=== PATIENT | female | born 1940 | race Caucasian/White ===

== ENCOUNTER 2017-09-04 20:01 | Inpatient (IN) | payer MEDICARE, BC ==
[~2017-09-04 20:01] MED LIST: ISOVUE-370 76%-LOCM 1 ML ONE
--- NOTE | 2017-09-04 20:31 | RAD ---
CHEST TWO VIEW 09/04/17 HISTORY: Chest pain. COMPARISON: Chest one view 06/04/17. FINDINGS: The heart size is enlarged. Linear opacities in both lung bases. Mild pulmonary venous congestion. There is S-shaped scoliosis of the thoracolumbar spine. Calcifications of the transverse aorta. Moderate degenerative disease of the shoulder joints. Severe vascular calcifications of the aorta. IMPRESSION: 1. Cardiomegaly with pulmonary venous congestion. 2. Atelectasis or scarring in the lung bases. POS: [facility]
[2017-09-04 20:38] LABS: #Eosinphils 0.1 thou/uL (0.0-0.7); #Lymphocytes 1.5 thou/uL (1.20-3.40); #Monocytes 0.7 thou/uL (0.11-0.59); #Neutrophils 4.8 thou/uL (1.40-6.50); %Basophils 0.3 % (0.0-1.0); %Eosinophils 1.7 % (0.0-10.0); %Lymphocytes 20.9 % (21.0-51.0); %Monocytes 9.1 % (0.0-10.0); Hematocrit 48.1 % (36.0-47.0); Mean Platelet Volume 7.6 fL (7.4-10.4); Red Blood Cell (RBC) Count 5.18 mill/uL (4.20-5.40); White Blood Cell (WBC) Count 7.1 thou/uL (4.8-10.8)
[2017-09-04 20:59] LABS: ALT (SGPT) 28 U/L (8-55); AST (SGOT) 30 U/L (5-34); Alkaline Phosphatase 73 U/L (40-150); Anion Gap 13 mmol/L (10-20); BUN (Urea Nitrogen) 17 mg/dL (9.8-20.1); Bilirubin, Total 1.6 mg/dL (0.2-1.2); CK (CPK) 69 U/L (29-168); Calc. Creatinine Clearance 0 mL/min (70-130); Calcium 9.5 mg/dL (7.8-10.44); Carbon Dioxide 29 mmol/L (23-31); Chloride 102 mmol/L (98-107); Estimated GFR-MDRD 59; Protein, Total 7.1 g/dL (6.0-8.3)
[2017-09-04 21:04] LABS: Troponin I 0.021 ng/mL (< 0.028)
[2017-09-04] MEDS ORDERED: Nitroglycerin 2% Ointment 1 INCH/1 GM Packet ONE (21:09)
[2017-09-04 21:21] LABS: PTT 28.9 SEC (22.9-36.1)
--- NOTE | 2017-09-04 21:52 | CT ---
CT BRAIN WITHOUT CONTRAST 09/04/17 HISTORY: Altered mental status. COMPARISON: CT brain from 2010. FINDINGS: No acute territorial infarct or hemorrhage. No midline shift or mass effect. Moderate atrophy. Modera te microvascular ischemic changes of the deep white matter of the anglin radiata bilaterally. Paranasal sinuses and mastoids are clear. Calvarium is intact. Orbits are unremarkable. IMPRESSION: 1. No acute intracranial abnormality. 2. Moderate atrophy and microangiopathic changes. POS: [facility]
--- NOTE | 2017-09-04 22:39 | CT ---
CTA CHEST WITH CONTRAST CTA ABDOMEN WITH CONTRAST 09/04/17 HISTORY: Altered mental status, asymmetric upper extremity blood pressures. COMPARISON: None. TECHNIQUE: CT angiogram of chest and abdomen performed for dissection protocol. 3D rendering provided. FINDINGS: Nodules in both lobes of the thyroid. The great vessels are ectatic. Pulmonary trunk is enlarged at 31 mm. There is approximately 50% narrowing of the proximal left subcl kathryn artery due to calcific plaque. There is also approximately 50% narrowing of the left vertebral artery due to calcific plaque and 30-40% narrowing of the right vertebral artery origin from soft sekou que. The heart size is markedly enlarged. There is no aortic dissection. There are a total of what appear to be three nodules in the superior segment right upper lobe. Larges t nodule measuring 9 mm and two smaller nodules measuring 4 and 5 mm. There is also a small adjacent nodule measuring 4 mm. Superior mesenteric artery and the celiac trunk are both patent. Moderate to severe S-shaped scoliosis of the thoracolumbar spine with severe degenerative disease of the disc spaces. No dilated loops of large or small bowel in the abdomen. Hypodensity in the superior pole right kidne y measuring 13 mm. Although measures greater than fluid attenuation and is indeterminate. Multiple bi lateral too small to characterize hypodensities are present. Calcified cholelithiasis is present. The spleen is unremarkable. There is a hypodensity within the pa ncreatic tail measuring 8 mm. No extrahepatic biliary dilatation. Too small to characterize hypodensity is present within hepatic s egment VII measuring 5 mm. IMPRESSION: 1. No aortic dissection. 2. New from 06/04/17 are nodular densities in superior segment of right lower lobe. Given the rap id development, infectious etiology is likely. Followup could be obtained in six months. 3. Marked cardiomegaly. 4. No aortic dissection. 5. Pulmonary trunk enlargement suggesting pulmonary arterial hypertension. 6. Hypodensity of the superior pole of the right kidney appears to have measured fluid attenuati on on prior examination, therefore is likely a cyst. 7. 8 mm hypodensity of the pancreatic tail. Followup MRI of the pancreas with and without contra st in six months. 8. Approximately 50% narrowing of the left subclavian artery origin from the transverse aorta du e to calcific and soft plaque. 9. Narrowing of the left vertebral artery approximately 50% due to calcific and soft plaque with 30-40% narrowing of the proximal right vertebral artery due to soft plaque. 10. Calcified cholelithiasis. POS: [facility]
[2017-09-04 22:55] LABS: Bilirubin Negative (Negative); Glucose, Urine (Dipstick) Negative (Negative); Ketone, Urine Negative (Negative); Nitrite Negative (Negative); Protein, Urine (Dipstick) Negative (Neg-Trace)
[2017-09-04 23:02] LABS: Bacteria/HPF None Seen HPF (None Seen); Hyaline Casts/LPF 4-6 HYALINE CAST LPF (0-3 Hyaline); Squamous Epithelial None Seen HPF (0-3)
[2017-09-04 23:05] LABS: Blood, Urine Negative (Negative)
[2017-09-04 23:11] LABS: RBC/HPF 0-3 HPF (0-3)
[2017-09-05] MEDS ORDERED: Nitroglycerin 2% Ointment 1 INCH/1 GM Packet ONE (00:22)
[2017-09-05 01:10] LABS: Troponin I 0.031 ng/mL (< 0.028)
[2017-09-05 01:30] VITALS: BMI 32.1
[2017-09-05] MEDS ORDERED: Ondansetron ODT 4 MG TAB SL PRN (01:31)
[2017-09-05] MEDS ORDERED: Acetaminophen 325 MG TAB PO PRN (01:31)
[2017-09-05] MEDS ORDERED: HYDROcodone/Acetaminophen 5/325 mg Tablet PO PRN ×2 (01:31)
[2017-09-05] MEDS ORDERED: Ondansetron HCl/PF 4 MG/2 ML Vial IVP PRN (01:31)
[2017-09-05] MEDS ORDERED: Nitroglycerin 2% Ointment 1 INCH/1 GM Packet TOP SCH (01:45)
[2017-09-05 04:31] LABS: Troponin I 0.019 ng/mL (< 0.028)
[2017-09-05] MEDS ORDERED: Aspirin 325 MG TAB PO SCH (09:00)
[2017-09-05] MEDS: Isosorbide Dinitrate 20 MG TAB PO SCH ×2 (11:58→20:56)
[2017-09-05] MEDS ORDERED: Potassium Chloride 10 MEQ TAB PO SCH ×2 (12:00→18:00)
[2017-09-05] MEDS: hydrALAZINE 25 MG TAB PO SCH ×2 (12:00→20:55)
[2017-09-05] MEDS ORDERED: Hydrochlorothiazide 25 MG TAB PO SCH (12:00)
[2017-09-05] MEDS ORDERED: PARoxetine 20 MG TAB PO SCH (12:00)
[2017-09-05] MEDS ORDERED: Apixaban 5 MG TAB PO SCH (12:00)
[2017-09-05] MEDS ORDERED: Sotalol HCl 80 MG TAB PO SCH (12:00)
[2017-09-05] MEDS: Fish Oil 1,000 MG CAP PO SCH ×2 (12:03→20:57)
[2017-09-05] MEDS: Lorazepam 0.5 MG TAB PO SCH (12:04)
--- NOTE | 2017-09-05 13:04 | HP ---
PRIMARY CARE PHYSICIAN: Dr. Ganga Boland CHIEF COMPLAINT: Near syncope. HISTORY OF PRESENT ILLNESS: This is a 76-year-old female patient with known coronary disease, status post coronary bypass graft, cardiac catheterization, history of paroxysmal atrial fibrillation, status post ablation in 2009 presented to the emergency department following an episode yesterday evening of feeling poorly. The patient states she was in her usual state of health. She was sitting on her couch at about 6:00 p.m. when she had an episode of feeling off balance, possibly some pressure and some diaphoresis during the episode. She said the episode lasted about 5-10 minutes and then resolved spontaneously. She did not pass out, but felt like she was "going in and out." She does have a history of atrial fibrillation, status post ablation, but had been in normal sinus. She states that she had an episode similar to this several months ago which resolved, but felt worse that last time. She presented to the emergency department, she was in normal sinus rhythm. She ruled out for an PA, but due to her episode and feeling off balance she was admitted for rule out PA protocol and further evaluation. This morning she felt back at her baseline. She felt really well and then as the morning progressed, she started feeling the episode again. Of note, the nurses did notice that she went back into atrial fibrillation this morning as well. She was admitted for chest pain, rule out PA in 05/2017. She had an unremarkable hospital stay. She followed up with Dr. Wallace and had a PET scan, which she reports was negative at that time. PAST MEDICAL HISTORY: Coronary artery disease, paroxysmal atrial fibrillation, hypertension, hyperlipidemia, anxiety. MEDICATIONS: Eliquis 5 mg b.i.d., calcium plus D twice a day, Coreg 12.5 mg b.i.d., CoQ 10 once daily, pantoprazole 40 mg daily, BiDil 3 times a day, lorazepam 0.5 mg daily p.r.n. anxiety, fish oil 1000 mg 3 times a day, paroxetine 40 mg daily, Betapace 80 mg b.i.d., simvastatin 80 mg daily, Zetia 10 mg daily, hydrochlorothiazide 25 mg daily, potassium chloride 10 mEq once daily. ALLERGIES: LASIX, and SULFA. PAST SURGICAL HISTORY: Ablation for atrial fibrillation in 2009, coronary bypass graft in 1999, cardiac catheterization in 2013. FAMILY HISTORY: Noncontributory. SOCIAL HISTORY: She denies alcohol. Denies tobacco. Denies drug use. She is . She lives with her at home and her daughter is nearby. REVIEW OF SYSTEMS: As per the history of present illness. GENERAL: She denies any recent fevers, chills or recent illness. HEENT: Denies headache, visual or hearing changes. She does state that she does have some problems finding words at a time. CARDIAC: As per the history of present illness. She denies chest pain, shortness of breath or palpitations. PULMONARY: Denies cough, shortness of breath, hemoptysis. GASTROINTESTINAL: Some nausea, no vomiting, no diarrhea. GENITOURINARY: Denies dysuria or hematuria. NEUROLOGIC: She states that she was told that she has had a stroke in the past and has had some problems finding words since that time. MUSCULOSKELETAL: Occasional joint pains. PHYSICAL EXAMINATION: VITAL SIGNS: Temperature 97.6, pulse of 89 and irregular, respirations 16, blood pressure 141/69, pulse ox 94% on room air. GENERAL: She is awake and alert. She appears anxious during the exam. HEENT: Mucosa is moist. NECK: Supple. No bruits. HEART: Irregular, irregular. LUNGS: Clear bilaterally. ABDOMEN: Soft, nontender, nondistended. No hepatosplenomegaly. EXTREMITIES: Trace edema bilaterally. NEUROLOGIC: Cranial nerves II-XII grossly intact. Strength is 5/5 bilaterally. LABORATORY DATA: White blood cell count 7.1, hemoglobin hematocrit 15.7 and 48.1, platelets 167. PT, PTT were normal. Sodium 141, potassium 3.3, chloride 102, CO2 29, BUN and creatinine 17 and 0.92, serum glucose 117, calcium 9.5, bilirubin 1.6, AST and ALT are normal. Cardiac enzymes are negative x3. Lipase 39. Urinalysis with high specific gravity, moderate leukocytes, but no bacteria. Chest x-ray revealed cardiomegaly with pulmonary vascular congestion, but no infiltrate, possibly atelectasis or scarring at the lung bases. Brain CT showed moderate atrophy. CT dissection protocol was done last night which revealed no dissection, but several nodular densities in the right lower lobe, possibly infectious. Recommend follow up in 6 months'. Marked cardiomegaly and large pulmonary trunk suggesting pulmonary artery hypertension, right renal cyst, 8 mm hypodensity in the pancreatic tail, recommended follow up MRI in 6 months, 50% narrowing of the left subclavian artery with calcific and soft plaque, 50% left vertebral artery narrowing with calcific and soft plaque and 30 -40% narrowing of the proximal right vertebral artery due to soft plaque, calcified cholelithiasis. ASSESSMENT AND PLAN: 1. This is a 76-year-old female patient with known coronary artery disease and paroxysmal atrial fibrillation, now status post a near syncopal episode. She apparently seems to be back in atrial fibrillation. She may have converted to normal sinus last night. We will continue Eliquis and start aspirin. We will consult Cardiology for evaluation for possibly other antiarrhythmics. 2. Coronary artery disease. Will continue Eliquis and aspirin. 3. Hypertension, stable on her medicines. 4. Hyperlipidemia. We will continue simvastatin and Zetia. 5. Anxiety. We will continue Paxil, possibly increase Ativan p.r.n. 6. Known atherosclerosis. We will continue statins and antiplatelet therapy. 7. Nodular densities in her lung. She is not symptomatic. I will agree with follow up in 6 months as well as for the hypodensity in the pancreas. 8. Code status. I had a long discussion with the patient, she desires DNR status at this time. She will notify her and her daughter as well of her decisions. KAMILAH
[2017-09-05] MEDS: Carvedilol 25 MG TAB PO SCH ×2 (13:12→21:17)
[2017-09-05] MEDS ORDERED: Non-Formulary Item 1 EACH (Isosorb Dinit/Hydralazine Hcl [Bidil] 1 TABLET) PO SCH (15:00)
--- NOTE | 2017-09-05 16:09 | CON ---
DATE OF CONSULTATION: 09/05/2017 REASON FOR CONSULTATION: Atrial fibrillation. HISTORY OF PRESENT ILLNESS: Ms. Malik is a 76-year-old, patient of Dr. Cristiano Wallace. The patient states that she began to feel weak and fatigued and just not feeling well at all yesterday evening. She has a history of paroxysmal atrial fibrillation. She came to the emergency room. She began to feel better, just before arriving here. On arrival here, she was in normal sinus rhythm. The patien t was brought in for observation. She did not receive sotalol last night. She had recurrent atrial fibrillation this morning at about 8:00 a.m. She began to feel badly again. She can feel her heart racing when she goes into atrial fibrillation, this does not feel well. She is maintained atrial fib rillation since then. The patient otherwise states that she does not have chest pain or pressure, but does feel short of br eath and these symptoms seem to correlate when she goes into atrial fibrillation. She had a recent P ET scan which did not show ischemia. The patient otherwise has been in relatively good physical condition for her age. PAST MEDICAL HISTORY: 1. Coronary artery disease. 2. Paroxysmal atrial fibrillation, highly symptomatic. 3. Previous atrial fibrillation ablation. 4. Hypertension. 5. Hyperlipidemia. MEDICATIONS: 1. Eliquis 5 mg twice daily. 2. Coreg 12.5 mg twice daily. 3. CoQ10. 4. BiDil. 5. Lorazepam. 6. Betapace. 7. Simvastatin. ALLERGIES: LASIX and SULFA. PAST SURGICAL HISTORY: Atrial fibrillation ablation in 2009, previous bypass surgery in 1999, cardia c catheterization in 2013. She had single vessel bypass in the year 1999. She had catheterization i n 2013. The graft had occluded, but there is only moderate stenosis in the vesicles. SOCIAL HISTORY: Denies alcohol. Lives with her . REVIEW OF SYSTEMS: Constitutional: No significant weight gain or loss. Vision: No changes. Heari ng: No changes. Pulmonary: No cough or wheezing. Gastrointestinal: No nausea, vomiting, or diarr hea. Skin: No rashes. Neurologic: No unilateral weakness or numbness. Psychiatric: No unusual d epression or anxiety. Hematologic: No unusual bruising. Genitourinary: No burning with urination. PHYSICAL EXAMINATION: GENERAL: A pleasant elderly woman in no distress. She does become apprehensive at times when talkin g about the fibrillation. VITAL SIGNS: Blood pressure is 146/96, pulse 100, irregular. HEENT: Sclerae nonicteric. Mouth mucous membranes moist. NECK: Supple, no lymphadenopathy. LUNGS: Clear, no wheezing, rales or rhonchi. CARDIAC: Irregularly irregular. No murmur, rub or gallop. ABDOMEN: Soft, nontender, no hepatosplenomegaly. EXTREMITIES: Warm, dry, no clubbing or cyanosis. There is mild edema. LABORATORY AND X-RAY FINDINGS: EKG when she came to the hospital last night showed sinus rhythm with some PACs and sinus arrhythmia, heart rate was 66. EKG later this morning showed atrial fibrillatio n with a rapid rate, rate of 120, some of the pattern looks like it could be atrial flutter, but most ly it is atrial fibrillation. EKG at 11:43 shows atrial fibrillation. ASSESSMENT: 1. Atrial fibrillation, paroxysmal, recurrent. She did miss a dose of sotalol last night. 2. Hypertension. 3. Coronary artery disease, stable. PLAN: 1. Continue sotalol. 2. Discussed changing to amiodarone, discussed potential side effects including pulmonary disease. The patient does not wish to pursue that at this point. 3. She is also allergic to SULFA. Fortunately, there is no SULFA in amiodarone. We will reassess to julito.
[2017-09-05] MEDS ORDERED: Potassium Chloride 20 MEQ TAB PO SCH (18:00)
[2017-09-05] MEDS: Sotalol HCl 80 MG TAB PO SCH (20:56)
[2017-09-05] MEDS: Calcium Carbonate + Vit D 1 TAB PO SCH (20:56)
[2017-09-05] MEDS: Ubidecarenone 50 MG CAP PO SCH (20:57)
[2017-09-05] MEDS: Apixaban 5 MG TAB PO SCH (20:57)
[2017-09-05] MEDS ORDERED: Simvastatin 40 MG TAB PO SCH (21:00)
[2017-09-05] MEDS ORDERED: Ezetimibe 10 MG TAB PO SCH (21:00)
[2017-09-05] MEDS: Carvedilol 6.25 MG TAB PO SCH (21:15)
[2017-09-06] MEDS ORDERED: Potassium Chloride 10 MEQ TAB PO SCH (09:00)
[2017-09-06] MEDS ORDERED: PARoxetine 20 MG TAB PO SCH (09:00)
[2017-09-06] MEDS ORDERED: FLU VACC TS2017-18 (>65YR) 0.5 ML SYRINGE IM ONE (09:00)
[2017-09-06] MEDS ORDERED: Hydrochlorothiazide 25 MG TAB PO SCH (09:00)
[2017-09-06] MEDS ORDERED: Aspirin 81 mg Enteric Coated Tablet PO SCH (09:00)
[2017-09-06] MEDS: hydrALAZINE 25 MG TAB PO SCH (09:10)
[2017-09-06] MEDS: Fish Oil 1,000 MG CAP PO SCH (09:10)
[2017-09-06] MEDS: Ubidecarenone 50 MG CAP PO SCH (09:10)
[2017-09-06] MEDS: Apixaban 5 MG TAB PO SCH (09:13)
[2017-09-06] MEDS: Calcium Carbonate + Vit D 1 TAB PO SCH (09:14)
[2017-09-06] MEDS: Isosorbide Dinitrate 20 MG TAB PO SCH (09:14)
[2017-09-06 09:15] VITALS: BP 159/76
[2017-09-06] MEDS: Carvedilol 6.25 MG TAB PO SCH (09:22)
[2017-09-06] MEDS: Sotalol HCl 80 MG TAB PO SCH (09:22)
--- NOTE | 2017-09-06 10:48 | PRG ---
DATE OF SERVICE: 09/06/2017 SUBJECTIVE: Ms. Malik is back in sinus rhythm. She converted back this morning. She feels fine. She has no chest pain or pressure. PHYSICAL EXAMINATION: VITAL SIGNS: Blood pressure is 159/76, pulse 58, sinus on the monitor. LUNGS: Clear. CARDIAC: Normal S1, normal S2. ASSESSMENT: 1. Atrial fibrillation, paroxysmal. 2. The patient converted back to sinus rhythm this morning. While sleeping, she did not have a sign ificant pause at that time, was only 1.8 seconds from the time that the fibrillation terminated to si nus rhythm and that occurred at 3:36 a.m. 3. Previously normal PET scan. PLAN: 1. Go home and get a 30-day monitor. If she has continued symptomatic atrial fibrillation, discusse d the options of either changing to amiodarone or repeat ablation. 2. Maintain on anticoagulant. 3. To follow up with Dr. Wallace as an outpatient.
[2017-09-06 11:38] VITALS: TEMP 98
[2017-09-06] MEDS: Lorazepam 0.5 MG TAB PO SCH (13:00)
--- NOTE | 2017-09-06 15:11 | DIS ---
DATE OF ADMISSION: 09/05/2017 DATE OF DISCHARGE: 09/06/2017 PRIMARY CARE PHYSICIAN: Ganga Boland M.D. ADMISSION DIAGNOSES: 1. Near syncope. 2. Paroxysmal atrial fibrillation. 3. Rule out myocardial infarction protocol. DISCHARGE DIAGNOSES: 1. Atrial fibrillation converted to normal sinus rhythm. 2. Coronary artery disease. 3. Hypertension. 4. Hyperlipidemia. 5. Anxiety. 6. Nodular density in her lung. 7. Hypodensity in her pancreas. CONSULTATION: Dr. Rocha for Cardiology. PROCEDURES: Rule out CO protocol, telemetry monitoring, CT of the chest, and brain CT. HOSPITAL COURSE: This is a 76-year-old female patient of Dr. Ganga Boland with a history of paroxys mal atrial fibrillation, coronary artery disease, anxiety, and hypertension. She presented to the em ergency department after an episode of near syncope, feeling off balance and some diaphoresis. She w as admitted and eventually ruled out for an CO with negative cardiac enzymes. She never had chest pa in. She was in atrial fibrillation. When she was feeling badly, she eventually converted back to no rmal sinus. On the day of discharge, she was seen by Dr. Rocha for evaluation. He offered her to c hange medications to amiodarone and the patient declined. Recommended follow up for possible outpati ent monitor with an event monitor versus loop recorder. She was stable for discharge on the day of d ischarge. DISCHARGE PHYSICAL EXAMINATION: VITAL SIGNS: Temperature 97.9, pulse 58, respirations 20, blood pressure 159/76, pulse ox is 96% on room air. GENERAL: She is awake, alert, in no acute distress. Speech is clear with no conversational dyspnea. NECK: Supple. HEART: Regular rate and rhythm without ectopy. LUNGS: Clear bilaterally. ABDOMEN: Obese, soft, nontender, and nondistended. EXTREMITIES: With no edema. LABORATORY DATA AND IMAGING: Discharge labs again troponin was negative x3. CT of the chest reveale d no dissection, no aneurysm, but did reveal new nodular densities in the right lower lobe. Radiolog ist recommended 6 month followup, marked cardiomegaly, pulmonary trunk enlargement, right renal cyst, 8 mm hypodensity in the tail of the pancreas. Recommended 6 month followup on the MRI and atheroscl erosis in the left subclavian and right and left vertebral arteries. DISCHARGE MEDICATIONS: Include Eliquis 5 mg b.i.d., aspirin 81 mg daily, Caltrate D, Coreg 12.5 mg b .i.d., CoQ10 daily, Zetia 10 mg daily, fish oil 1000 mg t.i.d., hydralazine 37.5 mg t.i.d., hydrochlo rothiazide 25 mg daily, isosorbide 20 mg t.i.d., Ativan 0.5 mg daily, Protonix 40 mg daily, Paxil 40 mg daily, Klor-Con 10 mEq daily, simvastatin 80 mg daily, sotalol 80 mg b.i.d. FOLLOWUP: With Dr. Wallace in 1-2 weeks to discuss Holter versus event monitor. Follow up with Dr. Boland in 1-2 weeks.
--- NOTE | 2017-09-08 07:34 | EKG ---
Test Reason : Blood Pressure : / mmHG Vent. Rate : 093 BPM Atrial Rate : 234 BPM P-R Int : 000 ms QRS Dur : 084 ms QT Int : 380 ms P-R-T Axes : 000 026 128 degrees QTc Int : 472 ms Atrial flutter with variable A-V block Septal infarct , age undetermined Abnormal ECG When compared with ECG of 04-SEP-2017 20:11, (Unconfirmed) Atrial flutter has replaced Sinus rhythm Confirmed by LAILA NAVARRETE, DR. Stanton ([id number]) on 09/08/2017 7:34:25 AM Referred By: MIRA Confirmed By:DR. Maximino ULLOA MD
== END 2017-09-06 13:09 | disposition home or self-care (01) | DRG 310 ==
LOC: ERS 20:01 → 2SW 09-05 00:03 → OBSVTOIN 09-05 11:01 → 2NO 09-05 16:51
PROVIDERS: ADMIT Family Medicine; ATTEND Family Medicine
DX: I48.0 Paroxysmal atrial fibrillation (principal); Z95.1 Presence of aortocoronary bypass graft; N28.1 Cyst of kidney, acquired; Z79.01 Long term (current) use of anticoagulants; I25.10 Atherosclerotic heart disease of native coronary artery without angina pectoris; I10 Essential (primary) hypertension; E78.5 Hyperlipidemia, unspecified; F41.9 Anxiety disorder, unspecified; R91.1 Solitary pulmonary nodule; K86.9 Disease of pancreas, unspecified; Z88.2 Allergy status to sulfonamides; Z88.8 Allergy status to other drugs, medicaments and biological substances
CPT/HCPCS: 36415; 70450; 71020; 71275; 80053; 81003; 81015; 82550; 82553; 83690; 84484; 85025; 85610; 85730; 87086; 90471; 90682; 93005; 93010; A4216; G0008; Q2036

== ENCOUNTER 2017-09-30 14:44 | Emergency (ER) | payer MEDICARE, BC ==
[2017-09-30 15:08] LABS: #Eosinphils 0.1 thou/uL (0.0-0.7); #Lymphocytes 1.8 thou/uL (1.20-3.40); #Monocytes 0.6 thou/uL (0.11-0.59); #Neutrophils 3.2 thou/uL (1.40-6.50); %Basophils 0.1 % (0.0-1.0); %Eosinophils 1.7 % (0.0-10.0); %Lymphocytes 31.5 % (21.0-51.0); %Monocytes 10.1 % (0.0-10.0); Hematocrit 47.4 % (36.0-47.0); Mean Platelet Volume 7.6 fL (7.4-10.4); Red Blood Cell (RBC) Count 5.07 mill/uL (4.20-5.40); White Blood Cell (WBC) Count 5.7 thou/uL (4.8-10.8)
[2017-09-30 15:30] LABS: ALT (SGPT) 19 U/L (8-55); AST (SGOT) 22 U/L (5-34); Alkaline Phosphatase 63 U/L (40-150); Anion Gap 12 mmol/L (10-20); BUN (Urea Nitrogen) 20 mg/dL (9.8-20.1); Bilirubin, Total 1.4 mg/dL (0.2-1.2); CK (CPK) 60 U/L (29-168); Calc. Creatinine Clearance 0 mL/min (70-130); Calcium 9.6 mg/dL (7.8-10.44); Carbon Dioxide 28 mmol/L (23-31); Chloride 102 mmol/L (98-107); Estimated GFR-MDRD 57; Globulin 2.9 g/dL (2.4-3.5); Protein, Total 6.9 g/dL (6.0-8.3)
--- NOTE | 2017-09-30 15:34 | RAD ---
SINGLE VIEW OF THE CHEST: Comparison: 06-04-17 History: Dizziness and lightheadedness. FINDINGS: Single view of the chest shows an enlarged cardiomediastinal silhouette. The patient is status post s ternotomy. Atherosclerotic calcifications are seen in the aorta. There is no evidence of consolidatio n, mass or pleural effusions. IMPRESSION: Cardiomegaly without evidence of acute cardiopulmonary disease. POS: [facility]
[2017-09-30 15:35] LABS: Troponin I 0.014 ng/mL (< 0.028)
--- NOTE | 2017-09-30 15:42 | CT ---
CT OF THE BRAIN WITHOUT CONTRAST: Date: 09/30/17 COMPARISON: 09/04/17. HISTORY: Dizziness for 1 month and lightheadedness. TECHNIQUE: Multiple contiguous axial images were obtained in a CT of the brain without contrast. FINDINGS: There are scattered hypodensities in the subcortical and periventricular white matter, likely seconda ry to small vessel ischemic disease. No large confluent infarction is seen. There is no evidence of h ydrocephalus, intracranial hemorrhage, or extra-axial fluid collection. The calvarium and overlying soft tissues are unremarkable. The visualized paranasal sinuses and masto id air cells are well aerated. IMPRESSION: No evidence of acute intracranial abnormality. POS: [facility]
[2017-09-30] MEDS ORDERED: Meclizine HCl 25 MG TAB ONE (15:45)
[2017-09-30 17:14] LABS: Bilirubin Negative (Negative); Blood, Urine Negative (Negative); Glucose, Urine (Dipstick) Negative (Negative); Ketone, Urine Negative (Negative); Nitrite Negative (Negative); Protein, Urine (Dipstick) Negative (Neg-Trace)
[2017-09-30 17:15] LABS: Bacteria/HPF None Seen HPF (None Seen); Hyaline Casts/LPF 0-3 HYALINE CAST LPF (0-3 Hyaline); Squamous Epithelial 0-3 HPF (0-3)
== END 2017-09-30 18:15 | disposition home or self-care (01) ==
LOC: ERS 14:44
DX: R42 Dizziness and giddiness (principal); J06.9 Acute upper respiratory infection, unspecified; I25.2 Old myocardial infarction; I25.810 Atherosclerosis of coronary artery bypass graft(s) without angina pectoris; I10 Essential (primary) hypertension; E78.00 Pure hypercholesterolemia, unspecified; F41.9 Anxiety disorder, unspecified; Z79.899 Other long term (current) drug therapy
CPT/HCPCS: 70450; 71010; 80053; 81003; 81015; 82553; 84484; 85025; 87077; 87086; 93005; 94760

== ENCOUNTER 2018-09-14 14:25 | Emergency (ER) | payer MEDICARE, BC ==
[2018-09-14 15:23] LABS: #Eosinphils 0.1 thou/uL (0.0-0.7); #Lymphocytes 1.3 thou/uL (1.20-3.40); #Neutrophils 8.5 thou/uL (1.40-6.50); %Basophils 0.2 % (0.0-1.0); %Eosinophils 0.9 % (0.0-10.0); %Lymphocytes 12.2 % (21.0-51.0); %Monocytes 8.7 % (0.0-10.0); %Neutrophils 77.8 % (42.0-75.0); Mean Corpuscular HGB CONC 33.9 g/dL (32.0-36.0); Mean Corpuscular Hemoglobin 30.6 pg (27.0-31.0); Mean Corpuscular Volume 90.1 fL (78.0-98.0); Mean Platelet Volume 8.1 fL (7.4-10.4); Platelet Count 189 thou/uL (130-400); RBC Distribution Width 12.6 % (11.5-14.5); Red Blood Cell (RBC) Count 5.23 mill/uL (4.20-5.40); White Blood Cell (WBC) Count 10.9 thou/uL (4.8-10.8)
[2018-09-14 15:45] LABS: ALT (SGPT) 13 U/L (8-55); AST (SGOT) 17 U/L (5-34); Albumin 3.9 g/dL (3.4-4.8); Alkaline Phosphatase 62 U/L (40-150); Anion Gap 13 mmol/L (10-20); BUN (Urea Nitrogen) 14 mg/dL (9.8-20.1); Bilirubin, Total 2.2 mg/dL (0.2-1.2); Calc. Creatinine Clearance 0 mL/min (70-130); Calcium 9.6 mg/dL (7.8-10.44); Carbon Dioxide 30 mmol/L (23-31); Chloride 98 mmol/L (98-107); Estimated GFR-MDRD 59; Glucose 131 mg/dL (83-110); Lipase 23 U/L (8-78); Protein, Total 6.9 g/dL (6.0-8.3); Sodium 138 mmol/L (136-145)
[2018-09-14 15:49] LABS: Potassium 2.8 mmol/L (3.5-5.1)
[2018-09-14] MEDS ORDERED: Potassium Chloride 20 MEQ TAB ONE (16:45)
[2018-09-14] MEDS ORDERED: Lidocaine Viscous Sol 2% 15 ml UD Cup ONE (17:06)
== END 2018-09-14 17:57 | disposition home or self-care (01) ==
LOC: ERS 14:25
DX: K59.00 Constipation, unspecified (principal); Z86.73 Personal history of transient ischemic attack (TIA), and cerebral infarction without residual deficits; I25.2 Old myocardial infarction; I25.10 Atherosclerotic heart disease of native coronary artery without angina pectoris; I10 Essential (primary) hypertension; F41.9 Anxiety disorder, unspecified; E78.00 Pure hypercholesterolemia, unspecified; Z79.899 Other long term (current) drug therapy
CPT/HCPCS: 36415; 80053; 83690; 85025; 99283

== ENCOUNTER 2018-11-22 09:29 | Inpatient (IN) | payer MEDICARE, BC ==
[~2018-11-22 09:29] MED LIST changes: -ISOVUE-370 76%-LOCM 1 ML ONE; +Magnesium 5 GM/10 ML Abboject SYRINGE ONE
[2018-11-22 10:02] LABS: #Eosinphils 0.1 thou/uL (0.0-0.7); #Lymphocytes 1.5 thou/uL (1.20-3.40); #Monocytes 0.6 thou/uL (0.11-0.59); %Basophils 0.4 % (0.0-1.0); %Eosinophils 0.7 % (0.0-10.0); %Lymphocytes 20.3 % (21.0-51.0); %Monocytes 8.6 % (0.0-10.0); Hemoglobin 14.5 g/dL (12.0-16.0); Mean Corpuscular HGB CONC 32.6 g/dL (32.0-36.0); Mean Corpuscular Volume 89.1 fL (78.0-98.0); Mean Platelet Volume 8.7 fL (7.4-10.4); Platelet Count 150 thou/uL (130-400); RBC Distribution Width 13.1 % (11.5-14.5); White Blood Cell (WBC) Count 7.2 thou/uL (4.8-10.8)
--- NOTE | 2018-11-22 10:15 | RAD ---
PORTABLE CHEST 1 VIEW: DATE: 11/22/2018. TIME: 8:46 a.m. HISTORY: Chest pain. FINDINGS/IMPRESSION: There are changes of median sternotomy. The heart is enlarged. The aorta is tortuous. There is mid prominence of the pulmonary vascularity. No lobar consolidation or large effusions are seen. There is scoliosis of the spine. POS: [facility]
[2018-11-22 10:22] LABS: ALT (SGPT) 18 U/L (8-55); AST (SGOT) 33 U/L (5-34); Albumin 4.2 g/dL (3.4-4.8); Alkaline Phosphatase 56 U/L (40-150); Anion Gap 17 mmol/L (10-20); BUN (Urea Nitrogen) 26 mg/dL (9.8-20.1); CK (CPK) 68 U/L (29-168); Calc. Creatinine Clearance 0 mL/min (70-130); Calcium 9.7 mg/dL (7.8-10.44); Carbon Dioxide 25 mmol/L (23-31); Chloride 100 mmol/L (98-107); Estimated GFR-MDRD 47; Globulin 2.9 g/dL (2.4-3.5); Glucose 230 mg/dL (83-110); Lipase 28 U/L (8-78); Potassium 3.6 mmol/L (3.5-5.1); Protein, Total 7.1 g/dL (6.0-8.3); Sodium 138 mmol/L (136-145)
[2018-11-22] MEDS ORDERED: Aspirin 325 MG TAB ONE (10:36)
[2018-11-22] MEDS ORDERED: Nitroglycerin 2% Ointment 1 INCH/1 GM Packet ONE (10:36)
[2018-11-22 10:44] LABS: CKMB 1.1 ng/mL (0-6.6)
[2018-11-22] MEDS ORDERED: Metolazone 5 MG TAB PO SCH (11:45)
[2018-11-22 13:54] LABS: CKMB 1.2 ng/mL (0-6.6)
[2018-11-22] MEDS ORDERED: Acetaminophen 325 MG TAB PO PRN (17:21)
--- NOTE | 2018-11-22 19:48 | HP ---
HISTORY OF PRESENT ILLNESS: The patient is an 78-year-old female with a known history of atrial fibrillation, who presented to the emergency room complaining of onset of shortness of breath, feelings of chest pain and discomfort. She has had a previous history of atrial fibrillation. She was found to be in atrial fibrillation with rapid ventricular response. She did receive some IV Cardizem, which did slow her rate down. She was found to have elevated BNP. During this time, she was noted to have chest pain with no evidence of acute coronary syndrome. She subsequently has been given p.o. metolazone due to the fact that she is allergic to Lasix. Otherwise, no other medical complaints noted above. By the time, I was able to interview the patient, she states she is feeling a little bit better. Still feels a little short of breath, but not have any further chest pain. Otherwise, no other medical complaints are noted. As noted, she has a previous history of atrial fibrillation that is rate controlled. She is currently on multiple medications for this. She is followed by Dr. Wallace. ALLERGIES: SHE IS CURRENTLY LISTED ALLERGIC TO LASIX AND SULFA. CURRENT MEDICATIONS: Noted in the chart and have been reviewed. PAST MEDICAL HISTORY: Positive for the above noted atrial fibrillation, hyperlipidemia, anxiety, coronary artery disease. She may have some mild dementia. PAST SURGICAL HISTORY: Positive for cardiac artery bypass graft ablation for atrial fibrillation. REVIEW OF SYSTEMS: GI: Negative. : Negative. CARDIOVASCULAR: As above. RESPIRATORY: Positive as above. NEUROLOGIC: Otherwise negative. PHYSICAL EXAMINATION: VITAL SIGNS: Pulse is 88 and irregular, temperature 97.6, O2 saturation is 98% on room air, and blood pressure 124/74. GENERAL: She is alert and active. Does not appear to be in any distress. HEENT: Normocephalic and atraumatic. Sclerae and conjunctivae clear. NECK: Supple. Full range of motion. No masses. LUNGS: Bilateral breath sounds. HEART: Reveals an irregularly irregular rhythm without murmurs, gallops, or rubs. ABDOMEN: Soft and nontender. Bowel sounds are present and active. There is no hepatosplenomegaly noted. There is no evidence of rebound or guarding otherwise noted. EXTREMITIES: Show 1+ edema bilaterally. NEUROLOGIC: She is responsive. Moves all extremities well. Follows commands. LABORATORY DATA: Her white blood count 7.2, hemoglobin 14.5, hematocrit 44.5. Sodium 138, potassium 3.6, chloride 100, CO2 of 25, BUN 26, creatinine 1.12. Initial troponin 0.044 and initial BNP 542. DIAGNOSTIC DATA: Chest x-ray is otherwise clear. EKG reveals atrial fibrillation without evidence of acute changes. IMPRESSION: 1. Atrial fibrillation with rapid ventricular response. 2. Chest pain with history of atherosclerotic coronary artery disease. 3. Probable mild congestive heart failure, possibly related to her atrial fibrillation. PLAN: 1. We will be attempting to diurese her with oral metolazone at this time and continue her home medications. 2. We will consult Cardiology for further treatment, recommendations, and testing considerations. 3. Serial troponins have been ordered. Job ID: [id number]
[2018-11-22] MEDS: hydrALAZINE 25 MG TAB PO SCH (21:03)
[2018-11-22] MEDS: Sotalol HCl 80 MG TAB PO SCH (21:06)
[2018-11-22] MEDS: Apixaban 5 MG TAB PO SCH (21:06)
[2018-11-22] MEDS: Ubidecarenone 50 MG CAP PO SCH (21:07)
[2018-11-22] MEDS: Isosorbide Dinitrate 20 MG TAB PO SCH (21:08)
[2018-11-22] MEDS: Fish Oil 1,000 MG CAP PO SCH (21:08)
[2018-11-22] MEDS: Calcium Carbonate + Vit D 1 TAB PO SCH (21:09)
[2018-11-22] MEDS: Atorvastatin Calcium 40 MG TAB PO SCH (21:09)
[2018-11-22] MEDS: Ezetimibe 10 MG TAB PO SCH (21:09)
[2018-11-22] MEDS: Carvedilol 6.25 MG TAB PO SCH (21:10)
[2018-11-22 23:44] VITALS: BMI 28.4
[2018-11-23 05:22] LABS: Anion Gap 15 mmol/L (10-20); BUN (Urea Nitrogen) 22 mg/dL (9.8-20.1); Calc. Creatinine Clearance 54 mL/min (70-130); Calcium 9.5 mg/dL (7.8-10.44); Carbon Dioxide 25 mmol/L (23-31); Chloride 102 mmol/L (98-107); Estimated GFR-MDRD 53; Glucose 137 mg/dL (83-110); Sodium 139 mmol/L (136-145)
[2018-11-23] MEDS ORDERED: Potassium Chloride 20 MEQ TAB PO SCH (07:45)
[2018-11-23] MEDS: Nitroglycerin 2% Ointment 1 INCH/1 GM Packet TOP SCH ×2 (08:15→21:08)
[2018-11-23] MEDS ORDERED: Nystatin Cream 30 GM TUBE TOP SCH (09:00)
[2018-11-23] MEDS ORDERED: Digoxin 0.5 MG/2 ML AMP SLOW IVP SCH ×2 (09:45→10:45)
[2018-11-23] MEDS: PARoxetine 20 MG TAB PO SCH (10:31)
[2018-11-23] MEDS: hydrALAZINE 25 MG TAB PO SCH ×3 (10:31→21:06)
[2018-11-23] MEDS: Carvedilol 6.25 MG TAB PO SCH ×2 (10:32→21:07)
[2018-11-23] MEDS: Isosorbide Dinitrate 20 MG TAB PO SCH ×3 (10:37→21:08)
[2018-11-23] MEDS: Potassium Chloride 10 MEQ TAB PO SCH (10:37)
[2018-11-23] MEDS: Apixaban 5 MG TAB PO SCH ×2 (10:38→21:08)
[2018-11-23] MEDS: Aspirin 81 mg Enteric Coated Tablet PO SCH (10:38)
[2018-11-23] MEDS: Calcium Carbonate + Vit D 1 TAB PO SCH ×2 (10:39→21:05)
[2018-11-23] MEDS: Hydrochlorothiazide 25 MG TAB PO SCH (10:39)
[2018-11-23] MEDS: Fish Oil 1,000 MG CAP PO SCH ×3 (10:39→21:08)
[2018-11-23] MEDS: Sotalol HCl 80 MG TAB PO SCH ×2 (10:40→21:05)
[2018-11-23] MEDS: Ubidecarenone 50 MG CAP PO SCH ×2 (10:40→21:06)
[2018-11-23] MEDS: Clotrimazole 1 % Cream 30 GM TUBE TOP SCH ×2 (10:42→21:16)
[2018-11-23] MEDS: Lorazepam 0.5 MG TAB PO SCH (11:49)
--- NOTE | 2018-11-23 16:40 | CON ---
DATE OF CONSULTATION: HISTORY OF PRESENT ILLNESS: The patient is an 78-year-old woman with history of coronary artery disease, who presented with palpitations and chest discomfort. The patient has a long history of coronary artery disease. In the year 1999, she underwent coronary artery bypass surgery x1. She had a coronary artery bypass graft to the left circumflex artery. The patient underwent a followup cardiac catheterization in 2009. She was found to have an occluded saphenous vein graft. In 2013, she was found to have 50% proximal LAD, 50% mid lesion, and 50% left circumflex artery. The patient had been on medical therapy. She also has a history of atrial fibrillation and flutter and has previously undergone radiofrequency ablation in 2009 for atrial flutter. The patient also has a history of pulmonary hypertension. The patient has been admitted on several occasions with chest discomfort and palpitations, most recently when she ran out of her Betapace. The patient states she has intermittent palpitations, which may cause her to have substernal chest discomfort. She states the discomfort is worse when she has palpitations. The patient in past few days has noticed palpitations associated with chest discomfort. PAST MEDICAL HISTORY: 1. Atrial fibrillation. 2. Coronary artery disease. 3. Hypertension. 4. History of pulmonary hypertension. 5. History of severe tricuspid regurgitation. 6. History of atrial flutter. 7. Dyslipidemia. 8. Anxiety. PAST SURGICAL HISTORY: Coronary artery bypass graft surgery. ALLERGIES: SULFA DRUGS. MEDICATIONS: 1. Protonix 40 daily. 2. Ativan 0.5 daily. 3. Betapace 80 b.i.d. 4. Coreg 12.5 b.i.d. 5. Eliquis 5 b.i.d. 6. Potassium 1 tablet daily. 7. Zocor 80 at bedtime. 8. Zetia 10 daily. 9. BiDil 20/37.5 daily. 10. Hydrochlorothiazide 25 daily. FAMILY HISTORY: Strong family history of heart disease. REVIEW OF SYSTEMS: Ten point system otherwise unremarkable. PHYSICAL EXAMINATION: GENERAL: This is an obese woman, in no acute distress. VITAL SIGNS: Blood pressure is 150/113. NECK: Showed no jugular venous distention. LUNGS: Clear to auscultation. HEART: Irregular rate and rhythm. Normal S1 and S2 with a 2/6 systolic murmur. ABDOMEN: Nondistended. EXTREMITIES: Showed mild bilateral edema. VASCULAR: Radial pulses 2+. LABORATORY DATA: Sodium 139, potassium 3.0, chloride 102, bicarbonate 25, BUN 20, creatinine is 1.0. Troponin was 0.037. Her EKG revealed atrial fibrillation with a rapid ventricular response. IMPRESSION: 1. Recurrent atrial fibrillation. 2. Chest pain. 3. History of coronary artery disease. 4. Dyslipidemia. 5. History of severe mitral regurgitation. 6. History of severe tricuspid regurgitation. PLAN: This patient presents with recurrent atrial fibrillation and chest discomfort. We will add digoxin to the patient's medical regimen. We will plan on PEPPER electrocardioversion. We will contact the EP service for evaluation for possible ablation. We will follow this patient with you through her hospitalization. Job ID: [id number] MTDD
[2018-11-23] MEDS: Atorvastatin Calcium 40 MG TAB PO SCH (21:06)
[2018-11-23] MEDS: Ezetimibe 10 MG TAB PO SCH (21:06)
[2018-11-24] MEDS ORDERED: cloNIDine 0.1 MG TAB PO PRN ×2 (05:49→06:00)
[2018-11-24 06:02] LABS: Anion Gap 14 mmol/L (10-20); BUN (Urea Nitrogen) 15 mg/dL (9.8-20.1); Calc. Creatinine Clearance 59 mL/min (70-130); Calcium 9.8 mg/dL (7.8-10.44); Carbon Dioxide 26 mmol/L (23-31); Chloride 101 mmol/L (98-107); Estimated GFR-MDRD 58; Glucose 136 mg/dL (83-110); Potassium 3.5 mmol/L (3.5-5.1); Sodium 137 mmol/L (136-145)
[2018-11-24] MEDS ORDERED: PROPOFOL 20 ML ONE (08:44)
[2018-11-24] MEDS ORDERED: Digoxin 0.125 MG TAB PO SCH (09:00)
[2018-11-24] MEDS ORDERED: PROPOFOL 200 MG/20 ML VIAL ONE (10:57)
[2018-11-24] MEDS ORDERED: Lidocaine 1% PF 5 ML VIAL ONE (10:57)
--- NOTE | 2018-11-24 11:14 | OP ---
DATE OF PROCEDURE: 11/24/2018 PROCEDURE PERFORMED: Electrocardioversion. INDICATIONS: This is an 78-year-old woman with paroxysmal atrial fibrillation. DESCRIPTION OF PROCEDURE: The patient was taken to the PACU. The patient was sedated by anesthesiology. The patient was shocked with 200 joules and then 300 joules of synchronized electricity. The patient converted to normal sinus rhythm. IMPRESSION: Successful electrocardioversion. Job ID: [id number]
[2018-11-24] MEDS: Ubidecarenone 50 MG CAP PO SCH ×2 (13:05→21:35)
[2018-11-24] MEDS: Apixaban 5 MG TAB PO SCH ×2 (13:06→21:36)
[2018-11-24] MEDS: Aspirin 81 mg Enteric Coated Tablet PO SCH (13:06)
[2018-11-24] MEDS: Fish Oil 1,000 MG CAP PO SCH ×3 (13:06→21:34)
[2018-11-24] MEDS: PARoxetine 20 MG TAB PO SCH (13:06)
[2018-11-24] MEDS: Potassium Chloride 10 MEQ TAB PO SCH (13:06)
[2018-11-24] MEDS: hydrALAZINE 25 MG TAB PO SCH ×3 (13:07→21:36)
[2018-11-24] MEDS: Hydrochlorothiazide 25 MG TAB PO SCH (13:07)
[2018-11-24] MEDS: Carvedilol 6.25 MG TAB PO SCH ×2 (13:08→21:36)
[2018-11-24] MEDS: Isosorbide Dinitrate 20 MG TAB PO SCH ×3 (13:08→21:37)
[2018-11-24] MEDS: Calcium Carbonate + Vit D 1 TAB PO SCH ×2 (13:09→21:36)
[2018-11-24] MEDS: Lorazepam 0.5 MG TAB PO SCH (13:09)
[2018-11-24] MEDS: Sotalol HCl 80 MG TAB PO SCH ×2 (13:09→21:35)
[2018-11-24] MEDS: Nitroglycerin 2% Ointment 1 INCH/1 GM Packet TOP SCH ×2 (13:09→21:40)
[2018-11-24] MEDS: Clotrimazole 1 % Cream 30 GM TUBE TOP SCH ×2 (13:10→21:38)
--- NOTE | 2018-11-24 13:48 | ECHO ---
TRANSESOPHAGEAL ECHOCARDIOGRAM: DATE OF PROCEDURE: 11/24/18 INDICATION: This is an 78-year-old woman with paroxysmal atrial fibrillation. DESCRIPTION OF PROCEDURE: The patient was taken to the PACU. The patient was sedated by anesthesiology. A transesophageal probe was placed in the distal esophagus and stomach. Echocardiographic images were obtained. The transesophageal probe was removed. FINDINGS: 1. Normal left ventricular systolic function. 2. Biatrial enlargement. 3. Severe mitral regurgitation. 4. Moderate to severe tricuspid regurgitation. 5. Mild aortic regurgitation. 6. No thrombus noted in the left atrium or left atrial appendage. 7. Atherosclerotic debris in the descending aorta. IMPRESSION: No formed thrombus in the left atrium or left atrial appendage.
--- NOTE | 2018-11-24 16:34 | PRG ---
DATE OF SERVICE: 11/24/2018 SUBJECTIVE: Ms. Malik is doing well. She is still in AFib. She will be undergoing cardioversion later today. She has no medical complaints. OBJECTIVE: VITAL SIGNS: Temperature is 98.1, blood pressure 133/88. LUNGS: Clear. HEART: Reveals no murmur. Irregularly irregular rhythm is noted. IMPRESSION: Atrial fibrillation. PLAN: Plan is to cardiovert today. Job ID: [id number]
[2018-11-24] MEDS: Ezetimibe 10 MG TAB PO SCH (21:35)
[2018-11-24] MEDS: Atorvastatin Calcium 40 MG TAB PO SCH (21:37)
[2018-11-25 00:07] LABS: Actual Bicarbonate (HCO3v) 23 mEq/L (22-28); Calcium, Ionized 1.03 mmol/L (1.16-1.32); Chloride (ABG LAB) 100 mmol/L (98-106); Hemoglobin (Hb) 14.7 g/dL (11.7-16.1); Potassium - ABG Lab 3.25 mmol/L (3.70-5.30); Sodium 133.3 mmol/L (133-146); pH (venous) 7.52 (7.32-7.43)
[2018-11-25] MEDS ORDERED: Magnesium 2 GM/50 ML 2 GM in Premix Bag 1 BAG IVPB SCH (00:15)
[2018-11-25 00:45] LABS: ALT (SGPT) 14 U/L (8-55); AST (SGOT) 21 U/L (5-34); Albumin 3.8 g/dL (3.4-4.8); Alkaline Phosphatase 60 U/L (40-150); Anion Gap 15 mmol/L (10-20); BUN (Urea Nitrogen) 20 mg/dL (9.8-20.1); Bilirubin, Total 3.1 mg/dL (0.2-1.2); Calc. Creatinine Clearance 49 mL/min (70-130); Calcium 9.4 mg/dL (7.8-10.44); Carbon Dioxide 24 mmol/L (23-31); Chloride 101 mmol/L (98-107); Estimated GFR-MDRD 46; Globulin 2.7 g/dL (2.4-3.5); Glucose 104 mg/dL (83-110); Magnesium 1.7 mg/dL (1.6-2.6); Potassium 3.4 mmol/L (3.5-5.1); Protein, Total 6.5 g/dL (6.0-8.3); Sodium 137 mmol/L (136-145)
[2018-11-25] MEDS ORDERED: Potassium Chloride 40 MEQ in Premix Bag 1 BAG IVPB PRN (01:07)
[2018-11-25] MEDS ORDERED: Potassium Phosphate 9 MMOL in Sodium Chloride 0.9% 100 ML IVPB PRN (01:07)
[2018-11-25] MEDS ORDERED: Potassium Phosphate 15 MMOL in Sodium Chloride 0.9% 250 ML 250 ML IV PRN (01:07)
[2018-11-25] MEDS ORDERED: Potassium Phosphate 12 MMOL in Sodium Chloride 0.9% 250 ML 250 ML IV PRN (01:07)
[2018-11-25] MEDS ORDERED: Magnesium 2 GM/NS 0.9% 100 ML 2 GM in Premix Bag 1 BAG IVPB PRN (01:07)
[2018-11-25] MEDS ORDERED: Magnesium Oxide 400 MG TAB PO PRN ×2 (01:07)
[2018-11-25] MEDS ORDERED: Potassium Chloride 40 MEQ in Sodium Chloride 0.9% 250 ML 250 ML IVPB PRN (01:07)
[2018-11-25] MEDS ORDERED: Potassium Chloride 20 MEQ TAB PO PRN (01:07)
[2018-11-25] MEDS ORDERED: CCU ELECTROLYTE REPLACEMENT PROTOCOL FS PRN (01:07)
--- NOTE | 2018-11-25 01:35 | PDOC.EVN ---
Event Note - Event Note Event Note: Called to Bedside due to code blue. Pt was found unresponsive and found to be in Torsades. Pads were applied, but patient became responsive shortly before shock could be administered. Up to this point patient has received a total of 4g Magnesium Sulfate. Cardiac enzymes, CBC, CMP ordered. Cardiology called and recommended administering 40 meq K and obtaining digoxin level. Will continue to monitor.
[2018-11-25] MEDS ORDERED: Lidocaine 2 gm/D5W 500 ml 500 ML ONE (01:36)
[2018-11-25] MEDS ORDERED: Lidocaine 2 gm/D5W 500 ml 500 ML IVPB SCH (01:45)
[2018-11-25] MEDS ORDERED: Lactated Ringer's 1,000 ML IV SCH (01:45)
[2018-11-25] MEDS ORDERED: Lidocaine 2% PF 100 mg/5 ml Syringe IVP SCH (02:00)
[2018-11-25 02:06] LABS: CKMB 1.5 ng/mL (0-6.6)
[2018-11-25 03:23] LABS: Digoxin 1.27 ng/mL (0.8-2.0)
[2018-11-25] MEDS ORDERED: hydrALAZINE 20 MG/ML VIAL SLOW IVP PRN (07:38)
[2018-11-25] MEDS: PARoxetine 20 MG TAB PO SCH (09:06)
[2018-11-25] MEDS: Fish Oil 1,000 MG CAP PO SCH ×3 (09:07→20:27)
[2018-11-25] MEDS: Potassium Chloride 10 MEQ TAB PO SCH (09:07)
[2018-11-25] MEDS: hydrALAZINE 25 MG TAB PO SCH ×3 (09:07→20:25)
[2018-11-25] MEDS: Calcium Carbonate + Vit D 1 TAB PO SCH ×2 (09:07→20:25)
[2018-11-25] MEDS: Hydrochlorothiazide 25 MG TAB PO SCH (09:08)
[2018-11-25] MEDS: Apixaban 5 MG TAB PO SCH ×2 (09:08→20:24)
[2018-11-25] MEDS: Aspirin 81 mg Enteric Coated Tablet PO SCH (09:08)
[2018-11-25] MEDS: Carvedilol 6.25 MG TAB PO SCH ×2 (09:08→20:26)
[2018-11-25] MEDS: Nitroglycerin 2% Ointment 1 INCH/1 GM Packet TOP SCH ×2 (09:09→20:26)
[2018-11-25] MEDS: Ubidecarenone 50 MG CAP PO SCH ×2 (09:32→20:24)
[2018-11-25] MEDS: Isosorbide Dinitrate 20 MG TAB PO SCH ×3 (09:32→20:25)
[2018-11-25 09:51] LABS: Magnesium 2.6 mg/dL (1.6-2.6); Potassium 4.2 mmol/L (3.5-5.1)
[2018-11-25] MEDS: Clotrimazole 1 % Cream 30 GM TUBE TOP SCH ×2 (10:12→20:27)
--- NOTE | 2018-11-25 11:07 | PQF ---
CLINICAL DOCUMENTATION IMPROVEMENT CLARIFICATION FORM: ICD-10 Updated PLEASE DO AN ADDENDUM TO THE PROGRESS NOTE WITH ANY DOCUMENTATION UPDATES OR ADDITIONS AND CARRY THROUGH TO DC SUMMARY. THANK YOU. DATE: 11/25/18 ATTN: DR. MEYERS Please exercise your independent, professional judgment in responding to the clarification form. Clinical indicators are provided on the bottom of this form for your review Please check appropriate box(s): HEART FAILURE: A. TYPE: [ ] Systolic / HFrEF [ ] Diastolic / HFpEF [ x ] Combined Systolic / Diastolic B. ACUITY [ ] Acute [ ] Acute on Chronic [x ] Chronic [ ] Other diagnosis [ ] Unable to determine In addition, please specify: Present on Admission (POA): [ x ] Yes [ ] No [ ] Unable to determine For continuity of documentation, please document condition throughout progress notes and discharge summary. Thank You. CLINICAL INDICATORS - SIGNS / SYMPTOMS / LABS H&P: "PROBABLE MILD CONGESTIVE HEART FAILURE" BNP 542.6 RISKS: ATRIAL FIBRILLATION TREATMENT: METOLAZONE (ER) CARVEDILOL (2/-PRESENT) CARDIAC MONITORING SERIAL LABS CARDIOLOGY CONSULT (This form is maintained as a part of the permanent medical record) 2014 [employer]. All Rights Reserved [email or web address] Office: [phone] [facility]
--- NOTE | 2018-11-25 11:35 | CON ---
DATE OF CONSULTATION: 11/25/2018 SERVICE: Pulmonary Medicine. REASON FOR CONSULT: ICU patient. HISTORY OF PRESENT ILLNESS: The patient is a very pleasant 78-year-old white female with past medical history significant for atrial fibrillation with RVR. She came into the hospital on the November with atrial fibrillation with RVR. She had a week of chest pain and palpitations that would come and go. Ultimately, on the morning of the , she had a severe episode causing shortness of breath and chest discomfort. She presented to the emergency department and was discovered to be in atrial fibrillation with RVR. She was ultimately cardioverted yesterday. She went into a normal rhythm and she was being considered for discharge from the hospital. That being said, her disposition got held up and ultimately, she stayed overnight. Thankfully, she did because she ended up going into torsades. She intermittently lost consciousness, but never required any chest compressions. She was given magnesium and potassium and her myocardium stabilized. She was subsequently brought to the ICU and put on a lidocaine drip. Since then, she has had no additional ventricular dysrhythmias. She has no complaints right now. She is not having any fevers, chills, nausea, vomiting, chest pain, cough, sputum production, abdominal pain, diarrhea, dysuria, frequency, or discharge. She is essentially in her usual state of health at this point. PAST MEDICAL HISTORY: 1. Atrial fibrillation, paroxysmal, status post cardioversion. 2. Dyslipidemia. 3. Coronary artery disease. 4. Anxiety disorder. PAST SURGICAL HISTORY: 1. Coronary artery bypass graft. 2. Atrial ablation for fibrillation. FAMILY HISTORY: Noncontributory. SOCIAL HISTORY: She is . She has no exposure to chemicals, dust, asbestos, or tuberculosis. She denies any alcohol, tobacco, or illicit drug use. ALLERGIES: LASIX, SULFA. MEDICATIONS: List of her inpatient medications was reviewed. No specific updates were made at this time. REVIEW OF SYSTEMS: General, head, ears, eyes, nose, throat, cardiovascular, respiratory, GI, , musculoskeletal, neurologic, and skin is negative except as mentioned in the HPI. PHYSICAL EXAMINATION: VITAL SIGNS: Afebrile, pulse 57, blood pressure 153/104, respirations 17, and saturation 99% on room air. GENERAL: The patient is awake and alert, in no apparent distress. LUNGS: Decent air entry. There is no prolonged expiratory phase or wheezing present. HEART: Normal rate, regular. ABDOMEN: Soft, nontender, and nondistended. Bowel sounds are positive. MUSCULOSKELETAL: No cyanosis or clubbing. No pitting in the bilateral lower extremities. NEUROLOGIC: Grossly nonfocal. LABORATORY DATA: CBC from the 4th is unremarkable. Her pH 7.52, pCO2 28, PO2 55. Creatinine 1.13. Basic metabolic profile is otherwise unremarkable except for potassium of 3.4 and magnesium of 1.7. Liver function studies are essentially otherwise unremarkable. Troponin is 0.053, BNP was previously 542. Digoxin is 1.27. ASSESSMENT: 1. Atrial fibrillation with rapid ventricular response, status post cardioversion. 2. Torsades de Pointe. 3. Syncope, associated with ventricular dysrhythmia. DISCUSSION AND PLAN: The patient will remain in the ICU until she has a definitive study as determined by electrophysiology. From respiratory standpoint, there are certainly no acute issues. She is currently on a lidocaine drip which will be continued. Pulmonary/Critical Care will continue to follow along in this location. Ultimately, when she leaves ICU, however, she will have no further requirements for inpatient Pulmonary/Critical Care opinion, and we will disappear. Please call with additional questions or concerns. 70 minutes have been devoted to this patient in various activities. I personally reviewed all imaging studies and laboratory data noted within this document. For fifty percent of this time, I was interacting with the patient at the bedside or coordinating care with the care team. For the remainder of the time I was immediately available to the patient in the hospital unit. Job ID: [id number] MTDD
[2018-11-25] MEDS: Lorazepam 0.5 MG TAB PO SCH (11:45)
--- NOTE | 2018-11-25 13:14 | PRG ---
DATE OF SERVICE: 11/25/2018 SUBJECTIVE: Ms. Malik was transferred to the ICU last night due to multiple cardiac arrhythmias as well as a Code Blue situation. The patient evidently went into torsades. She spontaneously converted. No electrical shock had to be applied. The patient is now somewhat tired and fatigued. OBJECTIVE: VITAL SIGNS: Blood pressure remains somewhat elevated at , pulse 52, respirations 18, O2 saturation 98% on 1 L. LUNGS: Clear. HEART: Reveals no murmur. LABORATORY DATA: Potassium is 3.4, sodium 137, creatinine 1.13. IMPRESSION: 1. History of atrial fibrillation, now converted. 2. Ventricular arrhythmias, torsades de pointes, on lidocaine drip. 3. Hypertension. 4. History of atherosclerotic coronary artery disease. PLAN: We will leave p.r.n. orders for hydralazine at this time. Further treatment recommendations from Cardiology. Job ID: [id number]
--- NOTE | 2018-11-25 13:32 | CON ---
DATE OF CONSULTATION: 11/25/2018 REFERRING PHYSICIAN: Dr. Wallace. I am seeing Mrs. Malik at our [facility] ICU as an Electrophysiology product consultant for the following problems: 1. Acute development of adrianna-dependent torsade in the setting of sotalol use. 2. Atrial fibrillation, previously well suppressed with sotalol. a. Recurrent atrial fibrillation prompting a PEPPER-guided cardioversion on 2018. b. History of atrial flutter ablation by Dr. Jimenez in 2009. 3. Valvular heart disease with history of severe mitral and tricuspid regurgitation and pulmonary hypertension. By PEPPER from 11/24/2018, LVEF normal, biatrial enlargement, severe MR and TR. 4. History of coronary artery disease with single-vessel bypass surgery in the past. 5. Risk factors including hypertension and dyslipidemia. 6. Elevated CHADS-VASc score with age, hypertension, gender, and coronary vascular disease of 5, on chronic Eliquis for anticoagulation. 7. History of anxiety. ALLERGIES: SULFA. MEDICATIONS: At home include: 1. Protonix. 2. Ativan. 3. Betapace 80 mg twice a day at home. 4. Coreg. 5. Eliquis twice a day. 6. Potassium. 7. Zocor. 8. Zetia. 9. BiDil. 10. Hydrochlorothiazide. The medications currently also including digoxin and carvedilol 12.5 mg twice a day and clonidine in the hospital. SUBJECTIVE: Mrs. Malik was admitted on the with symptoms of fatigue and palpitations. She was noted to have to be back in atrial fibrillation. She was rate controlled and eventually underwent a PEPPER-guided cardioversion yesterday successfully. She remained in sinus rhythm. She was also receiving some digoxin and carvedilol for rhythm and rate control prior to that. Overnight, she developed some slower heart beatings and she had multiple recurrent nonsustained self-terminating torsade episodes. She was eventually placed on lidocaine and ever since the episodes have subsided. We noted prolonged QT on her EKG. Her electrolytes were replaced and currently she is maintaining sinus rhythm without recurrent torsade episodes. Heart rates are 72, currently asymptomatic. No PND, orthopnea, or lower extremity edema. No fever, chills, or cough. No stroke-like symptoms. No neurological deficits. Rest of 12-point system otherwise unremarkable. PAST MEDICAL HISTORY: As above. SOCIAL HISTORY: The patient denies smoking, EtOH, or drug abuse. FAMILY HISTORY: Noncontributory. OBJECTIVE DATA: VITAL SIGNS: Blood pressure is 153/104, heart rate 57, respirations 12. The patient is afebrile. GENERAL: Alert and oriented, in no apparent distress. NECK: Supple. Jugular veins not distended. CHEST: Coarse without crackles. HEART: Sounds are regular to rate and rhythm. 10/24 holosystolic murmur is heard precordially. ABDOMEN: Benign. Bowel sounds positive. EXTREMITIES: Lower extremities without edema, clubbing, or cyanosis. DATABASE: EKG is reviewed in sequence. Initial EKG from admission on 2018 reveals atrial fibrillation with ventricular rates of 123 beats per minute. QT is corrected to 509 milliseconds. Occasional PVCs are noted. Subsequent EKG from November 24 after cardioversion reveals sinus rhythm with somewhat prolonged QT. EKG from this morning at 1 reveals a marked sinus bradycardia, frequent PVCs, some R on T type prolonged QT is seen, long and short periods are noted. Telemetry strips likewise reveals an episode of short long sequence initiated typical torsade. This morning at 60s and QTc is still prolonged, but QT is approximately 480 milliseconds, but definitely improved from last night. LABORATORY DATA: White count 7.0, hemoglobin 14.5, platelet count is 150. Sodium 137, potassium 3.4, BUN is 20, creatinine 1.1. The troponin I is 0.053. ASSESSMENT AND PLAN: Mrs. Malik is a pleasant 78-year-old woman with history of atrial arrhythmias, prior atrial flutter ablation in 2009, a subsequent suppression of paroxysmal atrial fibrillation with sotalol. She was now admitted with recurrent persisting atrial fibrillation. She was continued on sotalol and eventually got electrically cardioverted. She developed frequent PVCs and bradycardia and QT appears to have been prolonged and developed typical torsade, which has though self-terminated. The lidocaine seems to suppress PVCs and subsequent ectopy. My plan will be at this point: 1. At this point, likely we need to stop sotalol and avoid use in the future as the development of torsade. I would also avoid digoxin use or even possibly Coreg could be considered to be held transiently to avoid bradycardia. Continue lidocaine overnight until sotalol washout. Continue monitoring the EKG as well as keep potassium level of 4. If further torsade occurs despite of these, a pacing could be a consideration. Regarding atrial arrhythmias, she likely would be a poor candidate for an alternative antiarrhythmic agents class 1C since history of coronary artery disease are less than optimal and history of torsade, Dofetilide and even amiodarone is a questionable choice clearly sotalol is not an option. We discussed the option of a pulmonary venous isolation as discussed with Dr. Wallace. He would prefer this procedure performed possibly after transfer to [facility]. We will make arrangements for this after stabilization of the patient. Elevated CHADS-VASc score of 5, on continued Eliquis. Continue that. Severe MR and TR. Will need consideration for valvular repair as well. Job ID: [id number] [facility]
[2018-11-25] MEDS ORDERED: Ondansetron PF 4 MG/2 ML Vial IVP PRN (14:29)
[2018-11-25] MEDS: Ezetimibe 10 MG TAB PO SCH (20:24)
[2018-11-25] MEDS: Atorvastatin Calcium 40 MG TAB PO SCH (20:25)
[2018-11-26] MEDS: Carvedilol 6.25 MG TAB PO SCH ×2 (08:38→21:09)
[2018-11-26] MEDS: Ubidecarenone 50 MG CAP PO SCH ×2 (08:38→21:08)
[2018-11-26] MEDS: hydrALAZINE 25 MG TAB PO SCH ×3 (08:39→21:09)
[2018-11-26] MEDS: Potassium Chloride 10 MEQ TAB PO SCH (08:39)
[2018-11-26] MEDS: Hydrochlorothiazide 25 MG TAB PO SCH (08:39)
[2018-11-26] MEDS: Aspirin 81 mg Enteric Coated Tablet PO SCH (08:40)
[2018-11-26] MEDS: Calcium Carbonate + Vit D 1 TAB PO SCH ×2 (08:40→21:09)
[2018-11-26] MEDS: PARoxetine 20 MG TAB PO SCH (08:40)
[2018-11-26] MEDS: Nitroglycerin 2% Ointment 1 INCH/1 GM Packet TOP SCH (08:40)
[2018-11-26] MEDS: Isosorbide Dinitrate 20 MG TAB PO SCH ×3 (08:40→21:08)
[2018-11-26] MEDS: Fish Oil 1,000 MG CAP PO SCH ×4 (08:43→21:09)
--- NOTE | 2018-11-26 08:43 | PRG ---
DATE OF SERVICE: 11/26/2018 SUBJECTIVE: Ms. Malik is doing better. She has remained alert and conscious. OBJECTIVE: VITAL SIGNS: Her blood pressure is 136/89, pulse 52 and regular. LUNGS: Clear. HEART: Reveals no murmur. LABORATORY DATA: Potassium 4.2. Magnesium is 2.6. IMPRESSION: 1. Atrial fibrillation. 2. Ventricular arrhythmia. 3. Atherosclerotic coronary artery disease. PLAN: I have informed the nurse of Ms. Malik. She will probably be transferred to [facility] under the care of Dr. Vergara and the Electrophysiology Team. The patient has informed me that she is in agreement with this. The patient is medically stable from my standpoint for transfer. Job ID: [id number]
[2018-11-26] MEDS: Apixaban 5 MG TAB PO SCH ×2 (08:54→21:08)
--- NOTE | 2018-11-26 08:58 | EKG ---
Test Reason : Blood Pressure : / mmHG Vent. Rate : 059 BPM Atrial Rate : 059 BPM P-R Int : 222 ms QRS Dur : 098 ms QT Int : 424 ms P-R-T Axes : 022 025 139 degrees QTc Int : 419 ms Poor quality EKG, likely atrial fibrillation Possible Left atrial enlargement Anterior infarct (cited on or before 05-SEP-2017) Abnormal ECG Vent. rate has decreased BY [address] less depressed in Lateral leads Confirmed by DR. Luisa FOURNIER ([id number]) on 11/26/2018 8:58:02 AM Referred By: MIRA Confirmed By:DR. Luisa FOURNIER
--- NOTE | 2018-11-26 08:59 | EKG ---
Test Reason : Blood Pressure : / mmHG Vent. Rate : 068 BPM Atrial Rate : 068 BPM P-R Int : 204 ms QRS Dur : 098 ms QT Int : 442 ms P-R-T Axes : 057 060 150 degrees QTc Int : 469 ms Normal sinus rhythm Possible Left atrial enlargement Abnormal ECG When compared with ECG of 25-NOV-2018 01:07, (Unconfirmed) Previous ECG has undetermined rhythm, needs review T wave inversion less evident in Lateral leads QT has lengthened Confirmed by DR. Luisa FOURNIER ([id number]) on 11/26/2018 8:59:01 AM Referred By: CHRISTOPHE Confirmed By:DR. Luisa FOURNIER
--- NOTE | 2018-11-26 08:59 | EKG ---
Test Reason : Blood Pressure : / mmHG Vent. Rate : 053 BPM Atrial Rate : 053 BPM P-R Int : 216 ms QRS Dur : 084 ms QT Int : 460 ms P-R-T Axes : 028 048 167 degrees QTc Int : 431 ms Sinus bradycardia with 1st degree A-V block Possible Left atrial enlargement Posterior infarct , age undetermined Abnormal ECG When compared with ECG of 25-NOV-2018 01:15, (Unconfirmed) T wave inversion more evident in Lateral leads Confirmed by DR. Luisa FOURNIER ([id number]) on 11/26/2018 8:59:11 AM Referred By: CHRISTOPHE Confirmed By:DR. Luisa FOURNIER
--- NOTE | 2018-11-26 08:59 | EKG ---
Test Reason : Blood Pressure : / mmHG Vent. Rate : 063 BPM Atrial Rate : 023 BPM P-R Int : 220 ms QRS Dur : 086 ms QT Int : 356 ms P-R-T Axes : 026 049 174 degrees QTc Int : 364 ms Sinus rhythm with frequent PVC's and bigeminy Marked ST abnormality, possible lateral subendocardial injury Abnormal ECG When compared with ECG of 22-NOV-2018 09:36, (Unconfirmed) Confirmed by DR. Luisa FOURNIER ([id number]) on 11/26/2018 8:58:47 AM Referred By: Confirmed By:DR. Luisa FOURNIER
[2018-11-26] MEDS: Clotrimazole 1 % Cream 30 GM TUBE TOP SCH ×2 (09:00→21:42)
[2018-11-26] MEDS: Lorazepam 0.5 MG TAB PO SCH (11:57)
--- NOTE | 2018-11-26 14:41 | PRG ---
DATE OF SERVICE: 11/26/2018 SERVICE: Pulmonary Medicine. INTERVAL HISTORY: The patient has been weaned off her lidocaine. She has not had any additional ventricular issues since she has been on telemetry in the ICU for the last 2 days. Otherwise, she is perfectly comfortable and has no specific complaints. We are awaiting a bed open up in [place]. PHYSICAL EXAMINATION: VITAL SIGNS: Afebrile. Pulse 67, blood pressure 139/85, respirations 17, and saturation 97% on 2 L nasal cannula. GENERAL: The patient is awake and alert, in no apparent distress. LUNGS: Decent air entry. There is no prolonged expiratory phase or wheezing appreciated. HEART: Normal rate, regular. ABDOMEN: Soft, nontender, and nondistended. Bowel sounds are positive. MUSCULOSKELETAL: No cyanosis or clubbing. There is no pitting in the bilateral lower extremities. ASSESSMENT: 1. Atrial fibrillation with RVR, status post cardioversion. 2. Torsade de [place], resolved. 3. Syncope, associated with ventricular issue. DISCUSSION AND PLAN: The patient has been stable on telemetry, off her lidocaine drip. As such, we can consider transitioning her out of the ICU back to the telemetry unit. Preparations are being made for her to get to [place]. When she arrives on the floor, she will have no further requirements for inpatient Pulmonary Critical Care opinion, and I will sign off. Job ID: [id number]
[2018-11-26] MEDS: Atorvastatin Calcium 40 MG TAB PO SCH (21:09)
[2018-11-26] MEDS: Ezetimibe 10 MG TAB PO SCH (21:10)
[2018-11-26] MEDS: Nystatin Powder 15 GM BOT TOP PRN ×2 (21:15→21:16)
[2018-11-26 23:53] VITALS: BP 181/84; TEMP 98.8
--- NOTE | 2018-11-27 18:44 | EKG ---
Test Reason : CHEST PAIN Blood Pressure : / mmHG Vent. Rate : 123 BPM Atrial Rate : 125 BPM P-R Int : 000 ms QRS Dur : 090 ms QT Int : 356 ms P-R-T Axes : 000 038 177 degrees QTc Int : 509 ms Atrial fibrillation with rapid ventricular response with premature ventricular or aberrantly conducte d complexes Possible Anterior infarct , age undetermined Marked ST abnormality, possible lateral subendocardial injury Abnormal ECG Confirmed by DOMINGA SHEPARD ([id number]), loan expeditor TOMMY WRIGHT ([id number]) on 11/27/2018 6:44:16 PM Referred By: Confirmed By:DOMINGA SHEPARD
--- NOTE | 2018-11-29 13:15 | DIS ---
DATE OF ADMISSION: 11/23/2018 DATE OF DISCHARGE: 11/27/2018 CONSULTING PHYSICIANS: Dr. Wallace, Dr. Vergara. HOSPITAL SUMMARY: The patient is an 78-year-old female who was admitted to the hospital with a history of recurrent atrial fibrillation. The patient noted to have atrial fibrillation on admission with rapid ventricular response. She was doing well while in the emergency room, found to be in simple atrial fibrillation and was controlled with IV Cardizem. Subsequently was admitted to the hospital. The patient wished to undergo electrical cardioversion on 11/25/2018. The patient was in her normal state of health, and she underwent multiple events, including Torsades [place] with ventricular arrhythmias. The patient had actually gone under code blue status, but spontaneously converted. She was subsequently admitted to the ICU after the direction of cardiology service and she was placed on IV lidocaine. The patient was resting comfortably in ICU. She did not suffer any type of acute coronary event. At this time, we had left her p.r.n. hydralazine orders. After consultation with the fuel distribution system operator, it was felt the best course of action was to transfer the patient to [facility] for further cardiac ablation and safety of the patient. On 11/26/2018, the patient was found to be in stable condition without any difficulties or problems. She subsequently was able to be discharged to [facility] under good condition for further electrophysiological studies to be performed there. this transfer did occur on 11/26/2018. DISCHARGE MEDICATIONS: Her home medicines were continued as well as medicines during discharge . Job ID: [id number]
== END 2018-11-27 00:05 | disposition short-term general hospital (02) | DRG 309 ==
LOC: ERS 09:29 → CCU 17:58 → ERHOLD 18:21 → 2NO 18:30 → OBSVTOIN 11-23 14:31 → CCU 11-25 00:16 → 2NO 11-26 18:06
PROVIDERS: ADMIT Family Medicine; ATTEND Family Medicine
PROC: 5A2204Z Restoration of Cardiac Rhythm, Single (ICD-10-PCS; principal; 2018-11-24)
PROC: B24BZZ4 Ultrasonography of Heart with Aorta, Transesophageal (ICD-10-PCS; 2018-11-24)
DX: I48.0 Paroxysmal atrial fibrillation (principal); I50.42 Chronic combined systolic (congestive) and diastolic (congestive) heart failure; I47.2 Ventricular tachycardia; I11.0 Hypertensive heart disease with heart failure; E78.5 Hyperlipidemia, unspecified; F41.9 Anxiety disorder, unspecified; I25.10 Atherosclerotic heart disease of native coronary artery without angina pectoris; I08.1 Rheumatic disorders of both mitral and tricuspid valves; I27.20 Pulmonary hypertension, unspecified; Z88.8 Allergy status to other drugs, medicaments and biological substances; Z88.2 Allergy status to sulfonamides; Z79.01 Long term (current) use of anticoagulants; Z79.899 Other long term (current) drug therapy; Z95.1 Presence of aortocoronary bypass graft
CPT/HCPCS: 36415; 36416; 71045; 80048; 80053; 80162; 82550; 82553; 82805; 83690; 83735; 83880; 84484; 85025; 92960; 93005; 93010; 93312; 96374; J0360; J1160; J2001; J2405; J2704; J3475; J3480; J7050

== ENCOUNTER 2018-12-06 18:34 | Inpatient (IN) | payer MEDICARE, BC ==
[2018-12-06 19:10] LABS: #Eosinphils 0.4 thou/uL (0.0-0.7); #Lymphocytes 1.8 thou/uL (1.20-3.40); #Monocytes 0.8 thou/uL (0.11-0.59); #Neutrophils 4.3 thou/uL (1.40-6.50); %Basophils 0.5 % (0.0-1.0); %Eosinophils 6.1 % (0.0-10.0); %Lymphocytes 24.5 % (21.0-51.0); %Monocytes 10.6 % (0.0-10.0); %Neutrophils 58.3 % (42.0-75.0); Hemoglobin 12.7 g/dL (12.0-16.0); Mean Corpuscular HGB CONC 31.6 g/dL (32.0-36.0); Mean Corpuscular Hemoglobin 28.7 pg (27.0-31.0); Mean Platelet Volume 8.5 fL (7.4-10.4); Platelet Count 244 thou/uL (130-400); RBC Distribution Width 13.6 % (11.5-14.5); Red Blood Cell (RBC) Count 4.42 mill/uL (4.20-5.40); White Blood Cell (WBC) Count 7.3 thou/uL (4.8-10.8)
[2018-12-06 19:42] LABS: ALT (SGPT) 11 U/L (8-55); AST (SGOT) 30 U/L (5-34); Albumin 3.8 g/dL (3.4-4.8); Alkaline Phosphatase 100 U/L (40-150); Anion Gap 16 mmol/L (10-20); BUN (Urea Nitrogen) 22 mg/dL (9.8-20.1); Bilirubin, Total 2.3 mg/dL (0.2-1.2); CK (CPK) 53 U/L (29-168); Calc. Creatinine Clearance 0 mL/min (70-130); Calcium 9.2 mg/dL (7.8-10.44); Carbon Dioxide 25 mmol/L (23-31); Chloride 99 mmol/L (98-107); Estimated GFR-MDRD 47; Globulin 3.2 g/dL (2.4-3.5); Glucose 279 mg/dL (83-110); Lipase 129 U/L (8-78); Potassium 3.8 mmol/L (3.5-5.1); Sodium 136 mmol/L (136-145)
--- NOTE | 2018-12-06 19:47 | RAD ---
CHEST ONE VIEW: INDICATIONS: Weakness and chest pain. COMPARISON: 11/22/2018 FINDINGS: Cardiomegaly persists. Mild pulmonary vascular congestion is again demonstrated. The lungs are cody r otherwise. No pleural effusion is evident. Pleural parenchymal scarring is similar appearing. Ch ronic osseous changes are stable. IMPRESSION: Cardiomegaly with mild pulmonary vascular congestion. POS: [facility]
[2018-12-06 19:54] LABS: CKMB 1.4 ng/mL (0-6.6)
[2018-12-06] MEDS ORDERED: Diltiazem HCl 125 MG, Admixture Fee 1 EACH in Sodium Chloride 0.9% 100 ML IVPB SCH (20:30)
[2018-12-06] MEDS ORDERED: Acetaminophen 325 MG TAB PO PRN (21:27)
[2018-12-06] MEDS ORDERED: Ondansetron PF 4 MG/2 ML Vial IVP PRN (21:27)
[2018-12-06] MEDS ORDERED: Dextrose 50% Abboject 50 ML SYRINGE SLOW IVP PRN (21:34)
[2018-12-06] MEDS ORDERED: Dextrose 5% in Water 1,000 ML IV PRN (21:34)
--- NOTE | 2018-12-06 22:22 | HP ---
HISTORY OF PRESENT ILLNESS: This is an 78-year-old white female with a history of atrial fibrillation, who is status post cardiac ablation on 11/22, who presents with palpitations. The patient was admitted on 11/22, with atrial fibrillation with RVR. She was in the hospital for approximately 1 week and then transferred to [place], where she underwent a cardiac ablation. She then spent approximately 3 days in [facility] where this afternoon she developed recurrent palpitations and felt that she was in AFib. She was seen at the [facility] and transferred to [employer] with recurrent AFib with RVR. The patient was started on a diltiazem drip and converted back to a normal sinus rhythm. At this time, she is doing well. No complaints of any chest pain, shortness of breath, nausea, or vomiting. However, she states that over the past 2 days, she has been drinking coffee and tea, something she does not normally do. PAST MEDICAL HISTORY: Hypertension, coronary artery disease, recurrent atrial fibrillation, and hyperlipidemia. PAST SURGICAL HISTORY: Includes cardiac ablation, coronary artery stent in 1999, hysterectomy in 1972, vein stripping, bypass surgery in 2009, and status post cardiac ablation in 11/2018. FAMILY HISTORY: Father at 50 years of age of a heart attack. Mother also had breast cancer. SOCIAL HISTORY: She is a nonsmoker. Does not drink alcohol. She is . She has one daughter and one son. She lives with her . MEDICATIONS: Include; 1. Eliquis 5 b.i.d. 2. Zetia 10 daily. 3. Hydrochlorothiazide 25 daily. 4. Lipitor 40 daily. 5. Paxil 20 daily. 6. Protonix 40 daily. 7. Aspirin 81 daily. 8. Ativan 0.5 p.r.n. 9. Hydralazine 25 t.i.d. 10. Isosorbide b.i.d. 11. Coreg 12.5 b.i.d. 12. CoQ10 of 200 b.i.d. ALLERGIES: TO CYCLOSPORINE, PEN G, AND SULFA. REVIEW OF SYSTEMS: As above. PHYSICAL EXAMINATION: VITAL SIGNS: Blood pressure 170/90, heart rate 87, and respirations 14. GENERAL: The patient in no acute distress at this time, appears to be in normal sinus rhythm. HEENT: Clear. NECK: Supple. HEART: Regular rate and rhythm with PACs. LUNGS: Clear. ABDOMEN: Soft. EXTREMITIES: With no edema. Right groin area with a healing bruising with a firm indurated hematoma still present. No active bleeding noted. LABORATORY DATA: White count 7.3, H and H of 12 and 40, and platelet 244. Sodium 136, potassium 3.8, creatinine 1.12, BUN 22, and blood sugar 279. Troponin one 0.232. Lipase 129. ASSESSMENT: 1. Palpitations with recurrent atrial fibrillation with rapid ventricular response, presently in a normal sinus rhythm. 2. Increase caffeine intake over the past 2 days. 3. Status post cardiac ablation 1 week ago in [place]. 4. Coronary artery disease, status post stent and bypass. 5. Hypertension and hyperlipidemia. 6. Right groin hematoma. 7. Finger laceration with a dressing in place. PLAN: 1. EP and Cardiology have been consulted. 2. Monitor for any IMCU tonight. 3. Resume home medications. 4. Daughter is present. Job ID: [id number]
[2018-12-06 23:04] LABS: CKMB 1.5 ng/mL (0-6.6)
[2018-12-07] MEDS ORDERED: hydrALAZINE 25 MG TAB ONE (00:27)
[2018-12-07 02:50] VITALS: BMI 28.7
[2018-12-07 06:08] LABS: #Eosinphils 0.3 thou/uL (0.0-0.7); #Lymphocytes 1.7 thou/uL (1.20-3.40); #Monocytes 0.9 thou/uL (0.11-0.59); #Neutrophils 4.8 thou/uL (1.40-6.50); %Basophils 0.6 % (0.0-1.0); %Eosinophils 4.2 % (0.0-10.0); %Lymphocytes 21.8 % (21.0-51.0); %Monocytes 11.1 % (0.0-10.0); %Neutrophils 62.3 % (42.0-75.0); Hemoglobin 12.8 g/dL (12.0-16.0); Mean Corpuscular HGB CONC 32.4 g/dL (32.0-36.0); Mean Corpuscular Hemoglobin 29.4 pg (27.0-31.0); Mean Corpuscular Volume 90.8 fL (78.0-98.0); Mean Platelet Volume 7.3 fL (7.4-10.4); Platelet Count 213 thou/uL (130-400); RBC Distribution Width 13.5 % (11.5-14.5); Red Blood Cell (RBC) Count 4.35 mill/uL (4.20-5.40); White Blood Cell (WBC) Count 7.7 thou/uL (4.8-10.8)
[2018-12-07 06:21] LABS: Anion Gap 16 mmol/L (10-20); BUN (Urea Nitrogen) 20 mg/dL (9.8-20.1); Calc. Creatinine Clearance 63 mL/min (70-130); Calcium 9.2 mg/dL (7.8-10.44); Carbon Dioxide 24 mmol/L (23-31); Chloride 101 mmol/L (98-107); Estimated GFR-MDRD 64; Glucose 138 mg/dL (83-110); Sodium 138 mmol/L (136-145)
--- NOTE | 2018-12-07 08:16 | PRG ---
DATE OF SERVICE: 12/07/2018 SUBJECTIVE: Ms. Malik was admitted again last night with recurrent AFib. She recently had an ablation performed in [place]. She has a history of multiple ventricular arrhythmias. Currently, she is resting comfortably. She has a heart rate of approximately 115, appears to be in sinus tachycardia. OBJECTIVE: VITAL SIGNS: Blood pressure is 142/106, pulse 117, and O2 sats 95%. LUNGS: Clear. HEART: Reveals tachycardia without murmurs. ABDOMEN: Soft, nontender. Bowel sounds are present and active. LABORATORY DATA: Sodium 138, potassium 3.0, chloride 101, CO2 of 24, BUN 20, and creatinine 0.85. Cardiac enzymes are mildly elevated otherwise. IMPRESSION: 1. Recurrence of atrial fibrillation, now rate controlled with diltiazem drip. 2. Hypokalemia. PLAN: The patient will get potassium replacement today. Further treatment and recommendations will be left up to Electrophysiology and Cardiology. Job ID: [id number]
[2018-12-07] MEDS: Carvedilol 6.25 MG TAB PO SCH ×2 (08:28→21:39)
[2018-12-07] MEDS: Apixaban 5 MG TAB PO SCH ×2 (08:28→21:47)
[2018-12-07] MEDS: Calcium Carbonate + Vit D 1 TAB PO SCH ×2 (08:28→21:41)
[2018-12-07] MEDS: Fish Oil 1,000 MG CAP PO SCH ×3 (08:29→21:39)
[2018-12-07] MEDS: hydrALAZINE 25 MG TAB PO SCH ×3 (08:29→21:40)
[2018-12-07] MEDS: Famotidine/PF 20 mg/2ml Vial SLOW IVP SCH ×2 (08:29→21:38)
[2018-12-07] MEDS: Hydrochlorothiazide 25 MG TAB PO SCH (08:29)
[2018-12-07] MEDS: Isosorbide Dinitrate 20 MG TAB PO SCH ×3 (08:30→21:39)
[2018-12-07] MEDS: Ubidecarenone 50 MG CAP PO SCH ×2 (08:30→21:38)
[2018-12-07] MEDS: Potassium Chloride 10 MEQ TAB PO SCH (08:30)
[2018-12-07] MEDS: PARoxetine 20 MG TAB PO SCH (08:30)
--- NOTE | 2018-12-07 10:49 | PDOC.PULCN ---
Pulmonology Consult: HPI - Date of Consult Date: 12/07/18 Time: 10:44 - Consult Details Reason for Consult: imcu, a fib with RVR Requesting Physician: eduardo - History of Present Illness HPI: COBY FONTANA is a 78 year-old F admitted for evaluation of atrial fibrillation with RVR. She was recently d/c'd from [facility] on 11/27 and transferred to [place] where she had an ablation. After this she had been in [place] [facility]hab for 3 days where she was found to have gone back into a fib with RVR and was transferred to [facility]. She was admitted on started on Diltizem drip which has achieved rate control. This morning she states she is feeling generally malaised but is having a hard time putting it to words. No chest pain, palpitations, or sob. She denies N/V/ D. Does have mild abdmonial pain. States her appetite is slightly decreased from normal. REVIEW OF SYSTEMS: Gen: no fever, chills, or sweats Neuro: mild headaches resolve spontaneously, no numbness/tingling, no weakness Eyes: no visual changes ENT: no hearing changes, no sore throat, no runny nose Resp: no cough, no SOB, no wheeze Card: no chest pain, no palpitations GI: mild decreased appetite, no diarrhea or constipation, no nausea/vomiting, no blood in stool : no dysuria, no hematuria, no incontinence, no change in frequency MSK: no myalgias, no joint pain/stiffness Heme: easy bruising Skin: no rash, no erythema PHYSICAL EXAMINATION: General: NAD, alert and oriented x3 HEENT: PERRLA, EOMI, normal sclera, oropharynx without erythema or exudate Neck: Supple. Full ROM. Heart/Cardiovascular System: 2/6 systolic murmur, irregularly irregular, Cap refill < 3 seconds, good pulses in all extremities Lungs/Respiratory System: clear to auscultation bilaterally. No increased work of breathing. Room air. Abdomen/Gastro-Intestinal System: mild right sided tenderness, normal bowel sounds, no masses, no organomegaly Extremeties: Warm extremities. No cyanosis or edema. Neuro: No gross deficits appreciated. CN 2-12 grossly intact Psychiatry: Awake, Alert and cooperative with exam Skin/ Integumentory: No lesions, rashes, or ulcers Musculoskeletal: Full ROM, Strength 5/5 in all 4 extremities Pulmonology Consult: ROS - Review of Systems Constitutional: negative: fever, chills, sweats Pulmonology Consult: PMH Source: patient Past Medical History: HTN, Afib, Cad, HLD PSH: ablation nov 2018, cardiac stent 1999, bypass 2009 - Family History Pertinent family history: father of mi at age 50 - Social History Smoking Status: Never smoker Alcohol Use: none Drug Use History: none Pulmonology Consult: Meds - Medications MAR Reviewed: Yes Medications: Current Medications Acetaminophen (Tylenol) 650 mg PO Q4H PRN PRN Reason: Headache/Fever/Mild Pain (1-3) Apixaban (Eliquis) 5 mg PO BID [facility] Last Admin: 12/07/18 08:28 Dose: 5 mg Calcium/Vitamin D (Caltrate 600 + Vit D) 1 tab PO BID [facility] Last Admin: 12/07/18 08:28 Dose: 1 tab Carvedilol (Coreg) 12.5 mg PO BID [facility] Last Admin: 12/07/18 08:28 Dose: 12.5 mg Coenzyme Q10 (Coenzyme Q10) 200 mg PO BID [facility] Last Admin: 12/07/18 08:30 Dose: 200 mg Dextrose/Water (Dextrose 50%) 25 gm SLOW IVP PRN PRN PRN Reason: Hypoglycemia Ezetimibe (Zetia) [address] [facility] Famotidine (Pepcid) 20 mg SLOW IVP Q12HR [facility] Last Admin: 12/07/18 08:29 Dose: 20 mg Fish Oil (Fish Oil) 1,000 mg PO TID [facility] Last Admin: 12/07/18 08:29 Dose: 1,000 mg Glucagon (Glucagon) 1 mg IM PRN PRN PRN Reason: Hypoglycemia Hydralazine HCl (Apresoline) 37.5 mg PO TID [facility] Last Admin: 12/07/18 08:29 Dose: 37.5 mg Hydrochlorothiazide (Hydrochlorothiazide) 25 mg PO QAM [facility] Last Admin: 12/07/18 08:29 Dose: 25 mg Dextrose/Water (D5w) 1,000 mls @ 0 mls/hr IV .Q0M PRN PRN Reason: Hypoglycemia Insulin Human Regular (Humulin R) 0 units SC .MODERATE SLIDING SC PRN PRN Reason: Moderate Correctional Scale Isosorbide Dinitrate (Isordil) 20 mg PO TID [facility] Last Admin: 12/07/18 08:30 Dose: 20 mg Lorazepam (Ativan) 0.5 mg PO 1200 MENA Ondansetron HCl (Zofran) 4 mg IVP Q6H PRN PRN Reason: Nausea/Vomiting Last Admin: 12/07/18 08:46 Dose: 4 mg Paroxetine HCl (Paxil) 40 mg PO DAILY [facility] Last Admin: 12/07/18 08:30 Dose: 40 mg Potassium Chloride (Klor-Con 10) 10 meq PO DAILY [facility] Last Admin: 12/07/18 08:30 Dose: 10 meq Sodium Chloride (Flush - Normal Saline) 10 ml IVF Q12HR [facility] Last Admin: 12/07/18 08:30 Dose: 10 ml Sodium Chloride (Flush - Normal Saline) 10 ml IVF PRN PRN PRN Reason: Saline Flush - Allergies Allergies/Adverse Reactions: Allergies Allergy/AdvReac Type Severity Reaction Status Date / Time furosemide [From Lasix] Allergy Intermediate Rash Verified 09/05/17 01:32 Sulfa (Sulfonamide Allergy Rash Verified 09/05/17 01:32 Antibiotics) Pulmonology Consult: PE - Physical Exam Constitutional: NAD Pulmonology Consult: Results - Labs Result Diagrams: 12/07/18 05:49 12/07/18 05:49 Pulmonology Consult: A/P - Problem (1) Atrial fibrillation with controlled ventricular response Current Visit: No Code(s): I48.91 - UNSPECIFIED ATRIAL FIBRILLATION Status: Acute (2) Coronary artery disease Current Visit: No Code(s): I25.10 - ATHSCL HEART DISEASE OF [place] CORONARY ARTERY W/O ANG PCTRS Status: Acute (3) Hypercholesteremia Current Visit: No Code(s): E78.0 - PURE HYPERCHOLESTEROLEMIA * DO NOT USE * Status: Acute (4) Hypertension Current Visit: No Code(s): I10 - ESSENTIAL (PRIMARY) HYPERTENSION Status: Acute - Time Time: 50% of the time was spent in coordination of care (as documented) at patient's floor/unit and/or counseling patient. Time with Patient: greater than 50 minutes - Plan Plan: # Afib w/ RVR - <2 weeks since ablation - rate controlled on diltiazem - check TSH, do not note recent level - state she drank coffee and tea at rehab which is outside of her normal - Cards, EP consulted, appreciate recs # Hypokalmia - replete #HTN - well-controlled # HLD - home meds Dispo: will remain IMCU for now while on Dilt drip, await Cards, EP recs
[2018-12-07] MEDS: Lorazepam 1 MG TAB PO SCH (12:29)
[2018-12-07] MEDS ORDERED: Potassium Chloride 20 MEQ TAB PO SCH (13:00)
[2018-12-07] MEDS: Diltiazem 125 MG in Sodium Chloride 0.9% 100 ML IVPB SCH (16:27)
[2018-12-07] MEDS: Insulin Regular 300 UNITS/3 ML VIAL SC PRN (17:27)
--- NOTE | 2018-12-07 18:14 | ULT ---
RIGHT INGUINAL VASCULAR ULTRASOUND: 12/07/18 INDICATION: Rule out pseudoaneurysm within the right inguinal region. TECHNIQUE: Banuelos scale, color flow doppler and vascular duplex with spectral analysis was performed of the right common femoral artery, right common femoral vein and right inguinal region. FINDINGS: There is a 3.6 x 1.9 x 1.3 cm hematoma within the right inguinal region in the region of interest wit hout internal dopplerable flow to suggest the presence of pseudoaneurysm. There is a triphasic wavefo rm seen within the right common femoral artery. There is respiratory phase density and cardiac phase density seen involving the right common femoral vein. IMPRESSION: 3.6 cm hematoma within the right inguinal region. No evidence of pseudoaneurysm. POS: [facility]
[2018-12-07] MEDS: Ezetimibe 10 MG TAB PO SCH (21:40)
[2018-12-08 06:25] LABS: Anion Gap 13 mmol/L (10-20); BUN (Urea Nitrogen) 20 mg/dL (9.8-20.1); Calc. Creatinine Clearance 58 mL/min (70-130); Calcium 9.3 mg/dL (7.8-10.44); Carbon Dioxide 28 mmol/L (23-31); Chloride 99 mmol/L (98-107); Estimated GFR-MDRD 58; Glucose 159 mg/dL (83-110); Potassium 3.1 mmol/L (3.5-5.1); Sodium 137 mmol/L (136-145)
[2018-12-08] MEDS: Diltiazem 125 MG in Sodium Chloride 0.9% 100 ML IVPB SCH (06:55)
--- NOTE | 2018-12-08 08:48 | PRG ---
DATE OF SERVICE: 12/08/2018 SERVICE: Pulmonary Medicine. INTERVAL HISTORY: The patient is doing really well from respiratory standpoint. She is breathing comfortably. She is not having any chest pain. She still feels a little bit weak. She is having a little fluttering in her chest, but it is much less severe than it was. She is going down for cardioversion today. Otherwise, there has been no interval change to her condition. PHYSICAL EXAMINATION: VITAL SIGNS: Afebrile, pulse 70, blood pressure 112/73, respirations 37, and saturation 93% on room air. GENERAL: The patient is awake and alert, in no apparent distress. LUNGS: Decent air entry. There is no prolonged expiratory phase or wheezing. HEART: Normal rate. Irregular. ABDOMEN: Soft, nontender, and nondistended. Bowel sounds are positive. MUSCULOSKELETAL: No cyanosis or clubbing. No pitting in the bilateral lower extremities. NEUROLOGIC: Grossly nonfocal. LABORATORY DATA: WBC 7.7, hemoglobin 12.8, and platelets 213,000. Basic metabolic profile is unremarkable except for potassium of 3.1. TSH 1.5. IMAGING DATA: Abdomen and pelvis ultrasound demonstrates 3.6 cm hematoma within the right inguinal region. No pseudoaneurysm is noted. ASSESSMENT: 1. Atrial fibrillation/flutter with rapid ventricular response. 2. Right inguinal hematoma. 3. Hypertension. DISCUSSION AND PLAN: The patient is rate controlled. She is going to undergo a PEPPER and if no clot is present, cardioversion is going to be pursued. We will continue replacing potassium. I will check a magnesium with this morning's laboratories. If it is low, this will be replaced as well. Pulmonary will continue to follow if she remains in-house, but from a purely respiratory standpoint, when she is cardioverted, she can be considered for transition to the telemetry unit or home. Job ID: [id number]
--- NOTE | 2018-12-08 08:57 | PRG ---
DATE OF SERVICE: 12/08/2018 SUBJECTIVE: Ms. Malik is doing well. She is awake and alert. She still remains in AFib. OBJECTIVE: VITAL SIGNS: Blood pressure is 108/85, pulse 74 and regular. LUNGS: Clear. HEART: Reveals no murmur. LABORATORY DATA: Potassium reveals mildly decreased at 3.1. IMPRESSION: Recurrent atrial fibrillation. PLAN: by the family that the patient is to undergo cardioversion today, which I have in favor correct her potassium. We will await to give her extra potassium after cardioversion. Job ID: [id number]
[2018-12-08] MEDS ORDERED: PROPOFOL 20 ML ONE (09:38)
[2018-12-08] MEDS: Potassium Chloride 20 MEQ TAB PO SCH ×2 (11:06→14:24)
[2018-12-08] MEDS: Calcium Carbonate + Vit D 1 TAB PO SCH ×2 (11:07→20:53)
[2018-12-08] MEDS: Apixaban 5 MG TAB PO SCH ×2 (11:07→20:53)
[2018-12-08] MEDS: Carvedilol 6.25 MG TAB PO SCH (11:07)
[2018-12-08] MEDS: Famotidine/PF 20 mg/2ml Vial SLOW IVP SCH ×2 (11:07→20:52)
[2018-12-08] MEDS: hydrALAZINE 25 MG TAB PO SCH ×3 (11:08→20:53)
[2018-12-08] MEDS: Fish Oil 1,000 MG CAP PO SCH (11:08)
[2018-12-08] MEDS: Isosorbide Dinitrate 20 MG TAB PO SCH ×3 (11:09→20:54)
[2018-12-08] MEDS: Hydrochlorothiazide 25 MG TAB PO SCH (11:09)
[2018-12-08] MEDS: PARoxetine 20 MG TAB PO SCH (11:10)
[2018-12-08] MEDS: Potassium Chloride 10 MEQ TAB PO SCH (11:10)
[2018-12-08] MEDS: Ubidecarenone 50 MG CAP PO SCH ×2 (11:11→20:53)
[2018-12-08] MEDS: Lorazepam 1 MG TAB PO SCH (14:24)
--- NOTE | 2018-12-08 14:45 | CON ---
DATE OF CONSULTATION: REASON FOR REQUEST: Atrial fibrillation. HISTORY OF PRESENT ILLNESS: Ms. Malik is an 78-year-old female with history of atrial fibrillation, status post recent redo ablation. She has been previously maintained on sotalol, however, had polymorphic ventricular tachycardia noted on sotalol. Currently, she reports having palpitations and some shortness of breath. PAST MEDICAL HISTORY: Significant for atrial fibrillation as described, stroke, coronary artery disease, hypertension, previous coronary artery bypass grafting and atrial flutter. MEDICATIONS: Currently include; 1. Eliquis. 2. Cardizem drip. FAMILY HISTORY: No early coronary artery disease or sudden cardiac . SOCIAL HISTORY: She does not drink to excess, smoke, or use illicit medications. REVIEW OF SYSTEMS: Reviewed. She denies nausea, vomiting, diarrhea, fever, chills, change in vision or hearing, all those were negative and included in the HPI. PHYSICAL EXAMINATION: VITAL SIGNS: She is afebrile, pulse is 80, blood pressure 106/64. HEENT: Pupils are equally round and reactive to light and accommodation. Extraocular movements are intact. Nose; midline septum. No rhinorrhea or epistaxis. Throat moist. No erythema or exudate. NECK: Supple without lymphadenopathy, JVD, or goiter. HEART: Irregularly irregular without murmur, gallop, or rub. LUNGS: Clear to auscultation and percussion bilaterally. ABDOMEN: Soft, nontender, and nondistended. Positive bowel sounds. EXTREMITIES: Without cyanosis, clubbing, or edema. NEUROLOGIC: Cranial nerves II through XII are grossly intact. Motor strength is 5/5 throughout. DIAGNOSTICS STUDIES: Electrocardiogram reveals atypical atrial flutter, controlled ventricular response. IMPRESSION: 1. Recurrent atrial flutter after recent atrial fibrillation ablation. 2. History of polymorphic ventricular tachycardia, on sotalol. 3. Coronary artery disease. RECOMMENDATIONS: King has recurrent arrhythmia. She is still in the early period. I would recommend to proceed with PEPPER cardioversion. Continue her current medical therapy. We will have her follow up in clinic as scheduled. Job ID: [id number]
[2018-12-08] MEDS ORDERED: PROPOFOL 200 MG/20 ML VIAL ONE (15:24)
[2018-12-08] MEDS: Insulin Regular 300 UNITS/3 ML VIAL SC PRN (16:37)
--- NOTE | 2018-12-08 17:47 | ECHO ---
TRANSESOPHAGEAL ECHOCARDIOGRAM: DATE OF PROCEDURE: 12/08/18 INDICATION: This is an 78-year-old woman with paroxysmal atrial fibrillation. DESCRIPTION OF PROCEDURE: The patient was taken to the PACU. The patient was sedated by anesthesiology. A transesophageal probe was placed in the distal esophagus and stomach. Echocardiographic images were obtained. The transesophageal probe was removed. FINDINGS: 1. Normal left ventricular systolic function. 2. Biatrial enlargement. 3. Moderate to severe mitral regurgitation. 4. Moderate to severe tricuspid regurgitation. 5. Mild aortic regurgitation. 6. No thrombus noted in the left atrium or left atrial appendage. 7. Atherosclerotic debris in the descending aorta. IMPRESSION: No formed thrombus in the left atrium or left atrial appendage.
--- NOTE | 2018-12-08 17:51 | OP ---
CARDIOLOGY PROCEDURE NOTE: Date: 12/08/18 PROCEDURE: Electrical cardioversion. REASON FOR PROCEDURE: 78-year-old woman with paroxysmal atrial fibrillation. PROCEDURE IN DETAIL: The patient was taken to the PACU. The patient was sedated by anesthesiology. The patient was shocked with 200, 300, 300, and 300 joules of synchronized electricity. The patient remains in atrial fibril lation. IMPRESSION: Unsuccessful electrical cardioversion.
[2018-12-08] MEDS: Ezetimibe 10 MG TAB PO SCH (20:54)
[2018-12-08] MEDS: Carvedilol 25 MG TAB PO SCH (20:54)
[2018-12-09] MEDS: Insulin Regular 300 UNITS/3 ML VIAL SC PRN (05:50)
[2018-12-09] MEDS: Ubidecarenone 50 MG CAP PO SCH (08:59)
[2018-12-09] MEDS: Potassium Chloride 10 MEQ TAB PO SCH (08:59)
[2018-12-09] MEDS: Isosorbide Dinitrate 20 MG TAB PO SCH ×2 (09:00→15:12)
[2018-12-09] MEDS: Apixaban 5 MG TAB PO SCH (09:00)
[2018-12-09] MEDS: Carvedilol 25 MG TAB PO SCH (09:00)
[2018-12-09] MEDS: PARoxetine 20 MG TAB PO SCH (09:00)
[2018-12-09] MEDS: Hydrochlorothiazide 25 MG TAB PO SCH (09:00)
[2018-12-09] MEDS: hydrALAZINE 25 MG TAB PO SCH ×2 (09:01→15:12)
[2018-12-09] MEDS: Calcium Carbonate + Vit D 1 TAB PO SCH (09:01)
[2018-12-09] MEDS: Famotidine/PF 20 mg/2ml Vial SLOW IVP SCH (09:01)
[2018-12-09 09:02] VITALS: BP 166/60
[2018-12-09] MEDS ORDERED: Magnesium Sulfate 4 GM in Sodium Chloride 0.9% 250 ML 250 ML IVPB SCH (09:15)
[2018-12-09 09:38] LABS: Anion Gap 13 mmol/L (10-20); BUN (Urea Nitrogen) 18 mg/dL (9.8-20.1); Calc. Creatinine Clearance 55 mL/min (70-130); Calcium 9.2 mg/dL (7.8-10.44); Carbon Dioxide 26 mmol/L (23-31); Chloride 100 mmol/L (98-107); Estimated GFR-MDRD 54; Glucose 230 mg/dL (83-110); Potassium 3.7 mmol/L (3.5-5.1); Sodium 135 mmol/L (136-145)
--- NOTE | 2018-12-09 11:24 | PDOC.CTH ---
Cardiology Progress Note - Subjective EP PROGRESS NOTE: 12/09/18 Seen and evaluated as follow up for early recurrent atrial flutter after recent atrial fibrillation ablation. Feels well today. No more heart racing or palpitations. Denies chest pain/ pressure, dizziness, bleeding, or stroke like symptoms. Likely DC home today. - Objective Vital Signs Temp Pulse BP Pulse Ox 12/09/18 11:14 98.6 F 12/09/18 09:01 83 166/60 H 12/09/18 09:00 83 166/60 H 12/09/18 08:00 95 12/09/18 07:14 98.8 F 12/09/18 04:14 99.0 F 12/09/18 00:08 97.4 F L Weight 168 lb 12/08/18 12/09/18 12/10/18 06:59 06:59 06:59 Intake Total 700 1125 Output Total 900 1100 Balance -200 25 - Physical Examination General/Neuro: alert & oriented x3, NAD Neck: carotid US brisk, no JVD present Lungs: CTA, unlabored respirations Heart: PMI normal, other: (atrial flutter) Abdomen: NT/ND, soft - Telemetry Telemetry Rhythm: atrial flutter - Labs Result Diagrams: 12/07/18 05:49 12/09/18 09:05 Troponin/CKMB CK-MB (CK-2) 1.5 ng/mL (0-6.6) 12/06/18 22:08 Troponin I 0.243 ng/mL (< 0.028) H 12/07/18 00:52 - Assessment/Plan 1. Atrial flutter -ERAF s/p PVAI last week with Dr montanez. -rate controlled with coreg 25mg BID and diltiazem cd 120mg BID (CVR 70-85) -failed CV on 12/08 2. Hypomagnesemia -Agree with IV replacement ordered given her hx of TDP 3. Indication for anticoagulation -continue Eliquis 5mg BID given recent ablation and ongoing atrial arrhythmias 4. Hypertension -per cardiology 5. History of polymorphic VT with sotalol administration - avoid any QT prolonging medications and replace Mg. - avoid bradycardia OK for DC by EP after IV Magnesium given. Continue with rate control for now and follow up in clinic as already arranged. Will make arrangements for OP CV after next clinic appointment, when further out from her recent ablation.
--- NOTE | 2018-12-09 14:34 | PRG ---
DATE OF SERVICE: 12/09/2018 SERVICE: Pulmonary Medicine. INTERVAL HISTORY: The patient is doing fine from respiratory standpoint. They attempted to cardiovert her on multiple occasions yesterday. Unfortunately, she continued to revert back into an irregular rhythm. She cannot provide any additional elements of the history. She currently denies having any chest discomfort, nausea, or vomiting. She remains a little bit weak. That being said, her strength has firmed up very nicely ever since rates has been under better control. PHYSICAL EXAMINATION: VITAL SIGNS: Afebrile, pulse 83, blood pressure 166/60, respirations 17, saturation 92% on room air. GENERAL: The patient is awake and alert, in no apparent distress. LUNGS: Decent air entry. No prolonged expiratory phase or wheezing is present. Dependent crackles are minimal. HEART: Normal rate. Irregular. ABDOMEN: Soft, nontender, nondistended. Bowel sounds are positive. MUSCULOSKELETAL: No cyanosis or clubbing. There is no pitting in the bilateral lower extremities. NEUROLOGIC: Grossly nonfocal. LABORATORY DATA: Sodium 135. Basic metabolic profile is otherwise unremarkable. Potassium 3.7. ASSESSMENT: 1. Atrial fibrillation/flutter with rapid ventricular response, currently rate controlled, status post failed ablation and failed cardioversion. 2. Hypertension. 3. Right inguinal hematoma. DISCUSSION AND PLAN: The patient is doing fine from a respiratory standpoint. I believed that Cardiology is going to be employing a rate control strategy moving forward. From my perspective, at this point, she is stable for transition out of the ICU. If she does not go home today, she will need to be transitioned to the telemetry unit. If she remains in the IMCU, I will continue to follow. Job ID: [id number]
[2018-12-09 15:21] VITALS: TEMP 99.2
--- NOTE | 2018-12-09 19:03 | PRG ---
DATE OF SERVICE: 12/09/2018 SUBJECTIVE: Ms. Malik is doing much better. She is feeling well. She still remains in atrial fibrillation. Her cardioversions were unsuccessful. No other medical complaints noted. OBJECTIVE: VITAL SIGNS: Blood pressure is , pulse 76 and regular, temperature 98.6. LUNGS: Clear. HEART: Reveals no murmur. LABORATORY DATA: Her potassium 3.7, magnesium little bit depressed at 1.8. She received an IV MAC at this time. IMPRESSION: Recurrent atrial fibrillation, refractory to electrocardioversion. PLAN: Her medications have been changed and they are noted in her chart. She will be transferred back to [facility]. Job ID: [id number]
== END 2018-12-09 17:36 | DRG 310 ==
LOC: ERS 18:34 → IMCU/EMU 20:34
PROVIDERS: ADMIT Family Medicine; ATTEND Family Medicine
PROC: 5A2204Z Restoration of Cardiac Rhythm, Single (ICD-10-PCS; principal; 2018-12-08)
PROC: B246ZZ4 Ultrasonography of Right and Left Heart, Transesophageal (ICD-10-PCS; 2018-12-08)
DX: I48.0 Paroxysmal atrial fibrillation (principal); I10 Essential (primary) hypertension; E78.5 Hyperlipidemia, unspecified; I25.10 Atherosclerotic heart disease of native coronary artery without angina pectoris; E87.6 Hypokalemia; E83.42 Hypomagnesemia; Z79.82 Long term (current) use of aspirin; Z95.1 Presence of aortocoronary bypass graft; Z95.5 Presence of coronary angioplasty implant and graft; Z82.49 Family history of ischemic heart disease and other diseases of the circulatory system
CPT/HCPCS: 36415; 36416; 71045; 80048; 80053; 82550; 82553; 83690; 83735; 84443; 84484; 85025; 92960; 93005; 93312; 93976; 96365; 96366; 96376; J2405; J2704; J3475; J7050; S0028

== ENCOUNTER 2018-12-15 07:47 | Inpatient (IN) | payer MEDICARE, BC ==
[2018-12-15] MEDS ORDERED: Nitroglycerin 0.4 MG TAB 1 EACH ONE (08:05)
[2018-12-15 08:28] LABS: #Eosinphils 0.2 thou/uL (0.0-0.7); #Lymphocytes 1.4 thou/uL (1.20-3.40); #Monocytes 0.7 thou/uL (0.11-0.59); #Neutrophils 4.9 thou/uL (1.40-6.50); %Basophils 0.3 % (0.0-1.0); %Eosinophils 2.9 % (0.0-10.0); %Lymphocytes 19.4 % (21.0-51.0); %Neutrophils 68.4 % (42.0-75.0); Hemoglobin 11.7 g/dL (12.0-16.0); Mean Corpuscular HGB CONC 32.5 g/dL (32.0-36.0); Mean Corpuscular Hemoglobin 28.9 pg (27.0-31.0); Mean Corpuscular Volume 88.9 fL (78.0-98.0); Mean Platelet Volume 7.5 fL (7.4-10.4); Platelet Count 217 thou/uL (130-400); RBC Distribution Width 14.7 % (11.5-14.5); Red Blood Cell (RBC) Count 4.07 mill/uL (4.20-5.40); White Blood Cell (WBC) Count 7.2 thou/uL (4.8-10.8)
[2018-12-15 08:43] LABS: ALT (SGPT) 12 U/L (8-55); AST (SGOT) 21 U/L (5-34); Albumin 3.7 g/dL (3.4-4.8); Alkaline Phosphatase 87 U/L (40-150); Anion Gap 12 mmol/L (10-20); BUN (Urea Nitrogen) 17 mg/dL (9.8-20.1); Bilirubin, Total 2.1 mg/dL (0.2-1.2); CK (CPK) 41 U/L (29-168); Calc. Creatinine Clearance 0 mL/min (70-130); Calcium 9.4 mg/dL (7.8-10.44); Carbon Dioxide 29 mmol/L (23-31); Chloride 95 mmol/L (98-107); Estimated GFR-MDRD 64; Globulin 2.8 g/dL (2.4-3.5); Glucose 211 mg/dL (83-110); Lipase 59 U/L (8-78); Potassium 3.4 mmol/L (3.5-5.1); Protein, Total 6.5 g/dL (6.0-8.3); Sodium 133 mmol/L (136-145)
[2018-12-15 09:05] LABS: CKMB 1.2 ng/mL (0-6.6)
--- NOTE | 2018-12-15 09:22 | RAD ---
PORTABLE CHEST: 12/15/2018 PROVIDED CLINICAL HISTORY: Chest heaviness. COMPARISON: 12/06/2018 FINDINGS: The cardiac silhouette remains enlarged. Prominence of the pulmonary interstitium is similar to the prior examination. The left lung base is suboptimally evaluated on the basis of cardiac enlargement. No lobar consolidation, pleural fluid, or pneumothorax apparent. Median sternotomy changes, CABG c hanges, and atherosclerosis are again seen. IMPRESSION: Cardiomegaly without evidence for an acute cardiopulmonary process. If there is persistent clinical concern, correlation with a lateral view is recommended. POS: [facility]
[2018-12-15] MEDS ORDERED: ISOVUE-370 76%-LOCM 1 ML ONE (10:10)
--- NOTE | 2018-12-15 11:01 | CT ---
CTA THORAX UTILIZING IV CONTRAST AND 3D REFORMATTED IMAGING: INDICATIONS: Substernal chest pain. COMPARISON: 06/04/2017 FINDINGS: No central or segmental pulmonary embolus is evident. There is prominent cardiomegaly with coronary artery and thoracic aortic calcifications. There is post CABG change. There is a small left pleural effusion and left basilar atelectasis. A patchy area of reticular nodularity is seen within the rig ht middle lobe, on image 54 of series 3. There is some mild reticular nodularity within the right up per lobe, anterior segment, on image 29 of series 3. The visualized upper abdomen demonstrates stabl e suspected cystic lesions of the upper right kidney. The adrenal glands appear within normal limits . There is some reflux of contrast within the hepatic veins, which can be seen with right heart dysf unction. There is prominent dextroscoliosis of the lumbar spine with scattered degenerative osteoart hritic change. IMPRESSION: 1. No central or segmental pulmonary embolus. 2. Prominent cardiomegaly. 3. Small left pleural effusion. 4. Reticular nodularity, right middle lobe/right upper lobe, which can be seen with bronchiolitis of infectious or inflammatory etiology. 5. Stable right renal cyst. 6. Reflux with contrast within the hepatic veins, which can be seen with right heart dysfunction. POS: [facility]
[2018-12-15] MEDS ORDERED: Metoprolol Tartrate 25 MG TAB ONE (12:52)
[2018-12-15] MEDS ORDERED: Metoprolol Tartrate 5 MG/5 ML VIAL ONE ×2 (12:52→13:06)
[2018-12-15 13:18] LABS: Troponin I 0.027 ng/mL (< 0.028)
[2018-12-15 14:12] VITALS: BMI 29.8
[2018-12-15] MEDS ORDERED: Acetaminophen 325 MG TAB PO PRN (14:32)
[2018-12-15] MEDS ORDERED: Ondansetron ODT 4 MG TAB SL PRN (14:32)
[2018-12-15] MEDS ORDERED: Sodium Chloride 0.9% 1,000 ML IV SCH (14:32)
[2018-12-15] MEDS ORDERED: Ondansetron PF 4 MG/2 ML Vial IVP PRN (14:32)
[2018-12-15 15:45] LABS: Troponin I 0.029 ng/mL (< 0.028)
[2018-12-15] MEDS ORDERED: Digoxin 0.5 MG/2 ML AMP SLOW IVP SCH ×2 (16:15→18:15)
[2018-12-15] MEDS ORDERED: Metoprolol Tartrate 5 MG/5 ML VIAL IVP SCH (16:15)
[2018-12-15] MEDS: Lorazepam 0.5 MG TAB PO SCH (18:11)
[2018-12-15] MEDS: hydrALAZINE 25 MG TAB PO SCH (21:49)
[2018-12-15] MEDS: Apixaban 5 MG TAB PO SCH (21:50)
[2018-12-15] MEDS: Fish Oil 1,000 MG CAP PO SCH (21:50)
[2018-12-15] MEDS: Ubidecarenone 50 MG CAP PO SCH (21:51)
[2018-12-15] MEDS: Ezetimibe 10 MG TAB PO SCH (21:51)
[2018-12-15] MEDS: Calcium Carbonate + Vit D 1 TAB PO SCH (21:51)
[2018-12-15] MEDS: Atorvastatin Calcium 40 MG TAB PO SCH (21:51)
[2018-12-15] MEDS: Magnesium Oxide 400 MG TAB PO SCH (21:51)
[2018-12-15] MEDS: Carvedilol 25 MG TAB PO SCH (21:51)
[2018-12-15] MEDS: Isosorbide Dinitrate 20 MG TAB PO SCH (21:52)
--- NOTE | 2018-12-15 21:54 | CON ---
DATE OF CONSULT: 12/15/18 Patient is an 78-year-old woman with history of recurrent atrial fibrillation who presented with palp itations and chest discomfort. The patient has a previous history of coronary artery disease. Please see recent H&Ps for complete details. She has had difficulty with rapid atrial fibrillation. She was on Betapace and developed torsades. The patient underwent radiofrequency ablation. She was readmitted several days ago with rapid atrial fibrillation. She underwent attempted electrocardioversion which was unsuccessful. Patient was in her usual state of health when she suddenly developed mid sternal ch est discomfort and palpitations. Patient presented to the Emergency Room for further evaluation. The patient denies having any present chest discomfort. PAST MEDICAL HISTORY: Significant for 1. Coronary artery disease. 2. History of coronary artery bypass surgery. 3. Hypertension. 4. Atrial flutter. 5. Dyslipidemia. 6. Anxiety. 7. PAST SURGICAL HISTORY: 1. Coronary bypass surgery. 2. Mitral regurgitation. SOCIAL HISTORY: She is a nonsmoker. ALLERGIES: Sulfa drugs. MEDICATIONS: See nursing list. PHYSICAL EXAMINATION: GENERAL: This is an elderly woman in no acute distress. Blood pressure of 139/83. Heart rate 113 and irregular. NECK: Showed no jugular venous distention. LUNGS: Clear to auscultation. HEART: Irregular rate and rhythm. Normal S1 and S2. I/ systolic murmur. ABDOMEN: Distended. EXTREMITIES: Show mild edema. LABORATORY RESULTS: White blood count 7.2, hemoglobin 0.7, hematocrit 36.2, platelets 217,000. Sodium 133, potassium 3.4, chloride 95, bicarbonate 29, BUN 17, creatinine 0.85. Glucose 211. Troponin 0.029. BNP 195. EKG reveals atrial fibrillation with a rapid ventricular response. IMPRESSION: 1. Atrial fibrillation with RVR. 2. Chest pain. 3. History of coronary artery disease. 4. History of coronary artery bypass surgery. 5. Moderate to severe mitral regurgitation. 6. Hypertension. 7. Anxiety. This patient presents with rapid atrial fibrillation. We will treat the patient with Lopressor and ad d digoxin. Patient declined to undergo further cardiac evaluation including stress test and we will f ollow this patient with you throughout her hospitalization.
[2018-12-15] MEDS ORDERED: Nitroglycerin 2% Ointment 1 INCH/1 GM Packet TOP SCH (22:00)
[2018-12-15] MEDS ORDERED: Digoxin 0.25 MG TAB PO SCH (22:15)
--- NOTE | 2018-12-16 00:11 | HP ---
HISTORY OF PRESENT ILLNESS: The patient is an 78-year-old female who has had multiple recent admissions to the hospital mainly related to atrial fibrillation with paroxysmal atrial fibrillation. She was back at [facility] in [place] and apparently she had chest pain with onset this morning, associated shortness of breath. She was brought to the emergency room due to the chest pain associated with shortness of breath. Seen and evaluated in our ER. There was no evidence of an acute coronary syndrome. Troponins were mildly elevated. EKG revealed junctional tachycardia, possibly some atrial fibrillation. No history of any other acute injury otherwise noted. She was seen and evaluated in the ER, found to be stable. Due to chest pain, shortness of breath, as well as an elevated D-dimer, she was recommended to be admitted. It is noted during this time she underwent CT angio of the chest, which was normal. She is on chronic Eliquis therapy. At the time I was able to see her around 12 o'clock noon, the patient was stable and fine. She reported no shortness of breath. No chest pain further noted. Otherwise, no other medical complaints are noted. ALLERGIES: SHE IS ALLERGIC TO PENICILLIN, CYCLOSPORINE, AND SULFA. CURRENT MEDICATIONS: 1. Eliquis 5 mg b.i.d. 2. Aspirin 81 mg daily. 3. Atorvastatin 40 mg daily. 4. Carvedilol 25 mg b.i.d. 5. Diltiazem CD 120 mg b.i.d. 6. Zetia 10 mg daily. 7. Fish oil 1000 mg daily. 8. Hydralazine 37.5 mg t.i.d. 9. Hydrochlorothiazide 25 mg daily. 10. Isosorbide 20 mg t.i.d. 11. Lorazepam 0.5 mg p.r.n. 12. Magnesium oxide 400 mg daily. 13. Pantoprazole 40 mg daily. 14. Paroxetine 20 mg two tablets daily. 15. Potassium chloride 10 mEq daily. 16. CoQ10 at 200 mg b.i.d. PAST MEDICAL HISTORY: Positive for the above-noted atrial fibrillation as noted. She underwent ablation procedure approximately 3 weeks ago. She did have an episode of paroxysmal atrial fibrillation, for which she was hospitalized approximately 1 week ago and for which she was unable to be cardioverted. PAST SURGICAL HISTORY: Positive for coronary artery disease with cardiac stent, hysterectomy, cardiac bypass surgery, and a recent cardiac ablation. FAMILY HISTORY: Positive for atherosclerotic coronary artery disease and breast cancer. SOCIAL AND PERSONAL HISTORY: She is a nonsmoker. Does not drink. She is . She lives with her . She has been in [facility] for rehabilitation therapy and cardiac ablation. PHYSICAL EXAMINATION: VITAL SIGNS: Her pulse is 113, slightly irregular; temperature 97.8; respiratory rate is 16; O2 sats 96% on room air; BP 139/86. GENERAL: She appears to be alert, active, in no acute distress. HEENT: Normocephalic and atraumatic. Sclerae and conjunctivae clear. NECK: Supple. Full range of motion. No masses. LUNGS: Clear. HEART: Reveals an irregularly irregular rhythm without murmurs, gallops, or rubs. ABDOMEN: Soft and nontender. Bowel sounds are present and active. No hepatosplenomegaly is noted. There is no evidence of any rebound or guarding noted at this time. EXTREMITIES: No clubbing, edema, or cyanosis noted at this time. LABORATORY DATA: Her white blood count is 7.2, hemoglobin 11.7, hematocrit 36.2. Chemistry; sodium 133, potassium 3.4, chloride 95, CO2 of 29, BUN 17, creatinine 0.85. Troponins are indeterminately elevated at 0.29 x3. EKG reveals a junctional tachycardia without evidence of acute changes. CT of the chest showed no evidence of any significant findings other than small pleural effusion. IMPRESSION: This is an 78-year-old female with chest pain, possibly cardiac in origin. Plan: We will consult her stock turner, Dr. Wallace, for further treatment recommendations at this time. She is currently stable. I see no evidence of any recurrent atrial fibrillation. I have discussed the findings with the daughter. We will place on ARBs. Further treatment recommendations per Cardiology. Job ID: [id number]
[2018-12-16 05:20] LABS: Anion Gap 12 mmol/L (10-20); BUN (Urea Nitrogen) 15 mg/dL (9.8-20.1); Calc. Creatinine Clearance 66 mL/min (70-130); Carbon Dioxide 27 mmol/L (23-31); Chloride 97 mmol/L (98-107); Estimated GFR-MDRD 64; Glucose 226 mg/dL (83-110); Sodium 133 mmol/L (136-145)
[2018-12-16 05:25] LABS: Potassium 2.9 mmol/L (3.5-5.1)
[2018-12-16] MEDS ORDERED: Potassium Chloride 20 MEQ TAB PO SCH (08:00)
--- NOTE | 2018-12-16 08:31 | PRG ---
DATE OF SERVICE: 12/16/2018 SUBJECTIVE: Ms. Malik is . She still complain of some slight shortness of breath and chest pain. OBJECTIVE: VITAL SIGNS: Blood pressure 130/69; pulse 102, irregular; and O2 sats 93% on room air. GENERAL: She is alert and active, in no distress. LUNGS: Clear. HEART: Reveals an irregularly irregular rhythm without murmur, gallops, or rubs. LABORATORY DATA: Sodium 133, potassium 2.9. Otherwise, unremarkable lab. IMPRESSION: 1. Chest pain of unknown etiology. Does not appear to be an acute cardiac issue. 2. History of atrial fibrillation. 3. Hypokalemia, will need to be addressed with potassium re-supplementation. PLAN: 1. Potassium re-supplementation today. 2. The patient from my standpoint, possibly steady enough to go home, but this will be up to Cardiology. Job ID: [id number]
[2018-12-16] MEDS ORDERED: Digoxin 0.25 MG TAB PO SCH (09:00)
[2018-12-16] MEDS: Isosorbide Dinitrate 20 MG TAB PO SCH ×3 (09:31→20:47)
[2018-12-16] MEDS: PARoxetine 20 MG TAB PO SCH (09:31)
[2018-12-16] MEDS: Apixaban 5 MG TAB PO SCH (09:32)
[2018-12-16] MEDS: Hydrochlorothiazide 25 MG TAB PO SCH (09:32)
[2018-12-16] MEDS: Calcium Carbonate + Vit D 1 TAB PO SCH ×2 (09:33→20:46)
[2018-12-16] MEDS: Ubidecarenone 50 MG CAP PO SCH ×2 (09:33→20:46)
[2018-12-16] MEDS: hydrALAZINE 25 MG TAB PO SCH ×3 (09:33→20:45)
[2018-12-16] MEDS: Aspirin 81 mg Enteric Coated Tablet PO SCH (09:33)
[2018-12-16] MEDS: Magnesium Oxide 400 MG TAB PO SCH ×2 (09:33→20:47)
[2018-12-16] MEDS: Fish Oil 1,000 MG CAP PO SCH (09:34)
[2018-12-16] MEDS: Carvedilol 25 MG TAB PO SCH ×2 (09:34→20:46)
[2018-12-16] MEDS: Potassium Chloride 10 MEQ TAB PO SCH (09:39)
[2018-12-16] MEDS: Acetaminophen 325 MG TAB PO PRN ×2 (10:22→14:33)
[2018-12-16 13:54] LABS: Anion Gap 12 mmol/L (10-20); BUN (Urea Nitrogen) 15 mg/dL (9.8-20.1); Calc. Creatinine Clearance 60 mL/min (70-130); Carbon Dioxide 28 mmol/L (23-31); Chloride 94 mmol/L (98-107); Estimated GFR-MDRD 58; Glucose 329 mg/dL (83-110); Magnesium 1.9 mg/dL (1.6-2.6); Potassium 3.6 mmol/L (3.5-5.1); Sodium 130 mmol/L (136-145)
--- NOTE | 2018-12-16 14:43 | CON ---
DATE OF CONSULTATION: 12/16/2018 REASON FOR CONSULTATION: Atrial flutter. HISTORY OF PRESENT ILLNESS: Ms. Malik is a pleasant 78-year-old woman, known to our practice when she was initially found to have atrial fibrillation that was previously suppressed with sotalol. Earlier this month, she developed an acute episode of bradycardia dependent torsades in the setting of sotalol use. Her sotalol was discontinued and she was transferred to [facility] in [place] and underwent pulmonary venous isolation with Dr. Reid. Since that time, she has already been admitted for an early recurrence of atrial flutter and failed cardioversion without antiarrhythmic medications. It is decided to continue with rate control. This was achieved with fairly low-dose diltiazem and she was discharged back to rehab and rate controlled atrial flutter that was asymptomatic. She has been continued on Eliquis 5 mg b.i.d. for stroke prophylaxis. Unfortunately, we see that she once again comes back in atrial flutter, but this time presented with palpitations and some atypical chest pain. She does have a history of coronary artery disease. Upon admission, she was found to be in 2:1 atypical flutter that was fairly discrete with very low amplitude P-waves. Since then, she will convert to sinus rhythm, but is in and out of this atrial flutter. She is seen to have conversion pauses up to 2.3 seconds in duration. Currently , she does not have any cardiac complaints and feels fairly well, but continues to be quite weak. REVIEW OF SYSTEMS: A 12-point review of systems is conducted, is negative except that listed above in HPI. PAST MEDICAL HISTORY: 1. Atrial fibrillation, status post PVI early November 2018. 2. Polymorphic ventricular tachycardia, bradycardia dependent in the setting of sotalol use. 3. Early recurrence of atypical atrial flutter with failed cardioversion. 4. Cavotricuspid isthmus dependent atrial flutter ablated by Dr. Jimenez in 2009. 5. Severe mitral and tricuspid regurgitation with pulmonary hypertension by PEPPER in November 2018 with normal EF, bilateral atrial enlargement. 6. Coronary artery disease with single-vessel bypass. 7. Hypertension. 8. Dyslipidemia. 9. Anxiety. 10. CHADS2-VASc score of 5 on the basis of advanced age, female gender, and vascular disease on Eliquis for anticoagulation. ALLERGIES: SULFA. HOME MEDICATIONS: Include: 1. Eliquis 5 mg b.i.d. 2. Tylenol as needed. 3. Atorvastatin 40 mg at bedtime. 4. Aspirin 81 mg daily. 5. Cardizem CD 120 mg b.i.d. 6. Coreg 25 mg b.i.d. 7. Calcium with vitamin D 1 tablet twice daily. 8. Fish oil one tablet t.i.d. 9. Zetia 10 mg at bedtime. 10. Isordil 20 mg t.i.d. 11. Hydrochlorothiazide 25 mg q.a.m. 12. Lorazepam 0.5 mg at 1800 hours. 13. Protonix 40 mg at bedtime. 14. Paroxetine 40 mg daily. 15. Magnesium oxide 400 mg p.o. b.i.d. 16. Potassium chloride 10 mEq daily. 17. Hydralazine 37.5 mg p.o. t.i.d. 18. CoQ10 of 200 mg p.o. b.i.d. SOCIAL HISTORY: Denies alcohol, tobacco, or illicit drug use. FAMILY HISTORY: Noncontributory. OBJECTIVE: VITAL SIGNS: Temperature 98.0, pulse 109, respirations 20, oxygen is 100% on room air, and blood pressure 117/65. GENERAL: Ms. Malik is an elderly woman. She is alert and oriented. Her speech is clear. Affect is appropriate. She is resting comfortably in bed, in no apparent distress. NECK: Supple without jugular venous distention. LUNGS: Clear to auscultation bilaterally. HEART: Heart rate is regular and occasionally rapid. PMI is nondisplaced. ABDOMEN: Obese, soft, and nontender without palpable masses. Hepatojugular reflux is negative. There is no hepatosplenomegaly appreciated. EXTREMITIES: Warm and dry to touch without clubbing, cyanosis, or edema. NEUROLOGIC: Grossly intact and nonfocal. Her gait was not assessed. DATABASE: Laboratory; potassium 2.9, creatinine 0.85. ALT and AST within normal limits. Troponins max 0.029. BNP 195. Hemoglobin 11.7, WBC 7.2, and platelet count 217. Telemetry and EKGs all were personally reviewed and currently show an atypical atrial flutter that is rate controlled in the 60s. There is also sinus rhythm seen. Her arrhythmias are paroxysmal. She is having conversion pauses up to 2.3 seconds in duration. No sustained bradycardia is seen. IMPRESSION: 1. Atypical chest pain. 2. Paroxysmal atypical flutter, early recurrence of atrial arrhythmias following pulmonary venous isolation. 3. Tachybrady syndrome. 4. History of coronary artery disease. 5. Hypokalemia. 6. Elevated CHADS-VASc score. Oral anticoagulation is indicated, currently on Eliquis. PLAN AND RECOMMENDATIONS: 1. Replete potassium to goal of 4. 2. Check magnesium level as with her recent hospital stay, she was with low magnesium levels and was placed on oral replacement, but does have a history of polymorphic ventricular tachycardia. 3. Continue with rate control with beta blockers, diltiazem as needed. 4. Monitor for increasing bradycardia and consider pacemaker if seen. 5. Considering amiodarone use for arrhythmia suppression, but only with backup pacemaker hence her recent history of polymorphic VT. 6. This was discussed at length with the patient and the daughter. For now, we will continue with rate control. When she is rate controlled, she is asymptomatic with her arrhythmia and we already see that as we get further out from the ablation she is converting in and out with her arrhythmias. Thank you for allowing us to participate in the care of this patient. We will continue to follow. Job ID: [id number] [facility] CENTERBelkis
[2018-12-16] MEDS: Lorazepam 0.5 MG TAB PO SCH (18:03)
[2018-12-16] MEDS: Ezetimibe 10 MG TAB PO SCH (20:46)
[2018-12-16] MEDS: Atorvastatin Calcium 40 MG TAB PO SCH (20:46)
[2018-12-17] MEDS: Nitroglycerin 0.4 MG TAB (25 Tab Bottle) ONE ×2 (03:58→04:03)
[2018-12-17] MEDS: Acetaminophen 325 MG TAB PO PRN (05:11)
[2018-12-17] MEDS: Aspirin 81 mg Enteric Coated Tablet PO SCH (09:24)
[2018-12-17] MEDS: Calcium Carbonate + Vit D 1 TAB PO SCH ×2 (09:26→20:41)
[2018-12-17] MEDS: hydrALAZINE 25 MG TAB PO SCH ×3 (09:28→20:38)
[2018-12-17] MEDS: Magnesium Oxide 400 MG TAB PO SCH ×2 (09:29→20:40)
[2018-12-17] MEDS: Isosorbide Dinitrate 20 MG TAB PO SCH ×3 (09:29→20:41)
[2018-12-17] MEDS: Hydrochlorothiazide 25 MG TAB PO SCH (09:29)
[2018-12-17] MEDS: PARoxetine 20 MG TAB PO SCH (09:29)
[2018-12-17] MEDS: Ubidecarenone 50 MG CAP PO SCH ×2 (09:31→20:37)
[2018-12-17] MEDS: Potassium Chloride 10 MEQ TAB PO SCH (09:31)
[2018-12-17] MEDS ORDERED: Iopamidol 370 76% 50 ML VIAL FS ONE (10:11)
--- NOTE | 2018-12-17 10:36 | PRG ---
DATE OF SERVICE: 12/17/2018 SUBJECTIVE: Ms. Malik is resting comfortably. She has complaints of not feeling well, most related to chest discomfort. OBJECTIVE: VITAL SIGNS: Her blood pressure is 107/52, temperature 98.1, and pulse of 76. LUNGS: Clear. HEART: Reveals no murmur. ABDOMEN: Soft and nontender. IMPRESSION: The patient suffers from multiple cardiac arrhythmias, most of them related to atrial fibrillation. She has undergone ablation. There has been mention in the chart by the specialists of possible pacemaker. I have not been informed of any further intentions of this. PLAN: Continue current treatment. Cardiology will hopefully make decisions soon about pathway to follow. Job ID: [id number]
[2018-12-17] MEDS: Carvedilol 25 MG TAB PO SCH ×2 (12:16→20:40)
[2018-12-17] MEDS ORDERED: Midazolam HCl 2 mg/2 ml Vial ONE ×2 (14:02→14:43)
[2018-12-17] MEDS ORDERED: Fentanyl 100 MCG/2 ML VIAL ONE (14:11)
--- NOTE | 2018-12-17 17:25 | RAD ---
CHEST ONE VIEW: 12/17/18 HISTORY: Pacemaker placement. COMPARISON: 12/15/18. FINDINGS: The cardiac silhouette remains magnified and enlarged. Pulmonary vascular engorgement is similar in a ppearance to the previous exam. Atelectasis at the lingula appears stable. Mediastinum is midline wit h postoperative changes and aortic calcification. A dual lead left subclavian cardiac electronic dev ice is now in place overlying the right atrium and ventricle. No evidence of pneumothorax. Cardiac mo nitor leads overlie the chest. IMPRESSION: Dual lead left subclavian cardiac pacemaker is in good radiographic position. Atherosclerosis. Cardiomegaly and other findings are otherwise stable. POS: [facility]
[2018-12-17] MEDS: Lorazepam 0.5 MG TAB PO SCH (18:42)
[2018-12-17] MEDS: Atorvastatin Calcium 40 MG TAB PO SCH (20:40)
[2018-12-17] MEDS: Ezetimibe 10 MG TAB PO SCH (20:41)
[2018-12-17] MEDS ORDERED: Cephalexin 250 MG CAP PO SCH (21:00)
[2018-12-18] MEDS: Potassium Chloride 10 MEQ TAB PO SCH (08:39)
[2018-12-18] MEDS: Ubidecarenone 50 MG CAP PO SCH ×2 (08:39→21:09)
[2018-12-18] MEDS: Cephalexin 250 MG CAP PO SCH ×2 (08:39→21:10)
[2018-12-18] MEDS: Digoxin 0.125 MG TAB PO SCH (08:40)
[2018-12-18] MEDS: Aspirin 81 mg Enteric Coated Tablet PO SCH (08:40)
[2018-12-18] MEDS: PARoxetine 20 MG TAB PO SCH (08:40)
[2018-12-18] MEDS: Hydrochlorothiazide 25 MG TAB PO SCH (08:40)
[2018-12-18] MEDS: Magnesium Oxide 400 MG TAB PO SCH ×2 (08:41→21:10)
[2018-12-18] MEDS: Calcium Carbonate + Vit D 1 TAB PO SCH ×2 (08:41→21:10)
[2018-12-18] MEDS: Apixaban 5 MG TAB PO SCH ×2 (08:41→21:11)
[2018-12-18] MEDS: hydrALAZINE 25 MG TAB PO SCH ×3 (08:41→21:11)
[2018-12-18] MEDS: Carvedilol 25 MG TAB PO SCH ×2 (08:41→21:14)
[2018-12-18] MEDS: Isosorbide Dinitrate 20 MG TAB PO SCH ×3 (08:41→21:10)
--- NOTE | 2018-12-18 10:04 | RAD ---
CHEST 1 VIEW: Date: 12/18/18 HISTORY: Pacemaker placement. COMPARISON: 12/17/18. FINDINGS: Cardiac silhouette is magnified and enlarged. Pulmonary vasculature is upper limits of normal. Dual l ead left subclavian cardiac electronic device is unchanged in position. No evidence of pneumothorax. Postoperative changes of the mediastinum and aortic calcification are again demonstrated. IMPRESSION: Stable radiographic appearance of the chest. POS: [facility]
--- NOTE | 2018-12-18 11:29 | PRG ---
DATE OF SERVICE: 12/18/2018 PRIMARY CARE PHYSICIAN: Ganga Boland MD SUBJECTIVE: The patient is feeling much better. She states she does not have any chest pain, no shortness of breath. She is moving in the room without difficulty. She states that since the pacemaker placement yesterday, she is feeling significantly better as well, some chest wall tenderness. No nausea or vomiting. She is moving her bowels. Anxious to go home. OBJECTIVE: VITAL SIGNS: Temperature 97.7, pulse of 82, respirations 16, blood pressure 136/75, pulse ox is 97% on 2 L. GENERAL: She is awake and alert, in no acute distress. Speech is clear. NECK: Supple. HEART: Regular rate and rhythm. LUNGS: Clear bilaterally. ABDOMEN: Soft. EXTREMITIES: With trace edema. LABORATORY DATA: Reviewed. No current labs at this time. Chest x-ray from this morning reveals no acute change. Dual lead left subclavian device is in good position. ASSESSMENT AND PLAN: 1. This is an 78-year-old female, admitted for a cardiac arrhythmia, sick sinus syndrome. She is status post pacemaker placement now and feeling much better. I appreciate Cardiology and Electrophysiology evaluation. I will continue plan per them. 2. Hypertension, is stable on current regimen. 3. Hypokalemia. We will recheck a potassium level today. 4. Disposition. Okay for discharge when okay with Cardiology and Electrophysiology. Job ID: [id number]
[2018-12-18 11:56] LABS: Anion Gap 16 mmol/L (10-20); BUN (Urea Nitrogen) 13 mg/dL (9.8-20.1); Calc. Creatinine Clearance 63 mL/min (70-130); Calcium 8.9 mg/dL (7.8-10.44); Carbon Dioxide 23 mmol/L (23-31); Chloride 93 mmol/L (98-107); Estimated GFR-MDRD 65; Glucose 233 mg/dL (83-110); Potassium 3.5 mmol/L (3.5-5.1); Sodium 128 mmol/L (136-145)
[2018-12-18] MEDS: Lorazepam 0.5 MG TAB PO SCH (17:53)
[2018-12-18] MEDS: Ezetimibe 10 MG TAB PO SCH (21:09)
[2018-12-18] MEDS: Atorvastatin Calcium 40 MG TAB PO SCH (21:11)
[2018-12-19] MEDS: Carvedilol 25 MG TAB PO SCH (05:53)
[2018-12-19] MEDS: Hydrochlorothiazide 25 MG TAB PO SCH (05:53)
[2018-12-19] MEDS: hydrALAZINE 25 MG TAB PO SCH (05:53)
[2018-12-19 08:27] VITALS: BP 138/63; TEMP 98
[2018-12-19] MEDS: Acetaminophen 325 MG TAB PO PRN (08:35)
[2018-12-19] MEDS: Magnesium Oxide 400 MG TAB PO SCH (08:36)
[2018-12-19] MEDS: PARoxetine 20 MG TAB PO SCH (08:36)
[2018-12-19] MEDS: Apixaban 5 MG TAB PO SCH (08:36)
[2018-12-19] MEDS: Cephalexin 250 MG CAP PO SCH (08:36)
[2018-12-19] MEDS: Calcium Carbonate + Vit D 1 TAB PO SCH (08:36)
[2018-12-19] MEDS: Aspirin 81 mg Enteric Coated Tablet PO SCH (08:36)
[2018-12-19] MEDS: Isosorbide Dinitrate 20 MG TAB PO SCH (08:36)
[2018-12-19] MEDS: Digoxin 0.125 MG TAB PO SCH (08:36)
[2018-12-19] MEDS: Potassium Chloride 10 MEQ TAB PO SCH (08:37)
[2018-12-19] MEDS: Ubidecarenone 50 MG CAP PO SCH (08:44)
--- NOTE | 2018-12-20 12:50 | DIS ---
DATE OF ADMISSION: 12/18/2018 DATE OF DISCHARGE: 12/19/2018 PRIMARY CARE PHYSICIAN: Dr. Ganga Boland. ADMISSION DIAGNOSES: 1. Chest pain, rule out myocardial infarction. 2. Paroxysmal atrial fibrillation. 3. Sick sinus syndrome. DISCHARGE DIAGNOSES: 1. Sick sinus syndrome, resolved with pacemaker. 2. Coronary artery disease. 3. Hypertension. 4. Hyperlipidemia. 5. Anxiety. 6. Hypoxemia. 7. Possible sleep apnea. CONSULTATIONS: 1. Dr. Wallace for Cardiology. 2. Dr. Vergara for Electrophysiology. PROCEDURES: 1. Telemetry monitoring, rule out WI protocol. 2. Pacemaker placement. HOSPITAL COURSE: This is an 78-year-old female patient of Dr. Ganga Boland with recurrent episodes of atrial fibrillation with rapid ventricular response. She was at [facility] in [place], apparently had chest pain and shortness of breath. She was sent to the emergency department for evaluation. She did have tachycardia and atrial fibrillation on her monitor. She eventually ruled out for an WI with negative cardiac enzymes. She was followed by Dr. Wallace during the hospitalization. Due to her tachyarrhythmia, she was seen by Dr. Vergara for evaluation and they had discussed possible medication adjustments versus pacemaker placement and decided on proceeding with a pacemaker. The patient underwent pacemaker placement with little difficulty as she had some soreness in her left shoulder and arm, but this improved over time. She continued to have episodes of elevated blood pressure, but again this improved with medication adjustments and she was stable for discharge on the day of discharge. DISCHARGE PHYSICAL EXAMINATION: VITAL SIGNS: Temperature 98.0, pulse of 72 to 86, respirations 18, blood pressure 138/63, and pulse ox 94% on room air. GENERAL: She is awake and alert, in no acute distress. Speech is clear. Mucosa is moist. NECK: Supple. No JVD, adenopathy, or bruits. HEART: Regular rate and rhythm. LUNGS: Clear bilaterally. CHEST: Chest wall with incision clean, dry, and intact. Some redness and some tenderness. No sign of infection. ABDOMEN: Soft. EXTREMITIES: No clubbing, cyanosis, or edema. 2+ peripheral pulses bilaterally. DISCHARGE LABORATORY DATA: Sodium 128, potassium 3.5, chloride 93, CO2 of 23, BUN and creatinine 13 and 0.84 with a GFR of 65, calcium of 8.9, and magnesium of 1.9. DISCHARGE MEDICATIONS: Include: 1. Tylenol p.r.n. 2. Eliquis 5 mg b.i.d. 3. Aspirin 81 mg daily. 4. Lipitor 40 mg daily. 5. Caltrate D b.i.d. 6. Carvedilol 25 mg b.i.d. 7. Cephalexin 500 mg q.6 for 7 more days. 8. Coenzyme Q10 daily. 9. Digoxin 0.125 mg daily. 10. Diltiazem 120 mg b.i.d. 11. Zetia 10 mg daily. 12. Hydralazine 37.5 mg t.i.d. 13. Hydrochlorothiazide 25 mg daily. 14. Isordil 20 mg t.i.d. 15. Ativan 0.5 mg at bedtime for sleep. 16. Magnesium oxide 400 mg b.i.d. 17. Protonix 40 mg daily. 18. Paxil 40 mg daily. 19. Potassium chloride 10 mEq daily. 20. Clonidine 0.1 mg p.r.n. blood pressure over 180. FOLLOWUP INSTRUCTIONS: The patient to be followed at [facility] in [place] with overnight oximetry and to arrange a sleep study for possible sleep apnea. Follow up with Dr. Ganga Boland in 1 week, with Dr. Vergara in 1 week for pacemaker, and with Dr. Wallace in 1 to 2 weeks. Job ID: [id number]
== END 2018-12-19 12:38 | DRG 243 ==
LOC: ERS 07:47 → ERHOLD 10:31 → 2SW 13:45 → OBSVTOIN 12-18 11:02
PROVIDERS: ADMIT Family Medicine; ATTEND Family Medicine
PROC: 0JH606Z Insertion of Pacemaker, Dual Chamber into Chest Subcutaneous Tissue and Fascia, Open Approach (ICD-10-PCS; principal; 2018-12-17)
PROC: 02HK3JZ Insertion of Pacemaker Lead into Right Ventricle, Percutaneous Approach (ICD-10-PCS; 2018-12-17)
PROC: 02H63JZ Insertion of Pacemaker Lead into Right Atrium, Percutaneous Approach (ICD-10-PCS; 2018-12-17)
DX: I49.5 Sick sinus syndrome (principal); I48.4 Atypical atrial flutter; I48.0 Paroxysmal atrial fibrillation; I25.10 Atherosclerotic heart disease of native coronary artery without angina pectoris; I10 Essential (primary) hypertension; E87.6 Hypokalemia; E78.5 Hyperlipidemia, unspecified; F41.9 Anxiety disorder, unspecified; R09.02 Hypoxemia; G47.30 Sleep apnea, unspecified; I08.1 Rheumatic disorders of both mitral and tricuspid valves; Z88.0 Allergy status to penicillin; Z88.2 Allergy status to sulfonamides; Z79.01 Long term (current) use of anticoagulants; Z88.8 Allergy status to other drugs, medicaments and biological substances; Z79.82 Long term (current) use of aspirin; Z79.899 Other long term (current) drug therapy; Z95.1 Presence of aortocoronary bypass graft; Z95.5 Presence of coronary angioplasty implant and graft
CPT/HCPCS: 33208; 36005; 36415; 71045; 71275; 75820; 80048; 80053; 82550; 82553; 83690; 83735; 83880; 84484; 85025; 85379; 93005; 93010; 93798; 96361; 96374; 99152; 99153; C1785; C1898; J0690; J1160; J2250; J3010; J3490; Q9966; Q9967

== ENCOUNTER 2019-01-09 21:41 | Inpatient (IN) | payer MEDICARE, BC ==
[~2019-01-09 21:41] MED LIST changes: +ISOVUE-370 76%-LOCM 1 ML ONE; -Magnesium 5 GM/10 ML Abboject SYRINGE ONE
[2019-01-09] MEDS ORDERED: Propofol 1,000 MG/100 ML VIAL IV ONE (22:12)
[2019-01-09 22:19] LABS: #Eosinphils 0.1 thou/uL (0.0-0.7); #Monocytes 0.6 thou/uL (0.11-0.59); #Neutrophils 10.4 thou/uL (1.40-6.50); %Basophils 0.1 % (0.0-1.0); %Eosinophils 0.7 % (0.0-10.0); %Lymphocytes 7.9 % (21.0-51.0); %Monocytes 5.2 % (0.0-10.0); %Neutrophils 86.2 % (42.0-75.0); Hemoglobin 12.9 g/dL (12.0-16.0); Mean Corpuscular HGB CONC 31.7 g/dL (32.0-36.0); Mean Corpuscular Hemoglobin 27.5 pg (27.0-31.0); Mean Corpuscular Volume 86.8 fL (78.0-98.0); Platelet Count 202 thou/uL (130-400); RBC Distribution Width 14.3 % (11.5-14.5); White Blood Cell (WBC) Count 12.1 thou/uL (4.8-10.8)
[2019-01-09] MEDS ORDERED: Nitroglycerin 50 MG/250 ML BOT 250 ML ONE (22:24)
--- NOTE | 2019-01-09 22:26 | CT ---
CT HEAD WITHOUT CONTRAST: 01/09/2019 HISTORY: Unresponsive with weakness. Intubated. COMPARISON: 09/30/2017 TECHNIQUE: Axial CT imaging at 5 mm intervals, from the vertex through the skull base, without contrast. FINDINGS: The imaged paranasal sinuses and mastoid air cells are well aerated. There is no displaced calvarial fracture. There is a focal area of scalp swelling near the vertex, posteriorly, on the right, sugge sting recent head trauma. No associated fracture. No intracranial hemorrhage, midline shift, or mas s effect. There is periventricular, seep, and subcortical white matter hypodensity, evidence of smal l vessel disease. There is an old lacunar infarction, involving the thalamus, on the left, medially, stable. IMPRESSION: Focal area of scalp swelling, posteriorly, on the right. No intracranial hemorrhage or displaced dick varial fracture. Evidence of small vessel disease noted. Results called to Dr. Barlow at 9:53 p.m. on 01/09/2019 CODE CR POS: [facility]
[2019-01-09 22:44] LABS: ALT (SGPT) 17 U/L (8-55); AST (SGOT) 26 U/L (5-34); Albumin 3.4 g/dL (3.4-4.8); Alkaline Phosphatase 77 U/L (40-150); Anion Gap 16 mmol/L (10-20); BUN (Urea Nitrogen) 15 mg/dL (9.8-20.1); Bilirubin, Total 1.5 mg/dL (0.2-1.2); CK (CPK) 51 U/L (29-168); Calc. Creatinine Clearance 0 mL/min (70-130); Calcium 9.4 mg/dL (7.8-10.44); Carbon Dioxide 25 mmol/L (23-31); Chloride 90 mmol/L (98-107); Estimated GFR-MDRD 33; Globulin 2.6 g/dL (2.4-3.5); Potassium 3.3 mmol/L (3.5-5.1); Sodium 128 mmol/L (136-145)
[2019-01-09 22:46] LABS: Glucose 627 mg/dL (83-110)
--- NOTE | 2019-01-09 22:47 | CT ---
CT ANGIOGRAM HEAD: CT ANGIOGRAM NECK: 01/09/2019 HISTORY: Unresponsive patient. Acute stroke protocol. COMPARISON: None. TECHNIQUE: Axial CT imaging at 1.25 mm intervals, from the vertex through the lung apices, with IV contrast, [facility] [place]. Coronal and sagittal 3D reformatted imaging obtained. FINDINGS: The imaged lung apices demonstrate pleural plaque calcification bilaterally. There is a cluster of r eticulonodular density within the right upper lobe, seen on images 28 through 36, which may be inflam matory/infectious in nature. There is a focal peripheral area of increased density within the crisis specialist ior aspect of the left upper lobe, on image 26. The cluster of reticulonodular densities are more co nspicuous than on a CT angiogram chest performed on 12/15/2018, and the focal opacity in the posterio r left upper lobe is new when compared to that prior exam. Thus, findings may be inflammatory/infect ious in nature and/or on the basis of atelectasis. Thus, follow-up imaging is recommended. There is an endotracheal tube, which extends into the right mainstem bronchus and should be retracted. Midline sternotomy wires are present. The retroantral fat and parapharyngeal fat appear clear bilaterally. The parotid and submandibular g lands appear unremarkable. There is fluid within the posterior aspect of the nasopharynx. The origin of the innominate artery, the left common carotid artery, and the left subclavian artery a re patent. There is moderate proximal left subclavian artery stenosis, on the basis of atherosclerot ic calcification. There is mild atherosclerotic calcification at the origin of the left common carot id artery. There is mild stenosis at the origin of the right subclavian artery, on the basis of atherosclerotic calcification. The origin of the right common carotid artery appears grossly unremarkable. Mild yvonne nosis is noted at the origin of the right vertebral artery. The right vertebral artery is tortuous p roximally. There is severe stenosis at the origin of the left vertebral artery, secondary to atheros clerotic calcification. The vertebral arteries are patent bilaterally. The common carotid artery on the left is tortuosity. There is scattered atherosclerotic calcificatio n of the left common carotid artery and the proximal left internal carotid artery. There is marked t ortuosity of the proximal left ICA. On the basis of NASCET criteria, there is no hemodynamically sig nificant stenosis involving the internal or common carotid artery on the left. The right internal carotid artery is markedly tortuous. There is calcification at the origin of the right internal carotid artery. On the basis of NASCET criteria, at the origin of the left internal c arotid artery, there is relatively mild stenosis, left less than 50%. There is moderate atherosclerotic calcification of the bilateral cavernous carotid arteries. The M1 segment and the A1 segment is patent bilaterally. The MCA bifurcation appears unremarkable bi laterally. The distal CAYDEN and the distal MCA branches appear grossly unremarkable. The basilar artery is patent. The posterior cerebral artery appears patent bilaterally as well. Review of the structures demonstrates multilevel degenerative change throughout the cervical spine wi th multilevel iain space narrowing and degenerative endplate change, as well as bilateral multilevel facet and uncovertebral osteophyte formation. There is no worrisome lytic or blastic bone lesions. Incompletely imaged pacemaker generator is seen in the left chest wall. There is mild surrounding ed bobby, consistent with the provided history of recent pacemaker placement. IMPRESSION: 1. Areas of atherosclerotic calcification involving the arterial structures of the neck, as detailed above. 2. On the basis of NASCET criteria, there is no hemodynamically significant stenosis, involving the interna or the common carotid artery on either side. 3. No discrete focal area of central intracranial arterial occlusion. 4. Right brain stem bronchus intubation. 5. Areas of opacities involving the bilateral lung apices, for which a follow-up chest CT, following treatment with intravenous contrast, is suggested. The results were called to Dr. Barlow at 10:15 p.m. on 01/09/2019. CODE CR POS: KATIE
[2019-01-09] MEDS ORDERED: Insulin Regular 300 UNITS/3 ML VIAL ONE (22:55)
[2019-01-09 23:01] LABS: Bilirubin Negative (Negative); Blood, Urine Small (Negative); Clarity CLEAR (Clear); Glucose, Urine (Dipstick) >=1000 mg/dL (Negative); Leukocyte Negative (Negative); Nitrite Negative (Negative); Protein, Urine (Dipstick) 100 mg/dL (Neg-Trace); Specific Gravity, Urine 1.039 (1.002-1.036); Urobilinogen 0.2 mg/dL (0.2-1.0); pH, Urine 6.5 (5.0-9.0)
[2019-01-09 23:02] LABS: Bacteria/HPF None Seen HPF (None Seen); Hyaline Casts/LPF 4-6 HYALINE CAST LPF (0-3 Hyaline); Pathc Cast-AUWi Flag 0.81 (0-2.49); RBC/HPF 0-3 HPF (0-3); WBC/HPF 0-3 HPF (0-3)
[2019-01-09 23:06] LABS: CKMB 2.3 ng/mL (0-6.6)
--- NOTE | 2019-01-09 23:07 | RAD ---
SEMIUPRIGHT FRONTAL CHEST RADIOGRAPH: 01/09/2019 HISTORY: Intubated patient. FINDINGS: Midline sternotomy wires and mediastinal clips are present. There is a dual-lead transvenous pacing device inserted via a left subclavian approach, with leads overlying the region of the right atrium a nd the right ventricle. Pacemaker leads are stable when compared to 12/18/2018. There is an endotra cheal tube terminating at the level of the clavicles. Stable patchy opacity noted in the left base when compared to 12/18/2018, which could represent infil trate, volume loss or attenuation, secondary to cardiac enlargement. IMPRESSION: Endotracheal tube in proper position. Otherwise stable appearance of the chest. POS: KENY
[2019-01-09 23:18] LABS: Actual Bicarbonate (HCO3a) 23.7 mEq/L (22-28); Analyzer IN Cardio ER; Base Excess (BEa) 2.4 mEq/L (-2.0 to +3.0); CO2 Tension 27.5 mmHg (35.0-45.0); Calcium, Ionized 1.13 mmol/L (1.12-1.30); Carboxyhemoglobin (COHb) 0.4 gm% (0.0-3.0); Hemoglobin (Hb) 12.9 g/dL (12.0-16.0); Potassium - ABG Lab 2.86 mmol/L (3.70-5.30)
[2019-01-09 23:20] LABS: ALV-art Gradient 129.625 (0-20); Puncture Site RRA; pH, Arterial 7.55 (7.35-7.45)
[2019-01-09] MEDS ORDERED: Dextrose 5 %-0.45 % NaCl 1,000 ML IV PRN (23:32)
[2019-01-09] MEDS ORDERED: D5 1/2 NS w/20 mEq KCL 1,000 ML IV PRN (23:32)
[2019-01-09] MEDS ORDERED: Ondansetron PF 4 MG/2 ML Vial IVP PRN (23:32)
[2019-01-09] MEDS ORDERED: Acetaminophen 650 MG Suppository PR PRN (23:32)
[2019-01-09] MEDS ORDERED: Sodium Chloride 0.9% 1,000 ML IV PRN ×4 (23:32)
[2019-01-09] MEDS ORDERED: NS 0.9% w/ 20 MEQ KCL 1,000 ML IV PRN (23:32)
[2019-01-09] MEDS ORDERED: CCU Electrolyte Replacement 1 EACH IVPB ONE (23:32)
[2019-01-09] MEDS ORDERED: HUMULIN R 100 UNITS in Sodium Chloride 0.9% 100 ML IVPB SCH (23:45)
[2019-01-09] MEDS ORDERED: Ventilator Sedation Protocol 1 EACH FS SCH (23:45)
[2019-01-09] MEDS ORDERED: Lorazepam 2 MG/ML VIAL SLOW IVP PRN (23:56)
[2019-01-09] MEDS ORDERED: DISCONTINUE PREVIOUS NARCOTIC PAIN MEDICATIONS AND BENZODIAZEPINES FS SCH (23:56)
[2019-01-09] MEDS ORDERED: Morphine 2 MG/ML SYRINGE SLOW IVP PRN (23:56)
[2019-01-09] MEDS ORDERED: Fentanyl BOLUS 250 ML IVPB PRN (23:56)
[2019-01-09] MEDS ORDERED: Propofol BOLUS 1,000 MG/100 ML VIAL IV PRN (23:56)
[2019-01-09] MEDS ORDERED: Potassium Phosphate 15 MMOL in Sodium Chloride 0.9% 250 ML 250 ML IV PRN (23:57)
[2019-01-09] MEDS ORDERED: Potassium Chloride 40 MEQ in Premix Bag 1 BAG IVPB PRN (23:57)
[2019-01-09] MEDS ORDERED: Magnesium 2 GM/50 ML 2 GM in Premix Bag 1 BAG IVPB PRN (23:57)
[2019-01-09] MEDS ORDERED: Magnesium Oxide 400 MG TAB PO PRN ×2 (23:57)
[2019-01-09] MEDS ORDERED: Potassium Phosphate 9 MMOL in Sodium Chloride 0.9% 100 ML IVPB PRN (23:57)
[2019-01-09] MEDS ORDERED: Potassium Phosphate 12 MMOL in Sodium Chloride 0.9% 250 ML 250 ML IV PRN (23:57)
[2019-01-09] MEDS ORDERED: Potassium Chloride 40 MEQ in Sodium Chloride 0.9% 250 ML 250 ML IVPB PRN (23:57)
[2019-01-09] MEDS ORDERED: Potassium Chloride 20 MEQ TAB PO PRN (23:57)
[2019-01-09] MEDS ORDERED: Morphine 4 MG/ML VIAL SLOW IVP PRN (23:59)
[2019-01-10 00:34] LABS: Anion Gap 15 mmol/L (10-20); BUN (Urea Nitrogen) 16 mg/dL (9.8-20.1); Calc. Creatinine Clearance 0 mL/min (70-130); Calcium 9.8 mg/dL (7.8-10.44); Carbon Dioxide 27 mmol/L (23-31); Chloride 91 mmol/L (98-107); Estimated GFR-MDRD 35; Sodium 130 mmol/L (136-145)
[2019-01-10 00:38] LABS: Glucose 632 mg/dL (83-110)
[2019-01-10] MEDS: hydrALAZINE 20 MG/ML VIAL SLOW IVP PRN ×2 (01:00→12:48)
[2019-01-10] MEDS: NS 0.9% w/ 20 MEQ KCL 1,000 ML IV PRN ×3 (01:25→10:34)
[2019-01-10] MEDS: Propofol 1,000 MG/100 ML VIAL IV PRN ×2 (03:16→08:47)
--- NOTE | 2019-01-10 04:03 | HP ---
PRIMARY CARE PHYSICIAN: Ganga Boland MD CHIEF COMPLAINT: Syncopal episode, unresponsive. HISTORY OF PRESENT ILLNESS: The patient was eating with family members when had apparent possible choking episode, undetermined aspiration, became unresponsive. EMS was dispatched. The patient was not responding and not adequately protecting airway, and was intubated by EMS en route to the emergency department, was found to be in atrial fibrillation with RVR pattern prior to arrival to emergency department. The patient has subsequently reverted back, has a strong history of paroxysmal atrial fibrillation, was admitted last month with relapse of atrial fibrillation with RVR without prior ablation therapy, had pacemaker placement under Dr. Vergara and [place] for sick sinus syndrome and ability to press further antiarrhythmics more aggressively to prevent further episodes of tachycardia. No specific mention of any defibrillator as patient's ejection fraction is preserved. No mention of diabetes prior, however, patient's blood glucose was elevated on last admission with pacemaker placement. In the emergency department, the patient had critical point of care glucose, which was found to be 632 with positive ketones once checked with matching hypokalemia, dehydration, acute kidney injury, and pseudohyponatremia. The patient's specific gravity was 1.039 with greater than 1000 glucose. ABG initially of 7.5 pH, however, this was approximately at the time right mainstem was being ventilated, found on CT report of head and neck for altered mental status and syncopal episode, which showed no hemorrhagic component or concern for stroke at this time. I did note ET tube as above, which was pulled back and chest x-ray confirmed good placement. The patient was sedated with propofol. Initial blood pressure control with nitroglycerin drip, which to be transitioned toward patient's home medications of hydralazine and labetalol p.r.n. The family was not at bedside ICU or available at the Emergency Department during transition. The patient was unable to give handful history or review of systems on review of prior documentation. MEDICATIONS: 1. Eliquis 5 mg b.i.d. 2. Aspirin 81 mg daily. 3. Atorvastatin 40 mg daily. 4. Carvedilol 25 mg b.i.d. 5. Diltiazem 120 mg b.i.d. 6. Zetia 10 mg daily. 7. Fish oil 1000 mg daily. 8. Hydralazine 37.5 mg t.i.d. 9. Hydrochlorothiazide 25 mg daily. 10. Isosorbide mononitrate 20 mg t.i.d. 11. Lorazepam 0.5 mg p.r.n. 12. Magnesium oxide 400 mg daily. 13. Pantoprazole 40 mg daily. 14. Paroxetine 20 mg 2 tabs daily. 15. Potassium chloride 10 mEq. 16. CoQ10 of 200 mg b.i.d. PAST MEDICAL HISTORY: Prior ablation therapy, pacemaker placement. PAST SURGICAL HISTORY: Pacemaker placement, cardiac stent, hysterectomy, coronary artery bypass graft surgery, ablation as above. SOCIAL HISTORY: The patient is a nonsmoker and does not drink. , lives with , at [facility]. PHYSICAL EXAMINATION: VITAL SIGNS: Pulse of 65, blood pressure 191/90, oxygen saturation 100%, mechanically ventilated 40% FiO2. GENERAL: The patient is intubated, sedated, and resting comfortably in soft restraints. ET tube and OG tube in place. HEENT: Head is normocephalic and atraumatic. HEART: Regular rate and rhythm at time of exam. LUNGS: Coarse bronchial breath sounds, slightly diminished in the left side. However, no rhonchi, rubs or wheezes. ABDOMEN: Soft, nontender. Positive bowel sounds throughout. EXTREMITIES: Lower extremities without significant swelling or edema, however, the patient does have some apparent bursitis of the ankles bilaterally. Unable to assess orientation secondary to intubation and extubation. The patient does move all extremities with vigorous stimulation. LABORATORY DATA: White blood cell count on admit 12.1, with neutrophil 86%. However, this is likely concentrated. We will follow up in a.m. and check after IV rehydration, repeating ABG to trend q.4 hours BMPs to follow. Sodium 130, potassium 3.0, creatinine 1.45. Cortical glucose on Accu-Chek at bedside greater than 550. Troponin x1 of 0.246. Chest x-ray, no acute cardiopulmonary events other than ET tube placement as above. The patient has OG tube in place already and bite block. ASSESSMENT AND PLAN: Syncopal episode with atrial fibrillation with RVR, currently resolved. Atrial fibrillation with RVR, new onset diabetes with ketoacidosis, respiratory failure, acutely possible aspiration, acute kidney injury, respiratory alkalosis, hypertension, coronary artery disease, initiated ketoacidosis protocol with insulin drip, IV fluids, repeat Accu-Cheks, potassium replacement per unit protocol, trend ABG, ketones per protocol, look to transition nitroglycerin drip over to p.r.n. labetalol and hydralazine. For the time being, cover with Lovenox in a.m. from patient's Eliquis. We will attempt to continue if medications can be ground in place through OG tube in the morning for blood pressure control, heart rate control. Consulting Pulmonary Care and Cardiology for further management of ventilation and cardiac medications. Cover with famotidine IV while intubated. Continue sedation and weaning parameters per unit protocol. Followup A1c in a.m. We will handoff to Ganga Boland in the morning. Job ID: [id number]
[2019-01-10 04:59] LABS: Band 7 % (5-11); Hemoglobin 12.8 g/dL (12.0-16.0); Lymphocytes 13 % (21-51); MDiff Complete? YES; Mean Corpuscular HGB CONC 32.4 g/dL (32.0-36.0); Mean Corpuscular Hemoglobin 28.4 pg (27.0-31.0); Mean Corpuscular Volume 87.8 fL (78.0-98.0); Mean Platelet Volume 8.5 fL (7.4-10.4); Monocytes 6 % (0-10); Neutrophil 74 % (42-75); Platelet Count 177 thou/uL (130-400); Platelet Morphology Comment Appears Adequate; RBC Distribution Width 14.5 % (11.5-14.5); Red Blood Cell (RBC) Count 4.49 mill/uL (4.20-5.40); White Blood Cell (WBC) Count 13.1 thou/uL (4.8-10.8)
[2019-01-10 05:04] LABS: ALT (SGPT) 18 U/L (8-55); AST (SGOT) 32 U/L (5-34); Albumin 3.5 g/dL (3.4-4.8); Alkaline Phosphatase 73 U/L (40-150); Anion Gap 17 mmol/L (10-20); BUN (Urea Nitrogen) 15 mg/dL (9.8-20.1); Bilirubin, Total 1.1 mg/dL (0.2-1.2); Calc. Creatinine Clearance 39 mL/min (70-130); Calcium 9.5 mg/dL (7.8-10.44); Carbon Dioxide 22 mmol/L (23-31); Chloride 99 mmol/L (98-107); Estimated GFR-MDRD 38; Globulin 2.9 g/dL (2.4-3.5); Glucose 389 mg/dL (83-110); Potassium 3.1 mmol/L (3.5-5.1); Protein, Total 6.4 g/dL (6.0-8.3); Sodium 135 mmol/L (136-145)
[2019-01-10 07:27] LABS: Actual Bicarbonate (HCO3a) 22.8 mEq/L (22-28); Base Excess (BEa) 2.2 mEq/L (-2.0 to +3.0); Calcium, Ionized 1.14 mmol/L (1.12-1.30); Carboxyhemoglobin (COHb) 1.5 gm% (0.0-3.0); O2 Tension (PaO2) 105.5 mmHg (> 60.0)
[2019-01-10 07:29] LABS: ALV-art Gradient 77.525 (0-20); CO2 Tension 24.7 mmHg (35.0-45.0); Puncture Site RRA; pH, Arterial 7.58 (7.35-7.45)
[2019-01-10] MEDS: Enoxaparin Sodium 80 MG/0.8 ML SYRINGE SC SCH ×2 (08:47→21:11)
[2019-01-10] MEDS: hydrALAZINE 25 MG TAB PO SCH ×3 (08:48→21:14)
[2019-01-10] MEDS: Carvedilol 25 MG TAB PO SCH ×2 (08:48→21:14)
[2019-01-10] MEDS ORDERED: Famotidine/PF 20 mg/2ml Vial SLOW IVP SCH (09:00)
[2019-01-10 10:36] LABS: Anion Gap 11 mmol/L (10-20); BUN (Urea Nitrogen) 12 mg/dL (9.8-20.1); Calc. Creatinine Clearance 55 mL/min (70-130); Calcium 8.5 mg/dL (7.8-10.44); Carbon Dioxide 25 mmol/L (23-31); Chloride 104 mmol/L (98-107); Estimated GFR-MDRD 59; Glucose 88 mg/dL (83-110); Sodium 137 mmol/L (136-145)
[2019-01-10 10:40] LABS: Potassium 2.6 mmol/L (3.5-5.1)
[2019-01-10] MEDS ORDERED: Dextrose 50% Abboject 50 ML SYRINGE SLOW IVP PRN (12:25)
[2019-01-10] MEDS ORDERED: Dextrose 5% in Water 1,000 ML IV PRN (12:25)
--- NOTE | 2019-01-10 12:28 | PDOC.PULCN ---
Pulmonology Consult: HPI - Date of Consult Date: 01/10/19 Time: 09:00 - Consult Details Reason for Consult: Vent management, [facility] [address] Requesting Physician: Brandin - History of Present Illness HPI: COBY FONTANA is a 78 year-old F w/ PMH of a fib rvr s/p pacemaker placement and previous ablation who presented form home after family noticed she was acting differently. Pt family was at bedside and reports she had some residual aphasia as late effect of previous stroke; however, they noticed worsening of this since last thursday. When EMS arrived family and EMS noted what could possibly be seizure activity and pt was not responding. Decision was made to intubate as pt was not protecting her airway and sonorous breath sounds were noted. CT head in ED showed NAD. Regading previous elevated blood sugars, family is unaware of any existing diabetes diagnosis. On arrival to ED BS found to be >650 with associated ketonuria and glucosuria. She was continued on ventilator support 2/2 metabolic encephalopathy and placed on DKA protocol for profound hyperglycemia. Pulmonology Consult: ROS - Review of Systems ROS unobtainable: due to endotracheal tube Constitutional: fever, chills Pulmonology Consult: PMH Source: family, other Past Medical History: A fib s/p pacemaker placement, HTN, HLD, CAD, prior CVA - Social History Smoking Status: Never smoker Alcohol Use: none Drug Use History: none Living Situation: with family/parents Pulmonology Consult: Meds - Medications MAR Reviewed: Yes Medications: Current Medications Acetaminophen (Tylenol) 650 mg KY Q4H PRN PRN Reason: Fever > 101 Albuterol/Ipratropium (Duoneb) 3 ml NEB [id number] PRN PRN Reason: SOB &/or Wheezing Atorvastatin Calcium (Lipitor) 40 mg PO HS MENA Carvedilol (Coreg) 25 mg PO BID [facility] Last Admin: 01/10/19 08:48 Dose: 25 mg Dextrose/Water (Dextrose 50%) 25 gm SLOW IVP PRN PRN PRN Reason: Hypoglycemia Diltiazem HCl (Cardizem Cd) 120 mg PO BID [facility] Last Admin: 01/10/19 08:49 Dose: 120 mg Enoxaparin Sodium (Lovenox) 80 mg SC 0900,2100 [facility] Last Admin: 01/10/19 08:47 Dose: 80 mg Famotidine (Pepcid) 20 mg SLOW IVP Q12HR [facility] Last Admin: 01/10/19 08:47 Dose: 20 mg Glucagon (Glucagon) 1 mg IM PRN PRN PRN Reason: Hypoglycemia Hydralazine HCl (Apresoline) 37.5 mg PO TID [facility] Last Admin: 01/10/19 08:48 Dose: 37.5 mg Hydralazine HCl (Apresoline) 20 mg SLOW IVP Q6H PRN PRN Reason: SBP Greater Than 180 Last Admin: 01/10/19 01:00 Dose: 20 mg Fentanyl Citrate (Fentanyl Bolus) 250 mls @ 0 mls/hr IVPB PRN PRN PRN Reason: Breakthrough pain/agitation Stop: 02/08/19 23:56 Potassium Chloride 40 meq/ (Sodium Chloride) 270 mls @ 135 mls/hr IVPB ASDIR PRN PRN Reason: FOR SERUM K+ 2.5 - 3.5 Potassium Chloride 40 meq/ (Device) 100 mls @ 50 mls/hr IVPB ASDIR PRN PRN Reason: FOR SERUM K+ 2.5 - 3.5 Magnesium Sulfate 1 gm/ Sodium (Chloride) 102 mls @ 102 mls/hr IV PRN PRN PRN Reason: MAG LEVEL 1.4 - 2.0 Magnesium Sulfate 2 gm/ Device 50 mls @ 50 mls/hr IVPB ASDIR PRN PRN Reason: MAGNESIUM < 1.4 Potassium Phosphate 9 mmol/ (Sodium Chloride) 103 mls @ 25.75 mls/hr IVPB ASDIR PRN PRN Reason: Phosphate 1.0-1.8 Potassium Phosphate 12 mmol/ (Sodium Chloride) 254 mls @ 63.5 mls/hr IV ASDIR PRN PRN Reason: Serum phosphate 0.5-0.9 Potassium Phosphate 15 mmol/ (Sodium Chloride) 255 mls @ 63.75 mls/hr IV ASDIR PRN PRN Reason: Serum Phos < 0.5 Potassium Chloride 40 meq/ (Sodium Chloride) 520 mls @ 130 mls/hr IVPB ONE [facility] Stop: 01/10/19 15:14 Insulin Glargine 10 units/ (Miscellaneous Medication) 0.1 mls @ 0 mls/hr SC [facility] Dextrose/Water (D5w) 1,000 mls @ 0 mls/hr IV .Q0M PRN PRN Reason: Hypoglycemia Insulin Human Lispro (Humalog) 0 units SC .MILD SLIDING SCALE PRN PRN Reason: Mild Correctional Scale Labetalol HCl (Normodyne) 20 mg SLOW IVP Q4H PRN PRN Reason: SBP > 180 and HR >/= 70 Lorazepam (Ativan) 2 mg SLOW IVP Q1H PRN PRN Reason: Breakthrough agitation Stop: 02/08/19 23:56 Magnesium Oxide (Magnesium Oxide) 400 mg PO BIDPRN PRN PRN Reason: FOR SERUM MAG 1.4 - 2.0 Magnesium Oxide (Magnesium Oxide) 800 mg PO PRN PRN PRN Reason: FOR SERUM MAG < 1.4 Miscellaneous Medication (Ventilator Sedation Protocol) 1 each FS ONE MENA Stop: 01/14/19 23:46 Miscellaneous Medication (Phos-Nak) 1 pkt PO TIDPRN PRN PRN Reason: FOR PHOS LEVEL 1.0 - 1.8 Miscellaneous Medication (Phos-Nak) 2 pkt PO TIDPRN PRN PRN Reason: FOR PHOS LEVEL 0.5 - 1.0 Morphine Sulfate (Morphine) 2 mg SLOW IVP Q1H PRN PRN Reason: BREAKTHROUGH PAIN/Agitation Stop: 02/08/19 23:56 Discontinue Previous Narcotic Pain Medications And Benzodiazepines 1 each FS .ONE MENA Stop: 02/08/19 23:56 Ondansetron HCl (Zofran) 4 mg IVP Q6H PRN PRN Reason: Nausea/Vomiting Potassium Chloride (K-Dur) 40 meq PO ASDIR PRN PRN Reason: FOR SERUM K+ 2.5 - 3.5 Potassium Chloride (Klor-Con) 40 meq PER TUBE ASDIR PRN PRN Reason: FOR SERUM K+ 2.5-3.5 Potassium Chloride (Klor-Con) 40 meq PER TUBE NOW MENA Stop: 01/10/19 13:15 Last Admin: 01/10/19 11:10 Dose: 40 meq Propofol (Diprivan) 1,000 mg IV INF PRN; Protocol PRN Reason: TO ACHIEVE GOAL RASS Stop: 02/08/19 23:56 Last Admin: 01/10/19 08:47 Dose: 1,000 mg Propofol (Diprivan Bolus) 20 mg IV Q5MIN PRN PRN Reason: BREAKTHROUGH AGITATION Stop: 02/08/19 23:56 - Allergies Allergies/Adverse Reactions: Allergies Allergy/AdvReac Type Severity Reaction Status Date / Time furosemide [From Lasix] Allergy Intermediate Rash Verified 09/05/17 01:32 Sulfa (Sulfonamide Allergy Rash Verified 09/05/17 01:32 Antibiotics) Pulmonology Consult: PE - Physical Exam Constitutional: NAD Deviation from normal: sedated HEENT: moist MMs Deviation from normal: ET tube in place Neck: no nodes, no JVD Cardiovascular: RRR, no significant murmur, no rub Respiratory: rhonchi Focused Respiratory Location: rhonchi: Right, Left, Upper, Lower (ronchorous throughout) Gastrointestinal: soft, non-tender, no distention, positive bowel sounds Musculoskeletal: no edema, pulses present Neurological: non-focal, moves all 4 limbs Deviation from normal: sedated, withdraws from painful stimuli Deviation from normal: sedated Skin: cap refill <2 seconds Pulmonology Consult: Results - Labs Result Diagrams: 01/11/19 05:26 01/11/19 05:26 - ABG Interpretation ABG Results: ABG pH 7.58 (7.35-7.45) H* 01/10/19 07:20 ABG pCO2 24.7 mmHg (35.0-45.0) L* 01/10/19 07:20 ABG O2 Sat Calc/Laura 98.5 % (94.0-98.0) H 01/10/19 07:20 ABG Base Excess 2.2 mEq/L (-2.0 to +3.0) 01/10/19 07:20 Interpretation: respiratory alkalosis Pulmonology Consult: A/P - Problem (1) Metabolic encephalopathy Current Visit: Yes Code(s): G93.41 - METABOLIC ENCEPHALOPATHY Status: Acute (2) Hyperosmolar hyperglycemic coma due to diabetes mellitus without ketoacidosis Current Visit: Yes Code(s): E11.01 - TYPE 2 DIABETES MELLITUS WITH HYPEROSMOLARITY WITH COMA Status: Acute - Time Time: 50% of the time was spent in coordination of care (as documented) at patient's floor/unit and/or counseling patient. Time with Patient: greater than 50 minutes - Plan Plan: 1) metabolic encephalopathy 2/2 HHS - respiratory failure 2/2 met encephalopathy - pt hyperglycemia has resolved after DKA protocol initiated, will DC DKA protocol and give 10 U Lantus and monitor elytes - mentation has improved, sedation weaned and pt successfully extubated - pt does not have AG, ABG shows respiratory alkalosis - fluids switched to 125 NS+KCl, recheck BMP in 4 hours, if hyper K+ resolves, switch to NS 2) HHS: - dc insulin drip and transition to SC long acting insulin - Mild SSI - transition fluids to maintenence +Kcl - pt successfully extubated - if pt remains stable, clear liquid diet and ADAT (CC/HH) Pts mentation improved and oxygenating/ventilating well off of ventilator support. Replace Elytes PRN. Addendum - Attending - Attending Attestation Date/Time: 01/11/19 [id number] I personally evaluated the patient and discussed the management with Dr. Rondon. I agree with the History, Examination, Assessment and Plan documented above with any addition or exceptions noted below. Critical care time: 30 minutes.
[2019-01-10] MEDS ORDERED: Insulin Glargine 10 UNITS in Pre-Filled Syringe SC SCH (12:45)
[2019-01-10] MEDS: Potassium Chloride 40 MEQ in Sodium Chloride 0.9% 500 ML IVPB SCH ×2 (12:47→15:02)
[2019-01-10] MEDS ORDERED: NS 0.9% w/ 20 MEQ KCL 1,000 ML/1,000 ML BAG IV SCH (13:00)
[2019-01-10 13:16] LABS: Phosphorus 1.6 mg/dL (2.3-4.7)
--- NOTE | 2019-01-10 13:23 | CON ---
DATE OF CONSULTATION: TIME: 45 minutes. HISTORY OF PRESENT ILLNESS: The patient is an 78-year-old woman with a long history of coronary artery disease and atrial fibrillation, who presented with after loosing consciousness being emergently intubated. The patient has a long history of coronary artery disease. She had previously undergone coronary artery bypass surgery. See previous H and P for complete details. The patient also has been admitted on several occasions for atrial fibrillation. Most recently, she had placement of electronic pacemaker. The patient was in her usual state of health when she suddenly lost consciousness. She appeared to have seizure-like activity. PAST MEDICAL HISTORY: Significant: 1. Coronary artery disease. 2. Hypertension. 3. Atrial flutter. PAST SURGICAL HISTORY: Coronary artery bypass surgery. ALLERGIES: SHE IS ALLERGIC TO SULFA DRUGS. SOCIAL HISTORY: Nonsmoker. PHYSICAL EXAMINATION: GENERAL: Intubated woman, in no acute distress. VITAL SIGNS: Blood pressure was 168/64. NECK: Showed no jugular venous distention. LUNGS: Coarse breath sounds bilateral. HEART: Regular rate and rhythm. Normal S1, S2. 1/6 systolic murmur. ABDOMEN: Nondistended. EXTREMITIES: Showed trace edema. LABORATORY DATA: Her sodium was 135, potassium 3.1, chloride 99, bicarbonate 22, BUN 15, creatinine is 1.3, glucose 389. Her white blood cell count 13.1, hemoglobin 12.8, hematocrit 39.4, and platelet 177. Her troponin level was 0.246. Her EKG revealed atrial fibrillation with a nonspecific ST abnormality. IMPRESSION: 1. Syncope. 2. Respiratory failure. 3. Hyperglycemia. 4. Chronic permanent atrial fibrillation. 5. History of pacemaker placement. 6. History of coronary artery bypass surgery. PLAN: This patient presented with respiratory failure and syncope. The patient's pacemaker will be interrogated and echocardiogram will be obtained. The patient will be restarted on her medications. We will follow this patient with you through her hospitalization. Critical care time 45 minutes. Job ID: [id number]
[2019-01-10] MEDS: HumaLOG 300 UNITS/3 ML VIAL SC PRN ×2 (13:33→19:31)
[2019-01-10] MEDS ORDERED: Potassium Phosphate 15 MMOL in Sodium Chloride 0.9% 100 ML IVPB SCH (13:45)
--- NOTE | 2019-01-10 14:14 | PRG ---
DATE OF SERVICE: 01/10/2019 SUBJECTIVE: Ms. Malik is currently intubated. OBJECTIVE: VITAL SIGNS: Vital signs stable, afebrile. LUNGS: Bilateral breath sounds without wheezes, rales, or rhonchi. HEART: Reveals a regular rate and rhythm. No murmurs, gallops, or rubs. EXTREMITIES: No clubbing, edema, or cyanosis. LABORATORY DATA: White blood cell count 13.1. Sodium 135, potassium 3.1, chloride 99, CO2 of 22, BUN 15, creatinine 1.33. Blood sugars now currently 172. IMPRESSION: 1. Possible aspiration syndrome . 2. Atrial fibrillation with rapid ventricular response. 3. Hyperglycemia. PLAN: Continue current treatment regimen. We will discuss with family. Job ID: [id number]
[2019-01-10] MEDS ORDERED: Vancomycin HCl 1.75 GM in Sodium Chloride 0.9% 500 ML IVPB SCH (15:30)
[2019-01-10 18:32] LABS: Actual Bicarbonate (HCO3a) 18.7 mEq/L (22-28); Base Excess (BEa) -4.4 mEq/L (-2.0 to +3.0); CO2 Tension 28.9 mmHg (35.0-45.0); Calcium, Ionized 1.08 mmol/L (1.12-1.30); Carboxyhemoglobin (COHb) 1.4 gm% (0.0-3.0); Hemoglobin (Hb) 12.7 g/dL (12.0-16.0); O2 Tension (PaO2) 80.8 mmHg (> 60.0); Potassium - ABG Lab 4.34 mmol/L (3.70-5.30); pH, Arterial 7.43 (7.35-7.45)
[2019-01-10 18:33] LABS: ALV-art Gradient 82.715 (0-20); Puncture Site L RADIAL
[2019-01-10] MEDS ORDERED: Furosemide 20 MG/2 ML VIAL SLOW IVP SCH (19:00)
[2019-01-10] MEDS: Lorazepam 2 MG/ML VIAL SLOW IVP PRN ×3 (19:20→22:03)
--- NOTE | 2019-01-10 19:50 | CON ---
DATE OF CONSULTATION: 01/10/2019 HISTORY OF PRESENT ILLNESS: I am seeing Ms. 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 Her problems are; 1. Episode of loss of consciousness, mental status changes, possible seizure-like activity, requiring intubation, now resolved. 2. Persistent atrial. arrhythmias: a. Prior history of sotalol use, which had to be stopped due to proarrhythmia. b. Status post pulmonary venous isolation procedure in November 2018, isolating the posterior wall, pulmonary veins, atrial septum of left atrium, floor of left atrium and left lateral wall, anterior roof. c. Persisting atrial flutter noted today. d. 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 3. History of coronary artery disease with prior bypass surgery. 4. Valvular heart disease with severe mitral and tricuspid regurgitation, pulmonary hypertension by PEPPER in November 2018, with normal LVEF and left atrial enlargement. 5. Elevated CHADS-VASc score of 5, possibly now 7 based on age, gender, vascular heart disease, CHF, and also possible TIA on this admission. On Eliquis and aspirin for antithrombotic regimen. 6. Newly found diabetes with blood sugars in the 600 this admission. ALLERGIES: SULFA. MEDICATIONS: At home included; 1. Aspirin. 2. Calcium. 3. Coreg 25 mg twice a day. 4. Coenzyme Q10. 5. Pantoprazole. 6. BiDil. 7. Ativan. 8. Fish oil supplements. 9. Paxil. 10. Potassium. 11. Digoxin. 12. Clonidine. 13. Eliquis 5 mg twice a day. 14. Cardizem. 15. Isosorbide. 16. Ezetimibe. 17. Hydrochlorothiazide. 18. Magnesium. 19. Lipitor. SUBJECTIVE: Ms. Malik is here, readmitted on the 09 of January after an episode of syncopal spell, possible seizure-like activity as witnessed by the daughter, when eventually she required intubation for airway protection. She has done well overnight and eventually extubated this morning. Currently, she is still recovering from her intubated state/sedation. Most of the history obtained from the daughter and the chart. She still does not give a good history at all. There are no current symptoms of chest pains. No fever, chills, or cough. No stroke-like symptoms. No major dyspnea. No dizziness or loss of consciousness. No PND or orthopnea. REVIEW OF SYSTEMS: Rest of 12-point system, otherwise unremarkable. OBJECTIVE: VITAL SIGNS: Blood pressure is 173/63, heart rate 93, respirations 30, temperature 101.8 degrees Fahrenheit from the bladder, the temperature 99.5 degrees from the surface. GENERAL: Alert woman, whose orientation is difficult to check due to recent sedation and recovery from her intubated state. NECK: Supple. Jugular veins dose not appear to be distended. CHEST: Coarse without crackles. HEART: Heart sounds are irregularly irregular, S1 is variable. No murmur or gallop. ABDOMEN: Benign. Bowel sounds are positive. EXTREMITIES: Without edema, clubbing, or cyanosis. NEUROLOGIC: The patient appears to be nonfocal. MUSCULOSKELETAL: No joint swelling or deformity. SKIN: Without rash. Her left subclavian pacemaker insertion site is with fluctuating fluid in the pocket, likely a small pocket hematoma present, but no signs of infection or other reaction is seen. The wound is well approximated. LABORATORY DATA: EKG was reviewed, revealing atypical atrial flutter with controlled ventricular rate. Pacemaker interrogation was reviewed this morning, revealing Medtronic Yarelis pacemaker with adequate battery function and lead function identified. Atrial fibrillation persists, rate control is also adequate. No ventricular arrhythmias are noted. Hemoglobin 12.8, white count is 13.1, platelet count is 177. ABG this morning with a pH of 7.58, PO2 of 105, pCO2 of 24.7. The electrolytes reveal sodium 137, potassium 2.6, BUN is 12, creatinine 0.92, phosphorus level 1.6. Urine glucose over 1000, some squamous epithelial cells, hyaline casts, wbc's count 0 to [address] reveals no acute bleed or signs of recent stroke. Chest x-ray shows stable appearance. ASSESSMENT AND PLAN: 1. Ms. Malik is an 78-year-old woman with history of coronary artery disease, but preserved LV function based on a PEPPER in November 2018, but significant valvular heart disease with moderate to severe TR and MR noted. She has persistent atrial arrhythmias, previously suppressed with sotalol, but had to undergo a pulmonary venous isolation procedure in early November. She had recurrences with difficult rate control due to tachy-adrianna syndrome. Hence, pacemaker was inserted. Now, she is stable on the current regimen. 2. Current admission was due to an episode of syncopal event with possible neurological changes as well were noted. Seizure activity was also observed. So far, CT is negative for any bleed, but due to the early imaging, ischemic changes likely had not showed up on this. Further evaluation is planned with an MRI, possibly tomorrow. Hence, the pacemaker is MRI compatible, this might be reasonable, please notify the [employer] access service representative once being done. 3. Persisting atrial arrhythmias, appear to be unchanged from most recent check. Her rate control is still adequate, but atrial flutter is persisting. 4. Markedly elevated CHADS-VASc score, on Eliquis and aspirin. Continue monitoring. 5. Pacemaker function without abnormality. Plan is to continue monitoring arrhythmia status. At this point, I would continue also anticoagulation with the current regimen. Although, ischemic TIA is possible, due to the dual anti-platelet regimen, this would not be very likely, but the MRI is reasonable to have it rechecked. More likely, some of the mental status changes could be related to the extreme high blood sugar level of greater than 550 on the initial screening tests. Diabetes management as per primary team she is off insulin. I will follow up with you. Thank you again for allowing me to participate in the care of this patient. Job ID: [id number]
[2019-01-10] MEDS ORDERED: Bumetanide 1 MG/4 ML VIAL IVP SCH (20:45)
[2019-01-10] MEDS ORDERED: Vancomycin HCl 1 GM in Premix Bag 1 BAG IVPB SCH (21:00)
[2019-01-10] MEDS: Cefepime 2 GM in Sodium Chloride 0.9% 100 ML IVPB SCH (21:07)
[2019-01-10] MEDS: Atorvastatin Calcium 40 MG TAB PO SCH (21:14)
[2019-01-10] MEDS: Diltiazem HCl 125 MG, Admixture Fee 1 EACH in Sodium Chloride 0.9% 100 ML IVPB SCH (22:44)
[2019-01-11] MEDS: Lorazepam 2 MG/ML VIAL SLOW IVP PRN (00:16)
[2019-01-11] MEDS: Labetalol HCl 100 MG/20 ML VIAL SLOW IVP PRN ×3 (03:07→23:04)
[2019-01-11] MEDS: hydrALAZINE 20 MG/ML VIAL SLOW IVP PRN ×4 (05:07→18:38)
[2019-01-11] MEDS: HumaLOG 300 UNITS/3 ML VIAL SC PRN ×3 (06:13→16:46)
[2019-01-11 06:25] LABS: Band 1 % (5-11); Eosinophils 1 % (0-10); Hemoglobin 10.9 g/dL (12.0-16.0); Hypochromia SLIGHT = 6-15 cells (100X) (0-5/hpf); Lymphocytes 3 % (21-51); MDiff Complete? YES; Mean Corpuscular HGB CONC 31.9 g/dL (32.0-36.0); Mean Corpuscular Hemoglobin 27.9 pg (27.0-31.0); Mean Corpuscular Volume 87.2 fL (78.0-98.0); Mean Platelet Volume 8.3 fL (7.4-10.4); Monocytes 8 % (0-10); Neutrophil 87 % (42-75); Platelet Count 175 thou/uL (130-400); Platelet Morphology Comment Appears Adequate; RBC Distribution Width 14.7 % (11.5-14.5); Red Blood Cell (RBC) Count 3.92 mill/uL (4.20-5.40); White Blood Cell (WBC) Count 14.9 thou/uL (4.8-10.8)
[2019-01-11 06:40] LABS: ALT (SGPT) 16 U/L (8-55); AST (SGOT) 25 U/L (5-34); Albumin 3.2 g/dL (3.4-4.8); Alkaline Phosphatase 58 U/L (40-150); Anion Gap 15 mmol/L (10-20); BUN (Urea Nitrogen) 12 mg/dL (9.8-20.1); Bilirubin, Total 1.6 mg/dL (0.2-1.2); Calc. Creatinine Clearance 0 mL/min (70-130); Calcium 8.2 mg/dL (7.8-10.44); Carbon Dioxide 24 mmol/L (23-31); Chloride 103 mmol/L (98-107); Estimated GFR-MDRD 47; Globulin 2.6 g/dL (2.4-3.5); Glucose 196 mg/dL (83-110); Protein, Total 5.8 g/dL (6.0-8.3); Sodium 139 mmol/L (136-145)
[2019-01-11 06:46] LABS: Potassium 2.9 mmol/L (3.5-5.1)
[2019-01-11] MEDS ORDERED: Potassium Chloride 40 MEQ in Sodium Chloride 0.9% 250 ML 250 ML IVPB SCH (08:45)
[2019-01-11] MEDS: hydrALAZINE 25 MG TAB PO SCH ×3 (09:00→21:55)
[2019-01-11] MEDS: Cefepime 2 GM in Sodium Chloride 0.9% 100 ML IVPB SCH ×2 (09:29→21:58)
[2019-01-11] MEDS: Enoxaparin Sodium 80 MG/0.8 ML SYRINGE SC SCH ×2 (09:30→21:56)
[2019-01-11] MEDS ORDERED: Lorazepam 2 MG/ML VIAL SLOW IVP PRN (09:49)
--- NOTE | 2019-01-11 10:01 | PRG ---
DATE OF SERVICE: 01/11/2019 SERVICE: Pulmonary Medicine. INTERVAL HISTORY: The patient is doing poorly from a mentation standpoint. Overnight, she got fairly significantly agitated. She is on home Ativan, so we gave her a small dose. It caused her to be confused and little bit disoriented yesterday. Furthermore, her blood pressure and heart rate shot up. She got put on a Cardene drip. This morning, she is moving all 4 extremities with purposeful activity. That being said, she is not following any commands. She cannot provide any additional elements of the history. Nursing reports no additional overnight events. PHYSICAL EXAMINATION: VITAL SIGNS: Afebrile, pulse 79, blood pressure 173/73, respirations 31, saturation 96% on room air. Of note, her T-max yesterday was 101.3. LABORATORY DATA: WBC 14.9, hemoglobin 10.9, and platelets 175,000. PH yesterday was 7.43, pCO2 of 29, pO2 of 81, corresponding to a saturation of 96%. Sodium 2.9, which is gently improving. Creatinine 1.11. Basic metabolic profile is otherwise unremarkable. Total bilirubin 1.6 and gently up trending. Liver function studies are otherwise unremarkable. Urinalysis is negative for white blood cells or red blood cells. There is significant glycosuria. Beta-hydroxybutyrate is 0.13. Blood cultures x2 and urine culture are negative. ASSESSMENT: 1. Severe sepsis. 2. Metabolic encephalopathy. 3. Delirium. 4. Type 2 diabetes mellitus. 5. Hyperglycemia, hyperosmolar nonketotic state, resolved. DISCUSSION AND PLAN: We are going to perform an MRI looking for a large event. Neurology consultation has already been placed. Pulmonary Critical Care will continue to follow along, but she will need to remain in the ICU for the time being. We will continue our empiric antibiotics because of the recent fevers that she had. IV fluids will be minimized through time. Pulmonary Critical Care will continue to follow along. Job ID: [id number] [facility]
[2019-01-11] MEDS: Carvedilol 25 MG TAB PO SCH ×2 (13:11→21:54)
--- NOTE | 2019-01-11 14:11 | CT ---
CT BRAIN WITHOUT CONTRAST: HISTORY: Altered mental status. Fell and hit head at home. COMPARISON: 01/09/2019 FINDINGS: Changes of cortical atrophy and chronic small vessel ischemic disease are again seen. The ventricula r size is stable, and the basilar cisterns are patent. Bilateral basal ganglia calcifications are ag ain seen. An old lacunar infarction in the left thalamus is again noted. No evidence of acute infarct, hemorrhage, midline shift, or abnormal extraaxial fluid collections is seen. The bony calvarium is intact. The right posterior scalp contusion is smaller compared to the previous exam. The visualized paranasal sinuses and mastoid air cells are well aerated. IMPRESSION: No CT evidence of acute intracranial process. POS: [facility]
--- NOTE | 2019-01-11 15:03 | PDOC.CTH ---
Addendum entered and electronically signed by Kori Purcell NP 01/11/19 15: 10: Impression: 6. Hypokalemia -recommend replacement to goal of 4.0 and continued monitoring as metabolic medical issues are corrected. Original Note: Cardiology Progress Note - Subjective EP PROGRESS NOTE: 01/11/19 Seen as follow up for atrial arrhythmias and pacemaker management. EEG being done bedside. Daughter bedside. No new cardiac concerns or complaints. Has had some elevated heart rates prompting dilt gtt being started. - Objective Vital Signs Temp Pulse BP Pulse Ox 01/11/19 13:13 72 184/80 H 01/11/19 12:00 98.9 F 01/11/19 11:12 72 184/80 H 01/11/19 09:00 72 184/80 H 01/11/19 07:24 96 01/11/19 07:00 98.8 F 01/11/19 05:07 87 181/68 H 01/11/19 04:00 98.6 F 01/11/19 03:07 87 173/63 H Admit Weight 157 lb Weight 2.787 oz 01/10/19 01/11/19 01/12/19 06:59 06:59 06:59 Intake Total 2354 1946.8 250 Output Total 760 2880 570 Balance 1594 -933.2 -320 - Physical Examination General/Neuro: NAD Neck: carotid US brisk, no JVD present Lungs: CTA, unlabored respirations Heart: PMI normal Abdomen: NT/ND, soft - Telemetry Telemetry Rhythm: atrial flutter - Labs Result Diagrams: 01/11/19 05:26 01/11/19 05:26 Troponin/CKMB CK-MB (CK-2) 2.3 ng/mL (0-6.6) 01/09/19 22:11 Troponin I 0.246 ng/mL (< 0.028) H 01/09/19 22:11 - Assessment/Plan 1. Atrial flutter -s/p recent A Fib ablation/PVAI earlier this year -continue rate control with dilt gtt as needed. 2. CHADS-VASC: 5 - continue eliquis 5mg BID 3. 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 Hyperglycemia -initially >550. Now off insulin gtt 5. Syncope and collapse - concern for seizure activity vs neurologic event - CT negative for bleed, repeat imaging pending No changes in EP plan at this time. Continue eliquis and keep her atrial flutter rate controlled. PPM is functioning normally. Addendum - Physician - Physician Attestation Date/Time: 01/11/19 5159 I personally performed or re-performed the physical examination and medical decision making. I have verified all student documentation or findings, including history, physical exam and/or medical decision making.
[2019-01-11] MEDS: Vancomycin HCl 1.5 GM in Sodium Chloride 0.9% 250 ML 300 ML IVPB SCH (16:49)
--- NOTE | 2019-01-11 19:20 | PRG ---
DATE OF SERVICE: 01/11/2019 SUBJECTIVE: Ms. Malik is having some mentation issues. She is not responding appropriately to previous levels of mentation. She has been on IV doses of Ativan through the night. OBJECTIVE: VITAL SIGNS: Temperature is afebrile and blood pressure 173/73. LUNGS: Reveals bilateral breath sounds. HEART: Reveals a regular rhythm without murmurs, gallops, or rubs. LABORATORY DATA: White blood count 14.9, hemoglobin 10.9, and hematocrit 28.9. Arterial blood gases, pO2 of 81. Potassium is 2.9. IMPRESSION: 1. Hypoglycemia, now well controlled. 2. Encephalopathy of unknown etiology. PLAN: We will go ahead and do the CT scan of brain, since MRI may be doable, but we need to see if we cannot do this with her implantable pacemaker. We will go ahead and do the CT scan now continue current therapy. Job ID: [id number]
--- NOTE | 2019-01-11 19:26 | CON ---
DATE OF CONSULTATION: 01/11/2019 CONSULTING PHYSICIAN: Hospitalist Service. IMPRESSION: Seizure likely provoked by severe hyperglycemia resulting in secondary postictal confusion and agitation. PLAN: 1. Continue blood sugar control. 2. Seroquel 25 mg tonight. 3. Monitor clinical course. HISTORY OF PRESENT ILLNESS: Ms. Malik is an 78-year-old woman with recent history of atrial fibrillation and pacemaker implantation. She collapsed at home and had what appeared to be a focal seizure involving the right side. She had some blood coming from her mouth and there was a fear of aspiration. She was subsequently intubated and brought to the ICU. She was subsequently extubated and seem to continue to be agitated. There was some concern that she maybe septic. She had a CT scan of the brain on admission, which did not show anything other than some small vessel ischemic changes. She had a followup CT scan today, which again did not show any acute changes or secondary hemorrhage. Her CT angiogram was also unremarkable for any significant stenosis. She was a bit more cooperative according to the nurses earlier today. She has been sleeping for the last few hours. She has not received any sedation since 3 o'clock in the morning. She has otherwise been stable and afebrile. PAST MEDICAL HISTORY: Newly diagnosed diabetes, coronary artery disease, and atrial fibrillation. PAST SURGICAL HISTORY: Pacemaker implantation. FAMILY HISTORY: Noncontributory. MEDICATIONS: Medication list was reviewed. REVIEW OF SYSTEMS: Not obtainable secondary to her current mental state. PHYSICAL EXAMINATION: GENERAL: Somewhat overweight elderly lady, resting quietly. VITAL SIGNS: Blood pressure 157/62, pulse 78, and respirations 26. HEENT: Pupils appear to be equal. Cranium, normocephalic and atraumatic. NECK: No lymphadenopathy noted. EXTREMITIES: No cyanosis present. NEUROLOGIC: She is quite lethargic and difficult to arouse. I did not appreciate any asymmetry of tone. No abnormal movements were seen. LABORATORY DATA: EEG showed some mild slowing without any epileptiform features. Blood sugars were down around mid 100s. Electrolytes were otherwise unremarkable. SUMMARY: Elderly lady, who had what appeared to be a focal seizure, possibly provoked by her hyperglycemia. She seems to be slow to clear, but does not have any visible structural injury to suggest that there will be any permanent problems. We will follow in her care. Job ID: [id number]
[2019-01-11] MEDS: Diltiazem HCl 125 MG, Admixture Fee 1 EACH in Sodium Chloride 0.9% 100 ML IVPB SCH (20:30)
[2019-01-11] MEDS: Atorvastatin Calcium 40 MG TAB PO SCH (21:54)
[2019-01-11] MEDS: Insulin Glargine 10 UNITS in Pre-Filled Syringe SC SCH (21:57)
[2019-01-12 05:24] LABS: Eosinophils 2 % (0-10); Hemoglobin 9.9 g/dL (12.0-16.0); Lymphocytes 11 % (21-51); MDiff Complete? YES; Mean Corpuscular HGB CONC 32.1 g/dL (32.0-36.0); Mean Corpuscular Hemoglobin 28.6 pg (27.0-31.0); Mean Corpuscular Volume 88.9 fL (78.0-98.0); Mean Platelet Volume 7.9 fL (7.4-10.4); Metamyelocyte 1 % (0-0); Monocytes 3 % (0-10); Neutrophil 83 % (42-75); Platelet Count 162 thou/uL (130-400); Platelet Morphology Comment Appears Adequate; RBC Distribution Width 14.6 % (11.5-14.5); Red Blood Cell (RBC) Count 3.46 mill/uL (4.20-5.40); White Blood Cell (WBC) Count 8.4 thou/uL (4.8-10.8)
[2019-01-12 05:30] LABS: ALT (SGPT) 16 U/L (8-55); AST (SGOT) 21 U/L (5-34); Alkaline Phosphatase 61 U/L (40-150); Anion Gap 13 mmol/L (10-20); BUN (Urea Nitrogen) 18 mg/dL (9.8-20.1); Bilirubin, Total 1.5 mg/dL (0.2-1.2); Calc. Creatinine Clearance 0 mL/min (70-130); Calcium 8.1 mg/dL (7.8-10.44); Carbon Dioxide 25 mmol/L (23-31); Chloride 107 mmol/L (98-107); Estimated GFR-MDRD 57; Globulin 2.7 g/dL (2.4-3.5); Glucose 175 mg/dL (83-110); Potassium 3.4 mmol/L (3.5-5.1); Protein, Total 5.7 g/dL (6.0-8.3); Sodium 142 mmol/L (136-145)
[2019-01-12] MEDS: HumaLOG 300 UNITS/3 ML VIAL SC PRN ×3 (05:34→16:57)
--- NOTE | 2019-01-12 08:08 | PRG ---
DATE OF SERVICE: 01/12/2019 SUBJECTIVE: Ms. Malik is still in the ICU. She is sleeping and I did not wake her. OBJECTIVE: VITAL SIGNS: Blood pressure is 127/54; pulse 73, regular; and temperature 98.6, afebrile. LUNGS: Reveal bilateral breath sounds. HEART: Reveals a regular rate and rhythm without murmurs, gallops, or rubs. EXTREMITIES: Show minimal amount of edema. LABORATORY DATA: Hemoglobin 9.9, hematocrit 38.8, and white blood count 8.4. Sodium 142, potassium 3.4, chloride 107, CO2 of 25, BUN 18, and creatinine 0.94. Blood sugars were adequately controlled. All blood cultures were negative. IMAGING DATA: CT scan of the brain done yesterday shows no evidence of significant findings. IMPRESSION: 1. The patient remains drowsy with decreased mentation. Neurology has seen and evaluated her and subsequently has encephalopathy related to postictal state from seizure. 2. History of atrial fibrillation. 3. New onset of type 2 diabetes mellitus. PLAN: Continue current regimen. Follow her on mental status. See eventually if it clears. Job ID: [id number]
[2019-01-12] MEDS: Diltiazem HCl 125 MG, Admixture Fee 1 EACH in Sodium Chloride 0.9% 100 ML IVPB SCH (09:25)
[2019-01-12] MEDS: Cefepime 2 GM in Sodium Chloride 0.9% 100 ML IVPB SCH ×2 (09:37→21:20)
[2019-01-12] MEDS: Enoxaparin Sodium 80 MG/0.8 ML SYRINGE SC SCH ×2 (09:47→21:21)
[2019-01-12] MEDS: Carvedilol 25 MG TAB PO SCH ×2 (09:49→21:20)
[2019-01-12] MEDS: hydrALAZINE 25 MG TAB PO SCH ×3 (09:49→21:22)
[2019-01-12] MEDS ORDERED: Torsemide 20 MG TAB PO SCH (11:15)
--- NOTE | 2019-01-12 11:35 | PRG ---
DATE OF SERVICE: 01/12/2019 SERVICE: Pulmonary Medicine. INTERVAL HISTORY: The patient is doing profoundly better today. Her mentation is much improved. She is awake and alert, following commands and actually using some appropriate words. She is moving all 4 extremities. There is otherwise no change to her condition. There are no significant overnight events. Erin is being weaned away. PHYSICAL EXAMINATION: VITAL SIGNS: Afebrile. Her last temperature was on the 26th at 6 o'clock in the morning. Blood pressure 165/88, respirations 21, and saturation 98% on 1.5 L nasal cannula. GENERAL: The patient is awake and alert, in no apparent distress. LUNGS: Decent air entry with crackles. HEART: Normal rate and regular. ABDOMEN: Soft, nontender, and nondistended. Bowel sounds are positive. MUSCULOSKELETAL: No cyanosis or clubbing. No pitting in the bilateral lower extremities. NEUROLOGIC: Grossly nonfocal. LABORATORY DATA: WBC 8.4, hemoglobin 9.9, and platelets 162,000. Neutrophil count is 83%. Potassium 3.4 and gently up-trending, sodium 142 and also up-trending. Liver function studies are essentially unremarkable with bilirubin that is downtrending to 1.5. Urinalysis is unremarkable. Beta-hydroxybutyrate is negative. Blood cultures x2 and urine culture is negative. IMAGING DATA: 1. Repeat CT of the brain demonstrates no evidence of acute structural injury. 2. Echocardiogram demonstrates 55% to 60% ejection fraction. Dilated IVC suggestive of slight volume overload. Moderate to severe TR, moderate mitral regurgitation. Large left atrium. 3. EEG shows some slowing without focal epileptiform discharges. ASSESSMENT: 1. Severe sepsis. 2. Metabolic encephalopathy. 3. Delirium. 4. Type 2 diabetes mellitus. 5. Hyperglycemia, hyperosmolar nonketotic state, resolved. DISCUSSION AND PLAN: The patient is doing fine from a neurologic standpoint. We will continue our mobilization efforts through time. Pulmonary Critical Care will continue to follow along in this location. She needs to remain in the ICU until she is participating more fully. We will give her some D5 water and also diurese her to see if we can prevent the sodium from jumping up. She remains a little volume overloaded, which will need to address through time. Potassium will be aggressively replaced through the day. Job ID: [id number]
[2019-01-12] MEDS: Vancomycin HCl 1.5 GM in Sodium Chloride 0.9% 250 ML 300 ML IVPB SCH (15:46)
--- NOTE | 2019-01-12 16:26 | PDOC.CTH ---
Cardiology Progress Note - Subjective EP PROGRESS NOTE: 01/12/19 Seen as follow up for atrial arrhythmias and pacemaker management. Daughter bedside. No new cardiac concerns or complaints. Has had some elevated heart rates prompting dilt gtt being started. Sitting bedside this AM. Had some PO food today with [employer]. Starting PO intake. Now sleeping in up chair. - Objective Vital Signs Temp Pulse BP Pulse Ox 01/12/19 15:46 74 165/88 H 01/12/19 13:00 98.2 F 01/12/19 09:49 74 165/88 H 01/12/19 09:48 73 165/88 H 01/12/19 08:00 97.5 F L 99 Admit Weight 157 lb Weight 164 lb 3.91 oz 01/11/19 01/12/19 01/13/19 06:59 06:59 06:59 Intake Total 1946.8 1311 500 Output Total 2880 1001 235 Balance -933.2 310 265 - Physical Examination General/Neuro: alert & oriented x3, NAD Neck: carotid US brisk, no JVD present Lungs: CTA, unlabored respirations Heart: PMI normal Abdomen: NT/ND, soft - Telemetry Telemetry Rhythm: atrial flutter, variable AV conduction - Labs Result Diagrams: 01/12/19 04:55 01/12/19 04:55 Troponin/CKMB CK-MB (CK-2) 2.3 ng/mL (0-6.6) 01/09/19 22:11 Troponin I 0.246 ng/mL (< 0.028) H 01/09/19 22:11 - Assessment/Plan 1. Atrial flutter -s/p recent A Fib ablation/PVAI earlier this year -continue rate control with dilt gtt as needed. Starting PO dilt today. Wean gtt as able to keep HR <100. Discussed with RN bedside. 2. CHADS-VASC: 5 - continue eliquis 5mg BID 3. 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 Hyperglycemia -initially >550. Now off insulin gtt 5. Syncope and collapse - concern for seizure activity vs neurologic event - CT negative for bleed, repeat imaging pending No changes in EP plan at this time. Continue eliquis and keep her atrial flutter rate controlled. PPM is functioning normally.
[2019-01-12] MEDS: hydrALAZINE 20 MG/ML VIAL SLOW IVP PRN (18:26)
[2019-01-12] MEDS: Atorvastatin Calcium 40 MG TAB PO SCH (21:19)
[2019-01-12] MEDS: Insulin Glargine 10 UNITS in Pre-Filled Syringe SC SCH (21:22)
[2019-01-12] MEDS: Acetaminophen 325 MG TAB PO PRN (21:23)
[2019-01-12] MEDS: Nystatin Cream 30 GM TUBE TOP SCH (21:23)
[2019-01-13 05:50] LABS: Band 1 % (5-11); Eosinophils 1 % (0-10); Hemoglobin 9.7 g/dL (12.0-16.0); Hypochromia SLIGHT = 6-15 cells (100X) (0-5/hpf); Lymphocytes 11 % (21-51); MDiff Complete? YES; Mean Corpuscular HGB CONC 31.9 g/dL (32.0-36.0); Mean Corpuscular Hemoglobin 28.5 pg (27.0-31.0); Mean Corpuscular Volume 89.2 fL (78.0-98.0); Mean Platelet Volume 8.2 fL (7.4-10.4); Monocytes 3 % (0-10); Neutrophil 84 % (42-75); Platelet Count 164 thou/uL (130-400); Platelet Morphology Comment Appears Adequate; RBC Distribution Width 14.8 % (11.5-14.5); White Blood Cell (WBC) Count 6.2 thou/uL (4.8-10.8)
[2019-01-13 05:55] LABS: Anion Gap 10 mmol/L (10-20); BUN (Urea Nitrogen) 24 mg/dL (9.8-20.1); Calc. Creatinine Clearance 60 mL/min (70-130); Carbon Dioxide 24 mmol/L (23-31); Chloride 107 mmol/L (98-107); Estimated GFR-MDRD 62; Glucose 200 mg/dL (83-110); Magnesium 1.4 mg/dL (1.6-2.6); Potassium 4.6 mmol/L (3.5-5.1); Sodium 136 mmol/L (136-145)
[2019-01-13 05:59] LABS: Phosphorus 1.8 mg/dL (2.3-4.7)
[2019-01-13] MEDS: HumaLOG 300 UNITS/3 ML VIAL SC PRN ×2 (06:37→11:59)
[2019-01-13] MEDS ORDERED: SODIUM PHOSPHATE IVPB SCH (06:45)
[2019-01-13] MEDS ORDERED: SODIUM CHLORIDE 0.9% IVPB SCH (06:45)
[2019-01-13] MEDS ORDERED: Magnesium 2 GM/50 ML 2 GM in Premix Bag 1 BAG IVPB SCH (06:45)
[2019-01-13] MEDS ORDERED: metFORMIN 500 MG TAB PO SCH (08:00)
--- NOTE | 2019-01-13 08:35 | RAD ---
FRight hip: 2 portable views obtained. INDICATIONS: Right hip pain. FINDINGS: There are mild degenerative changes. Loss of joint space. Mild spurring from the femoral he ad. No acute fracture identified. IMPRESSION: No evidence of acute fracture
[2019-01-13] MEDS ORDERED: Torsemide 20 MG TAB PO SCH (09:00)
[2019-01-13] MEDS: Fluconazole 100 MG TAB PO SCH (10:09)
[2019-01-13] MEDS: hydrALAZINE 25 MG TAB PO SCH ×3 (10:10→21:30)
[2019-01-13] MEDS: Cefepime 2 GM in Sodium Chloride 0.9% 100 ML IVPB SCH ×2 (10:11→20:06)
[2019-01-13] MEDS: Carvedilol 25 MG TAB PO SCH ×2 (10:11→20:07)
[2019-01-13] MEDS: Nystatin Cream 30 GM TUBE TOP SCH ×3 (10:14→20:08)
[2019-01-13] MEDS: Apixaban 5 MG TAB PO SCH ×2 (10:14→20:07)
--- NOTE | 2019-01-13 15:17 | PDOC.CTH ---
Cardiology Progress Note - Subjective EP PROGRESS NOTE: 01/13/19 Seen as follow up for atrial arrhythmias and pacemaker management. Daughter bedside. No new cardiac concerns or complaints. Has had some elevated heart rates prompting dilt gtt being started. Started PO intake yesterday. - Objective Vital Signs Temp Pulse Pulse Pulse BP BP BP 01/13/19 11:05 68 72 165/77 H 171/83 H 01/13/19 10:45 73 167/79 H 01/13/19 10:10 87 164/77 H 01/13/19 10:09 75 164/77 H 01/13/19 08:00 98.7 F 01/13/19 04:00 98.7 F Pulse Ox Pulse Ox 01/13/19 11:05 01/13/19 10:45 95 01/13/19 10:10 01/13/19 10:09 01/13/19 08:00 96 01/13/19 04:00 Admit Weight 157 lb Weight 172 lb 6.424 oz 01/12/19 01/13/19 01/14/19 06:59 06:59 06:59 Intake Total 1311 1667 500 Output Total 1001 550 180 Balance 310 1117 320 - Physical Examination General/Neuro: alert & oriented x3, NAD Neck: carotid US brisk, no JVD present Lungs: CTA, unlabored respirations Heart: PMI normal, other: (atrial flutter, rate controlled) Abdomen: NT/ND, soft - Telemetry Telemetry Rhythm: atrial flutter , variable AV conduction - Labs Result Diagrams: 01/13/19 05:25 01/13/19 05:25 Troponin/CKMB CK-MB (CK-2) 2.3 ng/mL (0-6.6) 01/09/19 22:11 Troponin I 0.246 ng/mL (< 0.028) H 01/09/19 22:11 - Assessment/Plan 1. Atrial flutter -s/p recent A Fib ablation/PVAI earlier this year -continue rate control. Starting PO dilt 01/12 and gtt was weaned off. 2. CHADS-VASC: 5 - continue eliquis 5mg BID 3. 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 Hyperglycemia -initially >550. Now off insulin gtt 5. Syncope and collapse - concern for seizure activity vs neurologic event - CT negative for bleed, repeat imaging pending No changes in EP plan at this time. Continue eliquis and keep her atrial flutter rate controlled. PPM is functioning normally.
[2019-01-13 16:33] LABS: Vancomycin, Trough 16.4 ug/mL
[2019-01-13 16:40] LABS: Phosphorus 2.9 mg/dL (2.3-4.7)
[2019-01-13] MEDS: Vancomycin HCl 1.5 GM in Sodium Chloride 0.9% 250 ML 300 ML IVPB SCH ×2 (17:04→17:36)
--- NOTE | 2019-01-13 17:47 | PRG ---
DATE OF SERVICE: 01/13/2019 SERVICE: Pulmonary Medicine. INTERVAL HISTORY: The patient does not have an appreciation for what the situation is. She denies any current shortness of breath or chest discomfort. She has been weaned down to room air. Otherwise, there has been no interval change to her condition. PHYSICAL EXAMINATION: VITAL SIGNS: Afebrile, pulse 70, blood pressure 153/67, respirations 17, saturation 97% on room air. GENERAL: The patient is awake and alert, in no apparent distress. LUNGS: Decent air entry. There are no crackles or rhonchi. There is no prolonged expiratory phase appreciated. HEART: Normal rate, regular. ABDOMEN: Soft, nontender, and nondistended. Bowel sounds are positive. MUSCULOSKELETAL: No cyanosis or clubbing. No pitting in the bilateral lower extremities. NEUROLOGIC: Grossly nonfocal. LABORATORY DATA: WBC 6.2, hemoglobin 9.7, platelets 164,000 and roughly stable. Neutrophil count is 84% on top of 1% bands. Creatinine 0.88. Basic metabolic profile is otherwise unremarkable. Magnesium 1.4, phosphorus 2.9. Urine culture and blood cultures x2 are unremarkable. IMAGING DATA: X-ray of the hip demonstrates no evidence of acute fracture. ASSESSMENT: 1. Severe sepsis. 2. Metabolic encephalopathy, resolving. 3. Delirium. 4. Type 2 diabetes mellitus. 5. Hyperglycemia, hyperosmolar nonketotic state, resolved. 6. Seizure, associated with her hyperglycemia state. DISCUSSION AND PLAN: The patient is stable for transition out of the ICU to the telemetry unit. At this point, she has no further requirements for inpatient Pulmonary/Critical Care opinion, and I will sign off. Please call with additional questions or concerns through time. Job ID: [id number] [facility]
--- NOTE | 2019-01-13 19:48 | PRG ---
DATE OF SERVICE: 01/13/2019 SUBJECTIVE: Ms. Malik is more awake and alert. She does actually recognize me examiner. She complains of right hip pain. PHYSICAL EXAMINATION: VITAL SIGNS: Blood pressure is 167/79 and pulse 73 and irregular. LUNGS: Clear. HEART: Reveals a regular rate and rhythm. No murmurs, gallops, or rubs. ABDOMEN: Soft and nontender. Bowel sounds present and active. MUSCULOSKELETAL: Right hip, there is a small bruise noted to the right lower hip and back. There is no evidence of any palpable significant tenderness otherwise. No crepitus noted. There is good external and internal rotation of right hip. DIAGNOSTIC DATA: X-ray of right hip shows no evidence of any fracture. LABORATORY DATA: Hemoglobin 9.7 and hematocrit 30.3. Sodium 136, potassium 4.6, chloride 107, CO2 of 24, BUN 24, and creatinine 0.88. IMPRESSION: 1. 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 2. New onset type 2 diabetes mellitus. 3. Atrial fibrillation. PLAN: Continue current medications. I have added metformin. We will get PT and OT involved. Probably, she will need rehab screen. Job ID: [id number]
[2019-01-13] MEDS: Atorvastatin Calcium 40 MG TAB PO SCH (20:07)
[2019-01-13] MEDS: Insulin Glargine 10 UNITS in Pre-Filled Syringe SC SCH (21:31)
[2019-01-13] MEDS: Acetaminophen 325 MG TAB PO PRN (22:14)
[2019-01-14 06:37] LABS: Burr Cells SLIGHT = 2-5 cells (100X) (0-1/hpf); Eosinophils 7 % (0-10); Hemoglobin 9.9 g/dL (12.0-16.0); Lymphocytes 18 % (21-51); MDiff Complete? YES; Mean Corpuscular HGB CONC 31.3 g/dL (32.0-36.0); Mean Corpuscular Hemoglobin 28.5 pg (27.0-31.0); Mean Platelet Volume 7.9 fL (7.4-10.4); Monocytes 10 % (0-10); Neutrophil 65 % (42-75); Platelet Count 177 thou/uL (130-400); Platelet Morphology Comment Appears Adequate; RBC Distribution Width 14.7 % (11.5-14.5); Red Blood Cell (RBC) Count 3.46 mill/uL (4.20-5.40); White Blood Cell (WBC) Count 5.7 thou/uL (4.8-10.8)
[2019-01-14 06:45] LABS: Anion Gap 11 mmol/L (10-20); BUN (Urea Nitrogen) 20 mg/dL (9.8-20.1); Calc. Creatinine Clearance 69 mL/min (70-130); Carbon Dioxide 20 mmol/L (23-31); Chloride 107 mmol/L (98-107); Estimated GFR-MDRD 67; Glucose 136 mg/dL (83-110); Phosphorus 2.2 mg/dL (2.3-4.7); Potassium 4.1 mmol/L (3.5-5.1); Sodium 134 mmol/L (136-145)
--- NOTE | 2019-01-14 08:45 | EEG ---
Referring Physician: Ayanna PELAYO EEG # [id number] TEST TYPE: ROUTINE PORTABLE INPATIENT REPORT: AN EEG USING THE INTERNATIONAL TEN-TWENTY SYSTEM OF ELECTRODE PLACEMENT WAS PERFORMED. The best waking background is an 8 hertz alpha frequency. This is poorly maintained and the dominant frequency is around 7 hertz. The patient became drowsy during the study. Photic stimulation was unremarkable. No epileptiform features were seen. IMPRESSION: THIS IS AN ABNORMAL STUDY FOR THE FINDINGS OF MILD DIFFUSE SLOWING. Plumbing Drafter: YAW Spice Fumigator: EEG.TYRONE TRIANA
[2019-01-14] MEDS: metFORMIN 500 MG TAB PO SCH ×2 (08:58→17:46)
[2019-01-14] MEDS: Carvedilol 25 MG TAB PO SCH ×2 (08:58→20:15)
[2019-01-14] MEDS: Apixaban 5 MG TAB PO SCH ×2 (08:58→20:15)
[2019-01-14] MEDS: hydrALAZINE 25 MG TAB PO SCH ×3 (08:58→20:14)
[2019-01-14] MEDS: Cefepime 2 GM in Sodium Chloride 0.9% 100 ML IVPB SCH ×2 (08:58→20:06)
[2019-01-14] MEDS: Fluconazole 100 MG TAB PO SCH (08:58)
[2019-01-14] MEDS: Nystatin Cream 30 GM TUBE TOP SCH ×3 (08:59→20:15)
--- NOTE | 2019-01-14 09:06 | PRG ---
DATE OF SERVICE: 01/14/2019 SUBJECTIVE: Ms. Malik is awake and alert. She is eating breakfast in bed. She verbalizes. No complaints. OBJECTIVE: VITAL SIGNS: Temperature is 97.4, blood pressure 127/60, and O2 sats 99%. LUNGS: Clear. HEART: Reveals an irregular rhythm without murmurs, gallops, or rubs. EXTREMITIES: No clubbing, edema, or cyanosis noted at this time. LABORATORY DATA: Hemoglobin 9.9, hematocrit 31.5. Chemistry profile within normal limits. Her blood sugars remain slightly elevated. IMPRESSION: 1. Hyperglycemic seizure control. 2. Hyperglycemia. PLAN: 1. We will increase the metformin to two daily. 2. I anticipate that she will be transferred to rehab at any time. Job ID: [id number]
--- NOTE | 2019-01-14 14:46 | PDOC.CTH ---
Cardiology Progress Note - Subjective EP PROGRESS NOTE: 01/14/19 Seen as follow up for atrial arrhythmias and pacemaker management. Daughter bedside. No new cardiac concerns or complaints. Has had no more elevated heart rates since back on PO Diltiazem. She was transfered out of ICU. - Objective Vital Signs Temp Pulse Resp BP Pulse Ox 01/14/19 13:00 98.1 F 69 20 134/60 96 01/14/19 08:58 72 01/14/19 08:57 72 01/14/19 08:00 97.2 F L 72 20 188/80 H 98 01/14/19 04:11 97.4 F L 72 18 127/60 99 Admit Weight 157 lb Weight 176 lb 01/13/19 01/14/19 01/15/19 06:59 06:59 06:59 Intake Total 1667 1260 Output Total 550 580 Balance 1117 680 - Physical Examination General/Neuro: other: (A/Ox2) Neck: carotid US brisk, no JVD present Lungs: CTA Heart: RRR Abdomen: no HSM Extremities: + edema B (0) - Telemetry Telemetry Rhythm: AFL with controlled VR - Labs Result Diagrams: 01/14/19 05:50 01/14/19 05:50 Troponin/CKMB CK-MB (CK-2) 2.3 ng/mL (0-6.6) 01/09/19 22:11 Troponin I 0.246 ng/mL (< 0.028) H 01/09/19 22:11 - Assessment/Plan 1. Atrial flutter -s/p recent A Fib ablation/PVAI earlier this year -continue rate control. Starting PO dilt 01/12 and gtt was weaned off. 2. CHADS-VASC: 5 - continue eliquis 5mg BID 3. 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 Hyperglycemia -initially >550. Now off insulin gtt 5. Syncope and collapse - concern for seizure activity vs neurologic event - CT negative for bleed, repeat imaging pending No changes in EP plan at this time. Continue eliquis and keep her atrial flutter rate controlled. Plan to see her back in the office in 6 weeks ONCE DOEN WITH [facility]. Discussed with Daughter.
[2019-01-14] MEDS: Vancomycin HCl 1.5 GM in Sodium Chloride 0.9% 250 ML 300 ML IVPB SCH (17:46)
[2019-01-14] MEDS: Atorvastatin Calcium 40 MG TAB PO SCH (20:14)
[2019-01-14] MEDS: Insulin Glargine 10 UNITS in Pre-Filled Syringe SC SCH (20:21)
[2019-01-15 07:24] LABS: Anion Gap 10 mmol/L (10-20); BUN (Urea Nitrogen) 16 mg/dL (9.8-20.1); Calc. Creatinine Clearance 72 mL/min (70-130); Calcium 8.2 mg/dL (7.8-10.44); Carbon Dioxide 21 mmol/L (23-31); Chloride 108 mmol/L (98-107); Estimated GFR-MDRD 71; Glucose 116 mg/dL (83-110); Magnesium 1.8 mg/dL (1.6-2.6); Sodium 135 mmol/L (136-145)
[2019-01-15 07:25] LABS: Phosphorus 2.1 mg/dL (2.3-4.7)
[2019-01-15] MEDS: Cefepime 2 GM in Sodium Chloride 0.9% 100 ML IVPB SCH (08:20)
[2019-01-15] MEDS: hydrALAZINE 25 MG TAB PO SCH ×2 (08:21→15:16)
[2019-01-15] MEDS: metFORMIN 500 MG TAB PO SCH (08:22)
[2019-01-15] MEDS: Nystatin Cream 30 GM TUBE TOP SCH ×2 (08:22→15:17)
[2019-01-15] MEDS: Carvedilol 25 MG TAB PO SCH (08:22)
[2019-01-15] MEDS: Fluconazole 100 MG TAB PO SCH (08:22)
[2019-01-15] MEDS: Apixaban 5 MG TAB PO SCH (08:22)
[2019-01-15 08:44] LABS: Band 1 % (5-11); Eosinophils 4 % (0-10); Hemoglobin 10.1 g/dL (12.0-16.0); Lymphocytes 24 % (21-51); MDiff Complete? YES; Mean Corpuscular HGB CONC 31.8 g/dL (32.0-36.0); Mean Corpuscular Hemoglobin 28.2 pg (27.0-31.0); Mean Corpuscular Volume 88.6 fL (78.0-98.0); Mean Platelet Volume 7.9 fL (7.4-10.4); Monocytes 7 % (0-10); Neutrophil 64 % (42-75); Platelet Count 196 thou/uL (130-400); RBC Distribution Width 14.7 % (11.5-14.5); Red Blood Cell (RBC) Count 3.58 mill/uL (4.20-5.40); White Blood Cell (WBC) Count 6.4 thou/uL (4.8-10.8)
--- NOTE | 2019-01-15 09:05 | PRG ---
DATE OF SERVICE: 01/15/2019 PRIMARY CARE PHYSICIAN: Ganga Boland MD SUBJECTIVE: The patient states that she is feeling some better. She continues to feel weak. She has occasional episodes of palpitations, rare chest pain. Breathing is stable. States that she has not had a bowel movement in the past few days. No nausea or vomiting. Appetite is diminished. OBJECTIVE: VITAL SIGNS: Temperature 97.8 which is her T-max with pulse of 70 and irregular, respirations 18, blood pressure 150 to 180 over 76 to 82, and pulse ox 96% on room air. GENERAL: She is awake and alert. She appears anxious, but no acute distress. Mucosa is moist. NECK: Supple. HEART: Irregularly irregular. LUNGS: With scattered rhonchi. No wheezes. Faint rales at the bases. ABDOMEN: Soft. EXTREMITIES: Trace edema. LABORATORY DATA: CBC is pending. Sodium 135, potassium 4.0, chloride 108, CO2 of 21, BUN and creatinine are 16 and 0.78, and serum glucose of 116. Accu-Cheks have been 131, 182, 196, and 167. Blood cultures have been negative. Urine culture was negative. ASSESSMENT AND PLAN: This is an 78-year-old female patient with multiple medical problems including type 2 diabetes, hypertension, hyperlipidemia, atrial fibrillation, and coronary artery disease. She was admitted after syncopal episode with atrial fibrillation with rapid ventricular response, severe hyperglycemia with diabetic ketoacidosis and respiratory failure. She has improved significantly, weaning out of the ICU, has been extubated and breathing much more comfortably. 1. Atrial fibrillation with rapid ventricular response, has rate controlled. We will continue anticoagulation and rate control. 2. Hyperglycemia, stable on current regimen. We will continue on her basal insulin and metformin. 3. Hypertension is labile, but appears stable. She has not had her antihypertensive this morning. 4. Possible sepsis syndrome on admission. She did have an abnormal chest x-ray on admission. We will repeat today. If appears normal, we will discontinue her antibiotics. 5. Anxiety. I will continue her Seroquel and Ativan p.r.n. 6. Disposition: The patient appears to be stable and back at her baseline. Awaiting placement with inpatient rehab. Job ID: [id number]
--- NOTE | 2019-01-15 11:42 | RAD ---
CHEST 1 VIEW: Date: 01/15/19 HISTORY: Atrial fibrillation. COMPARISON: 01/09/19. FINDINGS: Heart size is enlarged. Pacemaker is present. Postop sternotomy changes are seen. No signs of overt f ailure. Endotracheal tube has been removed since the prior exam. There is some minimal atelectasis in the right lung base. IMPRESSION: Cardiomegaly. No signs of overt failure. POS: [facility]
[2019-01-15 15:30] VITALS: BP 186/70; TEMP 97.4
--- NOTE | 2019-01-15 15:43 | PDOC.CTH ---
Cardiology Progress Note - Subjective No new issues. - Objective Vital Signs Temp Pulse Resp BP Pulse Ox 01/15/19 15:16 69 01/15/19 15:15 97.4 F L 70 18 186/70 H 95 01/15/19 11:10 98.1 F 69 16 163/82 H 96 01/15/19 07:10 97.8 F 70 18 188/82 H 96 01/15/19 04:23 97.7 F 69 17 96 Admit Weight 157 lb Weight 175 lb 8 oz 01/14/19 01/15/19 01/16/19 06:59 06:59 06:59 Intake Total 1260 930 Output Total 580 675 Balance 680 255 - Physical Examination General/Neuro: alert & oriented x3, NAD Neck: no JVD present Lungs: unlabored respirations Heart: RRR Abdomen: NT/ND Extremities: + edema B (trace) - Telemetry Telemetry Rhythm: NSR - Labs Result Diagrams: 01/15/19 06:28 01/15/19 06:28 Troponin/CKMB CK-MB (CK-2) 2.3 ng/mL (0-6.6) 01/09/19 22:11 Troponin I 0.246 ng/mL (< 0.028) H 01/09/19 22:11 - Assessment/Plan 1. Aflutter, back on sinus. 2. S/P PPM 3. Syncope PLAN: - Continue Eliquis for stroke prophylaxis. - Continue current regimen. - May discharge from cardiac perspective.
--- NOTE | 2019-01-15 22:08 | EKG ---
Test Reason : Blood Pressure : / mmHG Vent. Rate : 073 BPM Atrial Rate : 300 BPM P-R Int : 000 ms QRS Dur : 098 ms QT Int : 430 ms P-R-T Axes : 082 022 146 degrees QTc Int : 473 ms Atrial flutter with variable A-V block Incomplete right bundle branch block Anterior infarct , age undetermined No STEMI Abnormal ECG Confirmed by RAMILA BUSTAMANTE ([id number]), associate entertainment editor TOMMY WRIGHT ([id number]) on 01/15/2019 10:07:43 PM Referred By: Confirmed By:RAMILA BUSTAMANTE
--- NOTE | 2019-01-17 01:41 | DIS ---
DATE OF ADMISSION: 01/09/2019 DATE OF DISCHARGE: 01/15/2019 PRIMARY CARE PHYSICIAN: Ganga Boland MD. ADMISSION DIAGNOSES: 1. Syncopal episode. 2. Unresponsiveness. 3. Possible seizure activity. DISCHARGE DIAGNOSES: 1. Atrial fibrillation with rapid ventricular response. 2. Severe hyperglycemia with seizure. CONSULTATIONS: 1. Dr. Wallace for Cardiology. 2. Dr. Latham for Pulmonary. 3. Dr. Vergara for Electrophysiology. 4. Dr. Díaz for Neurology. PROCEDURES: 1. ICU monitoring. 2. Brain CT. 3. Echocardiogram. 4. Electroencephalogram. 5. Intubations. 6. ICU monitoring. HOSPITAL COURSE: This is an 78-year-old female patient of Dr. Ganga Boland, who was admitted after an unresponsive episode, possibly following choking. EMS was dispatched. The patient was found to be in atrial fibrillation with rapid ventricular response in the emergency department. Blood sugars were found to be over 600 with positive ketones. Repeat blood sugar was over 1000. Due to her altered mental state, she was intubated and admitted to the ICU. She was started on insulin drip. She was quickly able to be weaned off the mechanical ventilation and was extubated. Her blood sugars returned closer to normal with IV insulin. She was able to be weaned off to basal insulin. Dr. Vergara saw the patient for evaluation for the atrial fibrillation, adjusted her medications to where she was rate controlled. They did recommend continued anticoagulation with Eliquis and aspirin. Dr. Díaz saw the patient in evaluation and underwent an electroencephalogram, which revealed diffuse slowing, but no noted seizure activity. She was initially started on broad-spectrum antibiotics due to unknown cause of her syncope. When her cultures were negative, chest x-ray remained normal, and no sign of infection, antibiotics were discontinued. The patient continued to slowly improve. Her heart rate remained stable on her current regimen with no further episodes of tachycardia. Her blood sugars again remained stable on basal insulin and she was stable for transfer to rehab unit and was transferred in good condition. DISCHARGE PHYSICAL EXAMINATION: VITAL SIGNS: Temperature 97.4, pulse is 70, respirations 18, blood pressure 163/82, pulse ox is 96% on room air. GENERAL: She is awake and alert, in no acute distress. HEENT: Mucosa is moist. NECK: Supple,. HEART: Irregularly irregular. LUNGS: Clear. ABDOMEN: Soft. EXTREMITIES: No edema. DISCHARGE LABORATORY DATA: White blood cell count 6400, hemoglobin and hematocrit 10.1 and 31.7, platelets of 196. Sodium 135, potassium 4.0, chloride 108, CO2 of 21, BUN and creatinine 16 and 0.78, serum glucose of 116, calcium 8.2, and magnesium of 1.8. Discharge imaging as discussed above. DISCHARGE MEDICATIONS: Include, 1. Tylenol p.r.n. 2. Eliquis 5 mg b.i.d. 3. Lipitor 40 mg daily. 4. Carvedilol 25 mg b.i.d. 5. Diltiazem CD 120 mg b.i.d. 6. Hydralazine 37.5 mg t.i.d. 7. Lantus 10 units at bedtime. 8. Metformin 500 mg b.i.d. 9. Seroquel 25 mg at bedtime. 10. Caltrate D once daily. 11. Fish oil 1000 mg t.i.d. 12. Paxil 40 mg daily. 13. CoQ10 200 mg b.i.d. 14. Aspirin 81 mg daily. 15. Magnesium 400 mg b.i.d. 16. Lorazepam 0.5 mg at bedtime. 17. Protonix 40 mg daily. FOLLOWUP INSTRUCTIONS: The patient is to be followed up with Dr. Boland's following rehab stay. Job ID: [id number]
--- NOTE | 2019-01-17 17:15 | EKG ---
Test Reason : Blood Pressure : / mmHG Vent. Rate : 131 BPM Atrial Rate : 117 BPM P-R Int : 000 ms QRS Dur : 088 ms QT Int : 352 ms P-R-T Axes : 000 050 176 degrees QTc Int : 519 ms Supraventricular tachycardia Anterior infarct (cited on or before 17-DEC-2018) Marked ST abnormality, possible lateral subendocardial injury Abnormal ECG When compared with ECG of 09-JAN-2019 22:11, (Unconfirmed) Sinus rhythm has replaced Atrial flutter Vent. rate has increased BY 58 BPM Serial changes of Anterior infarct Present Confirmed by YULIYA RIVERS ([id number]) on 01/17/2019 5:14:59 PM Referred By: SOLOMON Confirmed By:YULIYA RIVERS
== END 2019-01-15 16:17 | DRG 637 ==
LOC: ERS 21:41 → CCU 23:29 → 2NO 01-13 12:41
PROVIDERS: ADMIT Family Medicine; ATTEND Family Medicine
PROC: 5A1935Z Respiratory Ventilation, Less than 24 Consecutive Hours (ICD-10-PCS; principal; 2019-01-10)
DX: E11.01 Type 2 diabetes mellitus with hyperosmolarity with coma (principal); G93.41 Metabolic encephalopathy; J96.90 Respiratory failure, unspecified, unspecified whether with hypoxia or hypercapnia; N17.9 Acute kidney failure, unspecified; E87.1 Hypo-osmolality and hyponatremia; E87.3 Alkalosis; G40.89 Other seizures; I48.92 Unspecified atrial flutter; I48.91 Unspecified atrial fibrillation; E86.0 Dehydration; E87.6 Hypokalemia; I10 Essential (primary) hypertension; I25.10 Atherosclerotic heart disease of native coronary artery without angina pectoris; F41.9 Anxiety disorder, unspecified; I27.20 Pulmonary hypertension, unspecified; I08.1 Rheumatic disorders of both mitral and tricuspid valves; I69.320 Aphasia following cerebral infarction; E78.5 Hyperlipidemia, unspecified; Z79.01 Long term (current) use of anticoagulants; Z79.82 Long term (current) use of aspirin; Z79.899 Other long term (current) drug therapy; Z95.0 Presence of cardiac pacemaker; Z95.1 Presence of aortocoronary bypass graft
CPT/HCPCS: 36415; 36416; 51702; 70450; 70496; 70498; 71045; 80048; 80053; 80202; 81003; 81015; 82010; 82550; 82553; 82805; 83036; 83735; 84100; 84484; 85007; 85025; 85027; 87040; 87086; 93005; 93010; 93306; 94003; 94760; 95816; 95819; 96365; 96366; 99292; J0360; J0692; J1650; J1815; J1825; J2060; J2270; J2405; J2704; J3370; J3475; J3480; J3490; J7050; Q9966; S0028

== ENCOUNTER 2019-01-23 10:13 | Observation (INO) | payer MEDICARE, BC ==
[2019-01-23] MEDS ORDERED: Nitroglycerin 2% Ointment 1 INCH/1 GM Packet ONE (10:36)
--- NOTE | 2019-01-23 10:59 | RAD ---
FRadiograph chest one view: 01/23/2019 at 10:45 AM HISTORY: 78-year-old female with sepsis and dyspnea COMPARISON: 01/18/2019 FINDINGS: Previously demonstrated pulmonary interstitial edema has improved or resolved. Improvement in consoli dation at retrocardiac left lower lobe. Moderate airspace densities remain at left lower lobe. Signs of previous CABG. Left subclavian dual lead pacemaker. No pneumothorax. IMPRESSION: 1. Interval improvement in consolidation at left lower lobe. Some residual left lower lobe airspace o pacities. 2. Interval improvement or resolution of pulmonary interstitial edema. 3. Pacemaker. 4. Signs of previous coronary artery bypass graft surgery is evidence for coronary atherosclerotic di sease..
[2019-01-23 11:09] LABS: Bilirubin Negative (Negative); Blood, Urine Trace (Negative); Glucose, Urine (Dipstick) Negative (Negative); Leukocyte Negative (Negative); Nitrite Negative (Negative); Protein, Urine (Dipstick) 100 mg/dL (Neg-Trace); Specific Gravity, Urine 1.025 (1.005-1.030); pH, Urine 7.5 (5.0-9.0)
[2019-01-23 11:09] LABS: #Eosinphils 0.2 thou/uL (0.0-0.7); #Lymphocytes 1.1 thou/uL (1.20-3.40); #Monocytes 0.7 thou/uL (0.11-0.59); #Neutrophils 7.4 thou/uL (1.40-6.50); %Basophils 0.3 % (0.0-1.0); %Eosinophils 1.9 % (0.0-10.0); %Neutrophils 78.8 % (42.0-75.0); Hemoglobin 10.5 g/dL (12.0-16.0); Mean Corpuscular HGB CONC 31.1 g/dL (32.0-36.0); Mean Corpuscular Hemoglobin 28.1 pg (27.0-31.0); Mean Corpuscular Volume 90.1 fL (78.0-98.0); Mean Platelet Volume 7.4 fL (7.4-10.4); Platelet Count 269 thou/uL (130-400); RBC Distribution Width 16.7 % (11.5-14.5); Red Blood Cell (RBC) Count 3.75 mill/uL (4.20-5.40); White Blood Cell (WBC) Count 9.3 thou/uL (4.8-10.8)
[2019-01-23 11:12] LABS: Clarity Clear (Clear)
[2019-01-23 11:19] LABS: Hyaline Casts/LPF 7-10 HYALINE CAST LPF (0-3 Hyaline); Other Casts/LPF 0-3 COARSE GRAN LPF (0-3 Hyaline); Squamous Epithelial 0-3 HPF (0-3); WBC/HPF 0-3 HPF (0-3)
[2019-01-23 11:20] LABS: Bacteria/HPF None Seen HPF (None Seen); Transitional Epithelial 0-3 HPF (0-3)
[2019-01-23 11:25] LABS: ALT (SGPT) 15 U/L (8-55); AST (SGOT) 18 U/L (5-34); Albumin 3.5 g/dL (3.4-4.8); Alkaline Phosphatase 71 U/L (40-150); Anion Gap 15 mmol/L (10-20); BUN (Urea Nitrogen) 14 mg/dL (9.8-20.1); Calc. Creatinine Clearance 0 mL/min (70-130); Calcium 9.3 mg/dL (7.8-10.44); Carbon Dioxide 27 mmol/L (23-31); Chloride 101 mmol/L (98-107); Estimated GFR-MDRD 61; Glucose 151 mg/dL (83-110); Magnesium 1.8 mg/dL (1.6-2.6); Protein, Total 6.5 g/dL (6.0-8.3); Sodium 139 mmol/L (136-145)
[2019-01-23 11:46] LABS: CKMB 1.1 ng/mL (0-6.6)
[2019-01-23] MEDS ORDERED: Ondansetron PF 4 MG/2 ML Vial IVP PRN (13:48)
[2019-01-23] MEDS ORDERED: Acetaminophen 325 MG TAB PO PRN (13:49)
[2019-01-23] MEDS ORDERED: Ondansetron ODT 4 MG TAB PO PRN (13:49)
[2019-01-23 14:16] LABS: Troponin I 0.041 ng/mL (< 0.028)
[2019-01-23] MEDS ORDERED: HumaLOG 300 UNITS/3 ML VIAL SC PRN (15:40)
[2019-01-23] MEDS ORDERED: Dextrose 5% in Water 1,000 ML IV PRN (15:40)
[2019-01-23] MEDS ORDERED: Dextrose 50% Abboject 50 ML SYRINGE SLOW IVP PRN (15:40)
--- NOTE | 2019-01-23 15:43 | CON ---
DATE OF CONSULTATION: 01/23/2019 REASON FOR CONSULTATION: Chest pain. PRIMARY PROVIDER: Dr. Cristiano Wallace. HISTORY OF PRESENT ILLNESS: Ms. Malik is an 78-year-old woman who recently presented with chest pain. She was at the [facility] facility when she complained of the above. The history is somewhat difficult. The daughter states she has had difficulty with symptoms after stroke in early 1999. She states the pain was sharp, but could not ascertain whether it was worse with deep breath, cough, movement. She could also not quantify the length of the pain. PAST MEDICAL HISTORY: She has extensive cardiac history. She has had atrial fibrillation status post ablation, multiple cardioversions and now pacemaker implantation. The patient also has severe MR, TR. PHYSICAL EXAMINATION: GENERAL: Patient is a pleasant female who is in no acute distress. The patient appears their stated age. VITAL SIGNS: Blood pressure 180/91, pulse 70, temp 98.3. NEUROLOGIC: The patient is alert and oriented x3 with no focal neurologic deficits. HEENT: Sclerae without icterus. Mouth has moist mucous membranes with normal pallor. NECK: No JVD. Carotid upstroke brisk. No bruits bilaterally. LUNGS: Clear to auscultation with unlabored respirations. BACK: No scoliosis or kyphosis. CARDIAC: Regular rate and rhythm with normal S1 and S2. No S3 or S4 noted. No significant rubs, murmurs, thrills, or gallops noted throughout the precordium. PMI is not displaced. There is no parasternal heave. ABDOMEN: Soft, nontender, nondistended. No peritoneal signs present. No hepatosplenomegaly. No abnormal striae. EXTREMITIES: 2+ femoral and 2+ dorsalis pedis pulses. No cyanosis, clubbing, or edema. SKIN: No gross abnormalities. PERTINENT LABORATORY DATA: Hemoglobin 10.5, hematocrit 33.8 creatinine 0.89. Peak troponin 0.047. EKG shows paced rhythm. IMPRESSION: 1. Atypical chest pain. 2. Atrial fibrillation. 3. Status post pacemaker. RECOMMENDATIONS: I presented several options to Ms. Malik. She did undergo coronary angiography five years [address] Dr. Hipolito Nelson and was found to have [id number] coronary artery disease. I discussed medical therapy versus a stress study versus angiography. I do not feel angiography is warranted at this time. The patient symptoms were felt to be atypical. I discussed a stress study versus medical therapy. The daughter is somewhat reluctant to proceed with a stress given having side effects from the medication several years ago after a stress was performed. They have opted to discuss further with Dr. Cristiano Wallace in a.m. on treatment options. Otherwise, Ms. King martinez currently appears comfortable. Job ID: [id number]
[2019-01-23] MEDS: hydrALAZINE 25 MG TAB PO SCH ×2 (16:06→21:57)
[2019-01-23] MEDS: Carvedilol 25 MG TAB PO SCH (16:09)
[2019-01-23] MEDS ORDERED: Carvedilol 25 MG TAB PO SCH (16:15)
[2019-01-23] MEDS ORDERED: hydrALAZINE 25 MG TAB PO SCH (16:15)
[2019-01-23 17:02] LABS: Troponin I 0.034 ng/mL (< 0.028)
[2019-01-23] MEDS: Lorazepam 0.5 MG TAB PO SCH (18:23)
[2019-01-23] MEDS: Apixaban 5 MG TAB PO SCH (21:07)
[2019-01-23] MEDS: Atorvastatin Calcium 40 MG TAB PO SCH (21:08)
[2019-01-23] MEDS: Ubidecarenone 50 MG CAP PO SCH (21:08)
[2019-01-23] MEDS: Calcium Carbonate + Vit D 1 TAB PO SCH (21:09)
[2019-01-23] MEDS: Magnesium Oxide 400 MG TAB PO SCH (21:14)
--- NOTE | 2019-01-23 22:25 | HP ---
HISTORY OF PRESENT ILLNESS: This is an 78-year-old white female with a history of recurrent atrial fibrillation with RVR with coronary artery disease, who presents with near syncope. The patient has had multiple admissions over the past 6 months mostly for atrial fibrillation with RVR. She is status post ablation, cardioversion, and pacemaker placement. Dr. Mejia was rounding on the patient this morning at the [facility] and she appeared quite pale, lethargic, and he was concerned and recommended that she be sent to the emergency room. The patient was found to have a slightly elevated troponin level with recurrent atrial fibrillation with possible atrial flutter. At this time, the patient is feeling much better. During her last hospitalization, she was started on Seroquel at night and also metformin 500 b.i.d. and these may be contributing to her marked decrease in appetite. Otherwise, at this time she is doing quite well. MEDICATIONS: 1. Tylenol p.r.n. 2. Eliquis 5 b.i.d. 3. Lipitor 40 daily. 4. Coreg 25 b.i.d. 5. Diltiazem CD 120 b.i.d. 6. Hydralazine 37.5 t.i.d. 7. Lantus 10 at bedtime. 8. Metformin 500 b.i.d. 9. Seroquel 25 p.o. at bedtime. 10. Calcium D b.i.d. 11. Fish oil 1000 t.i.d. 12. Paxil 40 daily. 13. Co Q10 200 b.i.d. 14. Aspirin 81 daily. 15. Magnesium 400 b.i.d. 16. Lorazepam 0.5 at bedtime on hold. 17. Protonix 40 daily. PAST MEDICAL HISTORY: Hypertension, hyperlipidemia, recurrent atrial fibrillation, coronary artery disease. PAST SURGICAL HISTORY: Include pacemaker placement on 12/18/2018, status post cardiac stent, hysterectomy, coronary artery bypass grafting, history of cardiac ablation, status post cardioversion on 2 occasions in November, followed by Dr. Wallace. SOCIAL HISTORY: She is a nonsmoker. Does not drink. She is , lives with her at [facility]. 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 REVIEW OF SYSTEMS: As above. PHYSICAL EXAMINATION: VITAL SIGNS: Temperature 98.3, pulse 70, respirations 16, pulse ox 95, blood pressure 180/91. GENERAL: The patient is in no acute distress at this time. HEENT: Clear. NECK: Supple. HEART: Heart rate is irregular, rate controlled. LUNGS: With left basilar rales. ABDOMEN: Soft, obese, nontender. EXTREMITIES: Lower extremities with no edema. Hands with trace edema. LABORATORY DATA: White count 9.3, H and H 10 and 33. Electrolytes normal. Creatinine 0.89, BUN 14, glucose 151. Troponin I of 0.047, 0.041. Urine positive for protein. Chest x-ray, consolidation left lower lobe. ASSESSMENT: 1. Atrial fibrillation/atrial flutter. 2. Coronary artery disease, status post bypass grafting. 3. Status post ablation and pacemaker placement. 4. Hypertension. 5. Hyperlipidemia. 6. Decreased appetite possibly secondary to starting metformin and Seroquel on her last admission. 7. Full code. PLAN: 1. Consult Cardiology. The patient is stable at this time. Seen by Dr. Witt. To be seen in the a.m. by Dr. Wallace to determine whether stress testing is indicated. At this time, family would like to wait for Dr. Wallace in the morning. 2. We will decrease metformin to 500 daily. 3. We will hold Seroquel at this time and restart the patient's Ativan, which she has been on for years. 4. We will also restart hydrochlorothiazide. 5. We will restart all other medications. 6. We will continue to follow the patient's blood sugar as well. Job ID: [id number]
[2019-01-23] MEDS: Insulin Glargine 10 UNITS in Pre-Filled Syringe 1 EACH SC SCH (22:32)
[2019-01-23] MEDS ORDERED: Carvedilol 6.25 MG TAB PO SCH (23:59)
[2019-01-24] MEDS: Acetaminophen 325 MG TAB PO PRN ×3 (04:35→20:59)
[2019-01-24] MEDS: Hydrochlorothiazide 25 MG TAB PO SCH (04:36)
[2019-01-24 05:26] LABS: #Eosinphils 0.1 thou/uL (0.0-0.7); #Lymphocytes 1.2 thou/uL (1.20-3.40); #Monocytes 0.8 thou/uL (0.11-0.59); #Neutrophils 7.3 thou/uL (1.40-6.50); %Basophils 0.2 % (0.0-1.0); %Eosinophils 1.2 % (0.0-10.0); %Lymphocytes 12.6 % (21.0-51.0); %Monocytes 8.8 % (0.0-10.0); %Neutrophils 77.1 % (42.0-75.0); Hemoglobin 10.3 g/dL (12.0-16.0); Mean Corpuscular HGB CONC 31.6 g/dL (32.0-36.0); Mean Corpuscular Hemoglobin 28.8 pg (27.0-31.0); Mean Platelet Volume 7.9 fL (7.4-10.4); Platelet Count 223 thou/uL (130-400); RBC Distribution Width 16.8 % (11.5-14.5); Red Blood Cell (RBC) Count 3.58 mill/uL (4.20-5.40); White Blood Cell (WBC) Count 9.5 thou/uL (4.8-10.8)
[2019-01-24 05:46] LABS: Anion Gap 14 mmol/L (10-20); BUN (Urea Nitrogen) 15 mg/dL (9.8-20.1); Calc. Creatinine Clearance 62 mL/min (70-130); Calcium 9.2 mg/dL (7.8-10.44); Carbon Dioxide 22 mmol/L (23-31); Chloride 102 mmol/L (98-107); Estimated GFR-MDRD 63; Glucose 183 mg/dL (83-110); Potassium 4.9 mmol/L (3.5-5.1); Sodium 133 mmol/L (136-145)
[2019-01-24] MEDS: Apixaban 5 MG TAB PO SCH ×3 (09:22→21:00)
[2019-01-24] MEDS: metFORMIN 500 MG TAB PO SCH (09:55)
[2019-01-24] MEDS: Aspirin 81 mg Enteric Coated Tablet PO SCH (09:55)
[2019-01-24] MEDS: Calcium Carbonate + Vit D 1 TAB PO SCH ×2 (09:57→21:01)
[2019-01-24] MEDS: Carvedilol 25 MG TAB PO SCH ×2 (09:57→21:01)
[2019-01-24] MEDS: hydrALAZINE 25 MG TAB PO SCH ×3 (09:57→21:00)
[2019-01-24] MEDS: Magnesium Oxide 400 MG TAB PO SCH ×2 (09:58→21:01)
[2019-01-24] MEDS: PARoxetine 20 MG TAB PO SCH (09:58)
[2019-01-24] MEDS: Ubidecarenone 50 MG CAP PO SCH ×2 (09:59→20:59)
--- NOTE | 2019-01-24 14:37 | PRG ---
DATE OF SERVICE: 01/24/2019 SUBJECTIVE: The patient does not appear to be in any distress. Does not appear to be very eager. Does not appear to be very motivated. OBJECTIVE: VITAL SIGNS: Temperature 99.1, pulse 92, respiration 26, blood pressure 158/74. HEART: Irregularly irregular. LUNGS: Bibasilar rales, much less than yesterday. ABDOMEN: Soft. EXTREMITIES: Lower extremities with no edema. Upper extremities with decreased trace edema of the hands. LABORATORY DATA: White count 9.5, H and H 10 and 32. Electrolytes, sodium 133, potassium 4.9, creatinine 0.87, BUN 15, and blood sugar 161 and 183. ASSESSMENT: 1. Recurrent atrial fibrillation/flutter. 2. Coronary artery disease, status post bypass grafting. 3. Status post ablation and pacemaker placement. 4. Hypertension. 5. Hyperlipidemia. 6. Decreased appetite and lethargy. Metformin decreased and Seroquel help on hold. PLAN: 1. Dr. Wallace to see this morning, determine the next step to determine whether the patient is willing to do medical therapy versus stress testing versus catheterization. 2. We will continue to follow. Dr. Ganga Boland will be back in the a.m. Job ID: [id number]
[2019-01-24] MEDS: Atorvastatin Calcium 40 MG TAB PO SCH (20:59)
[2019-01-24] MEDS: Lorazepam 0.5 MG TAB PO SCH (21:01)
[2019-01-24] MEDS: Insulin Glargine 10 UNITS in Pre-Filled Syringe 1 EACH SC SCH (21:46)
[2019-01-25] MEDS: PARoxetine 20 MG TAB PO SCH (07:42)
[2019-01-25] MEDS: Ubidecarenone 50 MG CAP PO SCH ×2 (07:42→21:39)
[2019-01-25] MEDS: Magnesium Oxide 400 MG TAB PO SCH ×2 (07:43→21:40)
[2019-01-25] MEDS: metFORMIN 500 MG TAB PO SCH (07:44)
[2019-01-25] MEDS: hydrALAZINE 25 MG TAB PO SCH ×3 (07:44→21:41)
[2019-01-25] MEDS: Carvedilol 25 MG TAB PO SCH ×2 (07:44→21:40)
[2019-01-25] MEDS: Calcium Carbonate + Vit D 1 TAB PO SCH ×2 (07:45→21:41)
[2019-01-25] MEDS: Hydrochlorothiazide 25 MG TAB PO SCH (07:45)
[2019-01-25] MEDS: Aspirin 81 mg Enteric Coated Tablet PO SCH (07:45)
[2019-01-25] MEDS: Apixaban 5 MG TAB PO SCH ×2 (07:45→21:40)
--- NOTE | 2019-01-25 10:22 | PRG ---
DATE OF SERVICE: 01/25/2019 SUBJECTIVE: Ms. Malik was woken up this morning. She states she does not feel well. She was having some further chest pain without shortness of breath. OBJECTIVE: GENERAL: She was awake and alert, in the bed. VITAL SIGNS: Temperature is 98.4, pulse 66, and blood pressure 160/73. LUNGS: Clear. HEART: Reveals no murmur. Irregularly irregular rhythm. ABDOMEN: Soft and nontender. Bowel sounds are present and active. No hepatosplenomegaly is noted. There is no evidence of any rebound or guarding. EXTREMITIES: No clubbing, edema, or cyanosis. LABORATORY DATA: Her blood sugars were adequately controlled. IMPRESSION: This is an 78-year-old female with current history of atrial fibrillation and chest pain with mildly elevated troponins on this admission. PLAN: This is largely a Cardiology issue at this point. I have stabilized her blood sugar. She is responding well to that therapy. Her electrolytes are normal. We will await further cardiology input. Job ID: [id number]
[2019-01-25] MEDS: Acetaminophen 325 MG TAB PO PRN (11:47)
--- NOTE | 2019-01-25 15:13 | PDOC.CTH ---
Cardiology Progress Note - Subjective EP PROGRESS NOTE: 01/25/19 Seen as follow up for atrial flutter and rate control. No new EP or cardiac concerns over HS. - Objective Vital Signs Temp Pulse Resp BP BP Pulse Ox 01/25/19 11:46 72 01/25/19 11:35 97.4 F L 69 24 H 177/79 H 95 01/25/19 10:07 161/72 H 01/25/19 08:00 98.4 F 72 20 184/112 H 94 L 01/25/19 07:44 66 01/25/19 04:51 98.4 F 66 20 168/73 H 92 L Weight 153 lb 11.2 oz 01/24/19 01/25/19 01/26/19 06:59 06:59 06:59 Intake Total 590 720 Output Total 400 1025 Balance 190 -305 - Physical Examination General/Neuro: alert & oriented x3, NAD Neck: carotid US brisk, no JVD present Lungs: CTA, unlabored respirations Heart: PMI normal Abdomen: NT/ND, soft - Telemetry Telemetry Rhythm: Atrial flutter - Labs Result Diagrams: 01/24/19 04:45 01/24/19 04:45 Troponin/CKMB CK-MB (CK-2) 1.1 ng/mL (0-6.6) 01/23/19 10:39 Troponin I 0.034 ng/mL (< 0.028) H 01/23/19 16:32 - Assessment/Plan 1. Atrial flutter, atypical - persistent after PVI for AF in Nov 2018 - moderately rate controlled. 01/25/19 additional Dilt ordered today. Consider adding dig tomorrow if needed. -asymptomatic 2. CHADS2-VASC: 5 - Continue Eliquis 5mg PO BID - no bleeding issues 3. Atypical chest pain 4. Dual chamber PPM - H/o tachy/adrianna syndrome - normal operation - does show some RVR Continue OAC and PO rate control at this time.
[2019-01-25] MEDS: Lorazepam 0.5 MG TAB PO SCH (17:45)
--- NOTE | 2019-01-25 19:50 | CON ---
DATE OF CONSULTATION: 01/24/2019 REASON FOR CONSULTATION: Atrial flutter. HISTORY OF PRESENT ILLNESS: Ms. Malik is well-known to our practice for history of atrial and ventricular arrhythmias. She has been in and out of the hospital since earlier this year and has undergone atrial fibrillation ablation earlier this year with our practice. Since that time, she has persisted an atypical atrial flutter, which she is largely asymptomatic and rate controlled. She also has a dual-chamber pacemaker in place, that was placed on December 17 for tachy-adrianna syndrome. Ms. Malik presented to [facility] when she was found to be pale, lethargic, and had some chest pain. She was sent to the emergency room for further evaluation from [facility]. She was found to have a slightly elevated troponin and also to be in atrial flutter. She had recently been hospitalized for an episode of loss of consciousness and some metabolic acidosis. She, from an arrhythmia standpoint, maintained on both Coreg and diltiazem for heart rate control and Eliquis for stroke prophylaxis. REVIEW OF SYSTEMS: Negative for heart racing, palpitations, syncope, near syncope, stroke, stroke-like symptoms. Negative for blood in the stool, blood in the urine. Positive for recent chest pain, but nothing currently. PAST MEDICAL HISTORY: 1. Hypertension, hyperlipidemia, atrial fibrillation, status post PVI in November 2018 with persisting atypical atrial flutter post ablation, that is rate controlled. 2. 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 3. Coronary artery disease with prior bypass. 4. History of torsade de pointes in the setting of bradycardia and concurrent therapy with sotalol, which was since discontinued. 5. Valvular heart disease with severe mitral and tricuspid regurgitation and pulmonary hypertension with normal ejection fraction and left atrial enlargement. 6. CHADS-VASc score of 5, on Eliquis. 7. Diabetes. ALLERGIES: SULFA. HOME MEDICATIONS: 1. Aspirin 81 mg daily. 2. Eliquis 5 mg p.o. b.i.d. 3. Tylenol as needed. 4. Coreg 25 mg p.o. b.i.d. 5. Calcium with vitamin D b.i.d. 6. Lipitor 40 mg at bedtime. 7. Fish oil t.i.d. 8. Diltiazem CD 120 mg p.o. b.i.d. 9. Protonix 20 mg daily. 10. Paxil 40 mg daily. 11. Magnesium 400 mg b.i.d. 12. Ativan 0.5 mg q.p.m. 13. Lantus as directed. 14. CoQ10 of 200 mg b.i.d. 15. Seroquel 25 mg q.p.m. 16. Metformin 500 mg p.o. b.i.d. 17. Hydralazine 37.5 mg p.o. t.i.d. REVIEW OF SYSTEMS: A 12-point review of systems is unremarkable except that listed above in HPI. SOCIAL HISTORY: Nonsmoker. Negative for alcohol. , lives with her at [facility]. Retired from the [employer]. Has supportive family. FAMILY HISTORY: Noncontributory. PHYSICAL EXAMINATION: VITAL SIGNS: Temperature 97.9, pulse 72, blood pressure 127/77, respirations 12, oxygen is 94% on room air. GENERAL: The patient is alert, oriented. Speech is clear. Affect is appropriate. She is in no acute distress at this time. HEENT: Normocephalic, atraumatic. Sclerae are anicteric. EOMs are intact. Oral mucosa is moist and pink with adequate dentition. NECK: Supple without jugular venous distention. HEART: Heart rate is irregular, but not rapid. PMI is nondisplaced. LUNGS: Clear to auscultation bilaterally. ABDOMEN: Obese, soft, and nontender without palpable masses. EXTREMITIES: Warm and dry to touch without clubbing, cyanosis, or edema. DATABASE: EKG and telemetry strips demonstrate ongoing atypical atrial flutter, largely rate controlled. LABORATORY DATA: Hematology is reviewed; hemoglobin 10.3, WBC 9.5, platelet count is 223. Chemistry reviewed; potassium 4.9, creatinine 0.87, magnesium 1.8. IMPRESSION: 1. Atypical chest pain, possibly related to tachycardia. 2. Persistent atypical atrial flutter after PVI in November 2018, rate controlled. 3. Tachy-adrianna syndrome, status post dual-chamber pacemaker in situ. 4. History of coronary artery disease. 5. CHADS-VASc score of 5, currently on Eliquis for stroke prophylaxis, tolerating without bleeding issue. PLAN AND RECOMMENDATIONS: Right now, continue rate control strategy with beta blockers, diltiazem, and digoxin as needed. If unable to successfully rate control her or hypotension is encountered, we consider antiarrhythmic therapy for additional arrhythmia support. With her pacemaker in place, bradycardia is not a concern. Recommend continuing her Eliquis for stroke prophylaxis, she is tolerating this well. Thank you for allowing us to participate in the care of this patient. We will continue to follow. Additional digoxin has been ordered and I will check her pacemaker to further assess her long-term rate control. Job ID: [id number]
[2019-01-25] MEDS: Atorvastatin Calcium 40 MG TAB PO SCH (21:40)
[2019-01-25] MEDS: Insulin Glargine 10 UNITS in Pre-Filled Syringe 1 EACH SC SCH (21:42)
[2019-01-26 05:23] LABS: Hemoglobin 9.7 g/dL (12.0-16.0); Platelet Count 219 thou/uL (130-400)
[2019-01-26] MEDS: Calcium Carbonate + Vit D 1 TAB PO SCH (07:48)
[2019-01-26] MEDS: Magnesium Oxide 400 MG TAB PO SCH (07:48)
[2019-01-26] MEDS: Carvedilol 25 MG TAB PO SCH (07:48)
[2019-01-26] MEDS: Apixaban 5 MG TAB PO SCH (07:48)
[2019-01-26] MEDS: Hydrochlorothiazide 25 MG TAB PO SCH (07:48)
[2019-01-26] MEDS: PARoxetine 20 MG TAB PO SCH (07:48)
[2019-01-26] MEDS: Ubidecarenone 50 MG CAP PO SCH (07:49)
[2019-01-26] MEDS: Aspirin 81 mg Enteric Coated Tablet PO SCH (07:49)
[2019-01-26] MEDS: metFORMIN 500 MG TAB PO SCH (07:50)
[2019-01-26] MEDS: hydrALAZINE 25 MG TAB PO SCH ×2 (07:52→13:29)
--- NOTE | 2019-01-26 08:38 | PRG ---
DATE OF SERVICE: 01/26/2019 SUBJECTIVE: Ms. Malik is sleeping, but she arouses. She verbalizes no complaints. OBJECTIVE: VITAL SIGNS: Blood pressure is 185/77. LUNGS: Clear. HEART: Reveals an irregular rhythm without murmur, gallops, or rubs. LABORATORY DATA: Her blood sugar is adequately controlled. Hemoglobin 9.7, hematocrit 31.7. IMPRESSION: Atrial fibrillation, rate controlled, status post pacemaker placement. PLAN: Stable for discharge to [facility] and this can be arranged by Case Management. Job ID: [id number]
[2019-01-26] MEDS: Isosorbide Dinitrate 20 MG TAB PO SCH ×2 (09:29→13:29)
--- NOTE | 2019-01-26 10:50 | PDOC.CTH ---
Cardiology Progress Note - Subjective EP PROGRESS NOTE: 01/26/19 Seen as follow up for atrial flutter and rate control. No new EP or cardiac concerns over HS. - Objective Vital Signs Temp Pulse Resp BP BP BP BP 01/26/19 07:52 68 01/26/19 07:50 98.2 F 67 16 194/86 H 01/26/19 05:45 68 18 185/77 H 180/77 H 01/26/19 03:33 66 18 160/94 H 01/25/19 23:16 98.2 F 66 20 176/79 H BP Pulse Ox 01/26/19 07:52 01/26/19 07:50 94 L 01/26/19 05:45 203/88 H 01/26/19 03:33 93 L 01/25/19 23:16 95 Weight 153 lb 11.2 oz 01/25/19 01/26/19 01/27/19 06:59 06:59 06:59 Intake Total 720 700 Output Total 1025 1250 Balance -305 -550 - Physical Examination General/Neuro: alert & oriented x3, NAD Neck: carotid US brisk, no JVD present Lungs: CTA, unlabored respirations Heart: PMI normal, other: (atrial flutter) Abdomen: NT/ND, soft - Telemetry Telemetry Rhythm: atrial flutter, controlled VR - Labs Result Diagrams: 01/26/19 04:41 01/26/19 04:41 Troponin/CKMB CK-MB (CK-2) 1.1 ng/mL (0-6.6) 01/23/19 10:39 Troponin I 0.034 ng/mL (< 0.028) H 01/23/19 16:32 - Assessment/Plan 1. Atrial flutter, atypical - persistent after PVI for AF in Nov 2018 - improved rate control. 01/25/19 additional Dilt ordered with good results 2. CHADS2-VASC: 5 - Continue Eliquis 5mg PO BID - no bleeding issues 3. Atypical chest pain 4. Dual chamber PPM - H/o tachy/adrianna syndrome - normal operation - does show some RVR 5. Hypertension - per cardiology/hospitalist. - BP elevated today Continue OAC and PO rate control at this time. Rhythm/ device function are stable. OK for DC by EP but recommend additional BP control. 6 week follow up in [facility] requested.
[2019-01-26 12:02] VITALS: BP 173/73
[2019-01-26 12:07] VITALS: TEMP 97.5
--- NOTE | 2019-01-27 05:23 | DIS ---
DATE OF ADMISSION: 01/23/2019 DATE OF DISCHARGE: 01/26/2019 DISCHARGE DIAGNOSES: 1. History of atrial fibrillation. 2. Altered mental status. 3. History of type 2 diabetes mellitus. 4. Possible reaction to Seroquel. HOSPITAL SUMMARY: The patient is a 78-year-old female who was admitted due to altered mental status of unknown etiology. This is felt to be possibly related to Seroquel, which was recently started on previous hospitalization. This was held. Metformin was decreased to 500 mg daily. She subsequently was found to be in good shape. She responded well to therapy. It was also noted that at her initial evaluation, her troponins were slightly elevated. Nonetheless, she progressed well. By 01/26/2019, she could be discharged to [facility]. DISCHARGE MEDICATIONS: 1. Tylenol as needed. 2. Eliquis 5 mg b.i.d. 3. Aspirin 81 mg daily. 4. Lipitor 40 mg daily. 5. Caltrate 1 tablet b.i.d. 6. Coreg 25 b.i.d. 7. Coenzyme Q10 200 mg b.i.d. 8. Diltiazem 60 mg p.o. daily. 9. Diltiazem 100 mg p.o. t.i.d. 10. Apresoline 37.5 mg t.i.d. 11. Hydrochlorothiazide 25 mg daily. 12. Isordil 20 mg t.i.d. 13. Ativan 0.5 mg b.i.d. 14. Magnesium oxide 400 mg daily. 15. Metformin 500 mg daily. 16. Pantoprazole 40 mg b.i.d. 17. Paxil 40 mg daily. She will be transferred to [facility]. She will be seen in followup in approximately 3 to 4 weeks by myself. Job ID: [id number]
== END 2019-01-26 14:18 ==
LOC: ERS 10:13 → 2SW 13:48
PROVIDERS: ADMIT Family Medicine; ATTEND Family Medicine
DX: I48.4 Atypical atrial flutter (principal); I48.2 Chronic atrial fibrillation; I10 Essential (primary) hypertension; I25.10 Atherosclerotic heart disease of native coronary artery without angina pectoris; I34.0 Nonrheumatic mitral (valve) insufficiency; I36.1 Nonrheumatic tricuspid (valve) insufficiency; E78.5 Hyperlipidemia, unspecified; Z95.0 Presence of cardiac pacemaker; Z90.710 Acquired absence of both cervix and uterus; Z95.1 Presence of aortocoronary bypass graft; Z88.2 Allergy status to sulfonamides; Z79.82 Long term (current) use of aspirin; Z79.01 Long term (current) use of anticoagulants; Z79.4 Long term (current) use of insulin; Z79.899 Other long term (current) drug therapy
CPT/HCPCS: 51701; 71045; 80048; 80053; 82553; 82565; 82962 ×4; 83735; 84484 ×2; 85014; 85018; 85025 ×2; 85049; 93005; 99285; G0378 ×3; 36415; 36416; 81003; 81015; A4353; J1825

== ENCOUNTER 2019-02-08 15:01 | Inpatient (IN) | payer MEDICARE, BC ==
[2019-02-08 15:52] LABS: #Eosinphils 0.1 thou/uL (0.0-0.7); #Lymphocytes 1.2 thou/uL (1.20-3.40); #Monocytes 0.7 thou/uL (0.11-0.59); #Neutrophils 4.1 thou/uL (1.40-6.50); %Eosinophils 1.7 % (0.0-10.0); %Lymphocytes 19.2 % (21.0-51.0); %Monocytes 11.3 % (0.0-10.0); %Neutrophils 67.8 % (42.0-75.0); Hemoglobin 9.8 g/dL (12.0-16.0); Mean Corpuscular HGB CONC 31.5 g/dL (32.0-36.0); Mean Corpuscular Hemoglobin 26.7 pg (27.0-31.0); Mean Corpuscular Volume 84.8 fL (78.0-98.0); Platelet Count 259 thou/uL (130-400); RBC Distribution Width 16.6 % (11.5-14.5); Red Blood Cell (RBC) Count 3.68 mill/uL (4.20-5.40)
--- NOTE | 2019-02-08 15:59 | RAD ---
EXAM: CHEST ONE VIEW HISTORY: Chest pain and shortness of breath for 2 weeks. Worse today. COMPARISON: 01/23/2019 FINDINGS: A dual lead left subclavian cardiac pacemaker device remains in place. Postsurgical changes related t o CABG are again noted. The cardiac silhouette is enlarged. Pulmonary vasculature is at the upper limits of normal. Pleural and parenchymal changes are seen at the left lung base which may represent left pleural effusion and atelectasis. Superimposed pneumonia cannot be entirely excluded. There is suggestion of a tiny right pleural effusion. Osteopenia is present. Vascular calcification are again seen in the thoracic aorta. IMPRESSION: 1. Pleural and parenchymal changes left lung base which may represent left pleural effusion and atele ctasis. Superimposed infiltrate/pneumonia cannot be excluded. 2. Small right pleural effusion. 3. Cardiomegaly.
[2019-02-08 16:15] LABS: ALT (SGPT) 16 U/L (8-55); AST (SGOT) 23 U/L (5-34); Albumin 3.7 g/dL (3.4-4.8); Alkaline Phosphatase 64 U/L (40-150); Anion Gap 15 mmol/L (10-20); BUN (Urea Nitrogen) 16 mg/dL (9.8-20.1); Bilirubin, Total 1.6 mg/dL (0.2-1.2); Calc. Creatinine Clearance 0 mL/min (70-130); Calcium 9.5 mg/dL (7.8-10.44); Carbon Dioxide 26 mmol/L (23-31); Chloride 94 mmol/L (98-107); Estimated GFR-MDRD 62; Globulin 2.8 g/dL (2.4-3.5); Glucose 110 mg/dL (83-110); Potassium 3.4 mmol/L (3.5-5.1); Protein, Total 6.5 g/dL (6.0-8.3); Sodium 132 mmol/L (136-145)
[2019-02-08 16:37] LABS: CKMB 1.3 ng/mL (0-6.6)
[2019-02-08] MEDS ORDERED: Torsemide 20 MG TAB PO SCH (20:15)
[2019-02-08 20:27] LABS: Troponin I 0.021 ng/mL (< 0.028)
[2019-02-08 20:59] VITALS: BMI 29.1
[2019-02-08] MEDS ORDERED: Dextrose 50% Abboject 50 ML SYRINGE IVP PRN (22:52)
[2019-02-08] MEDS ORDERED: Dextrose 5% in Water 1,000 ML IV PRN (22:52)
[2019-02-08] MEDS ORDERED: Isosorbide Dinitrate 20 MG TAB PO SCH (23:00)
[2019-02-08] MEDS ORDERED: hydrALAZINE 25 MG TAB PO SCH (23:00)
[2019-02-08] MEDS ORDERED: Apixaban 5 MG TAB PO SCH (23:00)
[2019-02-08] MEDS ORDERED: Carvedilol 25 MG TAB PO SCH (23:00)
[2019-02-08] MEDS ORDERED: Lorazepam 0.5 MG TAB PO SCH (23:00)
[2019-02-08 23:50] LABS: Troponin I 0.033 ng/mL (< 0.028)
[2019-02-09] MEDS ORDERED: Carvedilol 25 MG TAB PO SCH (08:00)
[2019-02-09] MEDS: Aspirin 81 mg Enteric Coated Tablet PO SCH (08:42)
[2019-02-09] MEDS: PARoxetine 20 MG TAB PO SCH (08:43)
[2019-02-09] MEDS: Ubidecarenone 50 MG CAP PO SCH ×3 (08:43→19:54)
[2019-02-09] MEDS: Fish Oil 1,000 MG CAP PO SCH ×4 (08:44→19:54)
[2019-02-09] MEDS: Magnesium Oxide 400 MG TAB PO SCH ×2 (08:44→19:56)
[2019-02-09] MEDS: Calcium Carbonate + Vit D 1 TAB PO SCH ×3 (08:44→19:53)
[2019-02-09] MEDS: hydrALAZINE 25 MG TAB PO SCH ×3 (08:45→19:56)
[2019-02-09] MEDS: Carvedilol 25 MG TAB PO SCH ×2 (08:46→20:46)
[2019-02-09] MEDS: Isosorbide Dinitrate 20 MG TAB PO SCH ×3 (08:46→19:54)
[2019-02-09] MEDS: Hydrochlorothiazide 25 MG TAB PO SCH (08:46)
[2019-02-09] MEDS ORDERED: Non-Formulary Item 1 EACH (Magnesium Oxide [Magnesium] 400 MG) PO SCH (09:00)
[2019-02-09] MEDS: Torsemide 20 MG TAB PO SCH (09:00)
[2019-02-09] MEDS ORDERED: hydrALAZINE 25 MG TAB PO SCH (09:00)
[2019-02-09] MEDS ORDERED: Isosorbide Dinitrate 20 MG TAB PO SCH (09:00)
[2019-02-09] MEDS ORDERED: Apixaban 5 MG TAB PO SCH ×2 (09:00)
[2019-02-09] MEDS ORDERED: Ondansetron PF 4 MG/2 ML Vial IVP PRN (09:39)
--- NOTE | 2019-02-09 10:14 | HP ---
HISTORY OF PRESENT ILLNESS: The patient is an 78-year-old female, who has had multiple admissions over the last 3 months to [facility] related to cardiac issues. She reports to the emergency room yesterday complaining of chest pain with worsening shortness of breath apparently for 2 weeks. Family noted that she had some chest pain yesterday as well as a day before. She noticed that she had chest pain as well. There has been some reports of decreased p.o. intake. She denies complaining of some mild shortness of breath. No cough. No nausea, vomiting, or diarrhea. Evidently, there has been some increased ankle swelling as well. As noted, she has previous history of multiple readmissions to the hospital over the last several months related to multiple cardiac issues, most related to irregularities of her heart beat requiring pacemakers, previous ablations as well as transferred to [facility] for ablations. At this time, she reports no chest pain. She does not note any cough. She reports that she has no shortness of breath. IV has not been able to be started on her at this time. ALLERGIES: SHE IS ALLERGIC TO LASIX AND SULFA. CURRENT MEDICATIONS: 1. Ativan. 2. Aspirin. 3. Coreg. 4. Eliquis. 5. Hydralazine. 6. Lipitor. 7. Cardizem. 8. Magnesium. 9. CoQ10. 10. Calcium. 11. Clonidine. 12. Famotidine. 13. Metformin. 14. Paroxetine. PAST SURGICAL HISTORY: Positive for recently noted pacemaker placement, history of coronary artery bypass graft, and hysterectomy. PAST MEDICAL HISTORY: Positive for type 2 diabetes mellitus, recent history of hyperglycemia with possible associated hypoglycemic seizure, hypertension, and cerebrovascular disease. SOCIAL AND PERSONAL HISTORY: She does not drink nor she does smoke. She has been living at a swing bed in [place]. Whether she has been transferred home or not is unknown to me at this time. PHYSICAL EXAMINATION: VITAL SIGNS: Temperature 97.5, pulse 80, blood pressure 166/77, and O2 saturation is 99% on 2 L. GENERAL: She is alert, active, does not appear in any distress. HEENT: Normocephalic, atraumatic. Sclerae and conjunctivae are clear. NECK: Supple. Full range of motion. No masses. No bruits. LUNGS: Clear. HEART: Reveals a regular rhythm without murmur, gallops, or rubs. ABDOMEN: Soft and nontender. Bowel sounds are present and active. No hepatosplenomegaly is noted. EXTREMITIES: Show 1+ to 2+ edema bilaterally. NEUROLOGIC: She is alert and oriented x3. She follows commands. She has no evidence of any significant neurological deficits at this time. LABORATORY DATA: Hemoglobin 9.8, hematocrit 31.2, and white blood count 6.0. Sodium 132, potassium 3.4, and chloride 94. Initial troponin was 0.3, followed by 0.21, followed by 0.33. BNP is 272. IMAGING DATA: Chest x-ray, positive cardiomegaly with small pleural effusion with some parenchymal change in the left base. It could possibly represent a left pleural effusion or atelectasis. EKG reveals paced rhythm and atrial flutter. IMPRESSION: An 78-year-old female with chest pain of indeterminate origin. Certainly previous history of cardiac disease. She possibly could have some fluid retention issues, although her BNP is not significantly elevated, otherwise. I do not see any evidence of acute coronary syndrome at this time. PLAN: We will try to diurese the patient as best we can without IV access to consult Cardiology. This likely will be a Cardiology issue, but we will await their recommendations and treatment suggestions. Job ID: [id number]
--- NOTE | 2019-02-09 10:35 | CON ---
DATE OF CONSULTATION: HISTORY OF PRESENT ILLNESS: The patient is an 78-year-old woman, who presents for evaluation of palpitations and chest discomfort. The patient has a long history of coronary artery disease. Please see previous H and P for complete details. The patient has been admitted on multiple occasions with atrial fibrillation. She had undergone radiofrequency ablation for atrial flutter. The patient also has had placement of electronic pacemaker. The patient also developed torsades on sotalol. The patient subsequently presents once again with recurrent dyspnea and chest discomfort. The patient also reports having dyspnea with minimal exertion. PAST MEDICAL HISTORY: 1. Coronary artery disease. 2. Hypertension. 3. Atrial fibrillation. 4. Pulmonary hypertension. 5. History of coronary artery bypass surgery. 6. Moderate mitral regurgitation. PAST SURGICAL HISTORY: Coronary artery bypass surgery. ALLERGIES: SULFA DRUGS. SOCIAL HISTORY: Nonsmoker. PHYSICAL EXAMINATION: GENERAL: Anxious woman, in mild distress. VITAL SIGNS: Blood pressure 164/88. NECK: No jugular venous distention. LUNGS: Coarse breath sounds bilaterally. HEART: Regular rate and rhythm. Normal S1, S2 with 2/6 systolic murmur. ABDOMEN: Distended. EXTREMITIES: Showed mild bilateral edema. LABORATORY DATA: Sodium 132, potassium 3.4, chloride 94, bicarbonate 26, BUN 16 , creatinine 0.8. Troponin 0.02. BNP was 272. White blood cell count 6.0, hemoglobin 9.8, hematocrit 31.2, and platelets are 259. EKG revealed atrial flutter with rapid ventricular response and electronic ventricular pacemaker. IMPRESSION: 1. Chest pain and dyspnea. 2. Atrial fibrillation, status post ablation. 3. History of coronary artery bypass surgery. 4. Mitral regurgitation. 5. Pulmonary hypertension. This patient presents with what appears to be very symptomatic atrial fibrillation and flutter. We would recommend that she be placed on amiodarone. The patient has very symptomatic atrial fibrillation and flutter.We will follow this patient with you through her hospitalization. Job ID: [id number] [facility]
[2019-02-09] MEDS: Amiodarone 200 MG TAB PO SCH ×3 (10:44→19:52)
[2019-02-09] MEDS ORDERED: Amiodarone 150 MG in Dextrose 5% in Water 100 ML IVPB SCH (12:30)
[2019-02-09] MEDS: Acetaminophen 325 MG TAB PO PRN (15:53)
--- NOTE | 2019-02-09 16:38 | CON ---
DATE OF CONSULTATION: 02/09/2019 HISTORY OF PRESENT ILLNESS: I am seeing Mrs. 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 Her problems are: 1. Continued atypical atrial flutter. 2. History of atrial fibrillation. a. Persisting, requiring sotalol suppression. b. Recurrence on sotalol prompting increased sotalol and cardioversion and subsequent adrianna related torsade arrhythmia in November. c. Status post pulmonary venous isolation procedure in [place]. 3. Tachybrady syndrome prompting a dual-chamber pacemaker implantation in December 18, 2018, with a [employer]onic Yarelis XT DR dual-chamber pacemaker. 4. History of coronary artery disease with prior bypass surgery. 5. History of diastolic heart failure with preserved LVEF. 6. History of severe mitral valve and tricuspid regurgitation and pulmonary hypertension, normal ejection fraction and left atrial enlargement on prior echos, most recently January 11, 2019. 7. History of pulmonary hypertension. 8. History of systolic hypertension. ALLERGIES: SOTALOL CAUSING TORSADE IN THE PAST, FUROSEMIDE, AND SULFA. MEDICATIONS: At home included: 1. Tylenol. 2. Calcium carbonate. 3. Fish oil supplements. 4. Paroxetine. 5. Coenzyme Q10. 6. Aspirin. 7. Magnesium oxide. 8. Lorazepam. 9. Tylenol. 10. Apixaban 5 mg twice a day. 11. Lipitor. 12. Carvedilol. 13. Hydralazine. 14. Metformin. 15. Diltiazem. 16. Insulin glargine. 17. Isosorbide dinitrate. 18. Pantoprazole. SUBJECTIVE: Ms. Malik is returning again with atypical chest discomforts. She feels her heart beats being painful and at certain position, she seems to be more comfortable from that, mostly leaning on the left side over the bed. Denied dizziness of consciousness. No stroke-like symptoms. No neurological deficits. She has some neck fullness sensation. She denies PND or orthopnea, but she does sleep on a pillow. No angina-like discomfort. No stroke-like symptoms. No bleeding issues. Currently, her pacemaker site is healing well. REVIEW OF SYSTEMS: Rest of 12-point system otherwise unremarkable. PAST MEDICAL HISTORY: As above. SOCIAL HISTORY: The patient denies smoking, EtOH, or drug abuse. FAMILY HISTORY: Not contributory. OBJECTIVE DATA: VITAL SIGNS: Blood pressure is 164/88, heart rate 73, respirations 18, and temperature 98.2 degrees Fahrenheit. PHYSICAL EXAMINATION: GENERAL: Alert and oriented woman, in no apparent distress. NECK: Supple. Jugular veins not distended. CHEST: Coarse without crackles. HEART: Sounds are regular to rate and rhythm. No murmur or gallop. ABDOMEN: Benign. Bowel sounds positive. EXTREMITIES: Lower extremity without edema, clubbing, or cyanosis. DATABASE: EKG is reviewed revealing atrial flutter atypical, rate of 86 beats per minute. Occasional PVCs and intermittent ventricular pacing are seen. Subsequent telemetry strips revealed the same. Ventricular rates well controlled. LABORATORY DATA: Also reviewed revealing white count 6, hemoglobin 9.8, platelet count 259. Sodium 132, potassium 3.4, BUN is 16, creatinine 0.88. AST and ALT are 23 and 14. The BNP is 278. TSH is 1.58 on December 07. ASSESSMENT AND PLAN: Mrs. Malik is a pleasant unfortunate lady with history of atrial arrhythmias, coronary artery disease, significant valvular heart disease , and pulmonary hypertension. She is here with recurrent chest tightness discomfort sensation. She has no typical angina-like discomfort, more correlating with her irregular heart beatings - as I discussed with Dr. Wallace , I think it truly atrial fibrillation, but she is symptomatic about. She has underwent a pulmonary venous isolation procedure approximately 10 weeks ago, but early recurrence atrial fibrillation was seen and hence the prior poor response to sotalol with torsade, we were holding off antiarrhythmic agents, but at this point I think we will likely need nevertheless try amiodarone in order to restore and maintain sinus rhythm. We discussed the pros and cons of amiodarone administration with the patient and daughter. They understand the pros and cons of this. The benefit of maintaining sinus rhythm noted. Alternative of AV jono ablation also considered and discussed in the past, but I think with her significant diastolic dysfunction in sinus rhythm would be likely imperative to restore some of her symptoms. On the other hand, the risk of proarrhythmia complication with amiodarone side effects were all discussed. She understands and willing to proceed. She will be started on IV, then p.o. amiodarone. We will monitor QT intervals and arrhythmia. She might benefit from a cardioversion, possibly later this week and she is well anticoagulated. She might not need to undergo PEPPER for that. Pacing functions adequate. We will monitor that. We will likely consider returning on atrial ATP therapies and cardioversion. Routine monitoring of TSH and liver functions might be prudent. Chest x-rays or pulmonary function test while on this medication is also to be considered. Optimization of heart failure status as per Dr. Wallace. We will follow up with you. Thank for allowing me to participate in the care of this patient. Job ID: [id number] [facility]TD[facility]
[2019-02-09] MEDS: Apixaban 5 MG TAB PO SCH (19:52)
[2019-02-09] MEDS: Atorvastatin Calcium 40 MG TAB PO SCH (19:53)
[2019-02-09] MEDS: Insulin Glargine 10 UNITS in Pre-Filled Syringe 1 EACH SC SCH (19:58)
[2019-02-09] MEDS: Lorazepam 0.5 MG TAB PO SCH (20:46)
[2019-02-09] MEDS ORDERED: Lorazepam 0.5 MG TAB PO SCH (21:00)
[2019-02-10 05:21] LABS: Anion Gap 13 mmol/L (10-20); BUN (Urea Nitrogen) 14 mg/dL (9.8-20.1); Calc. Creatinine Clearance 51 mL/min (70-130); Calcium 9.7 mg/dL (7.8-10.44); Carbon Dioxide 35 mmol/L (23-31); Chloride 88 mmol/L (98-107); Estimated GFR-MDRD 52; Glucose 145 mg/dL (83-110); Sodium 134 mmol/L (136-145)
[2019-02-10 05:25] LABS: Potassium 2.4 mmol/L (3.5-5.1)
[2019-02-10] MEDS ORDERED: Potassium Chloride 30 MEQ in Sodium Chloride 0.9% 250 ML 250 ML IV SCH (06:45)
[2019-02-10 07:57] LABS: Hemoglobin 10.1 g/dL (12.0-16.0); Platelet Count 261 thou/uL (130-400)
--- NOTE | 2019-02-10 08:10 | PRG ---
DATE OF SERVICE: 02/10/2019 SUBJECTIVE: Ms. Malik is complaining of difficulty breathing through her nose this morning. She has no fever. No productive cough. No chest pain. OBJECTIVE: VITAL SIGNS: Her temperature is 98.4, O2 sat is 95% on room air, and blood pressure 112/68. Weight is down 9 pounds since admission. LUNGS: Clear. HEART: Reveals an irregular rhythm without murmur, gallops, or rubs. EXTREMITIES: Shows a significant decrease in her edema. LABORATORY DATA: Sodium 134, potassium 2.4, chloride 88, CO2 of 35, BUN 14, and creatinine 1.02. IMPRESSION: Cardiac arrhythmia/congestive heart failure/history of atherosclerotic coronary artery disease. PLAN: 1. Per recommendations of Cardiology, she has been started on amiodarone. 2. She is hypokalemic, probably secondary to her diuretic use that was necessary due to her edema. She has already been started on IV replacement. We will add p.o. supplementation. Recheck potassium later today. 3. The patient is complaining of problems with her heart. I have asked her to discuss this with Dr. Wallace and Dr. Vergara. Job ID: [id number]
[2019-02-10 08:16] LABS: Anion Gap 18 mmol/L (10-20); BUN (Urea Nitrogen) 13 mg/dL (9.8-20.1); Calc. Creatinine Clearance 56 mL/min (70-130); Calcium 9.5 mg/dL (7.8-10.44); Carbon Dioxide 30 mmol/L (23-31); Chloride 88 mmol/L (98-107); Estimated GFR-MDRD 59; Glucose 146 mg/dL (83-110); Sodium 133 mmol/L (136-145)
[2019-02-10 08:29] LABS: Potassium 2.7 mmol/L (3.5-5.1)
[2019-02-10] MEDS: Fish Oil 1,000 MG CAP PO SCH ×3 (08:38→21:34)
[2019-02-10] MEDS: Carvedilol 25 MG TAB PO SCH ×2 (08:38→21:34)
[2019-02-10] MEDS: Ubidecarenone 50 MG CAP PO SCH ×2 (08:38→21:32)
[2019-02-10] MEDS: Hydrochlorothiazide 25 MG TAB PO SCH (08:39)
[2019-02-10] MEDS: Apixaban 5 MG TAB PO SCH ×2 (08:39→21:33)
[2019-02-10] MEDS: Magnesium Oxide 400 MG TAB PO SCH ×2 (08:39→21:34)
[2019-02-10] MEDS: Amiodarone 200 MG TAB PO SCH (08:39)
[2019-02-10] MEDS: PARoxetine 20 MG TAB PO SCH (08:39)
[2019-02-10] MEDS: Calcium Carbonate + Vit D 1 TAB PO SCH ×2 (08:39→21:34)
[2019-02-10] MEDS: hydrALAZINE 25 MG TAB PO SCH ×3 (08:40→21:33)
[2019-02-10] MEDS: Potassium Chloride 10 MEQ TAB PO SCH ×2 (08:40→16:43)
[2019-02-10] MEDS: Torsemide 20 MG TAB PO SCH (08:40)
[2019-02-10] MEDS: Aspirin 81 mg Enteric Coated Tablet PO SCH (08:40)
[2019-02-10] MEDS: Isosorbide Dinitrate 20 MG TAB PO SCH ×3 (08:41→21:33)
[2019-02-10] MEDS ORDERED: Amiodarone 150 MG in Dextrose 5% in Water 100 ML IVPB SCH (10:00)
--- NOTE | 2019-02-10 10:19 | PDOC.CTH ---
Cardiology Progress Note - Subjective EP PROGRESS NOTE: Seen as follow up for atrial arrhythmias. Feels "poorly" this AM but cannot put how she feels to more specific words. Denies heart racing, palpitations, chest pain, pressure, stroke, stroke like symptoms. + tired/fatigue. No bleeding seen - Objective Vital Signs Temp Pulse Resp BP Pulse Ox 02/10/19 08:48 93 L 02/10/19 07:38 97.7 F 87 20 133/75 93 L 02/10/19 04:17 98.4 F 72 16 112/68 99 02/09/19 23:44 98.3 F 64 20 128/70 100 Weight 160 lb 11.2 oz 02/09/19 02/10/19 02/11/19 06:59 06:59 06:59 Intake Total 360 1210 240 Output Total 1000 2750 Balance -640 -1540 240 - Physical Examination General/Neuro: alert & oriented x3, NAD Neck: carotid US brisk, no JVD present Lungs: CTA, unlabored respirations Heart: PMI normal Abdomen: NT/ND, soft - Telemetry Telemetry Rhythm: atrial flutter, rate controlled. - Labs Result Diagrams: 02/11/19 04:47 02/11/19 10:55 Troponin/CKMB CK-MB (CK-2) 1.3 ng/mL (0-6.6) 02/08/19 15:37 Troponin I 0.033 ng/mL (< 0.028) H 02/08/19 23:15 - Assessment/Plan 1. Atypical atrial flutter -rate controlled - hx of TdP on Sotalol - persistent arrhythmias after PVAI Nov 2018 - loading on PO amiodarone, 400mg PO TID 2. Dual chamber PPM - will turn on ATP therapies - placed Nov 2018 3. Diastolic heart failure - positive orthopnea this AM. Lungs CTA 4. Severe Mitral regurgitation 5. CHADS2-VASC: 5 - Continue eliquis Continue PO eliquis and PO amiodarone NPO after MN for DCCV with Dr Wallace tomorrow.
[2019-02-10] MEDS: Amiodarone 450 MG in Dextrose 5% in Water 250 ML IVPB SCH ×2 (11:09→22:44)
--- NOTE | 2019-02-10 13:03 | PQF ---
CLINICAL DOCUMENTATION IMPROVEMENT CLARIFICATION FORM: ICD-10 Updated PLEASE DO AN ADDENDUM TO THE PROGRESS NOTE WITH ANY DOCUMENTATION UPDATES OR ADDITIONS AND CARRY THROUGH TO DC SUMMARY. THANK YOU. DATE: 02/11/19 ATTN: DR. MEYERS Please exercise your independent, professional judgment in responding to the clarification form. Clinical indicators are provided on the bottom of this form for your review Please check appropriate box(s): HEART FAILURE: A. TYPE: [ ] Systolic / HFrEF [ ] Diastolic / HFpEF [ x ] Combined Systolic / Diastolic B. ACUITY [x ] Acute [ ] Acute on Chronic [ ] Chronic [ ] Other diagnosis In addition, please specify: Present on Admission (POA): [ x] Yes [ ] No [ ] Unable to determine For continuity of documentation, please document condition throughout progress notes and discharge summary. Thank You. CLINICAL INDICATORS - SIGNS / SYMPTOMS / LABS H&P: "INCREASED ANKLE SWELLING" "SHE POSSIBLY COULD HAVE SOME FLUID RETENTION ISSUES, ALTHOUGH HER BNP IS NOT SIGNIFICANTLY ELEVATED, OTHERWISE." CONSULTATION NOTE 02/10: "DIASTOLIC HEART FAILURE- POSITIVE ORTHOPNEA THIS AM" BNP 272.8 RISKS: AFLUTTER HYPERTENSION H/O DIASTOLIC CHF TREATMENT: CARDIAC MONITORING COREG (02/09-PRESENT) HZTZ (02/09-PRESENT) DEMADEX (02/09-PRESENT) PEPPER/CARDIOVERSION SAP [employer] Winform Viewer(This form is maintained as a part of the permanent medical record) 2014 [employer]. All Rights Reserved CALI [email or web address] Office: [phone] [facility]
[2019-02-10 14:42] LABS: Anion Gap 16 mmol/L (10-20); BUN (Urea Nitrogen) 14 mg/dL (9.8-20.1); Calc. Creatinine Clearance 48 mL/min (70-130); Carbon Dioxide 30 mmol/L (23-31); Chloride 88 mmol/L (98-107); Estimated GFR-MDRD 49; Potassium 3.3 mmol/L (3.5-5.1); Sodium 131 mmol/L (136-145)
[2019-02-10 14:43] LABS: Calcium 9.3 mg/dL (7.8-10.44); Glucose 220 mg/dL (83-110)
[2019-02-10] MEDS ORDERED: Potassium Chloride 20 MEQ TAB PO SCH (15:15)
[2019-02-10] MEDS: Lorazepam 0.5 MG TAB PO SCH (21:33)
[2019-02-10] MEDS: Atorvastatin Calcium 40 MG TAB PO SCH (21:34)
[2019-02-10] MEDS: Insulin Glargine 10 UNITS in Pre-Filled Syringe 1 EACH SC SCH (21:35)
[2019-02-11 05:43] LABS: #Eosinphils 0.1 thou/uL (0.0-0.7); #Lymphocytes 1.3 thou/uL (1.20-3.40); #Neutrophils 4.9 thou/uL (1.40-6.50); %Basophils 0.6 % (0.0-1.0); %Eosinophils 1.9 % (0.0-10.0); %Lymphocytes 17.7 % (21.0-51.0); %Monocytes 13.3 % (0.0-10.0); %Neutrophils 66.5 % (42.0-75.0); Hemoglobin 9.5 g/dL (12.0-16.0); Mean Corpuscular HGB CONC 31.1 g/dL (32.0-36.0); Mean Corpuscular Hemoglobin 26.3 pg (27.0-31.0); Mean Corpuscular Volume 84.5 fL (78.0-98.0); Mean Platelet Volume 7.3 fL (7.4-10.4); Platelet Count 249 thou/uL (130-400); RBC Distribution Width 16.7 % (11.5-14.5); White Blood Cell (WBC) Count 7.3 thou/uL (4.8-10.8)
[2019-02-11 06:14] LABS: Anion Gap 15 mmol/L (10-20); BUN (Urea Nitrogen) 18 mg/dL (9.8-20.1); Calc. Creatinine Clearance 39 mL/min (70-130); Calcium 9.4 mg/dL (7.8-10.44); Carbon Dioxide 33 mmol/L (23-31); Chloride 87 mmol/L (98-107); Estimated GFR-MDRD 38; Glucose 142 mg/dL (83-110); Sodium 132 mmol/L (136-145)
[2019-02-11 06:29] LABS: Potassium 2.9 mmol/L (3.5-5.1)
[2019-02-11] MEDS ORDERED: Potassium Chloride 40 MEQ in Premix Bag 1 BAG IVPB SCH (07:15)
[2019-02-11] MEDS ORDERED: Metoprolol Tartrate 5 MG/5 ML VIAL ONE (08:09)
[2019-02-11] MEDS: Isosorbide Dinitrate 20 MG TAB PO SCH ×3 (08:09→21:22)
[2019-02-11] MEDS: Potassium Chloride 10 MEQ TAB PO SCH (08:09)
[2019-02-11] MEDS: Potassium Chloride 20 MEQ in Premix Bag 1 BAG IVPB SCH ×2 (08:30→12:08)
[2019-02-11] MEDS ORDERED: Metoprolol Tartrate 5 MG/5 ML VIAL IVP PRN (09:23)
[2019-02-11] MEDS ORDERED: Potassium Chloride 20 MEQ TAB PO SCH ×2 (09:30→17:00)
[2019-02-11] MEDS: Calcium Carbonate + Vit D 1 TAB PO SCH ×2 (10:05→21:24)
[2019-02-11] MEDS: Magnesium Oxide 400 MG TAB PO SCH ×2 (10:05→21:23)
[2019-02-11] MEDS: Apixaban 5 MG TAB PO SCH ×2 (10:05→21:24)
[2019-02-11] MEDS: Aspirin 81 mg Enteric Coated Tablet PO SCH (10:05)
[2019-02-11] MEDS: PARoxetine 20 MG TAB PO SCH (10:05)
[2019-02-11] MEDS: Ubidecarenone 50 MG CAP PO SCH ×2 (10:05→21:22)
[2019-02-11] MEDS: Carvedilol 25 MG TAB PO SCH ×2 (10:05→21:22)
[2019-02-11] MEDS: Hydrochlorothiazide 25 MG TAB PO SCH (10:05)
[2019-02-11] MEDS: Fish Oil 1,000 MG CAP PO SCH ×3 (10:05→21:24)
[2019-02-11] MEDS: Torsemide 20 MG TAB PO SCH (10:05)
[2019-02-11] MEDS: hydrALAZINE 25 MG TAB PO SCH ×3 (10:05→21:23)
[2019-02-11 11:39] LABS: Potassium 3.2 mmol/L (3.5-5.1)
--- NOTE | 2019-02-11 13:17 | PDOC.CTH ---
Cardiology Progress Note - Subjective EP PROGRESS NOTE:02/11/19 Seen as follow up for atrial arrhythmias. Feels somewhat improved but did have some chest discomfort and heat racing this AM. Denies stroke, stroke like symptoms. + tired/fatigue. - Objective Vital Signs Temp Pulse Resp BP Pulse Ox 02/11/19 11:00 98.3 F 81 20 120/66 100 02/11/19 10:05 86 20 164/70 H 96 02/11/19 08:09 96 02/11/19 06:20 96 02/11/19 03:35 64 23 H 134/77 100 02/11/19 03:17 98.6 F Weight 159 lb 6.4 oz 02/10/19 02/11/19 02/12/19 06:59 06:59 06:59 Intake Total 1210 1200 480 Output Total 2750 600 Balance -1540 600 480 - Physical Examination General/Neuro: alert & oriented x3, NAD Neck: carotid US brisk, no JVD present Lungs: CTA, unlabored respirations Heart: PMI normal, other: Abdomen: NT/ND, soft - Telemetry Telemetry Rhythm: atrial flutter - Labs Result Diagrams: 02/11/19 04:47 02/11/19 10:55 Troponin/CKMB CK-MB (CK-2) 1.3 ng/mL (0-6.6) 02/08/19 15:37 Troponin I 0.033 ng/mL (< 0.028) H 02/08/19 23:15 - Assessment/Plan 1. 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 Cardiology had added some IV amio this AM with her RVR. - Coreg 25mg PO BID. Restarted dilt CD 120mg PO daily for additional rate control. Not concerned for adrianna as she has PPM in place. 2. Dual chamber PPM - Turned on ATP therapies - placed Nov 2018 3. Diastolic heart failure - positive orthopnea this AM. Lungs CTA 4. Severe Mitral regurgitation 5. CHADS2-VASC: 5 - Continue Eliquis 5mg PO BID 6. Hypokalemia - recommend replacing to goal of 4.0 Continue PO eliquis and amiodarone. In/ out of sinus rhythm as amio loading continues. No need for CV today. I suspect her rhythm will stabilize over the weekend. Potassium will need to stabilize before she can DC home. She had some issues with RVR this AM. Will add low dose diltiazem back into treatment. If HR stable and feels well or back in SR without additional issues, she may be able to DC over the weekend. Will check on her Thursday if she has not discharged by then. Continue PO amiodarone upon DC. -200mg PO TID x 1 week -200mg PO BID x 2 week -200mg PO Daily thereafter
[2019-02-11] MEDS ORDERED: Diltiazem HCl SR 90 mg Capsule PO SCH (13:30)
[2019-02-11] MEDS ORDERED: Amiodarone 200 MG TAB PO SCH (15:45)
--- NOTE | 2019-02-11 19:46 | PRG ---
DATE OF SERVICE: 02/11/2019 HISTORY OF PRESENT ILLNESS: Ms. Malik is resting comfortably in bed. She has had some improvement in her arrhythmias with the amiodarone. She is not going to require cardioversion. She is still having some problems with hypokalemia. Otherwise, she is feeling rather well. PHYSICAL EXAMINATION: VITAL SIGNS: Blood pressure 120/66, O2 sats 100% on 2 L, temperature 98.3. Weight is 159 pounds, which is down 10 pounds from admission. LUNGS: Reveal bilateral breath sounds. HEART: Reveals a slightly irregular rhythm without murmurs. EXTREMITIES: Show no edema. LABORATORY DATA: This morning, her potassium is 2.9, she has received some IV potassium, it is now back up to 3.2. Blood sugars are adequately controlled. IMPRESSION: History of atrial fibrillation, multiple cardiac arrhythmias, atrial flutter, status post pacemaker placement with associated probable congestive heart failure that is improved. PLAN: 1. She is on amiodarone. She will continue this. This has improved her condition such that she does not need cardioversion. I have taken off all of her previous other diuretics and placed her simply on torsemide 10 mg daily with potassium supplementation of 20 mEq b.i.d. she will continue this as an outpatient. 2. She probably can be discharged as early as tomorrow hopefully to go to [facility]. Cardiology has agreed to write her amiodarone prescription. I have gotten all of her medicines aligned to where she will be back on the same medications, specifically torsemide 10 mg daily and potassium 20 mEq b.i.d. She will probably need to have a metabolic panel early next week after check again tomorrow morning. Additionally, she will be maintained on metformin as well as her previously once a daily dose of insulin, which could be switched to the daytime for convenience. I have signed the material for her to be transferred as early as tomorrow. Job ID: [id number]
[2019-02-11] MEDS: Insulin Glargine 10 UNITS in Pre-Filled Syringe 1 EACH SC SCH (21:21)
[2019-02-11] MEDS: Amiodarone 200 MG TAB PO SCH (21:22)
[2019-02-11] MEDS: Atorvastatin Calcium 40 MG TAB PO SCH (21:22)
[2019-02-11] MEDS: Lorazepam 0.5 MG TAB PO SCH (21:24)
[2019-02-12 05:42] LABS: Anion Gap 13 mmol/L (10-20); BUN (Urea Nitrogen) 20 mg/dL (9.8-20.1); Calc. Creatinine Clearance 44 mL/min (70-130); Calcium 9.4 mg/dL (7.8-10.44); Carbon Dioxide 36 mmol/L (23-31); Chloride 89 mmol/L (98-107); Estimated GFR-MDRD 45; Glucose 134 mg/dL (83-110); Sodium 135 mmol/L (136-145)
[2019-02-12 05:44] LABS: Potassium 2.9 mmol/L (3.5-5.1)
[2019-02-12] MEDS ORDERED: Potassium Chloride 10 MEQ TAB PO SCH (08:00)
[2019-02-12] MEDS: Apixaban 5 MG TAB PO SCH ×2 (08:16→21:12)
[2019-02-12] MEDS: Carvedilol 25 MG TAB PO SCH ×2 (08:16→21:17)
[2019-02-12] MEDS: Fish Oil 1,000 MG CAP PO SCH ×3 (08:17→21:13)
[2019-02-12] MEDS: PARoxetine 20 MG TAB PO SCH (08:17)
[2019-02-12] MEDS: Calcium Carbonate + Vit D 1 TAB PO SCH ×2 (08:18→21:13)
[2019-02-12] MEDS: hydrALAZINE 25 MG TAB PO SCH (08:19)
[2019-02-12] MEDS: Isosorbide Dinitrate 20 MG TAB PO SCH ×2 (08:21→21:16)
[2019-02-12] MEDS: Aspirin 81 mg Enteric Coated Tablet PO SCH (08:22)
[2019-02-12] MEDS: Amiodarone 200 MG TAB PO SCH ×3 (08:22→21:17)
[2019-02-12] MEDS: Magnesium Oxide 400 MG TAB PO SCH (08:22)
[2019-02-12 08:44] LABS: Hemoglobin 10.1 g/dL (12.0-16.0); Platelet Count 251 thou/uL (130-400)
[2019-02-12] MEDS: Ubidecarenone 50 MG CAP PO SCH ×2 (09:02→21:31)
[2019-02-12] MEDS: Torsemide 10 MG TAB PO SCH (09:04)
[2019-02-12] MEDS: Digoxin 0.5 MG/2 ML AMP SLOW IVP SCH ×2 (11:33→14:05)
--- NOTE | 2019-02-12 11:50 | PRG ---
DATE OF SERVICE: 02/12/2019 SUBJECTIVE: The patient is in room with no complaints. Says that her sensation of flutters in her chest have resolved, but knows occasionally she still can tell when her heart is out of rhythm, but she denies any shortness of breath and her chest pains have resolved. She has had some dizziness over the night and this morning though possibly consistent with her meclizine, having been discharged a few days ago. OBJECTIVE: VITAL SIGNS: This morning; pulse is 105 and irregularly irregular, BP is 124/77, she is on 2 L nasal cannula. She is afebrile. GENERAL: On exam, she is sitting comfortably in the chair next to the bed, good eye contact, conversive. NECK: Supple. No JVD. No bruits. No thyromegaly. No lymphadenopathy. Carotids are without bruits. CHEST: Nontender. HEART: Sounds are irregularly irregular rhythm. She has a 2/6 systolic murmur heard best at the xiphoid process. LUNGS: Clear to auscultation bilaterally. EXTREMITIES: She has mild 1+ edema to both lower extremities. GENITOURINARY: Exam is deferred. NEUROLOGIC: She is grossly intact. Awake, alert, and oriented x4. She has no gross cranial nerve deficits. All motor and sensory functions appear grossly normal. LABORATORY DATA: Her hemoglobin is up half a gram from yesterday at 10.1, her platelets are stable at 250. Her creatinine minimally elevated at 1.25 with a GFR of 41, glucose 134 and a [id number] glucose this morning later was 200. Her potassium this morning was 2.9 with a sodium of 135, chloride of 89, and bicarb of 36. ASSESSMENT AND PLAN: Atrial fibrillation, atrial flutter, and atypical flutter. She has undergone pacers and EP therapies with EP coating manager, Dr. Vergara. This morning, Dr. Wallace from Cardiology is doing a digoxin load, starting IV and then switching to p.o. The plan to send her to [facility] will need to be on hold due to the digoxin loading procedure that is happening. So that now will be pushed off to Thursday. Meanwhile, the patient will be encouraged to be put on a walking program. She walks with her walker. We will also restart the meclizine for p.r.n. vertigo symptoms. Job ID: [id number]
[2019-02-12] MEDS ORDERED: Dextrose 5% in Water 1,000 ML IV PRN (12:12)
[2019-02-12] MEDS ORDERED: Dextrose 50% Abboject 50 ML SYRINGE IVP PRN (12:12)
[2019-02-12] MEDS: HumaLOG 300 UNITS/3 ML VIAL SC PRN (12:32)
[2019-02-12] MEDS: Meclizine HCl 25 MG TAB PO PRN ×2 (12:34→21:12)
[2019-02-12] MEDS ORDERED: Sodium Chloride 0.9% 250 ML 250 ML IVPB SCH (15:00)
[2019-02-12] MEDS: Potassium Chloride 10 MEQ TAB PO SCH ×2 (15:40→21:15)
[2019-02-12] MEDS: Digoxin 0.125 MG TAB PO SCH (15:41)
[2019-02-12] MEDS ORDERED: Sodium Chloride 0.9% 250 ML IVPB SCH (15:45)
[2019-02-12] MEDS: Atorvastatin Calcium 40 MG TAB PO SCH (21:12)
[2019-02-12] MEDS: Lorazepam 0.5 MG TAB PO SCH (21:13)
[2019-02-12] MEDS: Insulin Glargine 10 UNITS in Pre-Filled Syringe 1 EACH SC SCH (21:28)
[2019-02-13] MEDS: Acetaminophen 325 MG TAB PO PRN (03:01)
[2019-02-13] MEDS: hydrALAZINE 25 MG TAB PO SCH ×4 (05:27→21:56)
[2019-02-13] MEDS: Ubidecarenone 50 MG CAP PO SCH ×2 (08:59→21:56)
[2019-02-13] MEDS: Isosorbide Dinitrate 20 MG TAB PO SCH ×3 (08:59→21:57)
[2019-02-13] MEDS: Apixaban 5 MG TAB PO SCH ×2 (09:00→21:56)
[2019-02-13] MEDS: Magnesium Oxide 400 MG TAB PO SCH (09:00)
[2019-02-13] MEDS: Potassium Chloride 10 MEQ TAB PO SCH ×3 (09:00→21:58)
[2019-02-13] MEDS: Aspirin 81 mg Enteric Coated Tablet PO SCH (09:01)
[2019-02-13] MEDS: Torsemide 10 MG TAB PO SCH (09:02)
[2019-02-13] MEDS: Digoxin 0.125 MG TAB PO SCH ×2 (09:02→15:58)
[2019-02-13] MEDS: PARoxetine 20 MG TAB PO SCH (09:03)
[2019-02-13] MEDS: Carvedilol 25 MG TAB PO SCH ×2 (09:03→21:58)
[2019-02-13] MEDS: Fish Oil 1,000 MG CAP PO SCH ×3 (09:04→21:57)
[2019-02-13] MEDS: Amiodarone 200 MG TAB PO SCH ×3 (09:04→21:57)
[2019-02-13] MEDS: Calcium Carbonate + Vit D 1 TAB PO SCH ×2 (09:04→21:57)
--- NOTE | 2019-02-13 14:16 | PRG ---
DATE OF SERVICE: 02/13/2019 SUBJECTIVE: The patient this morning has no further complaints, feels like she is doing better. She was started on a digoxin yesterday. Her vitals today this morning; BP is 130s/60s, temp 98, pulse 73, respirations are 20, on the monitor, she has been in sinus rhythm. Later in the day after all of her medications were given, systolic came down to 90/56, but still asymptomatic. PHYSICAL EXAMINATION: Exam essentially unchanged. LUNGS: Clear to auscultation bilaterally. No rales, rhonchi, or wheezes. HEART: S1 and S2. No rubs, murmurs, or gallops. LABORATORY DATA: No recent lab work. PLAN: To discharge tomorrow to SNF at [facility]. She will maintain p.o. digoxin in addition to her other medications. Her sugars have been slightly higher, so she is had to have a sliding scale insulin added. Job ID: [id number]
[2019-02-13] MEDS: Lorazepam 0.5 MG TAB PO SCH (21:57)
[2019-02-13] MEDS: Atorvastatin Calcium 40 MG TAB PO SCH (21:57)
[2019-02-13] MEDS: Insulin Glargine 10 UNITS in Pre-Filled Syringe 1 EACH SC SCH (22:14)
[2019-02-14 08:44] LABS: Hemoglobin 10.4 g/dL (12.0-16.0); Platelet Count 288 thou/uL (130-400)
[2019-02-14] MEDS: Amiodarone 200 MG TAB PO SCH ×2 (09:06→16:12)
[2019-02-14] MEDS: Aspirin 81 mg Enteric Coated Tablet PO SCH (09:07)
[2019-02-14] MEDS: Apixaban 5 MG TAB PO SCH (09:07)
[2019-02-14] MEDS: hydrALAZINE 25 MG TAB PO SCH (09:07)
[2019-02-14] MEDS: Fish Oil 1,000 MG CAP PO SCH ×2 (09:07→16:12)
[2019-02-14] MEDS: Calcium Carbonate + Vit D 1 TAB PO SCH (09:07)
[2019-02-14] MEDS: Digoxin 0.125 MG TAB PO SCH ×2 (09:07→16:11)
[2019-02-14] MEDS: Carvedilol 25 MG TAB PO SCH (09:07)
[2019-02-14] MEDS: Magnesium Oxide 400 MG TAB PO SCH (09:13)
[2019-02-14] MEDS: Isosorbide Dinitrate 20 MG TAB PO SCH ×2 (09:13→16:11)
[2019-02-14] MEDS: Potassium Chloride 10 MEQ TAB PO SCH ×2 (09:14→16:11)
[2019-02-14] MEDS: Torsemide 10 MG TAB PO SCH (09:14)
[2019-02-14] MEDS: PARoxetine 20 MG TAB PO SCH (09:14)
[2019-02-14] MEDS: Ubidecarenone 50 MG CAP PO SCH (09:14)
[2019-02-14 12:23] VITALS: TEMP 98.1
[2019-02-14] MEDS: HumaLOG 300 UNITS/3 ML VIAL SC PRN (12:30)
--- NOTE | 2019-02-14 13:15 | PRG ---
DATE OF SERVICE: 02/14/2019 SUBJECTIVE: Ms. Malik is resting comfortably in bed. She has had no other major issues through the weekend. OBJECTIVE: VITAL SIGNS: Blood pressure is 122/80, temperature is 98.1, O2 saturation is 95% on room air. LUNGS: Clear. HEART: Reveals no murmur. Irregularly irregular rhythm. ABDOMEN: Soft and nontender. EXTREMITIES: Minimal edema. IMPRESSION: 1. Atrial fibrillation with multiple cardiac arrhythmias otherwise. 2. History of congestive heart failure. PLAN: We will check a serum basic metabolic profile today. If everything is stable, she possibly could be transferred to [facility] today. Job ID: [id number]
[2019-02-14 13:31] LABS: Anion Gap 11 mmol/L (10-20); BUN (Urea Nitrogen) 19 mg/dL (9.8-20.1); Calc. Creatinine Clearance 45 mL/min (70-130); Calcium 9.2 mg/dL (7.8-10.44); Carbon Dioxide 32 mmol/L (23-31); Chloride 98 mmol/L (98-107); Estimated GFR-MDRD 47; Glucose 201 mg/dL (83-110); Potassium 4.5 mmol/L (3.5-5.1); Sodium 136 mmol/L (136-145)
--- NOTE | 2019-02-14 16:09 | PDOC.CTH ---
Cardiology Progress Note - Subjective EP PROGRESS NOTE:02/14/19 Seen as follow up for atrial arrhythmias. Feels better over the weekend with adequate HR control. Still in aflutter.Denies stroke, stroke like symptoms. + tired/fatigue. - ROS not able to obtain ROS - Objective Vital Signs Temp Pulse Resp BP BP BP Pulse Ox 02/14/19 12:20 122/78 02/14/19 11:02 98.1 F 89 20 95 02/14/19 10:30 110/70 02/14/19 09:13 93 122/80 02/14/19 09:07 93 122/80 02/14/19 08:00 97 02/14/19 07:22 97.7 F 93 20 185/82 H 97 Weight 156 lb 11.2 oz 02/13/19 02/14/19 02/15/19 06:59 06:59 06:59 Intake Total 720 Output Total 1500 1100 Balance -1500 -380 - Physical Examination General/Neuro: alert & oriented x3, NAD Lungs: CTA Heart: other: (Irregular) Abdomen: no HSM Extremities: + edema B (0) - Telemetry Telemetry Rhythm: Atypicaol AFL. No proarrhtyhmia. - Labs Result Diagrams: 02/14/19 08:16 02/14/19 12:59 Troponin/CKMB CK-MB (CK-2) 1.3 ng/mL (0-6.6) 02/08/19 15:37 Troponin I 0.033 ng/mL (< 0.028) H 02/08/19 23:15 - Assessment/Plan 1. Atypical atrial flutter - spontaneously converted to SR night ~1800 but back into flutter RVR 02/11 AM abnd stayed in afl despite continued Amiodarone loading. - hx of TdP on Sotalol - persistent, highly symptomatic arrhythmias after PVAI Nov 2018 - loading on PO amiodarone, 400mg PO TID. Cardiology had added some IV amio this AM with her RVR. - Coreg 25mg PO BID. Restarted dilt CD 120mg PO daily for additional rate control. Not concerned for adrianna as she has PPM in place. 2. Dual chamber PPM - Turned on ATP therapies last week - placed Nov 2018 3. Diastolic heart failure - No orthopnea this AM. Lungs CTA 4. Valvular heart disease: Severe Mitral regurgitation. As per Dr Wallace. 5. CHADS2-VASC: 5 - Continue Eliquis 5mg PO BID 6. Hypokalemia - recommend replacing to goal of 4.0 Continue PO eliquis and amiodarone. No pro-arrhythmia so far. In/ out of sinus rhythm as amio loading continues. No need for CV today. I suspect her rhythm will stabilize over the weekend. She had some issues with RVR this AM. She may be able to DC to rehab facility. Continue PO amiodarone upon DC. -200mg PO TID x 1 week -200mg PO BID x 2 week -200mg PO Daily thereafter
[2019-02-14 16:20] VITALS: BP 114/76
== END 2019-02-14 16:22 | DRG 308 ==
LOC: ERS 15:01 → 2SW 20:47 → OBSVTOIN 02-09 11:37
PROVIDERS: ADMIT Family Medicine; ATTEND Family Medicine
DX: I48.4 Atypical atrial flutter (principal); I50.41 Acute combined systolic (congestive) and diastolic (congestive) heart failure; I48.1 Persistent atrial fibrillation; E11.65 Type 2 diabetes mellitus with hyperglycemia; I11.0 Hypertensive heart disease with heart failure; I25.10 Atherosclerotic heart disease of native coronary artery without angina pectoris; I34.0 Nonrheumatic mitral (valve) insufficiency; I27.20 Pulmonary hypertension, unspecified; E78.00 Pure hypercholesterolemia, unspecified; E87.6 Hypokalemia; I25.2 Old myocardial infarction; Z86.73 Personal history of transient ischemic attack (TIA), and cerebral infarction without residual deficits; Z88.2 Allergy status to sulfonamides; Z88.8 Allergy status to other drugs, medicaments and biological substances; Z79.82 Long term (current) use of aspirin; Z79.01 Long term (current) use of anticoagulants; Z79.899 Other long term (current) drug therapy; Z95.0 Presence of cardiac pacemaker; Z95.1 Presence of aortocoronary bypass graft; Z90.710 Acquired absence of both cervix and uterus; Z79.4 Long term (current) use of insulin
CPT/HCPCS: 36415; 36416; 71045; 80048; 80053; 82553; 82565; 83735; 83880; 84484; 85014; 85018; 85025; 85049; 93005; J0282; J1160; J1825; J2405; J3480; J7050; J7070; J8499

== ENCOUNTER 2020-11-09 16:10 | Inpatient (IN) | payer MEDICARE, BC ==
[2020-11-09] MEDS ORDERED: Aspirin Chewable 81 MG TAB ONE (16:37)
[2020-11-09] MEDS ORDERED: Torsemide 10 MG TAB PO SCH (16:45)
--- NOTE | 2020-11-09 16:51 | RAD ---
Exam: Chest one view HISTORY:Dyspnea. Chest pain and shortness of breath. Comparison: 02/08/2019 FINDINGS: Cardiac silhouette:Cardiomegaly, sternotomy wires and left-sided dual-lead transvenous pacemaker. Aorta: Stable atherosclerosis Pulmonary vessels: Normal Costophrenic angles: Clear LUNGS: Chronic lung parenchymal changes. Lung volumes continue to be diminished. Pneumothorax: No pneumothorax. Is bilateral apical pleural calcifications. Osseous abnormalities: None IMPRESSION: 1. No significant interval change. 2. Cardiomegaly. 3. Atherosclerosis.
[2020-11-09 17:05] LABS: #Eosinphils 0.2 thou/uL (0.0-0.7); #Lymphocytes 1.2 thou/uL (1.20-3.40); #Monocytes 0.8 thou/uL (0.11-0.59); #Neutrophils 3.6 thou/uL (1.40-6.50); %Basophils 0.5 % (0.0-1.0); %Eosinophils 3.2 % (0.0-10.0); %Lymphocytes 20.5 % (21.0-51.0); %Monocytes 13.2 % (0.0-10.0); %Neutrophils 62.6 % (42.0-75.0); Hemoglobin 12.3 g/dL (12.0-16.0); Mean Corpuscular HGB CONC 32.4 g/dL (32.0-36.0); Mean Corpuscular Hemoglobin 28.6 pg (27.0-31.0); Mean Platelet Volume 7.9 fL (7.4-10.4); Platelet Count 223 thou/uL (130-400); RBC Distribution Width 13.7 % (11.5-14.5); Red Blood Cell (RBC) Count 4.29 mill/uL (4.20-5.40); White Blood Cell (WBC) Count 5.7 thou/uL (4.8-10.8)
[2020-11-09 17:27] LABS: ALT (SGPT) 23 U/L (8-55); AST (SGOT) 25 U/L (5-34); Albumin 3.9 g/dL (3.4-4.8); Alkaline Phosphatase 116 U/L (40-110); Anion Gap 14 mmol/L (10-20); BUN (Urea Nitrogen) 26 mg/dL (9.8-20.1); Bilirubin, Total 0.9 mg/dL (0.2-1.2); Calc. Creatinine Clearance 0 mL/min (70-130); Calcium 8.6 mg/dL (7.8-10.44); Carbon Dioxide 29 mmol/L (23-31); Chloride 102 mmol/L (98-107); Globulin 3.4 g/dL (2.4-3.5); Glucose 102 mg/dL (83-110); Potassium 3.8 mmol/L (3.5-5.1); Protein, Total 7.3 g/dL (5.8-8.1); Sodium 141 mmol/L (136-145)
[2020-11-09 19:42] LABS: Troponin I Less than 0.010 ng/mL (< 0.028)
[2020-11-09 21:46] LABS: SARS-CoV-2 NAA Rapid Test DETECTED (NotDetected)
[2020-11-09 22:41] LABS: Troponin I Less than 0.010 ng/mL (< 0.028)
[2020-11-09] MEDS ORDERED: HumaLOG 300 UNITS/3 ML VIAL SC PRN (23:17)
[2020-11-09] MEDS ORDERED: Dextrose 5% in Water 1,000 ML IV PRN (23:17)
[2020-11-09] MEDS ORDERED: Dextrose 50% Abboject 50 ML SYRINGE SLOW IVP PRN (23:17)
--- NOTE | 2020-11-09 23:46 | PDOC.HHP ---
Hospitalist HPI - History of Present Illness Chest pain History of Present Illness: This is an 79-year-old female patient with a history of CAD s/p stenting/CABG, hypertension, hypercholesterolemia, A. fib and type 2 diabetes mellitus who presents on account of chest pain. Patient was in her usual state of health was brought in on account of worsening chest pain or shortness of breath with exertion for the past 5 days. She had no apparent aggravating or relieving factors however pain was relieved by n itroglycerin on arrival to the ED. At the time of my evaluation patient denied any pain or any symptoms although she admitted to occasional cough. She denied associated fever diarrhea constipation no urinary symptoms On arrival her blood pressure was 128/87, respiratory rate 16, pulse 70, temperature 98.6 and saturation 97 on room air. Labs: CBC generally unremarkable, CMP showed creatinine of 1.64 from a baseline of 1.34. BNP was 278, troponin was negative x3. Her Covid test turned out pos itive. Chest x-ray showed no significant acute cardiopulmonary events. She was given aspirin and torsemide. Hospitalist team consulted for admission on account of chest pain rule out Hospitalist ROS - Review of Systems Constitutional: reports: weakness, malaise. denies: fever, chills, sweats Respiratory: reports: cough. denies: shortness of breath, hemoptysis, SOB with excertion Cardiovascular: reports: chest pain. denies: palpitations, orthopnea, paroxysmal noc. dyspnea Gastrointestinal: denies: nausea, vomiting, abdominal pain, diarrhea Musculoskeletal: denies: neck pain, shoulder pain Neurological: denies: weakness, numbness, incoordination, change in speech All other systems reviewed; all pertinent +/- noted in HPI/Subj - Medication Medications: Medications: Currently refer to ambulatory list. Allergies: No known drug allergies Hospitalist History - Past Medical History Other Medical History: CAD s/p stenting, hypertension, hypercholesterolemia, A. fib and type 2 diabetes mellitus - Past Surgical History Other Surgical History: CABG, vein stripping, hysterectomy - Social History Smoking Status: Never smoker Alcohol: reports: None Living Situation: Retirement - Exam General Appearance: awake alert General - other findings: In no acute distress Eye: PERRL, anicteric sclera Respiratory: CTAB, no wheezes, no rales, no ronchi Gastrointestinal: soft, non-tender, non-distended, normal bowel sounds Extremities: no cyanosis, no clubbing, 1+ LE edema Neurological: cranial nerve grossly intact, no weakness, no focal deficits Psychiatric: normal affect, normal behavior, A&O x 3 Hospitalist Results - Labs Result Diagrams: 11/09/20 16:40 11/09/20 16:40 Lab results: WBC 5.7 thou/uL (4.8-10.8) 11/09/20 16:40 Hgb 12.3 g/dL (12.0-16.0) 11/09/20 16:40 Hct 37.8 % (36.0-47.0) 11/09/20 16:40 MCV 88.0 fL (78.0-98.0) 11/09/20 16:40 Plt Count 223 thou/uL (130-400) 11/09/20 16:40 Neutrophils % 62.6 % (42.0-75.0) 11/09/20 16:40 Sodium 141 mmol/L (136-145) 11/09/20 16:40 Potassium 3.8 mmol/L (3.5-5.1) 11/09/20 16:40 Chloride 102 mmol/L (98-107) 11/09/20 16:40 Carbon Dioxide 29 mmol/L (23-31) 11/09/20 16:40 BUN 26 mg/dL (9.8-20.1) H 11/09/20 16:40 Creatinine 1.64 mg/dL (0.6-1.1) H 11/09/20 16:40 Glucose 102 mg/dL (83-110) 11/09/20 16:40 Calcium 8.6 mg/dL (7.8-10.44) 11/09/20 16:40 Total Bilirubin 0.9 mg/dL (0.2-1.2) 11/09/20 16:40 AST 25 U/L (5-34) 11/09/20 16:40 ALT 23 U/L (8-55) 11/09/20 16:40 Alkaline Phosphatase 116 U/L (40-110) H 11/09/20 16:40 Troponin I Less than 0.010 ng/mL (< 0.028) 11/09/20 21:57 B-Natriuretic Peptide 278.2 pg/mL (0-100) H 11/09/20 16:40 Serum Total Protein 7.3 g/dL (5.8-8.1) 11/09/20 16:40 Albumin 3.9 g/dL (3.4-4.8) 11/09/20 16:40 Hospitalist H&P A/P - Plan Plan: This is a 79-year-old female patient with a history of coronary status post CABG, diabetes mellitus who presents with an episode of chest pain relieved with nitroglycerin. Covid test here however turned out positive. Chest pain Possibly of cardiac origin Given her cardiac history of CABG and stenting. Trend troponin Monitor on telemetry Aspirin Patient on anticoagulationresume apixaban once verified. Consider cardiac consult in a.m. COVID-19 infection Currentlymildly symptomatic of occasional cough Monitor Start vitamin C vitamin D Hold steroids and remdesivir Monitor. Diabetes mellitus Correctional insulin Monitor glucose. VT prophylaxisapixaban CODE STATUSDNR
[2020-11-10] MEDS: Sodium Chloride 0.9% 1,000 ML IV SCH ×2 (00:26→10:41)
[2020-11-10 01:21] VITALS: BMI 26.9
[2020-11-10 01:34] LABS: Troponin I 0.013 ng/mL (< 0.028)
[2020-11-10 05:20] LABS: #Eosinphils 0.2 thou/uL (0.0-0.7); #Lymphocytes 1.2 thou/uL (1.20-3.40); #Monocytes 0.7 thou/uL (0.11-0.59); #Neutrophils 2.7 thou/uL (1.40-6.50); %Basophils 0.5 % (0.0-1.0); %Eosinophils 3.3 % (0.0-10.0); %Lymphocytes 24.9 % (21.0-51.0); %Monocytes 14.6 % (0.0-10.0); %Neutrophils 56.8 % (42.0-75.0); Hemoglobin 11.4 g/dL (12.0-16.0); Mean Corpuscular HGB CONC 31.6 g/dL (32.0-36.0); Mean Corpuscular Hemoglobin 27.7 pg (27.0-31.0); Mean Corpuscular Volume 87.9 fL (78.0-98.0); Platelet Count 198 thou/uL (130-400); RBC Distribution Width 13.7 % (11.5-14.5); Red Blood Cell (RBC) Count 4.12 mill/uL (4.20-5.40); White Blood Cell (WBC) Count 4.8 thou/uL (4.8-10.8)
[2020-11-10 05:44] LABS: Anion Gap 15 mmol/L (10-20); BUN (Urea Nitrogen) 23 mg/dL (9.8-20.1); Calc. Creatinine Clearance 32 mL/min (70-130); Calcium 8.6 mg/dL (7.8-10.44); Carbon Dioxide 25 mmol/L (23-31); Chloride 104 mmol/L (98-107); Glucose 104 mg/dL (83-110); Potassium 3.4 mmol/L (3.5-5.1); Sodium 141 mmol/L (136-145)
[2020-11-10] MEDS: Zinc Sulfate 220 MG CAP PO SCH (08:29)
[2020-11-10] MEDS: Aspirin 81 mg Enteric Coated Tablet PO SCH (08:29)
[2020-11-10] MEDS: Cholecalciferol (Vitamin D3) 400 UNITS TAB PO SCH (08:29)
[2020-11-10] MEDS: Ascorbic Acid 500 mg Chewable Tablet PO SCH (08:30)
[2020-11-10] MEDS: Carvedilol 25 MG TAB PO SCH ×2 (08:30→20:41)
[2020-11-10] MEDS: Isosorbide Dinitrate 20 MG TAB PO SCH ×3 (08:30→20:41)
[2020-11-10] MEDS ORDERED: FLU VACC QS2020-21(65YR UP)/PF 240 MCG/0.7 ML SYRINGE IM ONE (09:00)
[2020-11-10] MEDS ORDERED: Lorazepam 0.5 MG TAB PO PRN (10:19)
[2020-11-10] MEDS ORDERED: Meclizine HCl 25 MG TAB PO PRN (14:07)
[2020-11-10] MEDS ORDERED: cloNIDine 0.1 MG TAB PO PRN (14:15)
--- NOTE | 2020-11-10 14:15 | PDOC.HOSPP ---
- Subjective Encounter Date: 11/10/20 Subjective: c/o left side of chest pain off and on also c/o mild subjective feeling of SOB , not in distress - Objective Vital Signs & Weight: Vital Signs (12 hours) Temp Pulse Resp BP Pulse Ox 11/10/20 12:00 98.8 F 98 16 97/49 L 93 L 11/10/20 08:16 98.4 F 69 18 114/63 95 11/10/20 04:00 97.4 F L 62 24 H 144/70 H 96 Weight Weight 157 lb I&O: 11/09/20 11/10/20 11/11/20 06:59 06:59 06:59 Intake Total 1043 Balance 1043 Result Diagrams: 11/10/20 04:53 11/10/20 04:53 Additional Labs: Accuchecks 11/10/20 12:02 POC Glucose 141 H Hospitalist ROS - Review of Systems Constitutional: denies: fever Eyes: denies: pain ENT: denies: ear pain Respiratory: reports: shortness of breath. denies: cough Cardiovascular: reports: chest pain Gastrointestinal: denies: nausea Genitourinary: denies: dysuria Musculoskeletal: denies: neck pain Neurological: denies: weakness - Medication Medications: Active Medications Generic Name Dose Route Start Last Admin Trade Name Freq PRN Reason Stop Dose Admin Ascorbic Acid 1,000 mg 11/10/20 09:00 11/10/20 08:30 Ascorbic Acid 500 Mg Chewable Tablet PO 1,000 mg DAILY MENA Administration Aspirin 81 mg 11/10/20 09:00 11/10/20 08:29 Aspirin 81 Mg Enteric Coated Tablet PO 81 mg DAILY MENA Administration Carvedilol 25 mg 11/10/20 09:00 11/10/20 08:30 Carvedilol 25 Mg Tab PO 25 mg BID MENA Administration Cholecalciferol 400 units 11/10/20 09:00 11/10/20 08:29 Cholecalciferol (Vitamin D3) 400 Units Tab PO 400 units DAILY MENA Administration Isosorbide Dinitrate 20 mg 11/10/20 09:00 11/10/20 08:30 Isosorbide Dinitrate 20 Mg Tab PO 20 mg TID MENA Administration Lorazepam 0.5 mg 11/10/20 10:19 11/10/20 10:41 Lorazepam 0.5 Mg Tab PO 0.5 mg DAILYPRN PRN Administration Anxiety Zinc Sulfate 220 mg 11/10/20 09:00 11/10/20 08:29 Zinc Sulfate 220 Mg Cap PO 220 mg DAILY MENA Administration - Exam General Appearance: awake alert Eye: anicteric sclera ENT: normocephalic atraumatic Neck: supple Heart: no murmur Respiratory: no wheezes Gastrointestinal: soft Extremities: no cyanosis Skin: no lesions Neurological: cranial nerve grossly intact Musculoskeletal: normal tone Psychiatric - other findings: mildly anxcious Hosp A/P - Plan Chest pain h/o of CABG and stenting. Trend troponin Continue telemetry troponin 3 neg Patient on anticoagulationresume apixaban once verified. cardiac consult requested in the presence of recurrent chest pain says radiating to left arm COVID-19 infection Currently symptomatic Saturating well on RA , Chest x ray neg for PNA Monitor No idication of steroids , remdesivir or convalescent plasma Diabetes mellitus Continue Correctional insulin Continue Monitor glucose. DVT prophylaxisapixaban Mild Anxiety Continue prn low dose alprazolam CODE STATUSDNR Discussed with pt and nursing staff in detail
[2020-11-10] MEDS ORDERED: Ondansetron ODT 4 MG TAB PO PRN (15:01)
[2020-11-10] MEDS: Atorvastatin Calcium 40 MG TAB PO SCH (20:41)
[2020-11-10] MEDS: Lisinopril 10 MG TAB PO SCH (20:41)
[2020-11-10] MEDS: Lorazepam 0.5 MG TAB PO SCH (20:41)
[2020-11-10] MEDS: Apixaban 2.5 MG TAB PO SCH (20:41)
[2020-11-10] MEDS: Mirtazapine 15 MG TAB PO SCH (20:41)
[2020-11-10] MEDS: Isosorbide Mononitrate 20 MG TAB PO SCH (20:41)
[2020-11-11] MEDS: Levothyroxine Sodium 50 MCG TAB PO SCH (05:52)
--- NOTE | 2020-11-11 08:47 | CON ---
DATE OF CONSULTATION: HISTORY OF PRESENT ILLNESS: Ms. Rashida Malik is an 79-year-old white female, admitted with chest discomfort. She has a long cardiac history having undergone CABG x1 with DHALIWAL to the obtuse marginal in July 2000 due to an ostial circumflex lesion and failed medical therapy. She has been re-cathed numerous times since that time. The most recent was in August 2014. She had an ejection fraction of 70%. There was a 20% left main, sequential 40% to 50% proximal LAD lesions, 50% mid circumflex lesion and normal right coronary artery. The DHALIWAL to the obtuse marginal was apparently occluded. She underwent ablation of atrial flutter in June 2010. She has a longstanding history of paroxysmal atrial fibrillation and had multiple admissions for this in November and December of 2018. She does have a dual-chamber pacemaker placement and is on amiodarone. Over the last 2 weeks, she has noted intermittent episodes of feeling of a very rapid heartbeat as well as sharp, somewhat pleuritic pain on the left side of her chest in a very small area. She again had this yesterday, was given sublingual nitroglycerin, brought to the emergency room. By the time she arrived, her discomfort had resolved. On the EKG, there was concern over her 2nd EKG; however, this looks as if it is due to limb lead reversal. PAST MEDICAL HISTORY: Paroxysmal atrial fibrillation, coronary artery disease, hypercholesterolemia, pulmonary artery hypertension, wkmfxpbi-vi-cyngsu mitral regurgitation, [id number]-[id number]-bltany tricuspid regurgitation. PAST SURGICAL HISTORY: CABG x1 with DHALIWAL to the obtuse marginal in 1999, atrial flutter ablation, hysterectomy. SOCIAL HISTORY: She does not smoke or drink. She lives in a care home. REVIEW OF SYSTEMS: A 10-point review of systems is otherwise unremarkable. Specifically, she denies any fever or shortness of breath. PHYSICAL EXAMINATION: VITAL SIGNS: Blood pressure 159/70, pulse of 59. HEENT: PERRL. NECK: Supple. CHEST: Clear. CARDIAC: S1 and S2 normal without any S3, S4, or murmurs. ABDOMEN: Normal bowel sounds without tenderness or organomegaly. EXTREMITIES: Revealed no clubbing, cyanosis, or edema. NEUROLOGIC: Grossly intact. SKIN: Warm and dry. IMAGIN. EKG reveals atrial pacing with incomplete right bundle-branch block, poor R- wave progression, lateral ST-segment changes. 2. Second EKG shows limb lead reversal. 3. Chest x-ray reveals cardiomegaly. LABORATORY DATA: Hemoglobin 11.4, hematocrit 36.2, white count 4800, platelets 198,000. Troponin I is normal x3. Sodium 141, potassium 3.4, chloride 104, carbon dioxide 25, BUN 23, creatinine 1.53. COVID positive. IMPRESSION: 1. Prolonged episode of chest discomfort approximately 2 hours, associated with palpitations. This had resolved by the time she arrived in the emergency room and certainly could have been due to an episode of atrial fibrillation. 2. Paroxysmal atrial fibrillation. 3. Status post dual-chamber pacemaker. 4. History of atrial flutter ablation. 5. Status post coronary artery bypass grafting x1 with left internal mammary artery to the obtuse marginal, which apparently is occluded. Last catheterization in 2013 revealed fairly mild disease. 6. Asuztbzr-az-crcrss mitral regurgitation. 7. Pulmonary hypertension. 8. Hypercholesterolemia. 9. COVID positive. RECOMMENDATIONS: EKG will be repeated since it appears that the 2nd EKG is due to limb lead reversal. Her pacemaker will be interrogated to see if she was having an episode of atrial fibrillation at the time that she had this chest discomfort. Since historically it appears that she has been having more of these episodes over the last two weeks, I will temporarily increase her amiodarone to [address] Wallace will return in the morning. Job ID: [id number] [id number]
[2020-11-11] MEDS ORDERED: Amiodarone 200 MG TAB PO SCH (09:00)
[2020-11-11] MEDS: Aspirin 81 mg Enteric Coated Tablet PO SCH (10:13)
[2020-11-11] MEDS: Ascorbic Acid 500 mg Chewable Tablet PO SCH (10:13)
[2020-11-11] MEDS: Apixaban 2.5 MG TAB PO SCH ×2 (10:13→20:17)
[2020-11-11] MEDS: Amlodipine 5 MG TAB PO SCH (10:13)
[2020-11-11] MEDS: Amiodarone 200 MG TAB PO SCH ×2 (10:13→20:17)
[2020-11-11] MEDS: Lisinopril 10 MG TAB PO SCH ×2 (10:14→20:17)
[2020-11-11] MEDS: Carvedilol 25 MG TAB PO SCH ×2 (10:14→20:18)
[2020-11-11] MEDS: Isosorbide Dinitrate 20 MG TAB PO SCH ×2 (10:14→20:17)
[2020-11-11] MEDS: Cholecalciferol (Vitamin D3) 400 UNITS TAB PO SCH (10:14)
[2020-11-11] MEDS: Lactinex Tablet PO SCH (10:14)
[2020-11-11] MEDS: PARoxetine 20 MG TAB PO SCH (10:15)
[2020-11-11] MEDS: Torsemide 10 MG TAB PO SCH (10:15)
[2020-11-11] MEDS: Zinc Sulfate 220 MG CAP PO SCH (10:16)
--- NOTE | 2020-11-11 11:49 | PDOC.HOSPP ---
- Subjective Encounter Date: 11/11/20 Subjective: Pt seen says she feels better had chest pain and left arm pain earlier Denies fever sob nausea vomiting diarrhea - Objective Vital Signs & Weight: Vital Signs (12 hours) Temp Pulse Resp BP Pulse Ox 11/11/20 08:30 98.4 F 61 18 108/62 95 11/11/20 04:00 98.5 F 59 L 20 159/70 H 96 Weight Admit Weight 157 lb Weight 157 lb I&O: 11/10/20 11/11/20 11/12/20 06:59 06:59 06:59 Intake Total 1043 1392 Balance 1043 1392 Result Diagrams: 11/10/20 04:53 11/10/20 04:53 Additional Labs: Accuchecks 11/11/20 11/10/20 11/10/20 05:17 20:45 16:44 POC Glucose 98 172 H 136 H 11/10/20 12:02 POC Glucose 141 H Hospitalist ROS - Review of Systems Constitutional: denies: fever Eyes: denies: pain ENT: denies: ear pain Respiratory: denies: cough Cardiovascular: reports: chest pain. denies: palpitations Gastrointestinal: denies: nausea Genitourinary: denies: dysuria Musculoskeletal: denies: neck pain Neurological: denies: weakness - Medication Medications: Active Medications Generic Name Dose Route Start Last Admin Trade Name Freq PRN Reason Stop Dose Admin Acidophilus 1 tab 11/11/20 09:00 11/11/20 10:14 Lactinex Tablet PO 1 tab DAILY MENA Administration Amiodarone HCl 200 mg 11/11/20 09:00 11/11/20 10:13 Amiodarone 200 Mg Tab PO 200 mg BID MENA Administration Amlodipine Besylate 5 mg 11/11/20 09:00 11/11/20 10:13 Amlodipine 5 Mg Tab PO 5 mg DAILY MENA Administration Apixaban 2.5 mg 11/10/20 21:00 11/11/20 10:13 Apixaban 2.5 Mg Tab PO 2.5 mg BID MENA Administration Ascorbic Acid 1,000 mg 11/10/20 09:00 11/11/20 10:13 Ascorbic Acid 500 Mg Chewable Tablet PO 1,000 mg DAILY MENA Administration Aspirin 81 mg 11/10/20 09:00 11/11/20 10:13 Aspirin 81 Mg Enteric Coated Tablet PO 81 mg DAILY MENA Administration Atorvastatin Calcium 40 mg 11/10/20 21:00 11/10/20 20:41 Atorvastatin Calcium 40 Mg Tab PO 40 mg HS MENA Administration Carvedilol 25 mg 11/10/20 09:00 11/11/20 10:14 Carvedilol 25 Mg Tab PO 25 mg BID MENA Administration Cholecalciferol 400 units 11/10/20 09:00 11/11/20 10:14 Cholecalciferol (Vitamin D3) 400 Units Tab PO 400 units DAILY MENA Administration Levothyroxine Sodium 50 mcg 11/11/20 06:00 11/11/20 05:52 Levothyroxine Sodium 50 Mcg Tab PO 50 mcg 0600 MENA Administration Lisinopril 10 mg 11/10/20 21:00 11/11/20 10:14 Lisinopril 10 Mg Tab PO 10 mg BID MENA Administration Lorazepam 0.5 mg 11/10/20 21:00 11/10/20 20:41 Lorazepam 0.5 Mg Tab PO 0.5 mg HS MENA Administration Lorazepam 0.5 mg 11/10/20 10:19 11/10/20 10:41 Lorazepam 0.5 Mg Tab PO 0.5 mg DAILYPRN PRN Administration Anxiety Mirtazapine 7.5 mg 11/10/20 21:00 11/10/20 20:41 Mirtazapine 15 Mg Tab PO 7.5 mg HS MENA Administration Pantoprazole Sodium 40 mg 11/10/20 21:00 11/10/20 20:41 Pantoprazole 40 Mg Tab PO 40 mg HS MENA Administration Paroxetine HCl 40 mg 11/11/20 09:00 11/11/20 10:15 Paroxetine 20 Mg Tab PO 40 mg DAILY MENA Administration Sodium Chloride 10 ml 11/10/20 21:00 11/11/20 10:15 Flush - Normal Saline 10 Ml Syringe IVF 10 ml Q12HR MENA Administration Torsemide 20 mg 11/11/20 09:00 11/11/20 10:15 Torsemide 10 Mg Tab PO 20 mg DAILY MENA Administration Zinc Sulfate 220 mg 11/10/20 09:00 11/11/20 10:16 Zinc Sulfate 220 Mg Cap PO 220 mg DAILY MENA Administration - Exam General Appearance: awake alert Eye: anicteric sclera ENT: normocephalic atraumatic Neck: supple Heart: no murmur Respiratory: CTAB Gastrointestinal: soft Extremities: no cyanosis Skin: normal turgor Neurological: cranial nerve grossly intact Musculoskeletal: normal tone Psychiatric: normal affect Hosp A/P - Plan Chest pain h/o of CABG and stenting and s/p PPM Continue telemetry troponin 3 neg Patient on anticoagulationresume apixaban cardiac consult Appreciated in presence of recurrence of chest pain , increased amiodarone by cardiology , PPM interrogation , says pain is better today COVID-19 infection Currently symptomatic Saturating well on RA , Chest x ray neg for PNA Monitor clincially Continue contact plus precaution No idication of steroids , remdesivir or convalescent plasma Continue prn meds for cough Diabetes mellitus Continue Correctional insulin sliding scale Continue Monitor glucose. Mild Anxiety Continue prn low dose alprazolam DVT prophylaxisapixaban CODE STATUSDNR Discussed with pt and nursing staff in detail
[2020-11-11] MEDS: Isosorbide Mononitrate 20 MG TAB PO SCH (13:36)
[2020-11-11] MEDS: Atorvastatin Calcium 40 MG TAB PO SCH (20:17)
[2020-11-11] MEDS: Mirtazapine 15 MG TAB PO SCH (20:18)
[2020-11-11] MEDS: Lorazepam 0.5 MG TAB PO SCH (20:19)
[2020-11-12] MEDS: Levothyroxine Sodium 50 MCG TAB PO SCH (05:42)
[2020-11-12 05:50] LABS: #Eosinphils 0.1 thou/uL (0.0-0.7); #Lymphocytes 1.2 thou/uL (1.20-3.40); #Monocytes 0.7 thou/uL (0.11-0.59); #Neutrophils 3.3 thou/uL (1.40-6.50); %Basophils 0.4 % (0.0-1.0); %Eosinophils 2.4 % (0.0-10.0); %Lymphocytes 21.4 % (21.0-51.0); %Monocytes 13.7 % (0.0-10.0); %Neutrophils 62.1 % (42.0-75.0); Hemoglobin 10.9 g/dL (12.0-16.0); Mean Corpuscular Hemoglobin 27.9 pg (27.0-31.0); Mean Corpuscular Volume 87.4 fL (78.0-98.0); Mean Platelet Volume 8.1 fL (7.4-10.4); Platelet Count 183 thou/uL (130-400); RBC Distribution Width 13.8 % (11.5-14.5); Red Blood Cell (RBC) Count 3.89 mill/uL (4.20-5.40); White Blood Cell (WBC) Count 5.4 thou/uL (4.8-10.8)
[2020-11-12 05:53] LABS: D-Dimer Test 0.54 *mcg/mL (0.27-0.43)
[2020-11-12 06:25] LABS: Anion Gap 13 mmol/L (10-20); BUN (Urea Nitrogen) 21 mg/dL (9.8-20.1); Calc. Creatinine Clearance 29 mL/min (70-130); Calcium 8.2 mg/dL (7.8-10.44); Carbon Dioxide 25 mmol/L (23-31); Cardiac Risk 2.6 (Less than 4.5); Chloride 104 mmol/L (98-107); Cholesterol 138 mg/dl (< 200 Desired); Glucose 107 mg/dL (83-110); HDL Cholesterol 53 mg/dL (>60 Neg Risk); LDL Cholesterol, Calculated 67 mg/dL; Potassium 3.3 mmol/L (3.5-5.1); Sodium 139 mmol/L (136-145); Triglycerides 89 mg/dL (Less than 150)
[2020-11-12] MEDS: Amlodipine 5 MG TAB PO SCH (09:22)
[2020-11-12] MEDS: Apixaban 2.5 MG TAB PO SCH ×2 (09:22→20:33)
[2020-11-12] MEDS: Aspirin 81 mg Enteric Coated Tablet PO SCH (09:23)
[2020-11-12] MEDS: Isosorbide Dinitrate 20 MG TAB PO SCH ×2 (09:23→20:33)
[2020-11-12] MEDS: Cholecalciferol (Vitamin D3) 400 UNITS TAB PO SCH (09:23)
[2020-11-12] MEDS: Ascorbic Acid 500 mg Chewable Tablet PO SCH (09:23)
[2020-11-12] MEDS: Carvedilol 25 MG TAB PO SCH ×2 (09:23→20:33)
[2020-11-12] MEDS: Lactinex Tablet PO SCH (09:23)
[2020-11-12] MEDS: Lisinopril 10 MG TAB PO SCH ×2 (09:23→20:33)
[2020-11-12] MEDS: PARoxetine 20 MG TAB PO SCH (09:24)
[2020-11-12] MEDS: Zinc Sulfate 220 MG CAP PO SCH (09:24)
[2020-11-12] MEDS: Torsemide 10 MG TAB PO SCH (09:24)
--- NOTE | 2020-11-12 10:55 | PDOC.HOSPP ---
- Subjective Encounter Date: 11/12/20 Encounter Time: 10:53 Subjective: no complaints at present - Objective Vital Signs & Weight: Vital Signs (12 hours) Temp Pulse Resp BP Pulse Ox 11/12/20 04:00 98.7 F 62 16 152/70 H 96 11/11/20 23:33 98.4 F 63 16 148/66 H 94 L Weight Admit Weight 157 lb Weight 157 lb I&O: 11/11/20 11/12/20 11/13/20 06:59 06:59 06:59 Intake Total 1392 400 Balance 1392 400 Result Diagrams: 11/12/20 05:16 11/12/20 05:16 Additional Labs: Accuchecks 11/12/20 11/11/20 11/11/20 05:26 21:34 16:13 POC Glucose 111 H 112 H 132 H 11/11/20 11:57 POC Glucose 134 H Hospitalist ROS - Medication Medications: Active Medications Generic Name Dose Route Start Last Admin Trade Name Freq PRN Reason Stop Dose Admin Acidophilus 1 tab 11/11/20 09:00 11/12/20 09:23 Lactinex Tablet PO 1 tab DAILY MENA Administration Amlodipine Besylate 5 mg 11/11/20 09:00 11/12/20 09:22 Amlodipine 5 Mg Tab PO 5 mg DAILY MENA Administration Apixaban 2.5 mg 11/10/20 21:00 11/12/20 09:22 Apixaban 2.5 Mg Tab PO 2.5 mg BID MENA Administration Ascorbic Acid 1,000 mg 11/10/20 09:00 11/12/20 09:23 Ascorbic Acid 500 Mg Chewable Tablet PO 1,000 mg DAILY MENA Administration Aspirin 81 mg 11/10/20 09:00 11/12/20 09:23 Aspirin 81 Mg Enteric Coated Tablet PO 81 mg DAILY MENA Administration Atorvastatin Calcium 40 mg 11/10/20 21:00 11/11/20 20:17 Atorvastatin Calcium 40 Mg Tab PO 40 mg HS MENA Administration Carvedilol 25 mg 11/10/20 09:00 11/12/20 09:23 Carvedilol 25 Mg Tab PO 25 mg BID MENA Administration Cholecalciferol 400 units 11/10/20 09:00 11/12/20 09:23 Cholecalciferol (Vitamin D3) 400 Units Tab PO 400 units DAILY MENA Administration Isosorbide Dinitrate 20 mg 11/11/20 21:00 11/12/20 09:23 Isosorbide Dinitrate 20 Mg Tab PO 20 mg BID MENA Administration Levothyroxine Sodium 50 mcg 11/11/20 06:00 11/12/20 05:42 Levothyroxine Sodium 50 Mcg Tab PO 50 mcg 0600 MENA Administration Lisinopril 10 mg 11/10/20 21:00 11/12/20 09:23 Lisinopril 10 Mg Tab PO 10 mg BID MENA Administration Lorazepam 0.5 mg 11/10/20 21:00 11/11/20 20:19 Lorazepam 0.5 Mg Tab PO 0.5 mg HS MENA Administration Lorazepam 0.5 mg 11/10/20 10:19 11/10/20 10:41 Lorazepam 0.5 Mg Tab PO 0.5 mg DAILYPRN PRN Administration Anxiety Mirtazapine 7.5 mg 11/10/20 21:00 11/11/20 20:18 Mirtazapine 15 Mg Tab PO 7.5 mg HS MENA Administration Pantoprazole Sodium 40 mg 11/10/20 21:00 11/11/20 20:18 Pantoprazole 40 Mg Tab PO 40 mg HS MENA Administration Paroxetine HCl 40 mg 11/11/20 09:00 11/12/20 09:24 Paroxetine 20 Mg Tab PO 40 mg DAILY MENA Administration Ranolazine 500 mg 11/12/20 09:00 11/12/20 09:24 Ranolazine 500 Mg Tab PO 500 mg BID MENA Administration Sodium Chloride 10 ml 11/10/20 21:00 11/12/20 09:24 Flush - Normal Saline 10 Ml Syringe IVF 10 ml Q12HR MENA Administration Torsemide 20 mg 11/11/20 09:00 11/12/20 09:24 Torsemide 10 Mg Tab PO 20 mg DAILY MENA Administration Zinc Sulfate 220 mg 11/10/20 09:00 11/12/20 09:24 Zinc Sulfate 220 Mg Cap PO 220 mg DAILY MENA Administration - Exam General Appearance: awake alert Neck: no JVD Heart: RRR, no murmur Respiratory - other findings: mild fine rales post Gastrointestinal: soft, normal bowel sounds Extremities: no edema Hosp A/P (1) COVID-19 Code(s): U07.1 - COVID-19 Status: Acute (2) Chest pain Code(s): R07.9 - CHEST PAIN, UNSPECIFIED Status: Acute Qualifiers: Chest pain type: unspecified Qualified Code(s): R07.9 - Chest pain, unspecified (3) Coronary artery disease Code(s): I25.10 - ATHSCL HEART DISEASE OF [place] CORONARY ARTERY W/O ANG PCTRS Status: Acute Qualifiers: Coronary Disease-Associated Artery/Lesion type: [place] artery [place] vs. transplanted heart: [place] heart Associated angina: without angina Qualified Code(s): I25.10 - Atherosclerotic heart disease of [place] coronary artery without angina pectoris (4) Hypercholesteremia Code(s): E78.0 - PURE HYPERCHOLESTEROLEMIA * DO NOT USE * Status: Chronic (5) Hypertension Code(s): I10 - ESSENTIAL (PRIMARY) HYPERTENSION Status: Chronic Qualifiers: Hypertension type: essential hypertension Qualified Code(s): I10 - Essential (primary) hypertension - Plan covid pos, no hypoxia, no specific tx Dr Wallace/Jai recommendations pending
[2020-11-12] MEDS: Mirtazapine 15 MG TAB PO SCH (20:32)
[2020-11-12] MEDS: Atorvastatin Calcium 40 MG TAB PO SCH (20:33)
[2020-11-12] MEDS: Lorazepam 0.5 MG TAB PO SCH (20:33)
[2020-11-13] MEDS: Levothyroxine Sodium 50 MCG TAB PO SCH (05:43)
--- NOTE | 2020-11-13 07:04 | CON ---
DATE OF CONSULTATION: 11/12/2020 Dictated by Kori Purcell, nurse practitioner, as a scribe for Dr. Billy Vergara. REASON FOR CONSULTATION: Atrial arrhythmia management. CONSULTING PHYSICIAN: Billy Vergara MD HISTORY OF PRESENT ILLNESS: I am seeing Ms. 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 Her problems are: 1. Recurrent atrial arrhythmias. a. History of typical atrial flutter status post CTI flutter ablation in 2009. b. Initial AF suppression on sotalol in 11/2018, resulting in bradycardia driven torsades. c. Pulmonary venous isolation ablation in [place] in 11/2018. d. Recurrent atypical atrial flutter, requiring amiodarone for suppression, initiated in 01/2019. e. Recurrent atypical atrial flutter versus slow atrial tachycardia, largely rate controlled, starting 08/2020 despite ongoing amiodarone therapy. 2. 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 3. Coronary artery disease with prior bypass grafting. 4. Diastolic heart failure with preserved LVEF. 5. Severe mitral valve and tricuspid regurgitation, pulmonary hypertension, normal EF, bilateral atrial enlargement on prior echos, most recently 01/11/2019. 6. Pulmonary hypertension. 7. Systolic hypertension. 8. Atypical chest pain. 9. Recent COVID infection. 10. Hypothyroidism. ALLERGIES: SOTALOL, RESULTING IN TORSADES; FUROSEMIDE; AND SULFA MEDICATIONS. HOME MEDICATIONS: 1. Probiotic daily. 2. Levothyroxine 50 mcg q.a.m. 3. Isosorbide mononitrate 20 mg b.i.d. 4. Norvasc 5 mg daily. 5. Mirtazapine 7.5 mg nightly. 6. Lisinopril 10 mg b.i.d. 7. Zofran as needed. 8. Catapres 0.1 mg as needed. 9. Amiodarone 200 mg daily. 10. Eliquis 5 mg b.i.d. 11. Ativan 0.5 mg nightly. 12. Protonix 40 mg nightly. 13. Paxil 40 mg daily. 14. Meclizine 25 mg q.8 h. p.r.n. 15. Klor-Con 10 mEq t.i.d. 16. Torsemide 20 mg daily. 17. Coreg 25 mg b.i.d. 18. Lipitor 40 mg nightly. SUBJECTIVE: Ms. Malik presented to the emergency room, reporting atypical chest pains with increasing frequency over the past few weeks. She was concerned about recurrent atrial arrhythmias. She presented to the emergency room in mild sinus tachycardia. Her amiodarone was increased to 200 mg b.i.d. pending pacemaker check. She also reports onset of COVID symptoms earlier this month, but no testing at that time. She was tested upon arrival to the hospital and is found positive. She denies any loss of consciousness or stroke-like symptoms. She is having no bleeding dyscrasias. She denies any PND or orthopnea. Her pacemaker site has healed well. REVIEW OF SYSTEMS: A 12-point review of systems is otherwise unremarkable. PAST MEDICAL HISTORY: As above. SOCIAL HISTORY: Denies alcohol, smoking, or drug use. FAMILY HISTORY: Noncontributory. OBJECTIVE: VITAL SIGNS: Temperature 98.7 degrees Fahrenheit, pulse 62, blood pressure 152/70, respirations 16, and oxygen 96% on room air. GENERAL: An alert and oriented woman, in no apparent distress. NECK: Supple. Jugular veins not distended. CHEST: Coarse without crackles on room air. Respirations are even and unlabored. HEART: Sounds are regular with rate and rhythm. No murmur, rub, or gallop is appreciated. There is a left precordial device noted and site is without reaction. ABDOMEN: Benign with positive bowel sounds throughout. Hepatojugular reflux is negative. EXTREMITIES: Without edema, clubbing, or cyanosis. DATABASE: EKGs largely show atrial pacing with ventricular sensing in the sinus mechanism. There are episodes of atypical atrial flutter with ventricular rate in the 80s and occasional PVCs. Ventricular rates are well controlled despite her atrial arrhythmia episodes captured on telemetry. DEVICE CHECK: The patient has a Medtronic dual-chamber pacemaker Narka XT DR, shows stable device function. There has been increased in her atypical atrial arrhythmia activity starting in 08/2020. When she is out of rhythm, her atrial pacing diminishes and her heart rate climbs into the 80s. These ventricular rates are too slow to be captured by the device or treated as an atrial arrhythmia. Occasionally, she does go slightly tachycardic and the device appropriately identifies this and frequently successfully pace terminates, 53% success. No changes are indicated. LABORATORY DATA: Hemoglobin 10.9, hematocrit 34, and platelet count 183. Potassium 3.3, creatinine 1.72, and magnesium 2.1. Liver enzymes on admission: AST and ALT are within normal ranges and alkaline phosphatase is slightly elevated at 116. TSH not checked. IMPRESSION: 1. Recurrent atrial arrhythmias, requiring amiodarone for suppression despite prior ablation in 11/2018. 2. Atypical atrial flutter, largely rate controlled, occasionally tachycardic with 53% success by ATP. 3. Dual-chamber pacemaker with normal device function as noted above. 4. History of coronary artery disease with prior bypass. 5. Advanced valvular disease. 6. History of diastolic heart failure with preserved left ventricular ejection fraction. 7. CHADS-VASc score of 5, on Eliquis 5 mg b.i.d. 8. Recent COVID infection, symptoms started early October, but only recently tested. PLAN AND RECOMMENDATIONS: Ms. Malik presents a complicated case. She has a history of atrial arrhythmias that for the past few years have been well suppressed with low-dose amiodarone. She cannot be placed on sotalol or Tikosyn due to their QT prolonging effect and her prior QT prolongation, resulting in torsades. Her history of coronary artery disease precludes class 1C antiarrhythmic options. Multaq could be an option; however, her arrhythmia episodes are now refractory to amiodarone and I doubt this would be sufficient at suppressing her arrhythmias. Now in the setting of a recent COVID infection, there are some increased interval changes on her chest x-ray, so I would like to refrain from any amiodarone use right now. She is fairly symptomatic with her recurrent arrhythmias and this is occurring despite amiodarone, her only remaining option is an AV node ablation. We have discussed this in the past. This may be challenging with a recent diagnosis of her COVID, even though her infection is suspected to be earlier this month. I will try to obtain approval for this procedure in the near future. Also, of note, her QTc is borderline prolonged on admission at 505 milliseconds. I would use extreme caution in any QT prolonging medications and certainly avoid concurrent therapy. We discussed the risks, benefits, and alternatives to an AV node ablation. We will attempt to make arrangements for Thursday if possible pending hospital authorization. She certainly seems stable enough to undergo this procedure. Thank you for allowing me to participate in the care of this patient. Job ID: [id number]
[2020-11-13] MEDS: Aspirin 81 mg Enteric Coated Tablet PO SCH (08:35)
[2020-11-13] MEDS: Lactinex Tablet PO SCH (08:35)
[2020-11-13] MEDS: Torsemide 10 MG TAB PO SCH (08:35)
[2020-11-13] MEDS: Cholecalciferol (Vitamin D3) 400 UNITS TAB PO SCH (08:36)
[2020-11-13] MEDS: PARoxetine 20 MG TAB PO SCH (08:36)
[2020-11-13] MEDS: Carvedilol 25 MG TAB PO SCH ×2 (08:36→20:15)
[2020-11-13] MEDS: Amlodipine 5 MG TAB PO SCH (08:36)
[2020-11-13] MEDS: Isosorbide Dinitrate 20 MG TAB PO SCH (08:36)
[2020-11-13] MEDS: Ascorbic Acid 500 mg Chewable Tablet PO SCH (08:37)
[2020-11-13] MEDS: Apixaban 2.5 MG TAB PO SCH (08:37)
[2020-11-13] MEDS: Zinc Sulfate 220 MG CAP PO SCH (08:37)
[2020-11-13] MEDS: Lisinopril 10 MG TAB PO SCH ×2 (08:37→20:15)
[2020-11-13 11:30] LABS: ALT (SGPT) 15 U/L (8-55); AST (SGOT) 20 U/L (5-34); Albumin 3.4 g/dL (3.4-4.8); Alkaline Phosphatase 92 U/L (40-110); Anion Gap 14 mmol/L (10-20); BUN (Urea Nitrogen) 21 mg/dL (9.8-20.1); Bilirubin, Total 1.2 mg/dL (0.2-1.2); Calc. Creatinine Clearance 32 mL/min (70-130); Calcium 8.3 mg/dL (7.8-10.44); Carbon Dioxide 25 mmol/L (23-31); Chloride 104 mmol/L (98-107); Globulin 3.4 g/dL (2.4-3.5); Glucose 135 mg/dL (83-110); Potassium 3.6 mmol/L (3.5-5.1); Protein, Total 6.8 g/dL (5.8-8.1); Sodium 139 mmol/L (136-145)
--- NOTE | 2020-11-13 11:44 | EKG ---
Test Reason : ROUTINE Blood Pressure : / mmHG Vent. Rate : 061 BPM Atrial Rate : 061 BPM P-R Int : 280 ms QRS Dur : 102 ms QT Int : 484 ms P-R-T Axes : 000 030 121 degrees QTc Int : 487 ms Electronic atrial pacemaker Incomplete right bundle branch block Prolonged QT Abnormal ECG Confirmed by MANNY SAEED ([id number]) on 11/13/2020 11:43:47 AM Referred By: YULIYA RIVERS Confirmed By:MANNY SAEED
--- NOTE | 2020-11-13 12:07 | PDOC.HOSPP ---
- Subjective Encounter Date: 11/13/20 Encounter Time: 12:05 Subjective: alert. no distress, sob, etc - Objective Vital Signs & Weight: Vital Signs (12 hours) Temp Pulse Resp BP Pulse Ox 11/13/20 08:45 98.4 F 80 16 150/73 H 94 L 11/13/20 08:37 94 L 11/13/20 08:00 98.4 F 80 16 150/73 H 94 L 11/13/20 04:00 97.5 F L 81 16 139/65 91 L Weight Admit Weight 157 lb Weight 157 lb I&O: 11/12/20 11/13/20 11/14/20 06:59 06:59 06:59 Intake Total 400 700 Balance 400 700 Result Diagrams: 11/12/20 05:16 11/13/20 10:55 Additional Labs: Accuchecks 11/13/20 11/13/20 11/12/20 10:53 05:36 21:17 POC Glucose 127 H 104 H 140 H 11/12/20 15:32 POC Glucose 157 H Hospitalist ROS - Medication Medications: Active Medications Generic Name Dose Route Start Last Admin Trade Name Freq PRN Reason Stop Dose Admin Acidophilus 1 tab 11/11/20 09:00 11/13/20 08:35 Lactinex Tablet PO 1 tab DAILY MENA Administration Amlodipine Besylate 5 mg 11/11/20 09:00 11/13/20 08:36 Amlodipine 5 Mg Tab PO 5 mg DAILY MENA Administration Apixaban 2.5 mg 11/10/20 21:00 11/13/20 08:37 Apixaban 2.5 Mg Tab PO 2.5 mg BID MENA Administration Ascorbic Acid 1,000 mg 11/10/20 09:00 11/13/20 08:37 Ascorbic Acid 500 Mg Chewable Tablet PO 1,000 mg DAILY MENA Administration Aspirin 81 mg 11/10/20 09:00 11/13/20 08:35 Aspirin 81 Mg Enteric Coated Tablet PO 81 mg DAILY MENA Administration Atorvastatin Calcium 40 mg 11/10/20 21:00 11/12/20 20:33 Atorvastatin Calcium 40 Mg Tab PO 40 mg HS MENA Administration Carvedilol 25 mg 11/10/20 09:00 11/13/20 08:36 Carvedilol 25 Mg Tab PO 25 mg BID MENA Administration Cholecalciferol 400 units 11/10/20 09:00 11/13/20 08:36 Cholecalciferol (Vitamin D3) 400 Units Tab PO 400 units DAILY MENA Administration Levothyroxine Sodium 50 mcg 11/11/20 06:00 11/13/20 05:43 Levothyroxine Sodium 50 Mcg Tab PO 50 mcg 0600 MENA Administration Lisinopril 10 mg 11/10/20 21:00 11/13/20 08:37 Lisinopril 10 Mg Tab PO 10 mg BID MENA Administration Lorazepam 0.5 mg 11/10/20 21:00 11/12/20 20:33 Lorazepam 0.5 Mg Tab PO 0.5 mg HS MENA Administration Lorazepam 0.5 mg 11/10/20 10:19 11/10/20 10:41 Lorazepam 0.5 Mg Tab PO 0.5 mg DAILYPRN PRN Administration Anxiety Mirtazapine 7.5 mg 11/10/20 21:00 11/12/20 20:32 Mirtazapine 15 Mg Tab PO 7.5 mg HS MENA Administration Pantoprazole Sodium 40 mg 11/10/20 21:00 11/12/20 20:33 Pantoprazole 40 Mg Tab PO 40 mg HS MENA Administration Paroxetine HCl 40 mg 11/11/20 09:00 11/13/20 08:36 Paroxetine 20 Mg Tab PO 40 mg DAILY MENA Administration Ranolazine 500 mg 11/12/20 09:00 11/13/20 08:35 Ranolazine 500 Mg Tab PO 500 mg BID MENA Administration Sodium Chloride 10 ml 11/10/20 21:00 11/13/20 08:37 Flush - Normal Saline 10 Ml Syringe IVF 10 ml Q12HR MENA Administration Torsemide 20 mg 11/11/20 09:00 11/13/20 08:35 Torsemide 10 Mg Tab PO 20 mg DAILY MENA Administration Zinc Sulfate 220 mg 11/10/20 09:00 11/13/20 08:37 Zinc Sulfate 220 Mg Cap PO 220 mg DAILY MENA Administration Hospitalist Exam Vitals: Vital Signs (12 hours) Temp Pulse Resp BP Pulse Ox 11/13/20 08:45 98.4 F 80 16 150/73 H 94 L 11/13/20 08:37 94 L 11/13/20 08:00 98.4 F 80 16 150/73 H 94 L 11/13/20 04:00 97.5 F L 81 16 139/65 91 L Weight Admit Weight 157 lb Weight 157 lb General Appearance: awake alert Neck: no JVD Heart: RRR, no murmur Respiratory: CTAB Gastrointestinal: soft, normal bowel sounds Extremities: no edema Hosp A/P (1) COVID-19 Code(s): U07.1 - COVID-19 Status: Acute (2) Chest pain Code(s): R07.9 - CHEST PAIN, UNSPECIFIED Status: Acute Qualifiers: Chest pain type: unspecified Qualified Code(s): R07.9 - Chest pain, unspecified (3) Coronary artery disease Code(s): I25.10 - ATHSCL HEART DISEASE OF [place] CORONARY ARTERY W/O ANG PCTRS Status: Acute Qualifiers: Coronary Disease-Associated Artery/Lesion type: [place] artery [place] vs. transplanted heart: [place] heart Associated angina: without angina Qualified Code(s): I25.10 - Atherosclerotic heart disease of [place] coronary artery without angina pectoris (4) Hypercholesteremia Code(s): E78.0 - PURE HYPERCHOLESTEROLEMIA * DO NOT USE * Status: Chronic (5) Hypertension Code(s): I10 - ESSENTIAL (PRIMARY) HYPERTENSION Status: Chronic Qualifiers: Hypertension type: essential hypertension Qualified Code(s): I10 - Essential (primary) hypertension - Plan covid pos, no hypoxia, no specific tx tentative plans for EP studies with ablation tomorrow
--- NOTE | 2020-11-13 15:19 | PDOC.EP ---
- Subjective Date: 11/13/20 Time: 08:00 Interval History: feels fair. voices no new complaints but feels run down/tired - Review of Systems Constitutional: reports: weakness. denies: chills, fever, malaise Respiratory: reports: shortness of breath. denies: cough, hemoptysis, sputum, wheezing Cardiology: reports: chest pain, palpitations. denies: edema, heart racing, light headedness Gastrointestinal: denies: abdominal pain, constipation, nausea, vomitting Musculoskeletal: denies: unstable gait, falls, leg pain - Objective Allergies/Adverse Reactions: Allergies Allergy/AdvReac Type Severity Reaction Status Date / Time sotalol Allergy Severe torsades Verified 01/07/20 04:03 furosemide [From Lasix] Allergy Intermediate Rash Verified 01/07/20 04:03 Sulfa (Sulfonamide Allergy Rash Verified 01/07/20 04:03 Antibiotics) Current Medications Acidophilus (Lactinex Tablet) 1 tab PO DAILY [facility] Last Admin: 11/13/20 08:35 Dose: 1 tab Documented by: Alprazolam (Alprazolam 0.25 Mg Tab) 0.25 mg PO BIDPRN PRN PRN Reason: Anxiety Amlodipine Besylate (Amlodipine 5 Mg Tab) 5 mg PO DAILY [facility] Last Admin: 11/13/20 08:36 Dose: 5 mg Documented by: Apixaban (Apixaban 2.5 Mg Tab) 2.5 mg PO BID [facility] Last Admin: 11/13/20 08:37 Dose: 2.5 mg Documented by: Ascorbic Acid (Ascorbic Acid 500 Mg Chewable Tablet) 1,000 mg PO DAILY [facility] Last Admin: 11/13/20 08:37 Dose: 1,000 mg Documented by: Aspirin (Aspirin 81 Mg Enteric Coated Tablet) 81 mg PO DAILY [facility] Last Admin: 11/13/20 08:35 Dose: 81 mg Documented by: Atorvastatin Calcium (Atorvastatin Calcium 40 Mg Tab) 40 mg PO HS [facility] Last Admin: 11/12/20 20:33 Dose: 40 mg Documented by: Carvedilol (Carvedilol 25 Mg Tab) 25 mg PO BID [facility] Last Admin: 11/13/20 08:36 Dose: 25 mg Documented by: Cholecalciferol (Cholecalciferol (Vitamin D3) 400 Units Tab) 400 units PO DAILY [facility] Last Admin: 11/13/20 08:36 Dose: 400 units Documented by: Clonidine (Clonidine 0.1 Mg Tab) 0.1 mg PO BIDPRN PRN PRN Reason: SBP > 160 DBP > 100 Dextrose/Water (Dextrose 50% Abboject 50 Ml Syringe) 25 gm SLOW IVP PRN PRN PRN Reason: Hypoglycemia Glucagon (Glucagon 1 Mg/Ml Vial) 1 mg IM PRN PRN PRN Reason: Hypoglycemia Dextrose/Water (D5w) 1,000 mls @ 0 mls/hr IV .Q0M PRN PRN Reason: Hypoglycemia Insulin Human Lispro (Humalog 300 Units/3 Ml Vial) 0 units SC .MILD SLIDING SCALE PRN PRN Reason: Mild Correctional Scale Isosorbide Mononitrate (Isosorbide Mononitrate Er 60 Mg Tab) 60 mg PO [facility] Levothyroxine Sodium (Levothyroxine Sodium 50 Mcg Tab) 50 mcg PO 0600 [facility] Last Admin: 11/13/20 05:43 Dose: 50 mcg Documented by: Lisinopril (Lisinopril 10 Mg Tab) 10 mg PO BID [facility] Last Admin: 11/13/20 08:37 Dose: 10 mg Documented by: Lorazepam (Lorazepam 0.5 Mg Tab) 0.5 mg PO HS [facility] Last Admin: 11/12/20 20:33 Dose: 0.5 mg Documented by: Lorazepam (Lorazepam 0.5 Mg Tab) 0.5 mg PO DAILYPRN PRN PRN Reason: Anxiety Last Admin: 11/10/20 10:41 Dose: 0.5 mg Documented by: Meclizine HCl (Meclizine Hcl 25 Mg Tab) 25 mg PO Q8H PRN PRN Reason: Dizziness Mirtazapine (Mirtazapine 15 Mg Tab) 7.5 mg PO [facility] Last Admin: 11/12/20 20:32 Dose: 7.5 mg Documented by: Ondansetron HCl (Ondansetron Odt 4 Mg Tab) 4 mg PO Q4H PRN PRN Reason: Nausea Pantoprazole Sodium (Pantoprazole 40 Mg Tab) 40 mg PO [facility] Last Admin: 11/12/20 20:33 Dose: 40 mg Documented by: Paroxetine HCl (Paroxetine 20 Mg Tab) 40 mg PO DAILY [facility] Last Admin: 11/13/20 08:36 Dose: 40 mg Documented by: Ranolazine (Ranolazine 500 Mg Tab) 500 mg PO BID [facility] Last Admin: 11/13/20 08:35 Dose: 500 mg Documented by: Sodium Chloride (Flush - Normal Saline 10 Ml Syringe) 10 ml IVF Q12HR [facility] Last Admin: 11/13/20 08:37 Dose: 10 ml Documented by: Sodium Chloride (Flush - Normal Saline 10 Ml Syringe) 10 ml IVF PRN PRN PRN Reason: Saline Flush Torsemide (Torsemide 10 Mg Tab) 20 mg PO DAILY [facility] Last Admin: 11/13/20 08:35 Dose: 20 mg Documented by: Zinc Sulfate (Zinc Sulfate 220 Mg Cap) 220 mg PO DAILY [facility] Last Admin: 11/13/20 08:37 Dose: 220 mg Documented by: Vital Signs & Weight: Vital Signs Temp Pulse Resp BP Pulse Ox 11/13/20 10:50 98.3 F 63 18 135/63 96 11/13/20 08:45 98.4 F 80 16 150/73 H 94 L 11/13/20 08:37 94 L 11/13/20 08:00 98.4 F 80 16 150/73 H 94 L 11/13/20 04:00 97.5 F L 81 16 139/65 91 L Admit Weight 157 lb Weight 157 lb I/O: I/O 11/12/20 11/13/20 11/14/20 06:59 06:59 06:59 Intake Total 400 700 Balance 400 700 - Quality Measures Condition: Atrial Fibrillation/Flutter (hx or current) CV meds: Eliquis: Yes - Physical Exam General: no apparent distress, speech clear, affect appropriate. negative: appears well HEENT: mucus membranes moist Neck: supple neck, midline trachea, no JVD/HJR, no lymphadenopathy Cardiology: regular rate and rhythm, no murmur, PMI nondisplaced Lungs: clear to auscultation, normal breath sounds, no wheeze, rales, rhonchi Neurology: cranial nerve 2-12 intact, grossly intact, no lateralizing findings Abdomen: unremarkable, active bowel sounds, no pulsations/bruits - Chadsvasc Risk factors Congestive heart failure: 1 Hypertension: 1 Age >75: 2 Female: 1 Risk Score: 5 - Labs Result Diagrams: 11/12/20 05:16 11/13/20 10:55 - EKG Interpretation EKG Method: Telemetry EKG shows: Sinus rhythm - Device Device: dual, pacemaker Device Result: Medtronic - Assessment/Plan Assessment/Plan: 1. Recurrent atrial arrhythmias. a. History of typical atrial flutter status post CTI flutter ablation in 2009. b. Initial AF suppression with sotalol in 11/2018, resulting in bradycardia driven torsades c. Pulmonary venous isolation ablation in [place] in 11/2018. d. Recurrent atypical atrial flutter, requiring amiodarone for suppression, initiated in 01/2019. e. Recurrent atypical atrial flutter versus slow atrial tachycardia, largely rate controlled, starting 08/2020 despite ongoing amiodarone therapy. 2. 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 3. Coronary artery disease with prior bypass grafting. 4. Diastolic heart failure with preserved LVEF. a. 11/12/20 LVEF 55% 5. Severe mitral valve and tricuspid regurgitation, pulmonary hypertension, normal EF, bilateral atrial enlargement on prior echos, most recently 11/12/20 7. Systolic hypertension. 8. Atypical chest pain. 9. Recent COVID infection. 10. Hypothyroidism. In and out of atrial tachycardia/flutter overnight, largely with VR 85-95bpm. AP VS this AM. [place] will continue to climb now that amiodarone is stopped. [facility] amiodarone therapy is not ideal and has been less effective starting 08/2020 for no clear reason. QTc borderline on admission, 505msec. She would not tolerate higher doses of amiodarone. I recommend AV node ablation. This, including R/B/A, was discussed with the patient and her daughter, separately, and extensively. They both offer consent for AV node ablation tomorrow. Hold [facility] and tomorrow AM.
[2020-11-13] MEDS: ALPRAZolam 0.25 MG TAB PO PRN (16:35)
[2020-11-13] MEDS: Atorvastatin Calcium 40 MG TAB PO SCH (20:15)
[2020-11-13] MEDS: Mirtazapine 15 MG TAB PO SCH (20:15)
[2020-11-13] MEDS: Lorazepam 0.5 MG TAB PO SCH (20:16)
[2020-11-14] MEDS: ALPRAZolam 0.25 MG TAB PO PRN (00:10)
[2020-11-14 05:03] LABS: #Eosinphils 0.2 thou/uL (0.0-0.7); #Lymphocytes 1.2 thou/uL (1.20-3.40); #Monocytes 0.7 thou/uL (0.11-0.59); #Neutrophils 3.3 thou/uL (1.40-6.50); %Basophils 0.1 % (0.0-1.0); %Eosinophils 3.6 % (0.0-10.0); %Lymphocytes 22.5 % (21.0-51.0); %Monocytes 13.5 % (0.0-10.0); %Neutrophils 60.4 % (42.0-75.0); Hemoglobin 11.1 g/dL (12.0-16.0); Mean Corpuscular HGB CONC 31.7 g/dL (32.0-36.0); Mean Corpuscular Hemoglobin 27.7 pg (27.0-31.0); Mean Corpuscular Volume 87.3 fL (78.0-98.0); Mean Platelet Volume 8.3 fL (7.4-10.4); Platelet Count 173 thou/uL (130-400); Red Blood Cell (RBC) Count 3.99 mill/uL (4.20-5.40); White Blood Cell (WBC) Count 5.5 thou/uL (4.8-10.8)
[2020-11-14 05:25] LABS: Anion Gap 13 mmol/L (10-20); BUN (Urea Nitrogen) 24 mg/dL (9.8-20.1); Calc. Creatinine Clearance 32 mL/min (70-130); Calcium 8.2 mg/dL (7.8-10.44); Carbon Dioxide 27 mmol/L (23-31); Chloride 101 mmol/L (98-107); Glucose 93 mg/dL (83-110); Potassium 3.1 mmol/L (3.5-5.1); Sodium 138 mmol/L (136-145)
[2020-11-14] MEDS: Levothyroxine Sodium 50 MCG TAB PO SCH (06:34)
[2020-11-14] MEDS: Aspirin 81 mg Enteric Coated Tablet PO SCH (07:37)
[2020-11-14] MEDS: Torsemide 10 MG TAB PO SCH (07:37)
[2020-11-14] MEDS: Lactinex Tablet PO SCH (07:37)
[2020-11-14] MEDS: PARoxetine 20 MG TAB PO SCH (07:38)
[2020-11-14] MEDS: Carvedilol 25 MG TAB PO SCH ×2 (07:38→20:11)
[2020-11-14] MEDS: Amlodipine 5 MG TAB PO SCH (07:38)
[2020-11-14] MEDS: Lisinopril 10 MG TAB PO SCH ×2 (07:39→20:10)
[2020-11-14] MEDS ORDERED: Ketamine 50 MG/ML (10ML VIAL) ONE (07:46)
[2020-11-14] MEDS ORDERED: Fentanyl 100 MCG/2 ML VIAL ONE (07:46)
[2020-11-14] MEDS ORDERED: Phenylephrine 10 MG/ML VIAL ONE (07:46)
[2020-11-14] MEDS ORDERED: Midazolam HCl 2 mg/2 ml Vial ONE (07:46)
[2020-11-14] MEDS ORDERED: Propofol 500 MG/50 ML VIAL ONE (07:46)
[2020-11-14] MEDS: Ascorbic Acid 500 mg Chewable Tablet PO SCH (08:12)
[2020-11-14] MEDS: Zinc Sulfate 220 MG CAP PO SCH (08:13)
[2020-11-14] MEDS: Cholecalciferol (Vitamin D3) 400 UNITS TAB PO SCH (08:13)
[2020-11-14] MEDS ORDERED: Calcium Chloride 1 GM/10 ML Abboject SYRINGE ONE (09:03)
[2020-11-14] MEDS ORDERED: ePHEDrine 50 MG/ML VIAL ONE (09:03)
[2020-11-14] MEDS ORDERED: Ondansetron HCl/PF 4 MG/2 ML Vial IVP PRN (09:39)
[2020-11-14] MEDS ORDERED: Promethazine HCl 25 MG/ML VIAL SLOW IVP PRN (09:39)
[2020-11-14] MEDS ORDERED: Promethazine HCl 25 MG/ML VIAL IM PRN (09:39)
[2020-11-14] MEDS ORDERED: DOPamine 400 MG/D5W 250 ML 250 ML ONE (09:57)
[2020-11-14] MEDS ORDERED: Iopamidol 370 76% 50 ML VIAL FS ONE (10:21)
--- NOTE | 2020-11-14 10:58 | OP ---
DATE OF PROCEDURE: 11/14/2020 PROCEDURE PERFORMED: Electrophysiology study and AV jono ablation. REASON FOR PROCEDURE: Ms. Malik is an 79-year-old woman with history of recurrent atrial arrhythmias as well despite prior pulmonary venous isolation procedure and amiodarone suppression. Amiodarone has been stopped and she is here for an AV jono ablation. Previously placed dual-chamber pacemaker function is adequate. DESCRIPTION OF PROCEDURE: The patient received deep sedation by anesthesia specialist. After adequate level of sedation achieved, the right femoral venous area was prepped and draped and anesthetized using subcutaneous lidocaine. Under ultrasound guidance, the right femoral vein was cannulated x1. An 8-Turkmen short sheath was used to advance a Nutrigreen irrigated tip catheter into the right atrium. 3D map of the right atrium was obtained, DecaNav catheter, delineating the pre-existing pacemaker wires as well as the His bundle and AV jono area. Following findings were noted. Baseline rhythm was sinus rhythm. After switching to VVI pacing, cycle length was 1100 milliseconds, VA 277 milliseconds, QRS 103 milliseconds, QT 526 milliseconds, HV interval was 58 milliseconds. Following that, the AV jono ablation was performed with total of 3 lesions placed at the fast, passing the slow pathway area. A total of 2 minutes at 46 seconds ablation was delivered at 40 brown. We achieved a complete AV block. IV dopamine was used at 10 mcg to assess efficacy of the ablation. No additional AV jono conduction was seen following that. Transient backup rate at 25 beats per minute was seen after AV jono ablation. The cardiac silhouette did not change throughout the procedure. A left subclavian axillary venogram was performed to assess patency of the left subclavian vein for potential future procedure and the vein was found patent. In the end of the case, catheter was removed and the IV access site was closed with Vascade closure. CONCLUSION: 1. Successful AV jono ablation. 2. Adequate functioning of dual-chamber pacemaker. 3. Patent left subclavian vein in case a future need for pacemaker upgrade. Job ID: [id number]
[2020-11-14] MEDS ORDERED: Sodium Chloride 0.9% 250 ML IV SCH (13:45)
[2020-11-14 14:27] LABS: #Eosinphils 0.1 thou/uL (0.0-0.7); #Lymphocytes 0.9 thou/uL (1.20-3.40); #Monocytes 0.6 thou/uL (0.11-0.59); #Neutrophils 3.9 thou/uL (1.40-6.50); %Basophils 0.1 % (0.0-1.0); %Eosinophils 2.1 % (0.0-10.0); %Lymphocytes 16.1 % (21.0-51.0); %Monocytes 11.3 % (0.0-10.0); %Neutrophils 70.4 % (42.0-75.0); Hemoglobin 11.4 g/dL (12.0-16.0); Mean Corpuscular HGB CONC 32.6 g/dL (32.0-36.0); Mean Corpuscular Hemoglobin 29.1 pg (27.0-31.0); Mean Corpuscular Volume 89.1 fL (78.0-98.0); Mean Platelet Volume 8.3 fL (7.4-10.4); Platelet Count 162 thou/uL (130-400); Red Blood Cell (RBC) Count 3.91 mill/uL (4.20-5.40); White Blood Cell (WBC) Count 5.6 thou/uL (4.8-10.8)
[2020-11-14] MEDS ORDERED: Potassium Chloride 20 MEQ TAB PO SCH ×2 (15:00→16:00)
--- NOTE | 2020-11-14 16:16 | PDOC.HOSPP ---
- Subjective Encounter Date: 11/14/20 Encounter Time: 16:13 Subjective: post AV jono ablation. complains of palpatations - Objective Vital Signs & Weight: Vital Signs (12 hours) Temp Pulse Resp BP BP Pulse Ox 11/14/20 15:00 103/59 L 11/14/20 13:10 86/52 L 11/14/20 13:05 80 84/58 L 11/14/20 13:00 80 83/52 L 100 11/14/20 12:30 80 75/52 L 99 11/14/20 12:00 80 79/49 L 11/14/20 11:30 98.5 F 80 17 98/57 L 100 11/14/20 07:45 98.3 F 71 16 146/68 H 98 Weight Admit Weight 157 lb Weight 157 lb I&O: 11/13/20 11/14/20 11/15/20 06:59 06:59 06:59 Intake Total 700 1020 Balance 700 1020 Result Diagrams: 11/14/20 14:13 11/14/20 04:35 Additional Labs: Accuchecks 11/14/20 11/14/20 11/13/20 11:36 05:55 20:42 POC Glucose 100 116 H 142 H 11/13/20 11/13/20 17:41 16:40 POC Glucose 134 H 75 Hospitalist ROS - Medication Medications: Active Medications Generic Name Dose Route Start Last Admin Trade Name Freq PRN Reason Stop Dose Admin Acidophilus 1 tab 11/11/20 09:00 11/14/20 07:37 Lactinex Tablet PO 1 tab DAILY [facility] Administration Alprazolam 0.25 mg 11/10/20 14:11 11/14/20 00:10 Alprazolam 0.25 Mg Tab PO 0.25 mg BIDPRN PRN Administration Anxiety Amlodipine Besylate 5 mg 11/11/20 09:00 11/14/20 07:38 Amlodipine 5 Mg Tab PO 5 mg DAILY [facility] Administration Apixaban 2.5 mg 11/10/20 21:00 11/13/20 08:37 Apixaban 2.5 Mg Tab PO 2.5 mg BID [facility] Administration Ascorbic Acid 1,000 mg 11/10/20 09:00 11/14/20 08:12 Ascorbic Acid 500 Mg Chewable Tablet PO Not Given DAILY [facility] Aspirin 81 mg 11/10/20 09:00 11/14/20 07:37 Aspirin 81 Mg Enteric Coated Tablet PO 81 mg DAILY [facility] Administration Atorvastatin Calcium 40 mg 11/10/20 21:00 11/13/20 20:15 Atorvastatin Calcium 40 Mg Tab PO 40 mg HS [facility] Administration Carvedilol 25 mg 11/10/20 09:00 11/14/20 07:38 Carvedilol 25 Mg Tab PO 25 mg BID [facility] Administration Cholecalciferol 400 units 11/10/20 09:00 11/14/20 08:13 Cholecalciferol (Vitamin D3) 400 Units Tab PO Not Given DAILY [facility] Isosorbide Mononitrate 60 mg 11/13/20 21:00 11/13/20 20:15 Isosorbide Mononitrate Er 60 Mg Tab PO 60 mg HS [facility] Administration Levothyroxine Sodium 50 mcg 11/11/20 06:00 11/14/20 06:34 Levothyroxine Sodium 50 Mcg Tab PO Not Given 0600 [facility] Lisinopril 10 mg 11/10/20 21:00 11/14/20 07:39 Lisinopril 10 Mg Tab PO 10 mg BID [facility] Administration Lorazepam 0.5 mg 11/10/20 21:00 11/13/20 20:16 Lorazepam 0.5 Mg Tab PO 0.5 mg HS MENA Administration Lorazepam 0.5 mg 11/10/20 10:19 11/10/20 10:41 Lorazepam 0.5 Mg Tab PO 0.5 mg DAILYPRN PRN Administration Anxiety Mirtazapine 7.5 mg 11/10/20 21:00 11/13/20 20:15 Mirtazapine 15 Mg Tab PO 7.5 mg HS [facility] Administration Pantoprazole Sodium 40 mg 11/10/20 21:00 11/13/20 20:16 Pantoprazole 40 Mg Tab PO 40 mg HS [facility] Administration Paroxetine HCl 40 mg 11/11/20 09:00 11/14/20 07:38 Paroxetine 20 Mg Tab PO 40 mg DAILY [facility] Administration Ranolazine 500 mg 11/12/20 09:00 11/14/20 07:38 Ranolazine 500 Mg Tab PO 500 mg BID [facility] Administration Sodium Chloride 10 ml 11/10/20 21:00 11/14/20 07:37 Flush - Normal Saline 10 Ml Syringe IVF 10 ml Q12HR [facility] Administration Torsemide 20 mg 11/11/20 09:00 11/14/20 07:37 Torsemide 10 Mg Tab PO 20 mg DAILY [facility] Administration Zinc Sulfate 220 mg 11/10/20 09:00 11/14/20 08:13 Zinc Sulfate 220 Mg Cap PO Not Given [facility] Hospitalist Exam Vitals: Vital Signs (12 hours) Temp Pulse Resp BP BP Pulse Ox 11/14/20 15:00 103/59 L 11/14/20 13:10 86/52 L 11/14/20 13:05 80 84/58 L 11/14/20 13:00 80 83/52 L 100 11/14/20 12:30 80 75/52 L 99 11/14/20 12:00 80 79/49 L 11/14/20 11:30 98.5 F 80 17 98/57 L 100 11/14/20 07:45 98.3 F 71 16 146/68 H 98 Weight Admit Weight 157 lb Weight 157 lb General Appearance: awake alert Neck: no JVD Heart: RRR, no murmur Respiratory: CTAB Gastrointestinal: soft, normal bowel sounds Extremities: no edema Hosp A/P (1) COVID-19 Code(s): U07.1 - COVID-19 Status: Acute (2) Chest pain Code(s): R07.9 - CHEST PAIN, UNSPECIFIED Status: Acute Qualifiers: Chest pain type: unspecified Qualified Code(s): R07.9 - Chest pain, unspecified (3) Coronary artery disease Code(s): I25.10 - ATHSCL HEART DISEASE OF [place] CORONARY ARTERY W/O ANG PCTRS Status: Acute Qualifiers: Coronary Disease-Associated Artery/Lesion type: [place] artery [place] vs. transplanted heart: [place] heart Associated angina: without angina Qualified Code(s): I25.10 - Atherosclerotic heart disease of [place] coronary artery without angina pectoris (4) Hypercholesteremia Code(s): E78.0 - PURE HYPERCHOLESTEROLEMIA * DO NOT USE * Status: Chronic (5) Hypertension Code(s): I10 - ESSENTIAL (PRIMARY) HYPERTENSION Status: Chronic Qualifiers: Hypertension type: essential hypertension Qualified Code(s): I10 - Essential (primary) hypertension - Plan covid pos, no hypoxia, no specific tx post ablation, dual chamber pacing at 80. cardiac exaam s1s2 normal. 2/6 sys murmur
--- NOTE | 2020-11-14 16:18 | PRG ---
DATE OF SERVICE: 11/14/2020 SUBJECTIVE: I am seeing Ms. Malik at the request of the nurse who underwent AV jono ablation this morning. She has developed mild hypertension during the procedure without any signs of bleeding, which corrected by the end of procedure. She was able to be weaned off all pressors. In the postop period, she remains relatively hypotensive, it was measured at 77 systolic range, gradually started improving in the 90s. The patient appears to be in no general distress except for that would like to urinate, she still on bed rest. OBJECTIVE: VITAL SIGNS: Her blood pressure currently is 94/53. Heart rates steady at 70. NECK: Supple. Jugular veins not distended. CHEST: Coarse without crackles. HEART: Sounds are regular rate and rhythm. 1/6 holosystolic murmur is heard. ABDOMEN: Slightly tender at the bladder area due to needing to urinate. The bowel sounds are positive. Groin site is without hematoma. Limited 2D echogram also performed for following up and we saw no pericardial effusion suggest perforation or tamponade. The LV systolic function was overall preserved at 50%-55% range, just like before, minor LV dyssynchrony seen at the basal lateral wall only. Severe biatrial enlargement, unchanged from prior studies. Valvular disease also unchanged on this limited exam. IMPRESSION:Moderate hypotension post AV jono ablation procedure, with no direct evidence of bleeding or pericardial tamponade. At this point, we will continue monitor her, gave her a 250 mL bolus of 0.9 normal saline. The IVC seems to be in normal range. She does not appear to be volume depleted or over extended. We will check CBC today and in the morning, likely resume anticoagulation a.m. and hold blood pressure medications until systolic blood pressure well over 130. We will follow with her in the morning again. Job ID: [id number] MTDD
[2020-11-14] MEDS: Atorvastatin Calcium 40 MG TAB PO SCH (20:11)
[2020-11-14] MEDS: Lorazepam 0.5 MG TAB PO SCH (20:11)
[2020-11-14] MEDS: Mirtazapine 15 MG TAB PO SCH (20:11)
[2020-11-15 05:04] LABS: #Eosinphils 0.1 thou/uL (0.0-0.7); #Monocytes 0.6 thou/uL (0.11-0.59); #Neutrophils 3.7 thou/uL (1.40-6.50); %Basophils 0.2 % (0.0-1.0); %Lymphocytes 18.1 % (21.0-51.0); %Monocytes 11.5 % (0.0-10.0); %Neutrophils 68.1 % (42.0-75.0); Hemoglobin 11.3 g/dL (12.0-16.0); Mean Corpuscular HGB CONC 31.1 g/dL (32.0-36.0); Mean Corpuscular Hemoglobin 27.2 pg (27.0-31.0); Mean Corpuscular Volume 87.5 fL (78.0-98.0); Mean Platelet Volume 8.3 fL (7.4-10.4); Platelet Count 157 thou/uL (130-400); RBC Distribution Width 14.1 % (11.5-14.5); Red Blood Cell (RBC) Count 4.17 mill/uL (4.20-5.40); White Blood Cell (WBC) Count 5.4 thou/uL (4.8-10.8)
[2020-11-15] MEDS: Levothyroxine Sodium 50 MCG TAB PO SCH (06:04)
--- NOTE | 2020-11-15 07:22 | EKG ---
Test Reason : Blood Pressure : / mmHG Vent. Rate : 062 BPM Atrial Rate : 062 BPM P-R Int : 302 ms QRS Dur : 106 ms QT Int : 426 ms P-R-T Axes : 000 052 145 degrees QTc Int : 432 ms Electronic atrial pacemaker Abnormal ECG When compared with ECG of 11-NOV-2020 14:42, T wave inversion more evident in Lateral leads QT has shortened Confirmed by DR. Galilea REYNOLDS ([id number]) on 11/15/2020 7:22:02 AM Referred By: RUFINO Confirmed By:DR. Galilea REYNOLDS
--- NOTE | 2020-11-15 07:24 | EKG ---
Test Reason : Blood Pressure : / mmHG Vent. Rate : 080 BPM Atrial Rate : 080 BPM P-R Int : 224 ms QRS Dur : 180 ms QT Int : 538 ms P-R-T Axes : 005 120 -60 degrees QTc Int : 620 ms AV dual-paced rhythm Abnormal ECG When compared with ECG of 11-NOV-2020 14:42, Electronic ventricular pacemaker has replaced Electronic atrial pacemaker Confirmed by DR. Galilea REYNOLDS ([id number]) on 11/15/2020 7:24:34 AM Referred By: RUFINO Confirmed By:DR. Galilea REYNOLDS
--- NOTE | 2020-11-15 07:50 | PDOC.HOSPP ---
- Subjective Encounter Date: 11/15/20 Encounter Time: 07:37 Subjective: comfortable, can feel heartbeat occ - Objective Vital Signs & Weight: Vital Signs (12 hours) Temp Pulse Resp BP Pulse Ox 11/15/20 03:54 98.1 F 83 18 135/63 94 L 11/15/20 03:03 94 L 11/14/20 23:38 98.1 F 81 16 133/61 94 L 11/14/20 20:00 96 11/14/20 19:57 98.0 F 85 15 139/70 96 Weight Admit Weight 157 lb Weight 157 lb I&O: 11/14/20 11/15/20 11/16/20 06:59 06:59 06:59 Intake Total 1020 850 Balance 1020 850 Result Diagrams: 11/15/20 04:54 11/14/20 04:35 Additional Labs: Accuchecks 11/15/20 11/14/20 11/14/20 04:54 20:08 16:30 POC Glucose 94 134 H 88 11/14/20 11:36 POC Glucose 100 Hospitalist ROS - Medication Medications: Active Medications Generic Name Dose Route Start Last Admin Trade Name Freq PRN Reason Stop Dose Admin Acidophilus 1 tab 11/11/20 09:00 11/14/20 07:37 Lactinex Tablet PO 1 tab DAILY [facility] Administration Alprazolam 0.25 mg 11/10/20 14:11 11/14/20 00:10 Alprazolam 0.25 Mg Tab PO 0.25 mg BIDPRN PRN Administration Anxiety Amlodipine Besylate 5 mg 11/11/20 09:00 11/14/20 07:38 Amlodipine 5 Mg Tab PO 5 mg DAILY MENA Administration Ascorbic Acid 1,000 mg 11/10/20 09:00 11/14/20 08:12 Ascorbic Acid 500 Mg Chewable Tablet PO Not Given DAILY [facility] Aspirin 81 mg 11/10/20 09:00 11/14/20 07:37 Aspirin 81 Mg Enteric Coated Tablet PO 81 mg DAILY [facility] Administration Atorvastatin Calcium 40 mg 11/10/20 21:00 11/14/20 20:11 Atorvastatin Calcium 40 Mg Tab PO 40 mg HS MENA Administration Carvedilol 25 mg 11/10/20 09:00 11/14/20 20:11 Carvedilol 25 Mg Tab PO 25 mg BID MENA Administration Cholecalciferol 400 units 11/10/20 09:00 11/14/20 08:13 Cholecalciferol (Vitamin D3) 400 Units Tab PO Not Given DAILY [facility] Isosorbide Mononitrate 60 mg 11/13/20 21:00 11/14/20 20:10 Isosorbide Mononitrate Er 60 Mg Tab PO 60 mg HS MENA Administration Levothyroxine Sodium 50 mcg 11/11/20 06:00 11/15/20 06:04 Levothyroxine Sodium 50 Mcg Tab PO 50 mcg 0600 MENA Administration Lisinopril 10 mg 11/10/20 21:00 11/14/20 20:10 Lisinopril 10 Mg Tab PO 10 mg BID MENA Administration Lorazepam 0.5 mg 11/10/20 21:00 11/14/20 20:11 Lorazepam 0.5 Mg Tab PO 0.5 mg HS MENA Administration Lorazepam 0.5 mg 11/10/20 10:19 11/10/20 10:41 Lorazepam 0.5 Mg Tab PO 0.5 mg DAILYPRN PRN Administration Anxiety Mirtazapine 7.5 mg 11/10/20 21:00 11/14/20 20:11 Mirtazapine 15 Mg Tab PO 7.5 mg HS MENA Administration Pantoprazole Sodium 40 mg 11/10/20 21:00 11/14/20 20:10 Pantoprazole 40 Mg Tab PO 40 mg HS MENA Administration Paroxetine HCl 40 mg 11/11/20 09:00 11/14/20 07:38 Paroxetine 20 Mg Tab PO 40 mg DAILY [facility] Administration Ranolazine 500 mg 11/12/20 09:00 11/14/20 20:10 Ranolazine 500 Mg Tab PO 500 mg BID MENA Administration Sodium Chloride 10 ml 11/10/20 21:00 11/14/20 20:29 Flush - Normal Saline 10 Ml Syringe IVF 10 ml Q12HR MENA Administration Torsemide 20 mg 11/11/20 09:00 11/14/20 07:37 Torsemide 10 Mg Tab PO 20 mg DAILY [facility] Administration Zinc Sulfate 220 mg 11/10/20 09:00 11/14/20 08:13 Zinc Sulfate 220 Mg Cap PO Not Given DAILY [facility] Hospitalist Exam Vitals: Vital Signs (12 hours) Temp Pulse Resp BP Pulse Ox 11/15/20 03:54 98.1 F 83 18 135/63 94 L 11/15/20 03:03 94 L 11/14/20 23:38 98.1 F 81 16 133/61 94 L 11/14/20 20:00 96 11/14/20 19:57 98.0 F 85 15 139/70 96 Weight Admit Weight 157 lb Weight 157 lb General Appearance: awake alert Neck: no JVD Heart: RRR, no murmur Respiratory: CTAB Gastrointestinal: soft, normal bowel sounds Extremities: no edema Hosp A/P (1) COVID-19 Code(s): U07.1 - COVID-19 Status: Acute (2) Chest pain Code(s): R07.9 - CHEST PAIN, UNSPECIFIED Status: Acute Qualifiers: Chest pain type: unspecified Qualified Code(s): R07.9 - Chest pain, unspecified (3) Coronary artery disease Code(s): I25.10 - ATHSCL HEART DISEASE OF [place] CORONARY ARTERY W/O ANG PCTRS Status: Acute Qualifiers: Coronary Disease-Associated Artery/Lesion type: [place] artery [place] vs. transplanted heart: [place] heart Associated angina: without angina Qualified Code(s): I25.10 - Atherosclerotic heart disease of [place] coronary artery without angina pectoris (4) Hypercholesteremia Code(s): E78.0 - PURE HYPERCHOLESTEROLEMIA * DO NOT USE * Status: Chronic (5) Hypertension Code(s): I10 - ESSENTIAL (PRIMARY) HYPERTENSION Status: Chronic Qualifiers: Hypertension type: essential hypertension Qualified Code(s): I10 - Essential (primary) hypertension - Plan paced rhythm anticoag reinstated BP excellent discuss with EP
[2020-11-15] MEDS ORDERED: Apixaban 2.5 MG TAB PO SCH (09:00)
--- NOTE | 2020-11-15 10:19 | PDOC.EP ---
- Subjective Date: 11/15/20 Time: 08:00 Interval History: No events overnight. No bleeding at groin site. Voices no complaints - Review of Systems Respiratory: denies: cough, hemoptysis, shortness of breath, sputum, wheezing Cardiology: denies: chest pain, edema, heart racing, light headedness, palpitations Gastrointestinal: denies: abdominal pain, constipation, diarrhea Musculoskeletal: denies: unstable gait, falls, neck pain - Objective Allergies/Adverse Reactions: Allergies Allergy/AdvReac Type Severity Reaction Status Date / Time sotalol Allergy Severe torsades Verified 01/07/20 04:03 furosemide [From Lasix] Allergy Intermediate Rash Verified 01/07/20 04:03 Sulfa (Sulfonamide Allergy Rash Verified 01/07/20 04:03 Antibiotics) Current Medications Acidophilus (Lactinex Tablet) 1 tab PO DAILY [facility] Last Admin: 11/14/20 07:37 Dose: 1 tab Documented by: Alprazolam (Alprazolam 0.25 Mg Tab) 0.25 mg PO BIDPRN PRN PRN Reason: Anxiety Last Admin: 11/14/20 00:10 Dose: 0.25 mg Documented by: Amlodipine Besylate (Amlodipine 5 Mg Tab) 5 mg PO DAILY [facility] Last Admin: 11/14/20 07:38 Dose: 5 mg Documented by: Apixaban (Apixaban 2.5 Mg Tab) 2.5 mg PO BID [facility] Ascorbic Acid (Ascorbic Acid 500 Mg Chewable Tablet) 1,000 mg PO DAILY [facility] Last Admin: 11/14/20 08:12 Dose: Not Given Documented by: Aspirin (Aspirin 81 Mg Enteric Coated Tablet) 81 mg PO DAILY [facility] Last Admin: 11/14/20 07:37 Dose: 81 mg Documented by: Atorvastatin Calcium (Atorvastatin Calcium 40 Mg Tab) 40 mg PO HS [facility] Last Admin: 11/14/20 20:11 Dose: 40 mg Documented by: Carvedilol (Carvedilol 25 Mg Tab) 25 mg PO BID [facility] Last Admin: 11/14/20 20:11 Dose: 25 mg Documented by: Cholecalciferol (Cholecalciferol (Vitamin D3) 400 Units Tab) 400 units PO DAILY [facility] Last Admin: 11/14/20 08:13 Dose: Not Given Documented by: Clonidine (Clonidine 0.1 Mg Tab) 0.1 mg PO BIDPRN PRN PRN Reason: SBP > 160 DBP > 100 Dextrose/Water (Dextrose 50% Abboject 50 Ml Syringe) 25 gm SLOW IVP PRN PRN PRN Reason: Hypoglycemia Glucagon (Glucagon 1 Mg/Ml Vial) 1 mg IM PRN PRN PRN Reason: Hypoglycemia Dextrose/Water (D5w) 1,000 mls @ 0 mls/hr IV .Q0M PRN PRN Reason: Hypoglycemia Insulin Human Lispro (Humalog 300 Units/3 Ml Vial) 0 units SC .MILD SLIDING SCALE PRN PRN Reason: Mild Correctional Scale Isosorbide Mononitrate (Isosorbide Mononitrate Er 60 Mg Tab) 60 mg PO [facility] Last Admin: 11/14/20 20:10 Dose: 60 mg Documented by: Levothyroxine Sodium (Levothyroxine Sodium 50 Mcg Tab) 50 mcg PO 0600 [facility] Last Admin: 11/15/20 06:04 Dose: 50 mcg Documented by: Lisinopril (Lisinopril 10 Mg Tab) 10 mg PO BID [facility] Last Admin: 11/14/20 20:10 Dose: 10 mg Documented by: Lorazepam (Lorazepam 0.5 Mg Tab) 0.5 mg PO [facility] Last Admin: 11/14/20 20:11 Dose: 0.5 mg Documented by: Lorazepam (Lorazepam 0.5 Mg Tab) 0.5 mg PO DAILYPRN PRN PRN Reason: Anxiety Last Admin: 11/10/20 10:41 Dose: 0.5 mg Documented by: Meclizine HCl (Meclizine Hcl 25 Mg Tab) 25 mg PO Q8H PRN PRN Reason: Dizziness Mirtazapine (Mirtazapine 15 Mg Tab) 7.5 mg PO [facility] Last Admin: 11/14/20 20:11 Dose: 7.5 mg Documented by: Ondansetron HCl (Ondansetron Odt 4 Mg Tab) 4 mg PO Q4H PRN PRN Reason: Nausea Pantoprazole Sodium (Pantoprazole 40 Mg Tab) 40 mg PO [facility] Last Admin: 11/14/20 20:10 Dose: 40 mg Documented by: Paroxetine HCl (Paroxetine 20 Mg Tab) 40 mg PO DAILY [facility] Last Admin: 11/14/20 07:38 Dose: 40 mg Documented by: Ranolazine (Ranolazine 500 Mg Tab) 500 mg PO BID [facility] Last Admin: 11/14/20 20:10 Dose: 500 mg Documented by: Sodium Chloride (Flush - Normal Saline 10 Ml Syringe) 10 ml IVF Q12HR [facility] Last Admin: 11/14/20 20:29 Dose: 10 ml Documented by: Sodium Chloride (Flush - Normal Saline 10 Ml Syringe) 10 ml IVF PRN PRN PRN Reason: Saline Flush Torsemide (Torsemide 10 Mg Tab) 20 mg PO DAILY [facility] Last Admin: 11/14/20 07:37 Dose: 20 mg Documented by: Zinc Sulfate (Zinc Sulfate 220 Mg Cap) 220 mg PO DAILY [facility] Last Admin: 11/14/20 08:13 Dose: Not Given Documented by: Vital Signs & Weight: Vital Signs Temp Pulse Resp BP Pulse Ox 11/15/20 07:50 97.4 F L 84 16 149/74 H 96 11/15/20 03:54 98.1 F 83 18 135/63 94 L 11/15/20 03:03 94 L 11/14/20 23:38 98.1 F 81 16 133/61 94 L Admit Weight 157 lb Weight 157 lb I/O: I/O 11/14/20 11/15/20 11/16/20 06:59 06:59 06:59 Intake Total 1020 850 Balance 1020 850 - Quality Measures Condition: Atrial Fibrillation/Flutter (hx or current) CV meds: Eliquis: Yes - Physical Exam General: appears well, no apparent distress, speech clear, affect appropriate HEENT: mucus membranes moist, normocephaly Neck: supple neck, midline trachea, no lymphadenopathy Cardiology: regular rate, PMI nondisplaced. negative: regular rhythm Lungs: clear to auscultation, normal breath sounds, no wheeze, rales, rhonchi Neurology: cranial nerve 2-12 intact, grossly intact, no lateralizing findings Abdomen: unremarkable, active bowel sounds, no pulsations/bruits Extremities: dry, strong pulses, warm Skin: groin sites stable - Labs Result Diagrams: 11/15/20 04:54 11/14/20 04:35 - EKG Interpretation EKG Method: Telemetry EKG shows: Atrial fibrillation - Device Device: dual, pacemaker Device Result: Vappstronic - Assessment/Plan Assessment/Plan: 1. Recurrent atrial arrhythmias. a. History of typical atrial flutter status post CTI flutter ablation in 2009. b. Initial AF suppression with sotalol in 11/2018, resulting in bradycardia driven torsades c. Pulmonary venous isolation ablation in [place] in 11/2018. d. Recurrent atypical atrial flutter, requiring amiodarone for suppression, initiated in 01/2019. e. Recurrent atypical atrial flutter versus slow atrial tachycardia, largely rate controlled, starting 08/2020 despite ongoing amiodarone therapy. 2. 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 3. Coronary artery disease with prior bypass grafting. 4. Diastolic heart failure with preserved LVEF. a. 11/12/20 LVEF 55% 5. Severe mitral valve and tricuspid regurgitation, pulmonary hypertension, normal EF, bilateral atrial enlargement on prior echos, most recently 11/12/20 7. Systolic hypertension. 8. Atypical chest pain. 9. Recent COVID infection. 10. Hypothyroidism. s/p AV node ablation 11/14. Had post op hypotension. Hemogram stable. No bleeding at access sites. Echo done which ruled out pericardial effusion and s howed a normal LVEF. SHe was on multiple antihypertensives agents orally. IVF given and BP has since normalized. Stay off amiodarone. Resume eliquis as directed. Will need 6 week follow up with my office. OK for DC by EP.
[2020-11-15] MEDS: PARoxetine 20 MG TAB PO SCH (10:47)
[2020-11-15] MEDS: Torsemide 10 MG TAB PO SCH (10:47)
[2020-11-15] MEDS: Amlodipine 5 MG TAB PO SCH (10:48)
[2020-11-15] MEDS: Ascorbic Acid 500 mg Chewable Tablet PO SCH (10:48)
[2020-11-15] MEDS: Aspirin 81 mg Enteric Coated Tablet PO SCH (10:48)
[2020-11-15] MEDS: Cholecalciferol (Vitamin D3) 400 UNITS TAB PO SCH (10:48)
[2020-11-15] MEDS: Lisinopril 10 MG TAB PO SCH (10:50)
[2020-11-15] MEDS: Carvedilol 25 MG TAB PO SCH (10:50)
[2020-11-15] MEDS: Zinc Sulfate 220 MG CAP PO SCH (10:50)
[2020-11-15] MEDS: Lactinex Tablet PO SCH (10:59)
[2020-11-15 11:43] VITALS: TEMP 98.1
--- NOTE | 2020-11-15 14:20 | DIS ---
DATE OF ADMISSION: 11/11/2020 DATE OF DISCHARGE: 11/15/2020 PRIMARY CARE PROVIDER: Minor Vela, Family Nurse Practitioner. FINAL DIAGNOSES: COVID pneumonia, not requiring specific therapy, no oxygen dependent; atrial flutter; coronary artery disease; atypical chest pain; diabetes mellitus with chronic kidney disease stage 3; dyslipidemia. DISPOSITION: Discharged home. CONSULTATIONS DURING HOSPITAL STAY: 1. Dr. Gualberto Gallegos, Cardiology. 2. Dr. Billy Vergara, Electrophysiology. HOSPITAL COURSE: Admitted to the hospitalist service through [facility]. The patient with a history of coronary artery disease, stenting, bypass graft, hypertension, presented with chest pain, shortness of breath. She had an incidental positive COVID test. Referred to the hospitalist. The oilseed meat presser noted she has a history of atrial fibrillation, dual chamber pacemaker, on amiodarone which temporarily increased to 200 twice a, day interrogated the pacemaker. Dr. Abdullahi Wallace referred her to Dr. Billy Vergara for atrial arrhythmia management. The patient was having recurrent atrial flutter causing her chest discomfort. She had problems with medicines before. Decision was made to attempt AV jono ablation. The patient was on Eliquis at that time. The procedure was postponed until 11/14/2020. On 11/14/2020, she underwent AV jono ablation by Dr. Vergara, which was successful. PERTINENT LABORATORY DURING HER STAY: Hemoglobin 12.3, final hemoglobin 11.3; white count 5.7, final white count 5.4. The patient has normal electrolytes. She has chronic kidney disease stage 3. Her troponins were normal. DISCHARGE MEDICATIONS: 1. Specifically, she has been taking off the amiodarone. 2. She is on levothyroxine 50 mcg a day. 3. Norvasc 5 mg a day. 4. Mirtazapine 7.5 mg a day. 5. Lisinopril 10 mg twice a day. 6. Eliquis 5 mg twice a day. 7. Ativan 0.5 mg at bedtime. 8. Protonix 40 mg a day. 9. Paxil 40 mg a day. 10. Potassium chloride 10 mEq three times a day. 11. Demadex 20 mg a day. 12. Coreg 25 mg twice a day. 13. Lipitor 40 mg a day. 14. Zinc 220 mg a day. 15. Rituxan 500 mg a day. 16. Imdur 60 mg a day. 17. Aspirin 81 mg a day. 18. Vitamin C 1000 mg a day. ALLERGIES: SHE IS ALLERGIC TO SOTALOL, FUROSEMIDE, SULFA. CODE STATUS: DNAR. DIET: Diabetic. DISCHARGE INSTRUCTIONS: There is nothing pending at time of discharge. She has been asked to follow up with Dr. Vergara in 6 weeks to follow up with her PCP in 3 to 7 days. She has been cautioned about quarantining for COVID for diagnosis made on 11/09/2020, for 14 days since the diagnosis. Job ID: [id number]
[2020-11-15 16:40] VITALS: BP 166/83
--- NOTE | 2020-11-15 17:08 | EKG ---
Test Reason : Blood Pressure : / mmHG Vent. Rate : 082 BPM Atrial Rate : 082 BPM P-R Int : 200 ms QRS Dur : 180 ms QT Int : 508 ms P-R-T Axes : 024 124 -53 degrees QTc Int : 593 ms AV sequential or dual chamber electronic pacemaker When compared with ECG of 14-NOV-2020 11:40, Vent. rate has increased BY [address] Galilea REYNOLDS ([id number]) on 11/15/2020 5:08:13 PM Referred By: RUFINO Confirmed By:DR. Galilea REYNOLDS
--- NOTE | 2020-11-20 01:42 | PQF ---
CLINICAL DOCUMENTATION CLARIFICATION FORM: Dear : LUIS M KLINE MD Date / Time: 11/20/2020 Please exercise your independent, professional judgment in responding to the clarification form. Clinical indicators are provided on the bottom of this form for your review Please check appropriate box(es): [ ] Atrial flutter is related to COVID [s ] Atrial flutter is not related to COVID [ ] Other diagnosis (Please specify if any) [ ] Unable to determine Physician Signature: Date/Time: For continuity of documentation, please document condition throughout progress notes and discharge summary. Thank You. To be completed by CDI/Coding staff for physician review: Present Clinical Indicators - Signs / Symptoms / Labs Results and Location in Medical Record [x] She had an incidental positive COVID test. Referred to the hospitalist. Discharge summary on 11/15 [x] Patient was having recurrent atrial flutter causing her chest discomfort Discharge summary on 11/15 [x] Recurrent atypical atrial flutter, requiring amiodarone for suppression Consult on 11/12 [x] COVID pneumonia Discharge summary on 11/15 Present Risk Factors Results and Location in Medical Record [x] Aged person 79 yrs Discharge summary on 11/15 [ ] Present Treatments Results and Location in Medical Record [x] Cardiac consult Consult on 11/12 [x] Amiodarone 200mg Medcation on 11/11, 11/12 [x] Quarantining for COVID for diagnosis made on 11/09/20 Discharge summary on 11/15 [ ] CDS/Escalator Constructor Signature:AAS Phone #: Date/Time: 11/20/2020 This is a permanent part of the Medical Record [facility]
== END 2020-11-15 18:05 | disposition home or self-care (01) | DRG 273 ==
LOC: ERS 16:10 → 2SW 20:45 → OBSVTOIN 11-11 12:33
PROVIDERS: ADMIT Student in an Organized Health Care Education/Training Program; ATTEND Internal Medicine
PROC: 3E033XZ Introduction of Vasopressor into Peripheral Vein, Percutaneous Approach (ICD-10-PCS; principal; 2020-11-14)
PROC: 02583ZZ Destruction of Conduction Mechanism, Percutaneous Approach (ICD-10-PCS; 2020-11-14)
PROC: 02K83ZZ Map Conduction Mechanism, Percutaneous Approach (ICD-10-PCS; 2020-11-14)
PROC: 4A023FZ Measurement of Cardiac Rhythm, Percutaneous Approach (ICD-10-PCS; 2020-11-14)
PROC: 4A0234Z Measurement of Cardiac Electrical Activity, Percutaneous Approach (ICD-10-PCS; 2020-11-14)
DX: I48.4 Atypical atrial flutter (principal); U07.1 COVID-19; J12.82 Pneumonia due to coronavirus disease 2019; I50.32 Chronic diastolic (congestive) heart failure; I13.0 Hypertensive heart and chronic kidney disease with heart failure and stage 1 through stage 4 chronic kidney disease, or unspecified chronic kidney disease; I49.5 Sick sinus syndrome; I27.20 Pulmonary hypertension, unspecified; E11.22 Type 2 diabetes mellitus with diabetic chronic kidney disease; I25.10 Atherosclerotic heart disease of native coronary artery without angina pectoris; Z66 Do not resuscitate; F41.9 Anxiety disorder, unspecified; E78.5 Hyperlipidemia, unspecified; N18.30 Chronic kidney disease, stage 3 unspecified; E78.00 Pure hypercholesterolemia, unspecified; E03.9 Hypothyroidism, unspecified; I48.0 Paroxysmal atrial fibrillation; I08.1 Rheumatic disorders of both mitral and tricuspid valves; I95.81 Postprocedural hypotension; Z90.710 Acquired absence of both cervix and uterus; I25.2 Old myocardial infarction; Z95.1 Presence of aortocoronary bypass graft; I69.320 Aphasia following cerebral infarction; Z98.890 Other specified postprocedural states; Z88.8 Allergy status to other drugs, medicaments and biological substances; Z88.2 Allergy status to sulfonamides; Z79.899 Other long term (current) drug therapy; Z79.01 Long term (current) use of anticoagulants; Z95.0 Presence of cardiac pacemaker; Z79.890 Hormone replacement therapy; Z95.5 Presence of coronary angioplasty implant and graft
CPT/HCPCS: 0240U; 36005; 36415; 36416; 71045; 75820; 76942; 80048; 80053; 80061; 82728; 83735; 83880; 84484; 85025; 85379; 85384; 86140; 93005; 93010; 93306; 93613; 93623; 93650; C2630; G0378; J1265; J1644; J1815; J2250; J2370; J2704; J3010; J3490; Q9967

== ENCOUNTER 2020-11-19 10:50 | Observation (INO) | payer MEDICARE, BC ==
--- NOTE | 2020-11-19 11:39 | RAD ---
Exam: Chest one view HISTORY:Chest pain Comparison: 11/09/2020 FINDINGS: Cardiac silhouette: Cardiomegaly. Stable left-sided transvenous pacemaker and sternotomy wires. Aorta: Atherosclerosis Pulmonary vessels: Normal Costophrenic angles: Clear LUNGS: No masses or consolidation. Chronic lung parenchymal changes of the lung parenchyma. Pneumothorax: Bilateral apical pleural calcifications. Osseous abnormalities: None IMPRESSION: 1. No acute cardiopulmonary process 2. Atherosclerosis 3. Chronic lung parenchymal changes
[2020-11-19 12:10] LABS: #Eosinphils 0.1 thou/uL (0.0-0.7); #Lymphocytes 1.1 thou/uL (1.20-3.40); #Monocytes 0.6 thou/uL (0.11-0.59); #Neutrophils 5.2 thou/uL (1.40-6.50); %Basophils 0.6 % (0.0-1.0); %Eosinophils 1.4 % (0.0-10.0); %Lymphocytes 15.8 % (21.0-51.0); %Monocytes 8.2 % (0.0-10.0); %Neutrophils 74.1 % (42.0-75.0); Hemoglobin 11.8 g/dL (12.0-16.0); Mean Corpuscular Hemoglobin 28.5 pg (27.0-31.0); Mean Corpuscular Volume 88.9 fL (78.0-98.0); Mean Platelet Volume 8.3 fL (7.4-10.4); Platelet Count 174 thou/uL (130-400); RBC Distribution Width 14.3 % (11.5-14.5); Red Blood Cell (RBC) Count 4.13 mill/uL (4.20-5.40)
[2020-11-19 12:30] LABS: ALT (SGPT) 16 U/L (8-55); AST (SGOT) 18 U/L (5-34); Albumin 3.7 g/dL (3.4-4.8); Alkaline Phosphatase 95 U/L (40-110); Anion Gap 14 mmol/L (10-20); BUN (Urea Nitrogen) 34 mg/dL (9.8-20.1); Bilirubin, Total 0.8 mg/dL (0.2-1.2); Calc. Creatinine Clearance 0 mL/min (70-130); Calcium 8.7 mg/dL (7.8-10.44); Carbon Dioxide 25 mmol/L (23-31); Chloride 104 mmol/L (98-107); Globulin 3.5 g/dL (2.4-3.5); Glucose 133 mg/dL (83-110); Potassium 4.5 mmol/L (3.5-5.1); Protein, Total 7.2 g/dL (5.8-8.1); Sodium 138 mmol/L (136-145)
[2020-11-19] MEDS ORDERED: Aspirin Chewable 81 MG TAB ONE (13:05)
--- NOTE | 2020-11-19 15:08 | PDOC.HHP ---
Hospitalist HPI Chest pain History of Present Illness: Ms. Malik is an 79-year-old female with past medical history of coronary art corazon disease status post CABG, atrial flutter on Eliquis status post ablation, permanent pacemaker, hypertension, hyperlipidemia, hypothyroidism, CKD with baseline creatinine 1.5. Who presents emergency room for chest pain. Of note patient was recently discharged the hospital on 11/15/2020 for a chest pain admission. During that admission she was found to have chest pain thought to be caused by atrial flutter. She underwent an AV jono ablation with Dr. Vergara on 11/14/2020. Patient reports that this morning from approximately 4 AM to 8 AM she had extreme 10 out of 10 left-sided chest pain near her pacemaker that extended down her left arm and around the side of her rib cage. She reports that this feels different than her prior palpitation. She denied any shortness of breath during this episode. Denies any alleviating or aggravating factors. Pain was not dependent on position. Now the pain is completely resolved and she feels back to her baseline status. She denies any nausea vomiting diarrhea. No indigestion. Denies any numbness, weakness, paresthesias. Denies dizziness, li ghtheadedness. In emergency room initial vital signs 127/71, 93, 24, 97.9, 96% on room air. Initial troponin 0 0.032, EKG showed a left bundle branch block which is sclerosis criteria negative and V paced rhythm. No evidence of ischemic changes. Patient did receive 325 mg of aspirin. WBC 7.0, H/H 11.8/36.7, BUN/CR 34/2.08, sodium 138, potassium 4.5, glucose 133. Chest x-ray with no acute abn ormalities. Of note patient COVID-19 positive identified on last admission. She is remained largely asymptomatic. Allergies/Adverse Reactions: Allergy/AdvReac Type Severity Reaction Status Date / Time sotalol Allergy Severe torsades Verified 01/07/20 04:03 furosemide [From Lasix] Allergy Intermediate Rash Verified 01/07/20 04:03 Sulfa (Sulfonamide Allergy Rash Verified 01/07/20 04:03 Antibiotics) Home Medications: Medication Instructions Recorded Confirmed Type PARoxetine HCl [Paxil] 40 mg PO DAILY tab 09/06/17 11/19/20 Rx Lorazepam [Ativan] 0.5 mg PO BID 12/15/18 11/19/20 History Atorvastatin Calcium [Lipitor] 40 mg PO HS tab 01/15/19 11/19/20 Rx Carvedilol [Coreg] 25 mg PO BID tab 01/15/19 11/19/20 Rx Pantoprazole [Protonix] 40 mg PO HS 02/08/19 11/19/20 History Apixaban [Eliquis] 5 mg PO BID tab 02/14/19 11/19/20 Rx Meclizine HCl [Antivert] 25 mg PO Q8H PRN tab 02/14/19 11/10/20 Rx Amlodipine [Norvasc] 5 mg PO DAILY 11/10/20 11/19/20 History Lactobacillus Acidophilus 1 cap PO DAILY 11/10/20 11/10/20 History [Probiotic] Levothyroxine Sodium 50 mcg PO QAM 11/10/20 11/19/20 History [Levothyroxine] Lisinopril 10 mg PO DAILY 11/10/20 11/19/20 History Mirtazapine 7.5 mg PO HS 11/10/20 11/19/20 History Ondansetron HCl [Zofran] 4 mg PO ASDIR PRN 11/10/20 11/19/20 History Potassium Chloride [Klor-Con 10] 10 meq PO TID 11/10/20 11/19/20 History Torsemide [Demadex] 20 mg PO DAILY 11/10/20 11/19/20 History Ascorbic Acid [Vitamin C] 1,000 mg PO DAILY tab 11/15/20 Rx Aspirin [Ecotrin Low Strength] 81 mg PO DAILY tab 11/15/20 Rx Isosorbide Mononitrate [Imdur] 60 mg PO HS #30 tab 11/15/20 Rx Ranolazine [Ranexa] 500 mg PO BID #60 tab 11/15/20 Rx Zinc Sulfate 220 mg PO DAILY cap 11/15/20 Rx Amiodarone HCl 200 mg PO DAILY 11/19/20 11/19/20 History metFORMIN [Glucophage] 500 mg PO AC 11/19/20 11/19/20 History Past History: PMHx: PSHx: FHx: Social: Hospitalist HPI ROS Constitutional: denies: fever, chills, sweats, weakness, malaise, other Eyes: denies: pain, vision change, conjunctivae inflammation, eyelid inflammation, redness, other ENT: denies: ear pain, ear discharge, nose pain, nose discharge, nose congestion, mouth pain, mouth swelling, throat pain, throat swelling, other Respiratory: denies: cough, dry, shortness of breath, hemoptysis, SOB with excertion, pleuritic pain, sputum, wheezing, other Cardiovascular: reports: chest pain. denies: palpitations, orthopnea, paroxysmal noc. dyspnea, edema, light headedness, other Gastrointestinal: denies: nausea, vomiting, abdominal pain, diarrhea, constipation, melena, hematochezia, other Genitourinary: denies: dysuria, frequency, incontinence, hematuria, retention, other Musculoskeletal: denies: neck pain, shoulder pain, arm pain, back pain, hand pain, leg pain, foot pain, other Skin: denies: rash, lesions, jun, bruising, other Neurological: denies: weakness, numbness, incoordination, change in speech, confusion, seizures, other Hospitalist Exam General Appearance: NAD, awake alert Eye: PERRL, anicteric sclera ENT: normocephalic atraumatic, no oropharyngeal lesions, moist mucosa Neck: supple, symmetric, no JVD, no thyromegaly, no lymphadenopathy, no carotid bruit Heart: RRR, no murmur, no gallops, no rubs, normal peripheral pulses Respiratory: CTAB, no wheezes, no rales, no ronchi, normal chest expansion, no tachypnea, normal percussion Gastrointestinal: soft, non-tender, non-distended, normal bowel sounds, no palpable masses, no hepatomegaly, no splenomegaly, no bruit Extremities: no cyanosis, no clubbing, no edema Skin: normal turgor, no lesions, no rashes Neurological: cranial nerve grossly intact, normal sensation to touch, no weakness, no focal deficits, no new deficit Musculoskeletal: normal tone, normal strength, no muscle wasting Psychiatric: normal affect, normal behavior, A&O x 3 Hospitalist Results Result Diagrams: 11/19/20 11:49 11/19/20 11:49 Lab results: Laboratory Last Values WBC 7.0 thou/uL (4.8-10.8) 11/19/20 11:49 RBC 4.13 mill/uL (4.20-5.40) L 11/19/20 11:49 Hgb 11.8 g/dL (12.0-16.0) L 11/19/20 11:49 Hct 36.7 % (36.0-47.0) 11/19/20 11:49 MCV 88.9 fL (78.0-98.0) 11/19/20 11:49 MCH 28.5 pg (27.0-31.0) 11/19/20 11:49 MCHC 32.0 g/dL (32.0-36.0) 11/19/20 11:49 RDW 14.3 % (11.5-14.5) 11/19/20 11:49 Plt Count 174 thou/uL (130-400) 11/19/20 11:49 MPV 8.3 fL (7.4-10.4) 11/19/20 11:49 Neutrophils % 74.1 % (42.0-75.0) 11/19/20 11:49 Lymphocytes % 15.8 % (21.0-51.0) L 11/19/20 11:49 Monocytes % 8.2 % (0.0-10.0) 11/19/20 11:49 Eosinophils % 1.4 % (0.0-10.0) 11/19/20 11:49 Basophils % 0.6 % (0.0-1.0) 11/19/20 11:49 Neutrophils # 5.2 thou/uL (1.40-6.50) 11/19/20 11:49 Lymphocytes # 1.1 thou/uL (1.20-3.40) L 11/19/20 11:49 Monocytes # 0.6 thou/uL (0.11-0.59) H 11/19/20 11:49 Eosinophils # 0.1 thou/uL (0.0-0.7) 11/19/20 11:49 Basophils # 0.0 thou/uL (0.0-0.2) 11/19/20 11:49 Sodium 138 mmol/L (136-145) 11/19/20 11:49 Potassium 4.5 mmol/L (3.5-5.1) 11/19/20 11:49 Chloride 104 mmol/L (98-107) 11/19/20 11:49 Carbon Dioxide 25 mmol/L (23-31) 11/19/20 11:49 Anion Gap 14 mmol/L (10-20) 11/19/20 11:49 BUN 34 mg/dL (9.8-20.1) H 11/19/20 11:49 Creatinine 2.08 mg/dL (0.6-1.1) H 11/19/20 11:49 Estimated GFR (MDRD) 23 11/19/20 11:49 Glucose 133 mg/dL (83-110) H 11/19/20 11:49 Calcium 8.7 mg/dL (7.8-10.44) 11/19/20 11:49 Total Bilirubin 0.8 mg/dL (0.2-1.2) 11/19/20 11:49 AST 18 U/L (5-34) 11/19/20 11:49 ALT 16 U/L (8-55) 11/19/20 11:49 Alkaline Phosphatase 95 U/L (40-110) 11/19/20 11:49 CK-MB (CK-2) 1.0 ng/mL (0-6.6) 11/19/20 11:49 Troponin I 0.032 ng/mL (< 0.028) H 11/19/20 11:49 Serum Total Protein 7.2 g/dL (5.8-8.1) 11/19/20 11:49 Albumin 3.7 g/dL (3.4-4.8) 11/19/20 11:49 Globulin 3.5 g/dL (2.4-3.5) 11/19/20 11:49 Albumin/Globulin Ratio 1.1 g/dL (1.2-2.2) L 11/19/20 11:49 Hospitalist H&P A/P Plan: Chest pain 79-year female significant history of coronary artery disease status post CABG with recent admission for chest pain which was thought to be due to a flutter. Patient now he presents with chest pain which she reports is different in quality left-sided which radiates down her arm lasting for hours and now completely resolved. Initial troponin 0 0.032, EKG with left bundle branch block and V paced rhythm no ischemic changes. Patient received 325 mg of aspirin in emergency room. Patient recently underwent a AV joon ablation with Dr. Vergara on 11/14/2020. Will admit for observation, trend troponin and place on telemetry monitoring as well as interrogate pacemaker. Plan Trend troponin Telemetry monitoring Interrogate pacemaker Aspirin, Nitropaste Elevation in troponin Patient with mild elevation in troponin to 0.032. Given chest pain concern for NSTEMI. Patient's pain is completely resolved. Patient does also has a history of chronic kidney disease with a baseline elevated troponin. We will continue to trend and monitor. Plan As above Atrial flutter History of atrial flutter status post ablation with Dr. Vergara on 11/14/2020. Patient formally on amiodarone which was discontinued on the last admission. Patient reports her chest pain is different than her prior pain thought to be due from a flutter on last admission. We will interrogate pacer and consider EP consult if abnormal results. We will continue on home Eliquis. Plan Continue home Eliquis Pacemaker interrogation Consider EP consult Acute kidney injury in setting of chronic kidney disease BUN/CR 34/2.08. Baseline creatinine 1.5. History of CKD. Will administer gentle IV fluids and continue to trend. Plan Gentle IV fluids Trend kidney function Avoid nephrotoxic agents were possible Renal dosing as appropriate COVID-19 Patient incidentally found to be positive for COVID-19 on recent admission on 11/09/2020. Patient remains largely asymptomatic. This may also be contributing to patient's very mild elevation in troponin. We will continue to monitor for symptoms. Hypertension Continue home antihypertensives once dosage confirmed. Hyperlipidemia Continue home cholesterol medications once dosage confirmed. Hypothyroidism Continue home levothyroxine once dosage confirmed. DVT prophylaxison Eliquis DNR Case discussed with attending physician, Dr. Valadez.
[2020-11-19 16:19] LABS: Troponin I 0.024 ng/mL (< 0.028)
[2020-11-19 19:05] LABS: Troponin I 0.023 ng/mL (< 0.028)
[2020-11-19] MEDS: Sodium Chloride 0.9% 1,000 ML IV SCH (20:26)
[2020-11-19] MEDS: Nitroglycerin 2% Ointment 1 INCH/1 GM Packet TOP SCH (22:18)
[2020-11-20 01:58] VITALS: BMI 28.0
[2020-11-20] MEDS: Sodium Chloride 0.9% 1,000 ML IV SCH ×2 (04:25→08:22)
[2020-11-20 04:43] LABS: #Eosinphils 0.2 thou/uL (0.0-0.7); #Lymphocytes 1.1 thou/uL (1.20-3.40); #Monocytes 0.6 thou/uL (0.11-0.59); #Neutrophils 3.9 thou/uL (1.40-6.50); %Basophils 0.8 % (0.0-1.0); %Eosinophils 2.9 % (0.0-10.0); %Monocytes 10.2 % (0.0-10.0); %Neutrophils 67.1 % (42.0-75.0); Hemoglobin 10.7 g/dL (12.0-16.0); Mean Corpuscular HGB CONC 31.3 g/dL (32.0-36.0); Mean Corpuscular Hemoglobin 27.5 pg (27.0-31.0); Mean Corpuscular Volume 87.9 fL (78.0-98.0); Mean Platelet Volume 8.2 fL (7.4-10.4); Platelet Count 160 thou/uL (130-400); RBC Distribution Width 14.2 % (11.5-14.5); Red Blood Cell (RBC) Count 3.88 mill/uL (4.20-5.40); White Blood Cell (WBC) Count 5.9 thou/uL (4.8-10.8)
[2020-11-20 05:04] LABS: Anion Gap 13 mmol/L (10-20); BUN (Urea Nitrogen) 35 mg/dL (9.8-20.1); Calc. Creatinine Clearance 27 mL/min (70-130); Calcium 8.5 mg/dL (7.8-10.44); Carbon Dioxide 22 mmol/L (23-31); Chloride 108 mmol/L (98-107); Glucose 108 mg/dL (83-110); Potassium 4.3 mmol/L (3.5-5.1); Sodium 139 mmol/L (136-145)
[2020-11-20] MEDS: Nitroglycerin 2% Ointment 1 INCH/1 GM Packet TOP SCH (06:09)
[2020-11-20] MEDS ORDERED: Aspirin Chewable 81 MG TAB PO SCH (09:00)
[2020-11-20] MEDS ORDERED: FLU VACC QS2020-21(65YR UP)/PF 240 MCG/0.7 ML SYRINGE IM ONE (09:00)
[2020-11-20] MEDS ORDERED: Amlodipine 5 MG TAB PO SCH (09:00)
[2020-11-20] MEDS ORDERED: Aspirin 81 mg Enteric Coated Tablet PO SCH (09:00)
[2020-11-20] MEDS ORDERED: Apixaban 2.5 MG TAB PO SCH ×2 (09:00→21:00)
[2020-11-20] MEDS ORDERED: Lorazepam 0.5 MG TAB PO SCH ×2 (09:00→21:00)
[2020-11-20] MEDS: Carvedilol 25 MG TAB PO SCH ×2 (09:41→16:35)
--- NOTE | 2020-11-20 12:13 | CON ---
DATE OF CONSULTATION: HISTORY OF PRESENT ILLNESS: The patient is an 79-year-old woman with a long history of coronary artery disease and chest discomfort, who presents with recurrent chest pain. The patient was seen initially in the year 1999. She was found at that time to have a severe coronary artery disease. She underwent coronary artery bypass x1 with a graft to the obtuse marginal branch. The patient subsequently underwent numerous cardiac catheterizations, most recently in 2013, she was found to have an occluded bypass graft, the left main had a 20% lesion, the LAD had 40% to 50% lesion, left circumflex had 50% lesion. The patient continued to have chest discomfort. She also has a history of paroxysmal atrial fibrillation. She has been treated with amiodarone. The patient has subsequently had placement of dual-chamber electronic pacemaker. The patient was most recently admitted a few days ago with chest pain. At that time, she was noted to be in rapid atrial fibrillation. The patient subsequently underwent AV jono ablation. The patient reports that she was at home, and for the past few days, had occasional left-sided chest discomfort. On the day of admission, the patient developed severe left-sided chest discomfort that radiated down her left arm. She did not apparently receive nitroglycerin. The discomfort lasted for several hours. The patient denies having any present chest discomfort. PAST MEDICAL HISTORY: 1. Coronary artery disease. 2. Atrial fibrillation. 3. Severe mitral regurgitation. 4. Severe tricuspid regurgitation. 5. Pulmonary hypertension. 6. Renal insufficiency. PAST SURGICAL HISTORY: She had coronary artery bypass surgery, hysterectomy. SOCIAL HISTORY: Nonsmoker. MEDICATIONS: On admission included; 1. Demadex 20 daily. 2. Potassium 10 t.i.d. 3. Protonix 40 daily. 4. Paxil 40 daily. 5. Ativan 0.5 b.i.d. 6. Mirtazapine 7.5 at bedtime. 7. Lipitor 40 at bedtime. 8. Coreg 25 b.i.d. 9. Norvasc 5 daily. 10. Eliquis 5 mg p.o. b.i.d. 11. Lisinopril 10 daily. 12. Metformin 500 daily. 13. Amiodarone 200 daily. 14. Aspirin 81 daily. 15. Imdur 60 at bedtime. 16. Zinc sulfate 220 daily. 17. Vitamin C. FAMILY HISTORY: There is a positive family history of coronary artery disease. PHYSICAL EXAMINATION: GENERAL: Obese pale woman, who is anxious, in no acute distress. VITAL SIGNS: Blood pressure 161/89. NECK: Showed no jugular venous distention. LUNGS: Clear to auscultation. HEART: Regular rate and rhythm. Normal S1 and S2 with a 3/6 systolic murmur. ABDOMEN: Distended. EXTREMITIES: Showed moderate bilateral edema. VASCULAR : Radial pulse 2+. LABORATORY DATA: White blood cell count 5.9, hemoglobin 10.7, hematocrit 34.1, platelets 160. Sodium 139, potassium 4.3, chloride 108, bicarbonate 22, BUN 35, creatinine 1.2. Troponin was 0.023. Her EKG revealed a dual-chamber electronic pacemaker. Interrogation of the pacemaker revealed no atrial fibrillation. IMPRESSION: 1. Chest pain with features suggestive of angina. 2. History of coronary artery bypass surgery and diffuse coronary artery disease. 3. History of atrial fibrillation. 4. History of pacemaker placement. 5. Severe mitral regurgitation. 6. Severe tricuspid regurgitation. 7. Renal insufficiency. 8. COVID positive. This patient presents with chest pain, suggestive of angina. The patient was recently started on Ranexa. At this time, we would recommend increasing the dose of Imdur. The patient is also on high dose of beta bran and on Norvasc. From a cardiac standpoint, we would recommend stress testing to evaluate whether there is evidence of significant ischemia. With her renal insufficiency, we will be hesitant to proceed with invasive evaluation unless there is objective evidence of significant ischemia. We will follow this patient with you through her hospitalization. This is a consult note to Dr. Valadez. Job ID: [id number]
--- NOTE | 2020-11-20 13:06 | PDOC.HOSPP ---
- Subjective Encounter Date: 11/20/20 Encounter Time: 12:10 Subjective: Patient seen for follow-up regarding chest pain. She reports having chest pain earlier today. - Objective Vital Signs & Weight: Vital Signs (12 hours) Temp Pulse Resp BP Pulse Ox 11/20/20 12:00 98.2 F 90 18 135/73 94 L 11/20/20 08:20 97.6 F 82 24 H 161/89 H 96 11/20/20 08:17 79 11/20/20 08:13 94 L 11/20/20 06:05 79 142/72 H 11/20/20 04:00 97.8 F 82 24 H 142/79 H 99 Weight Weight 163 lb 4.8 oz I&O: 11/19/20 11/20/20 11/21/20 06:59 06:59 06:59 Intake Total 433 240 Output Total 550 Balance 433 -310 Result Diagrams: 11/20/20 04:34 11/20/20 04:34 Additional Labs: I reviewed patient's labs and MAR EKG Reviewed by me: Yes (AV paced rhythm on telemetry) Hospitalist ROS - Review of Systems Cardiovascular: reports: chest pain. denies: palpitations, orthopnea, paroxysma l noc. dyspnea, edema, light headedness Gastrointestinal: denies: nausea, vomiting, abdominal pain, diarrhea, constipation, melena, hematochezia - Medication Medications: Active Medications Generic Name Dose Route Start Last Admin Trade Name Freq PRN Reason Stop Dose Admin Amlodipine Besylate 5 mg 11/20/20 09:00 11/20/20 08:17 Amlodipine 5 Mg Tab PO 5 mg DAILY MENA Administration Aspirin 81 mg 11/20/20 09:00 11/20/20 08:17 Aspirin Chewable 81 Mg Tab PO 81 mg DAILY MENA Administration Aspirin 81 mg 11/20/20 09:00 11/20/20 08:17 Aspirin 81 Mg Enteric Coated Tablet PO Not Given DAILY MENA Carvedilol 25 mg 11/20/20 08:00 11/20/20 09:41 Carvedilol 25 Mg Tab PO 25 mg BID-WM MENA Administration Sodium Chloride 1,000 mls @ 75 mls/hr 11/19/20 15:15 11/20/20 08:22 Normal Saline 0.9% IV 1,000 mls .[id number] MENA Administration Isosorbide Mononitrate 120 mg 11/20/20 09:00 11/20/20 09:41 Isosorbide Mononitrate Er 60 Mg Tab PO 120 mg DAILY MENA Administration Lorazepam 0.5 mg 11/20/20 09:00 11/20/20 08:17 Lorazepam 0.5 Mg Tab PO 0.5 mg BID MENA Administration Ranolazine 500 mg 11/20/20 09:00 11/20/20 09:41 Ranolazine 500 Mg Tab PO 500 mg BID MENA Administration Hospitalist Exam Vitals: Vital Signs (12 hours) Temp Pulse Resp BP Pulse Ox 11/20/20 12:00 98.2 F 90 18 135/73 94 L 11/20/20 08:20 97.6 F 82 24 H 161/89 H 96 11/20/20 08:17 79 11/20/20 08:13 94 L 11/20/20 06:05 79 142/72 H 11/20/20 04:00 97.8 F 82 24 H 142/79 H 99 Weight Weight 163 lb 4.8 oz General Appearance: awake alert Eye: anicteric sclera ENT: normocephalic atraumatic Neck: supple Heart: RRR Respiratory: CTAB Gastrointestinal: soft, non-tender Skin: no rashes Psychiatric: normal affect, normal behavior Hosp A/P - Plan Chest pain Patient has a history of coronary artery bypass graft. Initial troponin was elevated, subsequently troponin normalized. Consult cardiology, patient will likely need a stress test. Atrial flutter Pacemaker interrogation. Acute kidney injury in setting of chronic kidney disease Creatinine improved to 1.92. COVID-19 Patient is 10 days to the positive test. Can likely come off of precautions. Hypertension Trolled Hyperlipidemia Stable Hypothyroidism Stable DVT prophylaxison Eliquis DNR
[2020-11-20] MEDS ORDERED: Regadenoson 0.4 MG/5 ML SYRINGE ONE (13:14)
[2020-11-20 16:11] VITALS: BP 138/81; TEMP 98.1
--- NOTE | 2020-11-20 16:11 | NM ---
Exam: Nuclear medicine cardiac stress with EF and wall motion HISTORY: Chest pain TECHNIQUE: Patient was ministered 9.6 mCi of technetium 99m sestamibi for rest imaging and 27.10 mCi of technetium 99m sestamibi for stress imaging. Cardiac gating is performed FINDINGS: There appears be a fixed defect involving the septum. No reversibility TID = 0.90 End-diastolic volume is 66 mL End-systolic volume is 30 mL Cardiac gating: Normal wall motion and thickening. 55% ejection fraction IMPRESSION: 1. Fixed defect in the septum. No reversibility 2. 55% ejection fraction
--- NOTE | 2020-11-20 17:43 | PDOC.DS.DS ---
Provider Date of Admission: 11/19/20 14:45 Date of Discharge: 11/20/20 Admitting Provider: Viktoria Valadez MD Consultations: Cardiology (Dr. Wallace) Primary Care Physician: Saul Ashley MD Course Hospital Course: Discharge diagnosis: 1. Chest pain 2. Chest pain most likely secondary to musculoskeletal etiology 3. Acute on chronic stage III renal failure Hospital course: Patient is a pleasant 79-year-old lady who was admitted to the hospital on November 19, 2020 for chest pain and acute on chronic renal failure. She was seen by cardiology service. She underwent nuclear stress test, which showed a fixed defect in the septum, no reversibility and 55% left ventricle ejection fraction. Her chest pain resolved. She is being discharged home in a stable condition. Her apixaban dose was decreased to 2.5 mg 2 times a day. Lisinopril and Metformin are temporarily discontinued. Many thanks for allowing me to participate in your patient's care. Please feel free to contact me with any questions or concerns. Discharge destination: Home Lab Results: 11/20/20 04:34 11/20/20 04:34 Abnormal Lab Results - Last 48 hrs 11/19/20 11:49: Troponin I 0.032 H 11/19/20 11:49: RBC 4.13 L, Hgb 11.8 L, Lymphocytes % 15.8 L, Lymphocytes # 1.1 L, Monocytes # 0.6 H 11/19/20 11:49: BUN 34 H, Creatinine 2.08 H, Albumin/Globulin Ratio 1.1 L 11/20/20 04:34: Chloride 108 H, Carbon Dioxide 22 L, BUN 35 H, Creatinine 1.92 H 11/20/20 04:34: RBC 3.88 L, Hgb 10.7 L, Hct 34.1 L, MCHC 31.3 L, Lymphocytes % 19.0 L, Monocytes % 10.2 H, Lymphocytes # 1.1 L, Monocytes # 0.6 H Vitals: Vital Signs (12 hours) Temp Pulse Resp BP Pulse Ox 11/20/20 16:00 98.1 F 90 16 138/81 93 L 11/20/20 12:00 98.2 F 90 18 135/73 94 L 11/20/20 08:20 97.6 F 82 24 H 161/89 H 96 11/20/20 08:17 79 11/20/20 08:13 94 L 11/20/20 06:05 79 142/72 H Weight Weight 163 lb 4.8 oz Physical Exam: The patient was seen and examined on the day of discharge. Please refer to my daily progress note for further details regarding this [id number]-scan encounter. Plan Prescriptions: Isosorbide Mononitrate [Imdur] 120 mg PO DAILY #60 tab Home Medications: Medication Instructions Recorded Confirmed Type PARoxetine HCl [Paxil] 40 mg PO DAILY tab 09/06/17 11/19/20 Rx Lorazepam [Ativan] 0.5 mg PO BID 12/15/18 11/19/20 History Atorvastatin Calcium [Lipitor] 40 mg PO HS tab 01/15/19 11/19/20 Rx Carvedilol [Coreg] 25 mg PO BID tab 01/15/19 11/19/20 Rx Pantoprazole [Protonix] 40 mg PO HS 02/08/19 11/19/20 History Apixaban [Eliquis] 5 mg PO BID tab 02/14/19 11/19/20 Rx Meclizine HCl [Antivert] 25 mg PO Q8H PRN tab 02/14/19 11/20/20 Rx Amlodipine [Norvasc] 5 mg PO DAILY 11/10/20 11/19/20 History Lactobacillus Acidophilus 1 cap PO DAILY 11/10/20 11/20/20 History [Probiotic] Levothyroxine Sodium 50 mcg PO QAM 11/10/20 11/19/20 History [Levothyroxine] Mirtazapine 7.5 mg PO HS 11/10/20 11/19/20 History Ondansetron HCl [Zofran] 4 mg PO ASDIR PRN 11/10/20 11/19/20 History Potassium Chloride [Klor-Con 10] 10 meq PO TID 11/10/20 11/19/20 History Torsemide [Demadex] 20 mg PO DAILY 11/10/20 11/19/20 History Ascorbic Acid [Vitamin C] 1,000 mg PO DAILY tab 11/15/20 11/20/20 Rx Aspirin [Ecotrin Low Strength] 81 mg PO DAILY tab 11/15/20 11/20/20 Rx Ranolazine [Ranexa] 500 mg PO BID #60 tab 11/15/20 11/20/20 Rx Zinc Sulfate 220 mg PO DAILY cap 11/15/20 11/20/20 Rx Amiodarone HCl 200 mg PO DAILY 11/19/20 11/19/20 History Isosorbide Mononitrate [Imdur] 120 mg PO DAILY #60 tab 11/20/20 Rx Allergies: sotalol Allergy (Severe, Verified 01/07/20 04:03) torsades furosemide [From Lasix] Allergy (Intermediate, Verified 01/07/20 04:03) Rash Sulfa (Sulfonamide Antibiotics) Allergy (Verified 01/07/20 04:03) Rash Discharge Instructions:: Have your creatinine and electrolytes checked in 3 to 5 days through primary care provider's office and primary care provider to decide regarding resumption of Metformin and lisinopril. Check your blood pressure, heart rate and blood sugars 3 times a day and shows readings to primary care provider. Activity:: Activity as Tolerated Nourishment:: Diabetic Diet, Heart Healthy Diet, Renal Diet Referrals: Saul Ashley MD [Primary Care Provider] - 3 Days Disposition: HOME Quality CORE MEASURES:: N/A
[2020-11-20] MEDS ORDERED: Atorvastatin Calcium 40 MG TAB PO SCH (21:00)
--- NOTE | 2020-11-24 20:37 | EKG ---
Test Reason : Blood Pressure : / mmHG Vent. Rate : 084 BPM Atrial Rate : 084 BPM P-R Int : 200 ms QRS Dur : 176 ms QT Int : 472 ms P-R-T Axes : 017 125 -47 degrees QTc Int : 557 ms AV sequential or dual chamber electronic pacemaker Confirmed by VIK NAVARRETE, SHAHIDA ([id number]), features editor PATRICK HOLDER ([id number]) on 11/24/2020 8:37:17 PM Referred By: Confirmed By:SHAHIDA CHERY MD
== END 2020-11-20 20:05 | disposition home or self-care (01) ==
LOC: ERS 10:50 → 2SE 14:35 → ERHOLD 14:45 → 2SE 11-20 00:55
PROVIDERS: ADMIT Internal Medicine; ATTEND Internal Medicine
DX: R07.89 Other chest pain (principal); I12.9 Hypertensive chronic kidney disease with stage 1 through stage 4 chronic kidney disease, or unspecified chronic kidney disease; E11.22 Type 2 diabetes mellitus with diabetic chronic kidney disease; N18.30 Chronic kidney disease, stage 3 unspecified; N17.9 Acute kidney failure, unspecified; U07.1 COVID-19; R77.8 Other specified abnormalities of plasma proteins; I48.92 Unspecified atrial flutter; I25.10 Atherosclerotic heart disease of native coronary artery without angina pectoris; E78.5 Hyperlipidemia, unspecified; E03.9 Hypothyroidism, unspecified; I25.2 Old myocardial infarction; E78.00 Pure hypercholesterolemia, unspecified; I70.0 Atherosclerosis of aorta; I48.0 Paroxysmal atrial fibrillation; I08.1 Rheumatic disorders of both mitral and tricuspid valves; I44.7 Left bundle-branch block, unspecified; Z66 Do not resuscitate; Z79.01 Long term (current) use of anticoagulants; Z79.82 Long term (current) use of aspirin; Z79.84 Long term (current) use of oral hypoglycemic drugs; Z79.899 Other long term (current) drug therapy; Z88.2 Allergy status to sulfonamides; Z88.8 Allergy status to other drugs, medicaments and biological substances; Z95.0 Presence of cardiac pacemaker; Z95.1 Presence of aortocoronary bypass graft
CPT/HCPCS: 71045; 78452; 80048; 80053; 82553; 84484 ×2; 85025 ×2; 93005; 93017; 94760; 99285; A9500; 36415; G0378; J2785

== ENCOUNTER 2020-11-25 17:31 | Inpatient (IN) | payer MEDICARE, BC ==
[~2020-11-25 17:31] MED LIST changes: +EPINEPHrine 1 MG/10 ML Abboject SYRINGE ONE; -ISOVUE-370 76%-LOCM 1 ML ONE; +Sodium Bicarb 50 MEQ/50 ML Abboject 8.4% SYRINGE ONE
[2020-11-25 18:34] LABS: #Eosinphils 0.1 thou/uL (0.0-0.7); #Lymphocytes 0.7 thou/uL (1.20-3.40); #Neutrophils 6.3 thou/uL (1.40-6.50); %Basophils 0.1 % (0.0-1.0); %Eosinophils 1.4 % (0.0-10.0); %Neutrophils 77.4 % (42.0-75.0); Hemoglobin 11.7 g/dL (12.0-16.0); Mean Corpuscular HGB CONC 31.4 g/dL (32.0-36.0); Mean Corpuscular Hemoglobin 27.5 pg (27.0-31.0); Mean Corpuscular Volume 87.6 fL (78.0-98.0); Mean Platelet Volume 8.4 fL (7.4-10.4); Platelet Count 201 thou/uL (130-400); Red Blood Cell (RBC) Count 4.26 mill/uL (4.20-5.40); White Blood Cell (WBC) Count 8.2 thou/uL (4.8-10.8)
[2020-11-25 18:57] LABS: Albumin 3.5 g/dL (3.4-4.8)
[2020-11-25 18:58] LABS: Calcium 8.1 mg/dL (7.8-10.44); Chloride 105 mmol/L (98-107); Potassium 5.4 mmol/L (3.5-5.1); Sodium 135 mmol/L (136-145)
[2020-11-25 18:59] LABS: Glucose 159 mg/dL (83-110)
[2020-11-25 19:00] LABS: Globulin 3.2 g/dL (2.4-3.5); Protein, Total 6.7 g/dL (5.8-8.1)
[2020-11-25 19:01] LABS: Bilirubin, Total 0.8 mg/dL (0.2-1.2); Carbon Dioxide 15 mmol/L (23-31)
[2020-11-25 19:02] LABS: Alkaline Phosphatase 101 U/L (40-110)
[2020-11-25 19:03] LABS: Calc. Creatinine Clearance 0 mL/min (70-130)
[2020-11-25 19:04] LABS: AST (SGOT) 39 U/L (5-34); BUN (Urea Nitrogen) 49 mg/dL (9.8-20.1)
[2020-11-25 19:05] LABS: ALT (SGPT) 33 U/L (8-55)
[2020-11-25 19:17] LABS: CKMB 1.7 ng/mL (0-6.6)
[2020-11-25] MEDS ORDERED: Enoxaparin Sodium 80 MG/0.8 ML SYRINGE ONE (19:51)
[2020-11-25] MEDS ORDERED: Cefepime 2 GM VIAL ONE (19:51)
[2020-11-25] MEDS ORDERED: Sodium Bicarb 50 MEQ/50 ML VIAL ONE (19:51)
[2020-11-25] MEDS ORDERED: Azithromycin 500 MG VIAL ONE (19:51)
[2020-11-25] MEDS ORDERED: Calcium Gluc 4.6 MEQ/10 ML (100 MG/ML) ONE (19:54)
[2020-11-25 20:02] LABS: Anion Gap 20 mmol/L (10-20)
[2020-11-25] MEDS ORDERED: Acetaminophen 325 MG TAB PO PRN (21:46)
[2020-11-25] MEDS ORDERED: HYDROcodone/Acetaminophen 7.5/325 mg Tablet PO PRN (21:46)
[2020-11-25] MEDS ORDERED: Ondansetron PF 4 MG/2 ML Vial IVP PRN (21:46)
[2020-11-25] MEDS ORDERED: hydrALAZINE 20 MG/ML VIAL SLOW IVP PRN (21:51)
[2020-11-25] MEDS ORDERED: Lorazepam 1 MG TAB PO PRN (21:54)
[2020-11-25] MEDS ORDERED: Bumetanide 1 MG/4 ML VIAL IVP SCH (22:30)
[2020-11-25] MEDS ORDERED: Norepinephrine 8 MG/0.9% NS 250 ML ONE (22:33)
[2020-11-25] MEDS ORDERED: HumaLOG 300 UNITS/3 ML VIAL SC PRN (22:34)
[2020-11-25] MEDS ORDERED: Rocuronium Bromide 10 MG/ML (10ML VIAL) ONE (23:01)
[2020-11-25 23:05] LABS: Lactic Acid 3.1 mmol/L (0.5-2.2)
[2020-11-25 23:10] LABS: Magnesium 2.4 mg/dL (1.6-2.6); Phosphorus 5.5 mg/dL (2.3-4.7)
[2020-11-25 23:15] LABS: Troponin I 0.018 ng/mL (< 0.028)
[2020-11-25] MEDS ORDERED: Fentanyl CADD 100 ML IV SCH (23:30)
[2020-11-25] MEDS ORDERED: DOBUTamine 500 mg/250 ml 250 ML ONE (23:44)
[2020-11-25] MEDS ORDERED: DOBUTamine 500 mg/250 ml 250 ML IVPB SCH (23:45)
[2020-11-26 00:08] LABS: Actual Bicarbonate (HCO3a) 8.8 mEq/L (22-28); Analyzer IN Cardio ER; Base Excess (BEa) -17.3 mEq/L (-2.0 to +3.0); Calcium, Ionized (arterial) 1.16 mmol/L (1.12-1.30); Carboxyhemoglobin (COHb) 0.3 gm% (0.0-3.0); O2 Tension (PaO2), arterial 435.7 mmHg (> 60.0); Potassium - ABG Lab 6.81 mmol/L (3.70-5.30)
[2020-11-26 00:12] LABS: CO2 Tension 22.8 mmHg (35.0-45.0); Puncture Site RRA; pH, Arterial 7.21 (7.35-7.45)
[2020-11-26] MEDS ORDERED: Lorazepam 2 MG/ML VIAL SLOW IVP PRN (01:30)
[2020-11-26] MEDS ORDERED: Fentanyl BOLUS 250 ML IVPB PRN (01:30)
[2020-11-26] MEDS ORDERED: Propofol BOLUS 1,000 MG/100 ML VIAL IV PRN (01:30)
[2020-11-26] MEDS ORDERED: DISCONTINUE PREVIOUS NARCOTIC PAIN MEDICATIONS AND BENZODIAZEPINES FS SCH (01:30)
[2020-11-26] MEDS ORDERED: Propofol 1,000 MG/100 ML VIAL IV PRN (01:30)
[2020-11-26] MEDS ORDERED: Morphine 2 MG/ML VIAL SLOW IVP PRN (01:30)
[2020-11-26 01:36] LABS: Troponin I 0.021 ng/mL (< 0.028)
[2020-11-26] MEDS ORDERED: Vancomycin 1.5 GRAM/300 ML BAG 1.5 GM in Premix Bag 1 BAG IVPB SCH (02:00)
[2020-11-26 02:20] VITALS: BMI 28.0
[2020-11-26] MEDS ORDERED: Norepinephrine 8 MG/0.9% NS 250 ML ONE (03:08)
[2020-11-26] MEDS: Piperacillin/Tazobactam 2.25 GM in Sodium Chloride 0.9% 100 ML IVPB SCH ×2 (03:14→09:37)
[2020-11-26 03:32] LABS: Creatinine, Urine 91.34 mg/dL (47-110); Sodium, Urine Less than 20 mmol/L (Not Available)
[2020-11-26 04:24] LABS: Albumin 3.1 g/dL (3.4-4.8); Anion Gap 26 mmol/L (10-20); BUN (Urea Nitrogen) 53 mg/dL (9.8-20.1); BUN/Creatinine Ratio 15.82; Calc. Creatinine Clearance 16 mL/min (70-130); Calcium 8.1 mg/dL (7.8-10.44); Carbon Dioxide 9 mmol/L (23-31); Chloride 106 mmol/L (98-107); Glucose 110 mg/dL (83-110); Phosphorus 7.8 mg/dL (2.3-4.7); Potassium 7.7 mmol/L (3.5-5.1); Sodium 133 mmol/L (136-145)
[2020-11-26 04:25] LABS: Troponin I 0.024 ng/mL (< 0.028)
[2020-11-26 04:30] LABS: Band 12 % (5-11); Hemoglobin 13.1 g/dL (12.0-16.0); MDiff Complete? YES; Mean Corpuscular HGB CONC 32.4 g/dL (32.0-36.0); Mean Corpuscular Hemoglobin 29.2 pg (27.0-31.0); Mean Corpuscular Volume 89.9 fL (78.0-98.0); Mean Platelet Volume 8.8 fL (7.4-10.4); Monocytes 6 % (0-10); Neutrophil 74 % (42-75); Nucleated RBC 1 % (0); Platelet Count 187 thou/uL (130-400); Platelet Morphology Comment Appears Adequate; RBC Distribution Width 15.2 % (11.5-14.5); RBC Morphology Normal; Reactive Lymphocytes 8 % (0-10); Red Blood Cell (RBC) Count 4.51 mill/uL (4.20-5.40); White Blood Cell (WBC) Count 21.2 thou/uL (4.8-10.8)
[2020-11-26] MEDS ORDERED: Albuterol Sulfate 1.25 MG/3 ML NEB NEB SCH (04:45)
[2020-11-26] MEDS ORDERED: Calcium Gluconate 9.2 MEQ in Sodium Chloride 0.9% 100 ML IVPB SCH (05:00)
[2020-11-26] MEDS ORDERED: Norepinephrine 16 MG in Dextrose 5% in Water 234 ML IVPB SCH ×2 (05:00)
[2020-11-26] MEDS ORDERED: Sodium Bicarbonate 150 MEQ in Dextrose 5% in Water 1,000 ML IV SCH (05:00)
[2020-11-26] MEDS ORDERED: Bumetanide 1 MG/4 ML VIAL IVP SCH (06:00)
[2020-11-26] MEDS ORDERED: Levothyroxine Sodium 50 MCG TAB PO SCH (06:00)
[2020-11-26] MEDS ORDERED: Sodium Bicarbonate 100 MEQ in Dextrose 5% in Water 1,000 ML IV SCH (07:00)
[2020-11-26 07:21] LABS: Actual Bicarbonate (HCO3a) 15.1 mEq/L (22-28); Base Excess (BEa) -8.9 mEq/L (-2.0 to +3.0); CO2 Tension 27.5 mmHg (35.0-45.0); Calcium, Ionized (arterial) 1.13 mmol/L (1.12-1.30); Carboxyhemoglobin (COHb) 0.5 gm% (0.0-3.0); O2 Tension (PaO2), arterial 95.3 mmHg (> 60.0); Potassium - ABG Lab 5.51 mmol/L (3.70-5.30); pH, Arterial 7.36 (7.35-7.45)
[2020-11-26 07:23] LABS: Puncture Site RRA
[2020-11-26 07:24] LABS: ALV-art Gradient 119.875 mmHg (0-20)
[2020-11-26] MEDS ORDERED: PARoxetine 20 MG TAB PO SCH (09:00)
[2020-11-26] MEDS ORDERED: Aspirin Chewable 81 MG TAB PO SCH (09:00)
[2020-11-26] MEDS ORDERED: Famotidine 20 MG TAB PO SCH (09:00)
[2020-11-26] MEDS ORDERED: Apixaban 2.5 MG TAB PO SCH (09:00)
[2020-11-26 10:52] VITALS: BP 85/50
[2020-11-26 11:13] LABS: Anion Gap 22 mmol/L (10-20); BUN (Urea Nitrogen) 55 mg/dL (9.8-20.1); Calc. Creatinine Clearance 15 mL/min (70-130); Calcium 7.8 mg/dL (7.8-10.44); Carbon Dioxide 20 mmol/L (23-31); Chloride 97 mmol/L (98-107); Glucose 387 mg/dL (83-110); Potassium 4.5 mmol/L (3.5-5.1); Sodium 134 mmol/L (136-145)
[2020-11-26 15:00] VITALS: TEMP 97.2
[2020-11-26] MEDS ORDERED: Atorvastatin Calcium 40 MG TAB PO SCH (21:00)
[2020-11-26] MEDS ORDERED: Mirtazapine 15 MG TAB PO SCH (21:00)
[2020-11-27] MEDS ORDERED: Vancomycin 1 GM in Premix Bag 1 BAG IVPB SCH (02:00)
== END 2020-11-26 16:22 | disposition hospice, inpatient (51) | DRG 208 ==
LOC: ERS 17:31 → ERHOLD 21:18 → CCU 11-26 01:24
PROVIDERS: ADMIT Internal Medicine; ATTEND Internal Medicine
PROC: 5A1935Z Respiratory Ventilation, Less than 24 Consecutive Hours (ICD-10-PCS; principal; 2020-11-25)
PROC: 0BH17EZ Insertion of Endotracheal Airway into Trachea, Via Natural or Artificial Opening (ICD-10-PCS; 2020-11-25)
PROC: 0D9670Z Drainage of Stomach with Drainage Device, Via Natural or Artificial Opening (ICD-10-PCS; 2020-11-25)
PROC: 06HY33Z Insertion of Infusion Device into Lower Vein, Percutaneous Approach (ICD-10-PCS; 2020-11-25)
PROC: 3E033XZ Introduction of Vasopressor into Peripheral Vein, Percutaneous Approach (ICD-10-PCS; 2020-11-25)
DX: J96.01 Acute respiratory failure with hypoxia (principal); R57.0 Cardiogenic shock; I50.33 Acute on chronic diastolic (congestive) heart failure; I13.0 Hypertensive heart and chronic kidney disease with heart failure and stage 1 through stage 4 chronic kidney disease, or unspecified chronic kidney disease; N17.9 Acute kidney failure, unspecified; I48.20 Chronic atrial fibrillation, unspecified; E87.2 Acidosis; E78.5 Hyperlipidemia, unspecified; Z86.16 Personal history of COVID-19; E78.00 Pure hypercholesterolemia, unspecified; E11.22 Type 2 diabetes mellitus with diabetic chronic kidney disease; N18.30 Chronic kidney disease, stage 3 unspecified; E87.5 Hyperkalemia; I25.10 Atherosclerotic heart disease of native coronary artery without angina pectoris; I08.1 Rheumatic disorders of both mitral and tricuspid valves; I27.20 Pulmonary hypertension, unspecified; F41.9 Anxiety disorder, unspecified; I69.920 Aphasia following unspecified cerebrovascular disease; I25.2 Old myocardial infarction; Z95.1 Presence of aortocoronary bypass graft; Z95.0 Presence of cardiac pacemaker; Z88.2 Allergy status to sulfonamides; Z88.8 Allergy status to other drugs, medicaments and biological substances; Z79.890 Hormone replacement therapy; Z79.899 Other long term (current) drug therapy; Z79.82 Long term (current) use of aspirin; Z90.710 Acquired absence of both cervix and uterus; Z98.890 Other specified postprocedural states
CPT/HCPCS: 31500; 36415; 36416; 36556; 36600; 51702; 71045; 76770; 80053; 80069; 82553; 82570; 82805; 83605; 83735; 83880; 84100; 84133; 84300; 84443; 84484; 85007; 85025; 85027; 85379; 87040; 93005; 94002; 94660; 96365; 96366; 96367; 96368; 96372; 96375; 99292; J0171; J0456; J0692; J1250; J1650; J2001; J2543; J3370; J3490; J7070

== ENCOUNTER 2020-11-26 16:23 | Inpatient (IN) | payer OTHER ==
[2020-11-26] MEDS ORDERED: Bisacodyl 10 MG SUPP PR PRN (16:47)
[2020-11-26] MEDS ORDERED: Morphine 4 MG/ML VIAL SLOW IVP PRN (16:48)
[2020-11-26 16:50] VITALS: BMI 27.8
[2020-11-26] MEDS ORDERED: Fentanyl CADD 100 ML IV SCH (17:00)
[2020-11-26] MEDS: Lorazepam 2 MG/ML VIAL SLOW IVP PRN ×2 (17:16→17:37)
== END 2020-11-26 17:45 | disposition expired | DRG 951 ==
LOC: CCU 16:23
PROVIDERS: ADMIT Internal Medicine; ATTEND Internal Medicine
DX: Z51.5 Encounter for palliative care (principal); I50.31 Acute diastolic (congestive) heart failure; N17.9 Acute kidney failure, unspecified; I13.0 Hypertensive heart and chronic kidney disease with heart failure and stage 1 through stage 4 chronic kidney disease, or unspecified chronic kidney disease; Z66 Do not resuscitate; N18.30 Chronic kidney disease, stage 3 unspecified; E11.22 Type 2 diabetes mellitus with diabetic chronic kidney disease; I48.91 Unspecified atrial fibrillation; I25.10 Atherosclerotic heart disease of native coronary artery without angina pectoris; E03.9 Hypothyroidism, unspecified; Z79.01 Long term (current) use of anticoagulants; Z95.1 Presence of aortocoronary bypass graft; Z88.2 Allergy status to sulfonamides; Z88.8 Allergy status to other drugs, medicaments and biological substances; Z79.899 Other long term (current) drug therapy; Z79.890 Hormone replacement therapy; Z79.82 Long term (current) use of aspirin; R06.03 Acute respiratory distress
CPT/HCPCS: J2060; J2270